=== PATIENT | male | born 1950 | race Caucasian/White ===

== ENCOUNTER → 2017-08-25 07:37 | Outpatient (CLI) | payer OTHER, SELFPAY ==
[2017-08-25 10:38] LABS: AST(SGOT) 26 U/L (15-37); Alanine Aminotransfer ALT/SGPT 29 U/L (16-61); Albumin, Serum 3.3 g/dL (3.2-5.0); Alkaline Phosphatase 99 U/L (45-117); Cholesterol 158 mg/dL (200); Globulin 4.2 g/dL (2.2-4.2); High Density Lipoprotein 53 mg/dL; Protein, Total 7.5 g/dL (6.4-8.2); Triglycerides 142 mg/dL; Very Low Density Lipoprotein 28 mg/dL (5-40)
== END ==
PROVIDERS: Internal Medicine Cardiovascular Disease; Family Provider Family Medicine; PCP Family Medicine; Visit Provider Internal Medicine Cardiovascular Disease
DX: E78.1 Pure hyperglyceridemia (principal)
CPT/HCPCS: 36415; 80061; 80076

== ENCOUNTER → 2018-05-03 09:18 | Outpatient (CLI) | payer OTHER, SELFPAY ==
[2018-04-25 08:17] VITALS: BMI 27.3
--- NOTE | 2018-05-03 09:20 | STE_ITS ---
Reason For Study: Family HX of CAD Stress Results Protocol: Sampson Protocol Maximum Predicted HR: 152 bpm Target HR: 129 bpm % Maximum Predicted HR: 109 % DurationHeart Rate Stage (mm:ss) (bpm) BP Comment Baseline 75 138/72No Chest Pain Sampson Protocol Stage I 3:00 105 128/82No Chest Pain Sampson Protocol Stage II 3:00 126 142/78No Chest Pain Sampson Protocol Stage III 3:00 157 150/72No Chest Pain; Mild Dyspnea Sampson Protocol Stage IV 0:30 166 / No Chest Pain; Mild Dyspnea Recovery 93 142/70No Chest Pain Stress Duration: 9:30 mm:ss Maximum Stress HR: 166 bpm METS: 11 Baseline Echocardiogram Findings The estimated ejection fraction is 65 %. Stress Echo Wall motion Data Resting WM Intermediate WM Stress WM Resting Wall Motion Wall Motion Stress No regional wall motion No regional wall motion abnormalities noted. abnormalities noted. EKG Data The baseline ECG displays normal sinus rhythm. The patient exercised according to the regular Sampson protocol for a total duration of 9:30. The maximum heart rate attained was 169 beats per minute. This was 111% of maximum predicted heart rate. The patient exercised into stage 4 of the Sampson protocol. During stress, there were no ST or T wave changes noted to suggest ischemia. No clinical angina was noted. Interpretation Summary The estimated ejection fraction is 65 %. Normal, adequate, treadmill echocardiogram. Negative for ischemia by EKG and echocardiographic criteria. No anginal symptoms noted. Rare PVC noted. Appropriate blood pressure response to exercise. Average exercise capacity for age. Final LVEF is 75%. No complications. Test terminated due to fatigue. Ordering Physician: Helio Bah Referring Physician: Nathan Arredondo D.O. Performed By: Hilda Gorman RDCS
--- OUTSIDE RECORDS SUMMARY | 2018-08-04 15:59 | XMS RPT_ITS ---
:1950 Author Organization OHIP Care Team Providers Name Role Phone Helio Bah Attending Unavailable Helio Bah Referring Unavailable Nathan Arredondo Primary Care Unavailable Helio Bah Attending Unavailable Helio Bah Referring Unavailable Nathan Arredondo Primary Care Unavailable Helio Bah Consulting Unavailable Julián Drake Attending Unavailable Julián Drake Referring Unavailable Nathan Arredondo Primary Care Unavailable Sabine Jean Attending Unavailable Helio Bah Attending Unavailable Nathan Arredondo Referring Unavailable ArnulfoNathan everett Primary Care Unavailable Nam Flores Attending Unavailable Nam Flores Referring Unavailable Sarabjit Monsivais Attending Unavailable Nathan Arredondo Referring Unavailable Nathan Arredondo Primary Care Unavailable Harinder Streeter Attending Unavailable Nathan Arredondo Referring Unavailable Helio Bah Attending Unavailable Nathan Arredondo Referring Unavailable PROBLEMS PROBLEMS DATE TYPE CONDITION / CODE ATTENDING STATUS SOURCE 05/04/2018 Unknown E78.5 - Olvin Helio Active [place] Hyperlipidemia, Community unspecified / Hospital E78.5(ICD-10) Repository 05/04/2018 Unknown I10 - Essential Olvin Helio Active [place] (primary) [facility] hypertension / Hospital I10(ICD-10) Repository PROCEDURES PROCEDURES No Procedure Records FoundRESULTS RESULTS OFFICE VISIT REPORT Observed: 05/18/2018 Status: F Source: [place] 8:11 AM [facility] REPOSITORY [facility] [address] [address] OFFICE VISIT Date of Service: 03/29/18 MR#: [id number] Acct: [id number] Patient: NIMESH ALVARADO Rep #: [id number] : 1950 Provider: Harinder FERREIRA Age/Sex: 67/M Location: [facility] Status: Signed Intake Intake Visit Reasons: FLU SHOT Chief Complaint: open wound Allergies No Known Allergies Allergy (Verified 04/25/18 08:20) Medications Adalimumab [Humira] 40 mg SQ Q14D 09/20/14 [History Confirmed 04/25/18] Lactase [Lactaid] 1 tab PO TID 09/20/14 [History Confirmed 04/25/18] Loperamide [Imodium] 2 mg PO TID 09/20/14 [History Confirmed 04/25/18] [place]-3 Fatty Acids/Fish Oil [Fish Oil 1,000 mg Capsule] 1 ea PO QODAY 09/20/14 [History Confirmed 04/25/18] Ascorbic Acid [Vitamin C] 500 mg PO DAILY@0800 07/15/16 [History Confirmed 04/25/18] Pantoprazole Sodium [Protonix] 40 mg PO DAILY 07/15/16 [History Confirmed 04/25/18] Lutein 6 mg PO DAILY 07/24/16 [History Confirmed 04/25/18] cyanocobalamin (vit B-12) 500 mcg tablet 1,000 mcg PO DAILY@0800 tab 04/25/18 [History Confirmed 04/25/18] simethicone 125 mg capsule 250 mg PO .COMPLEX cap 04/25/18 [History Confirmed 04/25/18] valsartan 320 mg tablet 320 mg PO .COMPLEX 04/25/18 [History Confirmed 04/25/18] Immunizations Fluad 65yr up(PF)45 mcg(15 mcgx3)/0.5 mL intramuscular syringe Performing Provider: HANNA Victor Administered by: Vale Rivers on 03/29/18 08:39 Dose Route Admin Location Lot Number Expiration Date NDC Quality Control Engineer 45 mcg IM Right Deltoid [id number] 09/13/18 01675-390-03 SEQIRUS VIS Given Date VIS Publication Date 03/29/18 03/29/18 Eligibility Eligibility Date Assessment AND Plan Orders Orders: Medications Discontinued: Fluad 65yr up(PF)45 mcg(15 mcgx3)/0.5 mL intr45 mcg (0.5 mL) IM ONCE #1 0RF NS Z23 amuscular syringe (flu vac 2017 [id number])) Discontinued Reason: Office Medication has been Doc umented as given 05/18/18 0811 <Electronically signed by Sarabjit FERREIRA> Date Sarabjit FERREIRA Cosigner Signature: Date (if applicable) CC: STRESS TEST ECHO W/O Observed: 05/04/2018 Status: F Source: [place] CONTRAST 1:54 PM [facility] REPOSITORY [facility] [address] [place] [address] Stress Test Echo w/o Contrast MR#: [id number] Acct: [id number] Name: BRENNAAMRITNIMESH Haley Rep #: [id number] : 1950 67 From: Helio Bah MD Primary Care: Nathan Arredondo DO Status: REG CLI Ordering Dr: Helio Bah MD Sex: M C Reason For Study: Family HX of CAD Stress Results Protocol: Sampson Protocol Maximum Predicted HR: 152 bpm Target HR: 129 bpm % Maximum Predicted HR: 109 % DurationHeart Rate Stage (mm:ss) (bpm) BP Comment Baseline 75 138/72No Chest Pain Sampson Protocol Stage I 3:00 105 128/82No Chest Pain Sampson Protocol Stage II 3:00 126 142/78No Chest Pain Sampson Protocol Stage III 3:00 157 150/72No Chest Pain; Mild Dyspnea Sampson Protocol Stage IV 0:30 166 / No Chest Pain; Mild Dyspnea Recovery 93 142/70No Chest Pain Stress Duration: 9:30 mm:ss Maximum Stress HR: 166 bpm METS: 11 Baseline Echocardiogram Findings The estimated ejection fraction is 65 %. Stress Echo Wall motion Data Resting WM Intermediate WM Stress WM Resting Wall Motion Wall Motion Stress No regional wall motion No regional wall motion abnormalities noted. abnormalities noted. EKG Data The baseline ECG displays normal sinus rhythm. The patient exercised according to the regular Sampson protocol for a total duration of 9:30. The maximum heart rate attained was 169 beats per minute. This was 111% of maximum predicted heart rate. The patient exercised into stage 4 of the Sampson protocol. During stress, there were no ST or T wave changes noted to suggest ischemia. No clinical angina was noted. Interpretation Summary The estimated ejection fraction is 65 %. Normal, adequate, treadmill echocardiogram. Negative for ischemia by EKG and echocardiographic criteria. No anginal symptoms noted. Rare PVC noted. Appropriate blood pressure response to exercise. Average exercise capacity for age. Final LVEF is 75%. No complications. Test terminated due to fatigue. Ordering Physician: Helio Bah Referring Physician: Nathan Arredondo D.O. Performed By: Hilda Gomran, MARIO 05/04/18 1354 Date Helio Bah MD CC: Helio Bah MD; Nathan Arredondo DO Date Dictated: 05/03/18 1002 Date Transcribed: 05/04/18 1354 Rn Spine: Signed CARDIOLOGY VISIT Observed: 04/25/2018 Status: F Source: [place] REPORT 8:33 AM [facility] REPOSITORY [facility] [address] [place] [address] OFFICE VISIT Date of Service: 04/25/18 MR#: [id number] Acct: [id number] Name: NIMESH ALVARADO Rep #: [id number] : 1950 Provider: Helio Bah MD Age/Sex: 67/M Location: [facility] Status: Signed HPI HPI Chief Complaint: Routine f/u Details: Referring physician Dr. Arias Mr. 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 He is currently on Humira therapy. He has no known cardiac issues but does have a positive family history of coronary disease in both his mother and father in their middle 60s. The patient himself smoked approximately 25 pack years and quit when he was 39 years old. The patient previously developed shortness of breath and what sounds like chest pain with deep inspiration necessitating frequent short inspiratory efforts. Patient was placed on valsartan/HCTZ, and then developed frequent PVCs and palpitations as well as dehydration. It was then discovered that the patient had a rib out of joint which was relocated, and his shortness of breath completely resolved. Nonetheless given his PVCs he was taken off the hydrochlorothiazide, and placed on valsartan only. He underwent a 24-hour Holter monitor on 10/04/14 which demonstrated rare bigeminy and trigeminy, as well as a 4 beat run of wide complex tachycardia. patient underwent stress testing and echocardiogram evaluation, both of which were normal. This occurred in 10/23/14. From a cardiac standpoint he denies any chest pain, angina, shortness of breath or dyspnea on exertion. He has had no change in his exercise capacity. His palpitations have completely resolved after stopping HCTZ. He denies any lightheadedness, dizziness, presyncope or syncopal episodes. Since her last visit and he was admitted with a kidney stone which self resolved, and underwent esophageal dilatation without complications. On 10/23/14 the patient underwent a 2D echo with Doppler which was found to have normal LV function normal RVSP. On 10/24/14 he underwent a stress echocardiogram which was negative for inducible ischemia. Since her last visit, the patient has been doing fairly well. 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 He has had no significant perceptible change in his exercise capacity, but is concerned about his family history of coronary artery disease. He is compliant with his medications per In our office today his blood pressure is 130/60 and pulse is 64 and regular. His physical exam is as below. His EKG dated 09/20/14 showed normal sinus rhythm, normal axis, normal intervals, no evidence of previous myocardial infarction. Lipids as of 09/20/14 showed HDL of 54 and LDL of 48. Repeat lipids dated 07/06/16 showed LDL of 71 and HDL of 58. His lipids as of 08/25/17 showed LDL of 77 and HDL of 53. 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 Is patient in pain?: No Allergies No Known Allergies Allergy (Verified 04/25/18 08:20) Medications Adalimumab [Humira] 40 mg SQ Q14D 09/20/14 [History Confirmed 04/25/18] Lactase [Lactaid] 1 tab PO TID 09/20/14 [History Confirmed 04/25/18] Loperamide [Imodium] 2 mg PO TID 09/20/14 [History Confirmed 04/25/18] [place]-3 Fatty Acids/Fish Oil [Fish Oil 1,000 mg Capsule] 1 ea PO QODAY 09/20/14 [History Confirmed 04/25/18] Ascorbic Acid [Vitamin C] 500 mg PO DAILY@0800 07/15/16 [History Confirmed 04/25/18] Pantoprazole Sodium [Protonix] 40 mg PO DAILY 07/15/16 [History Confirmed 04/25/18] Lutein 6 mg PO DAILY 07/24/16 [History Confirmed 04/25/18] cyanocobalamin (vit B-12) 500 mcg tablet 1,000 mcg PO DAILY@0800 tab 04/25/18 [History Confirmed 04/25/18] simethicone 125 mg capsule 250 mg PO .COMPLEX cap 04/25/18 [History Confirmed 04/25/18] valsartan 320 mg tablet 320 mg PO .COMPLEX 04/25/18 [History Confirmed 04/25/18] [facility] Medical History History of esophageal dilatation (Resolved) Palpitations (Resolved) Premature ventricular contractions (Chronic) Crohn's disease (Chronic) Hypophosphatemia (Chronic) Hypocalcemia (Chronic) Hyperlipidemia (Chronic) Hypertension (Chronic) Surgical History History of right inguinal hernia repair (Resolved) History of lithotripsy (Chronic) History of resection of small bowel (Chronic) Family History Mother CAD (coronary artery disease) Hypertension Bowel disease Father CAD (coronary artery disease) Hypertension Social History Smoking Status: Former smoker pack-years: 25 ROS Const Const: Negative for fatigue, weakness, body ache, fever(s), headache(s), chills, frequent falls, night sweats, daytime sleepiness, difficulty sleeping, excessive sweating, weight gain, weight loss, increased appetite, poor appetite, anorexia or other Eyes Eyes: Negative for blind spots, loss of peripheral vision, transient loss of vision, blurry vision, change in vision, double vision, floaters, tunnel vision or other ENT ENT: Negative for headache(s), dizziness, hearing loss, tinnitus, Nosebleed/epistaxis, balance problems, post nasal drip, lip swelling, tongue swelling, bleeding gums, hoarseness, neck pain, dry mouth or other Cardio Chest Pain: No Palpitations: No Edema: None Muscle aches with walking: None Resp Respiratory: Negative for SOB with activity, SOB at rest, SOB orthopnea\SOB lying down, Cough, Coughing up blood/hemoptysis, chest congestion, pain on inspiration, snoring, stridor, wheezing, crackles, paroxysmal nocturnal dyspnea or other GI GI: Negative nausea, vomiting, heartburn, constipation, belching, bloating, cramping, vomiting blood/hematemesis, bright, red blood in stools, black,tarry stools, loose stools, Difficulty Swallowing or other : Negative for hematuria, frequent nighttime urination/ nocturia, erectile dysfunction or abnormal vaginal bleeding Musc Musc: Negative for balance problems, muscle aches/ myalgia, muscle weakness or joint pain Skin Skin: Negative redness, non-healing lesions, rash, unusual bruising, skin ulcer, wounds, jaundice or other Neuro Neuro: Negative for weakness, headache(s), frequent falls, blurry vision, double vision, dizziness, lightheadedness, near syncope, syncope, orthostatic symptoms, confusion, memory loss, restless legs, vertigo, seizures, lack of coordination or other Hay Hematologic/Lymphatic: Negative for easy bleeding, easy bruising, enlarged lymph nodes or other Endo Endo: Negative for fatigue, excessive sweating, cold intolerance, heat intolerance, flushing, increased thirst/drinking, increased hunger, hair loss, hair growth or other Psych Psych: Negative for anxiety, depression, thoughts of harming anyone, thoughts of harming yourself, visual hallucinations, panic attacks or audible hallucinations Allergy Allergy/Immunology: Negative for lip swelling, Negative for tongue swelling, Negative for rash, Negative for throat swelling, Negative for hives Cardiology Exam Const Appearance: cooperative, healthy appearing and no acute distress Nutritional Appearance: well nourished Orientation: alert, oriented x3 and oriented to person Head Head: normal to inspection, atraumatic and normocephalic Nose: external nose normal Face and Sinus: face symmetric Mouth: oral mucosae normal Eyes General: appearance normal, both eyes and all related structures Eyelids: eyelids normal Conjunctivae: conjunctivae normal Pupils: PERRL and normal by confrontation EOM: EOM intact bilaterally Neck Neck: normal visual inspection and full ROM Carotids: normal carotid upstroke Chest Chest inspection: normal inspection of the chest Auscultation: Bilateral: Clear to Auscultation Cardio Palpation: normal PMI Rate: regular rate Rhythm: regular rhythm Heart sounds: S1 normal and S2 normal GI GI: normal to inspection, no hepatosplenomegaly and bowel sounds present Neuro General: alert, oriented x3, awake, CN's II-XI intact bilaterally and moves all extremities Skin Skin: no rashes or lesions noted Extremities Pulses: Normal: Right Femoral Pulse, Left Femoral Pulse, Right Dorsalis Pedis Pulse, Left Dorsalis Pedis Pulse, Right Posterior Tibial Pulse, Left Posterior Tibial Pulse, Right Radial Pulse, Left Radial Pulse Lower Extremity Edema: None: Bilateral Psych Psychological: normal affect Assessment AND Plan 1. Hyperlipidemia E78.5 Plan 1. Hyperlipidemia: Given the patient's family history of coronary artery disease, particularly in both of his parents in their 60s, as well as the fact the patient was a smoker, I recommend that he undergo a treadmill echocardiogram for coronary surveillance and exercise capacity evaluation. His blood pressure and heart rate are fairly well-controlled. He is taking and tolerating his medicines well. He will continue valsartan as well as omega-3 fatty acid. His stress test is grossly abnormal, or if he has had a precipitous decrease in his exercise capacity, would recommend a diagnostic coronary angiogram. 2. Return office in 6 months. This note was generated using a voice recognition system and there may be incorrect words, spelling or punctuation that were not noted when reviewing the office note prior to saving. Orders Orders: Plan Detail Other Orders Orders: Follow Up +6M (Olvin) Coding Level of Care Code Off vis,est,level 3 Diagnoses Hyperlipidemia E78.5 Coding Level of Care Code Off vis,est,level 3 Diagnoses Hyperlipidemia E78.5 04/25/18 0833 <Electronically signed by Helio Bah MD> Date Helio Bah MD Cosigner Signature: Date (if applicable) CC: Nathan Arredondo DO URGENT CARE VISIT Observed: 01/20/2018 Status: F Source: [place] REPORT 10:08 AM [facility] REPOSIT[facility] [address] [place] [address] [address] [place] [address] OFFICE VISIT Date of Service: 01/20/18 MR#: [id number] Acct: [id number] Name: NIMESH ALVARADO Rep #: [id number] : 1950 Provider: Sarabjit FERREIRA Age/Sex: 67/M Location: [facility] Status: Signed Intake Vital Signs01/20/18 Height 5 ft 10 in 01/20/18 Weight: 191 lb 2 oz Intake Visit Reasons: Sore on Neck 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 Accompanied by: None Allergies No Known Allergies Allergy (Verified 09/24/17 10:03) Medications Adalimumab [Humira] 40 mg SQ Q14D 09/20/14 [History Confirmed 09/24/17] Cyanocobalamin [Vitamin B12] 500 mcg PO DAILY@0800 09/20/14 [History Confirmed 09/24/17] Lactase [Lactaid] 1 tab PO TID 09/20/14 [History Confirmed 09/24/17] Loperamide [Imodium] 2 mg PO TID 09/20/14 [History Confirmed 09/24/17] [place]-3 Fatty Acids/Fish Oil [Fish Oil 1,000 mg Capsule] 1 ea PO QODAY 09/20/14 [History Confirmed 09/24/17] Valsartan [Diovan] 320 mg PO DAILY 07/01/16 [History Confirmed 09/24/17] Ascorbic Acid [Vitamin C] 500 mg PO DAILY@0800 07/15/16 [History Confirmed 09/24/17] Pantoprazole Sodium [Protonix] 40 mg PO DAILY 07/15/16 [History Confirmed 09/24/17] Lutein 6 mg PO DAILY 07/24/16 [History Confirmed 09/24/17] PFSH Medical History History of esophageal dilatation (Resolved) Palpitations (Resolved) Premature ventricular contractions (Chronic) Crohn's disease (Chronic) Hypophosphatemia (Chronic) Hypocalcemia (Chronic) Hyperlipidemia (Chronic) Hypertension (Chronic) Surgical History History of right inguinal hernia repair (Resolved) History of lithotripsy (Chronic) History of resection of small bowel (Chronic) Family History Mother CAD (coronary artery disease) Hypertension Bowel disease Father CAD (coronary artery disease) Hypertension Social History Smoking Status: Former smoker pack-years: 25 HPI HPI Chief Complaint: open wound Details: NIMESH ALVARADO, is a 67 M who presents to the office today for evaluation open wound to right side of neck. 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 Patient states that this open site has been there for approximately 6 months, noting that the site intermittently bleeds and has a burning/stinging sensation that is only relieved when being covered up by topical Neosporin ointment. Patient notes as soon as the ointment wears off the stinging burning sensation returns. He states several months ago and it scabbed over but then scattered fallen off and the pain returned. He notes no discharge from the same. 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 Granger ortho assistant. He notes no complaints of fever, chills, sweats, chest pain/shortness of breath, cough, recent remarkable weight gain or loss, nausea, vomiting, or changes in bowel or bladder function. He notes no other associated symptoms and no other alleviating or aggravating factors. ROS Const Constitutional: No other (ROS negative 10 other than that noted above) Exam Const General: cooperative, healthy appearing, no acute distress, comfortable Nutritional Appearance: average body habitus Orientation: alert, awake, oriented x3 HENMT Head: normal to inspection Ears: hearing grossly normal bilaterally, external ears normal Nose: external nose normal Neck Neck: normal visual inspection, full ROM, no lymphadenopathy, no meningeal signs, supple Neck mass: No Thyroid: thyroid normal Lymphatic: no lymphadenopathy noted Chest Chest palpation AND inspection: normal inspection of the chest Resp Effort AND Inspection: normal respiratory effort, able to speak in complete sentences, symmetric chest movement, no cough Auscultation: Bilateral: Clear to Auscultation Cardio Palpation: normal PMI Rate: regular rate Rhythm: regular rhythm Heart Sounds: S1 normal, S2 normal, no gallops, no murmurs, no rubs Pulses: radial pulses present Skin Lesions: lesion noted ( 5mm diameter open flat lesion to right side of neck) Rashes: no rashes Neuro General: alert, awake, oriented x3, gait normal Cognition: normal cognition Speech: speech normal Gait: normal gait Motor: muscle tone normal throughout Sensory Exam: no sensory deficits noted Psych Appearance: grossly normal Mental Status: mental status grossly normal Mood: congruent mood Affect: normal affect Speech and Movement: speech and movement normal Attitude: cooperative Thought Process: normal Thought Content: normal Judgment: judgment good Assessment AND Plan Problems 1. Skin lesion of neck L98.9 Plan Due to the approximately 6 month history of the lesion being present on the right side of the neck coupled with his history of skin cancer as he notes, recommend dermatology referral at this time. Patient states he will report to Dr. Granger's office here in [place] at this time to set an appointment for evaluation for first available. This note was generated with Simphatication software. It may contain incorrect words, spelling, and punctuation that were not noted in checking the note before signing. Coding Level of Care Code Off vis,est,level 3 Diagnoses Skin lesion of neck L98.9 01/20/18 1008 <Electronically signed by Sarabjit FERREIRA> Date Sarabjit FERREIRA [facility] Signature: Date (if applicable) CC: CARDIOLOGY VISIT Observed: 09/24/2017 Status: F Source: [place] REPORT 10:40 AM [facility] REPOSITORY [facility] [address] [place] [address]. [address] [place] [address] OFFICE VISIT Date of Service: 09/24/17 MR#: [id number] Acct: [id number] Name: NIMESH ALVARADO Rep #: [id number] : 1950 Provider: Helio Bah MD Age/Sex: 66/M Location: [facility] [place] Status: Signed HPI HPI Chief Complaint: Routine f/u Details: Referring physician Dr. Arias Mr. 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 He is currently on Humira therapy. He has no known cardiac issues but does have a positive family history of coronary disease in both his mother and father in their middle 60s. The patient himself smoked approximately 25 pack years and quit when he was 39 years old. The patient previously developed shortness of breath and what sounds like chest pain with deep inspiration necessitating frequent short inspiratory efforts. Patient was placed on valsartan/HCTZ, and then developed frequent PVCs and palpitations as well as dehydration. It was then discovered that the patient had a rib out of joint which was relocated, and his shortness of breath completely resolved. Nonetheless given his PVCs he was taken off the hydrochlorothiazide, and placed on valsartan only. He underwent a 24-hour Holter monitor on 10/04/14 which demonstrated rare bigeminy and trigeminy, as well as a 4 beat run of wide complex tachycardia. patient underwent stress testing and echocardiogram evaluation, both of which were normal. This occurred in 10/23/14. From a cardiac standpoint he denies any chest pain, angina, shortness of breath or dyspnea on exertion. He has had no change in his exercise capacity. His palpitations have completely resolved after stopping HCTZ. He denies any lightheadedness, dizziness, presyncope or syncopal episodes. Since her last visit and he was admitted with a kidney stone which self resolved, and underwent esophageal dilatation without complications. Her last visit, he has been doing extraordinarily well, exercising by cutting the grass in his yard, and denies any chest pain, angina, shortness of breath, change in his exercise capacity, lower extremity edema, presyncope or syncope. He is taking and tolerating his medicines well. No further palpitations. In our office today his blood pressure is 122/62 and pulse is 66 and regular. His physical exam is as below. His EKG dated 09/20/14 showed normal sinus rhythm, normal axis, normal intervals, no evidence of previous myocardial infarction. Lipids as of 09/20/14 showed HDL of 54 and LDL of 48. Repeat lipids dated 07/06/16 showed LDL of 71 and HDL of 58. His lipids as of 08/25/17 showed LDL of 77 and HDL of 53. Intake Vital Signs09/24/17 Height 5 ft 10 in 09/24/17 Weight: 186 lb 09/24/17 Body Mass Index (BMI) 26.6 09/24/17 Blood Pressure 122/62 09/24/17 Respiratory Rate 16 09/24/17 Pulse Rate 66 Intake Visit Reasons: 6 M FU Allergies No Known Allergies Allergy (Verified 09/24/17 10:03) Medications Adalimumab [Humira] 40 mg SQ Q14D 09/20/14 [History Confirmed 09/24/17] Cyanocobalamin [Vitamin B12] 500 mcg PO DAILY@0800 09/20/14 [History Confirmed 09/24/17] Lactase [Lactaid] 1 tab PO TID 09/20/14 [History Confirmed 09/24/17] Loperamide [Imodium] 2 mg PO TID 09/20/14 [History Confirmed 09/24/17] [place]-3 Fatty Acids/Fish Oil [Fish Oil 1,000 mg Capsule] 1 ea PO QODAY 09/20/14 [History Confirmed 09/24/17] Valsartan [Diovan] 320 mg PO DAILY 07/01/16 [History Confirmed 09/24/17] Ascorbic Acid [Vitamin C] 500 mg PO DAILY@0800 07/15/16 [History Confirmed 09/24/17] Pantoprazole Sodium [Protonix] 40 mg PO DAILY 07/15/16 [History Confirmed 09/24/17] Lutein 6 mg PO DAILY 07/24/16 [History Confirmed 09/24/17] PFSH Medical History History of esophageal dilatation (Resolved) Palpitations (Resolved) Premature ventricular contractions (Chronic) Crohn's disease (Chronic) Hypophosphatemia (Chronic) Hypocalcemia (Chronic) Hyperlipidemia (Chronic) Hypertension (Chronic) Surgical History History of right inguinal hernia repair (Resolved) History of lithotripsy (Chronic) History of resection of small bowel (Chronic) Family History Mother CAD (coronary artery disease) Hypertension Bowel disease Father CAD (coronary artery disease) Hypertension Social History Smoking Status: Former smoker pack-years: 25 ROS Const Const: Negative for fatigue, weakness, difficulty sleeping, frequent falls, headache(s) or excessive sweating Eyes Eyes: Negative for loss of peripheral vision, transient loss of vision, blurry vision or double vision ENT ENT: Negative for headache(s), dizziness, Nosebleed/epistaxis or balance problems Cardio Chest Pain: No Edema: None Muscle aches with walking: None Resp Respiratory: Negative for SOB with activity, SOB at rest, SOB orthopnea\SOB lying down or paroxysmal nocturnal dyspnea GI GI: Negative nausea or heartburn : Negative for hematuria Musc Musc: Negative for muscle aches/ myalgia, muscle weakness, joint pain or balance problems Skin Skin: Negative non-healing lesions, unusual bruising or rash Neuro Neuro: Negative for weakness, frequent falls, blurry vision, headache(s), dizziness, lightheadedness, orthostatic symptoms or double vision Hay Hematologic/Lymphatic: Negative for easy bruising Endo Endo: Negative for fatigue, excessive sweating or increased thirst/drinking Psych Psych: Negative for anxiety or depression Allergy Allergy/Immunology: Negative for hives, Negative for rash Cardiology Exam Const Appearance: cooperative, healthy appearing and no acute distress Nutritional Appearance: well nourished Orientation: alert, oriented x3 and oriented to person Head Head: normal to inspection, atraumatic and normocephalic Nose: external nose normal Face and Sinus: face symmetric Mouth: oral mucosae normal Eyes General: appearance normal, both eyes and all related structures Eyelids: eyelids normal Conjunctivae: conjunctivae normal Pupils: PERRL and normal by confrontation EOM: EOM intact bilaterally Neck Neck: normal visual inspection and full ROM Carotids: normal carotid upstroke Chest Chest inspection: normal inspection of the chest Auscultation: Bilateral: Clear to Auscultation Cardio Palpation: normal PMI Rate: regular rate Rhythm: regular rhythm Heart sounds: S1 normal and S2 normal GI GI: normal to inspection, no hepatosplenomegaly and bowel sounds present Neuro General: alert, oriented x3, awake, CN's II-XI intact bilaterally and moves all extremities Skin Skin: no rashes or lesions noted Extremities Pulses: Normal: Right Femoral Pulse, Left Femoral Pulse, Right Dorsalis Pedis Pulse, Left Dorsalis Pedis Pulse, Right Posterior Tibial Pulse, Left Posterior Tibial Pulse, Right Radial Pulse, Left Radial Pulse Lower Extremity Edema: None: Bilateral Psych Psychological: normal affect Assessment AND Plan 1. Hypertension I10 Plan 1. Hypertension: Patient's blood pressure is fairly well- controlled. No indication for any additional testing or changes to his medications. Recommended that he continue to exercise outside but to avoid the very parts of the day. Continue valsartan. 2. Hyper cholesterolemia: His LDL and HDL cholesterol are at goal. Continue omega-3 fatty acids and exercise. 3. Return office in 6 months. This note was generated using a voice recognition system and there may be incorrect words, spelling or punctuation that were not noted when reviewing the office note prior to saving. Plan Detail Follow Up +6M (Olvin) Coding Level of Care Code Off vis,est,level 3 Diagnoses Hypertension I10 Coding Level of Care Code Off vis,est,level 3 Diagnoses Hypertension I10 09/24/17 1040 <Electronically signed by Helio Bah MD> Date Helio Bah MD [facility] Signature: Date (if applicable) CC: Nathan Arredondo DO LIVER PROFILE Collected: 08/25/2017 Status: F Source: [place]ASE 7:46 AM [facility] REPOSITORY Order Comment: Order Date: 07/21/16 Order Info: [id number] - *Hepatic Function Panel Order Info: [id number] - *Lipid Profile CC PCP Comments: 12 hours fasting, may have water. TYPE CODE TESTS RESULT OUT OF RANGE REFERENCE UNITS LAB L501.1500 6.4-8.2 g/dL Normal T PROT 7.5 LAB L501.1800 3.2-5.0 g/dL Normal ALB 3.3 LAB L501.1950 2.2-4.2 g/dL Normal GLOB 4.2 LAB L501.4100 15-37 U/L Normal AST 26 LAB L501.4305 45-117 U/L Normal ALK P 99 LAB L501.4405 16-61 U/L Normal ALT 29 Result Comment: Please note revised ALT reference range effective 2017. LAB L501.4600 0.20-1.00 mg/dL Normal T BILI 1.00 LAB L501.4700 0.00-0.30 mg/dL Normal D BILI 0.20 Performed By: #### L500.3400 #### [facility] [address] [place], [address] LIPID PROFILE Collected: 08/25/2017 Status: F Source: CHASE 7:46 AM [facility] REPOSITORY Order Comment: Order Date: 07/21/16 Order Info: [id number] - *Hepatic Function Panel Order Info: [id number] - *Lipid Profile CC PCP Comments: 12 hours fasting, may have water. TYPE CODE TESTS RESULT OUT OF RANGE REFERENCE UNITS LAB L501.4900 200 mg/dL Normal CHOL 158 Result Comment: <200 mg/dL Desirable 200-240 mg/dL Borderline >240 mg/dL High Risk LAB L501.5000 mg/dL Normal TRIG 142 Result Comment: The drugs N-Acetylcysteine and Metamizole may falsely depress this assay. Serum Triglycerides Reference Interval Normal <150 mg/dL Borderline high 150 - 199 mg/dL High 200 - 499 mg/dL Very High > or = 500 mg/dL LAB L501.6400 mg/dL Normal HDL 53 Result Comment: The drugs N-Acetylcysteine and Metamizole may falsely depress this assay. Reference Range HDL <40 mg/dL Low HDL Cholesterol HDL >or= 60 mg/dL High HDL Cholesterol LAB L501.6500 0-130 mg/dL Normal LDL 77 LAB L501.6600 5-40 mg/dL Normal VLDL 28 Performed By: #### L500.4100 #### [facility] [address] [place], [address] ALLERGIES ALLERGIES DATE TYPE / CODE NAME / CODE REACTION SEVERITY SOURCE 04/25/2018 Drug No Known Unknown [facility] Allergy/4160 Allergies/F00 [facility] 36528(SNOMED 7433601(RXNOR Repository CT) M) ENCOUNTERS ENCOUNTERS ADMIT/DISCHARGE ACCOUNT ADMITTING ENCOUNTER LOCATION SOURCE NUMBER CLASS 05/04/2018/ [id number] Ambulatory BMSBuilding:[place] 8 7 [facility] Repository 05/03/2018 [id number] Ambulatory BMSBuilding:B [place] 2 [place].[facility] Repository 05/03/2018 [id number] [place]ulatory [place] 2 [facility] ing:[facility] Repository 04/25/2018/ [id number] Ambulatory BMSBuilding:B [place] 8 2 MS.[facility] Repository 03/29/2018/ [id number] Ambulatory BMSBuilding:B [place] 8 2 MS.[facility] Repository 01/20/2018/ [id number] Ambulatory BMSBuilding:B [place] 8 2 MS.[facility] Repository 09/24/2017/ [id number] Ambulatory BMSBuilding:B [place] 8 2 [facility] Repository 09/20/2017 [id number] Ambulatory BMSBuilding:B [place] 1 [facility] Repository 08/25/2017 [id number] Ambulatory [place] 3 [facility] ing:[facility] Repository PAYERS PAYERS ENCOUNTER GUARANTOR PAYER SUBSCRIBER SOURCE 05/04/2018 SAUL L Primary SAUL L [place] [id number] Insurance:MEDICARE HELBERTDOB: [address] PART [facility] [id number], [place] [address]Rbb: Number: Repository [id number] (HP) Date:2018-04-19 05/04/2018 Secondary NOT GIVENUNK [place] Insurance:SELF PAY [facility] Number: Effective Repository Date:2018-05-04 05/03/2018 NIMESH [place] Primary Insurance:[facility] KAITLIN [id number] [facility] [id number] Hospital [address]Dle: [phone]) Number: Repository [phone] () [id number] Date:3643-97-63LS [address] [address], [place] [address]JY: CHECK WEBSITE 05/03/2018 Secondary NOT GIVENUNK [place] Insurance:SELF PAY [facility] Number: Effective Repository Date:2018-05-03 05/03/2018 NIMESH L Primary Insurance:[facility] KAITLIN Stone [id number] [facility] [id number] Hospital [address]Pnw: [phone] Number: Repository [phone] () [id number] Date:5060-08-02PA [address] [address]QX[place], [place] [address]WT: CHECK WEBSITE 05/03/2018 Secondary NOT GIVENUNK [place] Insurance:SELF PAY [facility] Number: Effective Repository Date:2018-04-25 04/25/2018 [facility] Primary Insurance:[facility] KAITLIN Stone [id number] [facility] [id number] Hospital [address]Wth: [phone]) Number: Repository [phone] () [id number] Date:7111-98-16[address] [address], [place] [address]EB: CHECK WEBSITE 04/25/2018 Secondary NOT GIVENUNK [place] Insurance:SELF PAY [facility] Number: Effective Repository Date:2018-04-20 03/29/2018 [facility] Primary Insurance:[facility] KAITLIN Stone [id number] [facility] [id number] Hospital [address]Cti: [phone]) Number: Repository [phone] () [id number] Date:2062-76-60[address] [address]IZ[place]Y, [place] [address]LI: CHECK WEBSITE 03/29/2018 Secondary NOT GIVENUNK [place] Insurance:SELF PAY [facility] Number: Effective Repository Date:2018-03-29 01/20/2018 [facility] Primary Insurance:[facility] KAITLIN Stone [id number] [facility] [id number] Hospital [address]Mvd: (330) Number: Repository [phone] () [id number] Date:1473-87-47CX [address] [address]MGOUOFHJQ, [place] [address]QQ: CHECK WEBSITE 01/20/2018 Secondary NOT GIVENUNK [place] Insurance:SELF PAY [facility] Number: Effective Repository Date:2018-01-20 09/24/2017 [facility] Primary Insurance:[facility] KAITLIN Beard [place] [id number] [facility]: [facility] [id number] Hospital [address]Wrw: Number: Repository [phone] [id number] (HP) Date:9574-81-66WH [address] [address]QP[place]WRSHR, [place] [address]FL: CHECK WEBSITE 09/24/2017 Secondary NOT GIVENUNK [place] Insurance:SELF PAY [facility] Number: Effective Repository Date:2017-04-26 09/20/2017 [facility] Primary Insurance:[facility] Kaitlin Beard [place] [id number] [facility]: [facility] [id number] Hospital [address]Jey: Number: Repository [phone] [id number] (HP) Date:0309-95-12WE [address] [address]FAQFBFJO, [place] [address]MI: CHECK WEBSITE 09/20/2017 Secondary NOT GIVENUNK [place] Insurance:SELF PAY [facility] Number: Effective Repository Date:2017-09-20 08/25/2017 [facility] Primary Insurance:[facility] Kaitlin Clintonoster [id number] [facility]: [facility] [id number] Hospital [address]Xvh: Number: Repository [phone] [id number] (HP) Date:1689-83-51FL [address] [address]MDJV[place]GP, [place] [address]RG: CHECK WEBSITE 08/25/2017 Secondary NOT GIVENUNK [place] Insurance:SELF PAY [facility] Number: Effective Repository Date:2017-08-25
== END ==
PROVIDERS: Family Provider Family Medicine; PCP Family Medicine; Referring Provider Internal Medicine Cardiovascular Disease; Visit Provider Internal Medicine Cardiovascular Disease
DX: I10 Essential (primary) hypertension (principal); E78.5 Hyperlipidemia, unspecified
CPT/HCPCS: 93017; 93350

== ENCOUNTER → 2018-08-30 | Outpatient (CLI) | payer OTHER, SELFPAY ==
[2018-08-30 15:00] VITALS: BMI 27.3
--- NOTE | 2018-08-30 15:39 | RAD_ITS ---
STUDY: X-RAY CHEST REASON FOR EXAM: Male, 67 years old. Cough. Difficulty speaking. TECHNIQUE: PA and lateral views of the chest. COMPARISON: September 20, 2014. FINDINGS: The lungs are clear and expanded. There is no demonstrated pleural abnormality. Normal size heart. Normal mediastinum and yu. Normal visualized pulmonary arteries. Normal visualized aortic arch and descending thoracic aorta. No visualized osseous changes. There is no demonstrated abnormality of the visualized soft tissue structures of the upper abdomen. RAD/Chest PA and Lateral IMPRESSION: No acute cardiopulmonary disease or major interval change. Electronically Signed: Brandon Pedroza DO at 16:06 EDT Tel [phone], Service support ,
== END | disposition home or self-care (01) ==
LOC: HPRAD 15:38
PROVIDERS: Family Provider Family Medicine; PCP Family Medicine; Referring Provider Physician Assistant Surgical; Visit Provider Physician Assistant Surgical
DX: J20.9 Acute bronchitis, unspecified (principal)
CPT/HCPCS: 71046

== ENCOUNTER → 2018-11-15 | Outpatient (CLI) | payer OTHER, SELFPAY ==
[2018-11-10 09:38] VITALS: BMI 26.8
[2018-11-15 10:45] LABS: AST(SGOT) 19 U/L (15-37); Alanine Aminotransfer ALT/SGPT 22 U/L (16-61); Albumin, Serum 3.2 g/dL (3.2-5.0); Alkaline Phosphatase 74 U/L (45-117); Bilirubin, Direct 0.23 mg/dL (0.00-0.30); Cholesterol 155 mg/dL (200); Globulin 4.1 g/dL (2.2-4.2); High Density Lipoprotein 49 mg/dL; Protein, Total 7.3 g/dL (6.4-8.2); Triglycerides 164 mg/dL; Very Low Density Lipoprotein 33 mg/dL (5-40)
== END | disposition home or self-care (01) ==
LOC: MTLAB 07:41
PROVIDERS: Family Provider Family Medicine; PCP Family Medicine; Referring Provider Internal Medicine Cardiovascular Disease; Visit Provider Internal Medicine Cardiovascular Disease
DX: E78.5 Hyperlipidemia, unspecified (principal)
CPT/HCPCS: 36415; 80061; 80076

== ENCOUNTER → 2019-01-09 | Outpatient (CLI) | payer OTHER, SELFPAY ==
[2018-11-10 09:38] VITALS: BMI 26.8
[2019-01-09 17:48] LABS: Anion Gap 8 (5-15); BUN 16 mg/dL (7-18); BUN/Creat Ratio 10.3 RATIO (10-20); Calcium,Total 8.7 mg/dL (8.5-10.1); Chloride 109 mmol/L (98-107); Creatinine, Serum 1.55 mg/dL (0.70-1.30); EST Glomerular Filtration Rate 48 mL/min (>60); Est Glom Filt Rate - Afr Amer 58 mL/min (>60); Glucose 108 mg/dL (74-106); PSA,Total - Annual Screen 2.95 ng/mL (0.00-4.00); Potassium 4.1 mmol/L (3.5-5.1); Sodium Level 141 mmol/L (136-145)
== END | disposition home or self-care (01) ==
LOC: BFHLAB 14:25
PROVIDERS: Family Provider Family Medicine; PCP Family Medicine; Visit Provider Family Medicine
DX: Z12.5 Encounter for screening for malignant neoplasm of prostate (principal)
CPT/HCPCS: 36415; 80048; 84153; G0103

== ENCOUNTER → 2019-05-29 08:31 | Outpatient (CLI) | payer OTHER, SELFPAY ==
[2018-11-10 09:38] VITALS: BMI 26.8
[2019-05-11 09:08] VITALS: BMI 26.9
== END ==
PROVIDERS: Family Provider Family Medicine; PCP Family Medicine; Referring Provider Internal Medicine Gastroenterology; Visit Provider Internal Medicine Gastroenterology
DX: K50.90 Crohn's disease, unspecified, without complications (principal)
CPT/HCPCS: 36415

== ENCOUNTER → 2019-05-31 08:41 | Outpatient (CLI) | payer OTHER, SELFPAY ==
[2019-05-11 09:08] VITALS: BMI 26.9
--- NOTE | 2019-05-31 08:42 | ECHOD_ITS ---
Reason For Study: Arrhythmia Procedure This was a 2D Doppler, Color Flow transthoracic echocardiogram. Exam performed in department. Left Ventricle Mildly dilated left ventricle. The estimated ejection fraction is 65 %. Stage 1 diastolic dysfunction. No regional wall motion abnormalities noted. Right Ventricle Normal size and thickness. Normal systolic function. Atria Normal left atrium. Normal right atrium. Normal atrial septum. Mitral Valve Mild diffuse mitral valve thickening. Posterior leaflet mitral valve prolapse. Mild-Moderate (1-2+) anteriorly directed mitral valve insufficiency. Tricuspid Valve Normal tricuspid valve. Trivial tricuspid valve insufficiency. Right ventricular systolic pressure estimated to be 30 mmHg. Aortic Valve Trisinus/trileaflet aortic valve. Pulmonic Valve Normal pulmonic valve. Mild (1+) pulmonic valve insufficiency. Great Vessels Normal aortic root. Normal arch. Normal inferior vena cava. Inferior vena cava collapse with sniff. Pericardium/Pleural No pericardial effusion. MMode/2D Measurements & Calculations LVIDd: 5.0 cm IVSd: 1.1 cm Ao root diam: 3.2 cm LVIDs: 2.9 cm LVPWd: 0.92 cm LA dimension: 3.7 cm RVDd: 3.6 cm FS: 41.4 % LAV(MOD-bp): 55.9 ml LA A4 area: 20.5 cm2 RA A4 area: 13.9 cm2 LAV(MOD-bp) Indexed: 27.4 ml/m2 LAV(MOD-sp2): 49.6 ml LAV(MOD-sp4): 61.0 ml Time Measurements MV dec time: 0.26 sec Doppler Measurements & Calculations MV E max jose: 66.3 cm/sec Lat Peak E' Jose: 8.7 cm/sec Med Peak E' Jose: 5.7 cm/sec MV A max jose: 88.4 cm/sec E/E' lat: 7.6 E/E' med: 11.7 MV E/A: 0.75 MV V2 max: 94.5 cm/sec MV P1/2t max jose: 75.1 cm/sec Ao V2 max: 113.9 cm/sec MV max P.6 mmHg MV P1/2t: 100.4 msec Ao max P.2 mmHg MV V2 mean: 51.3 cm/sec MV dec slope: 219.0 cm/sec2 Ao V2 mean: 70.7 cm/sec MV mean P.2 mmHg MVA(P1/2t): 2.2 cm2 Ao mean P.4 mmHg MV V2 VTI: 24.4 cm Ao V2 VTI: 20.9 cm AI max jose: 285.9 cm/sec LV V1 max: 88.7 cm/sec MR max jose: 502.8 cm/sec AI max P.7 mmHg LV V1 max P.1 mmHg MR max P.1 mmHg LV V1 mean P.5 mmHg AI dec slope: 207.2 cm/sec2 LV V1 mean: 54.6 cm/sec AI P1/2t: 404.1 msec LV V1 VTI: 18.4 cm PA V2 max: 187.8 cm/sec PI end-d jose: 112.7 cm/sec TR max jose: 247.9 cm/sec TR max P.6 mmHg Interpretation Summary Mildly dilated left ventricle. The estimated ejection fraction is 65 %. Stage 1 diastolic dysfunction. Posterior leaflet mitral valve prolapse. Mild-Moderate (1-2+) anteriorly directed mitral valve insufficiency. Trivial tricuspid valve insufficiency. Right ventricular systolic pressure estimated to be 30 mmHg. Mild (1+) pulmonic valve insufficiency. Compared to echo report dated 10/23/2014, LV function and RVSP have remained the same. MR has gone from trivial to mild/moderate. Ordering Physician: Helio Bah Referring Physician: Nathan Arredondo Performed By: Kilo Logan RCS
== END ==
PROVIDERS: Family Provider Family Medicine; PCP Family Medicine; Referring Provider Internal Medicine Cardiovascular Disease; Visit Provider Internal Medicine Cardiovascular Disease
DX: I10 Essential (primary) hypertension (principal); I49.3 Ventricular premature depolarization; E78.5 Hyperlipidemia, unspecified
CPT/HCPCS: 93306

== ENCOUNTER → 2019-06-07 10:17 | Outpatient (CLI) | payer OTHER, SELFPAY ==
[2019-05-11 09:08] VITALS: BMI 26.9
--- NOTE | 2019-06-07 10:18 | STEWCON_ITS ---
Reason For Study: ARRYTHMIA-OTHER Stress Results Protocol: Sampson Protocol WITH DEFINITY Maximum Predicted HR: 151 bpm Target HR: 128 bpm % Maximum Predicted HR: 97 % DurationHeart Rate Stage (mm:ss) (bpm) BP Comment BASELINE 83 132/702 CC DEFINITY STAGE 1 3:00 95 152/80NO CHEST PAIN STAGE 2 3:00 110 166/82 STAGE 3 3:00 130 164/84NO CHEST PAIN, NO SOB STAGE 4 1:00 146 / 2 CC DEFINITY RECOVERY 89 142/70 Stress Duration: 10:00 mm:ss Maximum Stress HR: 146 bpm Baseline Echocardiogram Findings The estimated ejection fraction is 65 %. Stress Echo Wall motion Data Resting WM Intermediate WM Stress WM Resting Wall Motion Wall Motion Stress No regional wall motion No regional wall motion abnormalities noted. abnormalities noted. EKG Data The baseline ECG displays normal sinus rhythm. The patient exercised according to the regular Sampson protocol for a total duration of 10:01. The maximum heart rate attained was 150 beats per minute. This was 99% of maximum predicted heart rate. The patient exercised into stage 4 of the Sampson protocol. During stress, there were no ST or T wave changes noted to suggest ischemia. No clinical angina was noted. Interpretation Summary The estimated ejection fraction is 65 %. Normal, adequate, treadmill echocardiogram. Negative for ischemia by EKG and echocardiographic criteria. No anginal symptoms noted. Rare PVCs noted. Appropriate blood pressure response to exercise. Normal exercie capacity for age. Final LVEF of 75%. Decreased sensitivity due to poor echo windows requiring Definity agent. Test terminated due to THR acheived. No complications. The study was technically difficult. Contrast injection was performed. Ordering Physician: Helio Bah Referring Physician: Helio Bah Performed By: Kiol Logan RCS
== END ==
PROVIDERS: Family Provider Family Medicine; PCP Family Medicine; Referring Provider Internal Medicine Cardiovascular Disease; Visit Provider Internal Medicine Cardiovascular Disease
DX: I10 Essential (primary) hypertension (principal); I49.3 Ventricular premature depolarization; E78.5 Hyperlipidemia, unspecified
CPT/HCPCS: 93017; 93350; Q9957; A4216; C8928

== ENCOUNTER → 2019-07-03 13:33 | Outpatient (CLI) | payer OTHER, SELFPAY ==
[2019-05-11 09:08] VITALS: BMI 26.9
[2019-07-05 20:37] LABS: H.Pylori Breath Test Negative (Negative)
== END ==
PROVIDERS: PCP Family Medicine; Visit Provider Family Medicine
DX: R10.9 Unspecified abdominal pain (principal)
CPT/HCPCS: 83013

== ENCOUNTER 2020-07-24 13:11 | Observation (INO) | payer OTHER, MEDICARE, SELFPAY ==
[2019-05-11 09:08] VITALS: BMI 26.9
[2020-07-24] VITALS (12 sets, daily range): BP systolic 121–167; BP diastolic 66–88; PULSE 63–87; RESP 16–21; TEMP 36.7–37.1; O2SAT 94–99; BMI 26.6; BMI 26.7; BMI 25.7
--- NOTE | 2020-07-24 13:22 | EKG12_ITS ---
Test Reason : CP Blood Pressure : / mmHG Vent. Rate : 078 BPM Atrial Rate : 078 BPM P-R Int : 170 ms QRS Dur : 106 ms QT Int : 376 ms P-R-T Axes : 014 002 -27 degrees QTc Int : 428 ms Sinus rhythm with occasional Premature ventricular complexes Otherwise normal ECG Confirmed by ALEX GE, HORTENSIA ([id number]), market editor ALONA MINAYA ([id number]) on 07/29/2020 10:08:39 A M Referred By: ELIAS Confirmed By:CASSIDY JOHNSON MD
--- NOTE | 2020-07-24 13:23 | ED.DCSUM_ITS ---
History of Present Illness Chief Complaint: Chest Pain Informant: Patient Onset: Days - 4 Narrative: Intermittent midsternal chest pain for the past 3 to 4 days. Today symptoms persisting for last 4 hours. States varies from sharp to burning. Denies radicular symptoms. Denies nausea or vomiting. Denies dyspnea. Initial pain was a 4 in triage currently a 2. Denies any cardiac history or any stents. Stress test 1 to 2 years [address] was [address] Dr. Bah previously. Denies tobacco or any family history of MIs at young age. Denies history of heart cath. Denies any recent cough. History of hypertension on medications. Prior similar symptoms: Yes Past Medical History - Allergies and Home Meds Allergies/Adverse Reactions: Allergies No Known Allergies Allergy (Verified 07/24/20 13:14) Primary Care Physician: Nathan Arredondo DO [Primary Care Provider] - Past Medical History: - - Hypertension Smoking Status: Former smoker Review of Systems General: Denies: Chills, Fever, Sweats Eyes: Denies: Visual changes - bilaterally, Diplopia ENT: Denies: Rhinorrhea, Sore throat Cardiovascular: Reports: Chest pain. Denies: Palpitations Respiratory: Denies: Dyspnea, Cough, Dyspnea on exertion Gastrointestinal: Denies: Abdominal pain, Nausea, Vomiting, Diarrhea, Melena, Hematochezia Genitourinary: Denies: Dysuria, Hematuria, Frequency Musculoskeletal: Denies: Back pain, Extremity Pain Skin: Denies: Rash, Wounds Neurological: Denies: Headache, Weakness, Numbness Physical Exam Vital Signs/Narrative: Vital Signs Temp Pulse Resp BP Pulse Ox 07/24/20 13:12 98.0 F 87 18 167/88 H 99 Inital Vital Signs reviewed: Yes General: Well nourished, Well developed, No Acute Distress Head: Normocephalic, Atraumatic Eyes: Perrl, EOMI ENT: Moist mucous membranes, No rhinorrhea Neck: Supple, Nontender Cardiovascular: Regular rate, Regular rhythm, No murmurs Respiratory: No distress, CTA bilaterally, Chest nontender Abdomen: Soft, Nontender, Nondistended, Normal bowel sounds Back: Nontender, Normal Inspection Extremities: Nontender, No edema Skin: Normal color, No rash Neurological: Alert, Oriented x3, Cranial nerves II-XII grossly intact, Normal Strength, Normal Sensation Psychological: Normal affect, Normal Mood Diagnostic/Tx/Re-eval Chest X-Ray - ED: 1 View, Read by ED Physician, No Acute Disease Abnormal Lab Results 07/24/20 07/24/20 07/24/20 13:30 13:30 13:30 WBC 11.6 H RBC 5.17 Hgb 15.5 Hct 47.3 MCV 91.5 MCH 30.0 MCHC 32.8 RDW Std Deviation 48.4 H RDW Coeff of Juanita 14.4 Plt Count 203 MPV 10.3 Immature Gran % (Auto) 0.300 Neut % (Auto) 71.8 H Lymph % (Auto) 15.5 L [place] % (Auto) 10.4 H Eos % (Auto) 1.7 Baso % (Auto) 0.3 Absolute Neuts (auto) 8.3 H Absolute Lymphs (auto) 1.80 Nucleated RBC % 0 PT Cancelled INR Cancelled APTT Cancelled Sodium 136 Potassium 3.9 Chloride 102 Carbon Dioxide 27.0 Anion Gap 7 BUN 13 Creatinine 1.47 H Estim Creat Clear Calc 48.28 Est GFR (MDRD) Af Amer 61 Est GFR (MDRD) Non-Af 50 L BUN/Creatinine Ratio 8.8 L Glucose 133 H Calcium 8.7 Troponin I < 0.015 - EKG Initial EKG Interpretation: Sinus Rhythm - Sinus rate of 78, no ST changes there is T wave inversions on leads III and aVF, PVC noted. - Medical Decision Making Patient EKG notes T wave inversions in inferior leads with PVC, he had similar inversions in September 2014. Cardiac work-up initiated given aspirin he became symptom-free after 2 nitroglycerin. He is given a Nitropaste. Chest x-ray 1 view reviewed by myself shows no acute process. Labs notes chronic kidney disease with creatinine 1.4, initial troponin negative. Reevaluation he remains symptom-free. His heart score is a 4. I will discuss with hospitalist service for admission. Review of records noted he had a stress echo May 2019 that was normal. ED Disposition - Plan for ED Patient: Disposition: Acute Care Hospital [facility] Diagnosis: Chest pain Referrals: Nathan Arredondo DO [Primary Care Provider] -
--- NOTE | 2020-07-24 13:40 | RAD_ITS ---
STUDY: X-RAY CHEST REASON FOR EXAM: Male, 69 years old. chest pain TECHNIQUE: Single AP portable view of the chest. COMPARISON: None. FINDINGS: The lungs are clear and expanded. There is no demonstrated pleural abnormality. Normal size heart. Normal mediastinum and yu. Normal visualized pulmonary arteries. Normal visualized aortic arch and descending thoracic aorta. Normal visualized thoracic spine. There is degenerative osteoarthritis of the bilateral shoulders. There is no demonstrated abnormality of the visualized soft tissue structures of the upper abdomen. RAD/Chest 1 View (Portable) IMPRESSION: Degenerative changes, as described above. No demonstrated acute cardiopulmonary process. Electronically Signed: Clay Ayers MD at 14:46 EST Tel , Service support ,
[2020-07-24 13:50] LABS: Absolute Neutrophil Count 8.3 X10^3/uL (2.0-7.7); Basophil# 0.04 X10^3/uL; Basophil% 0.3 % (0-1); Eosinophils% 1.7 % (0-5); Hematocrit 47.3 % (40-54); Hemoglobin 15.5 g/dL (13.0-16.5); Lymphocyte % 15.5 % (19-41); Mean Corp Hgb Conc 32.8 g/dL (32-36); Mean Corpuscular Volume 91.5 fL (80-94); Mean Platelet Vol. 10.3 fl (6.2-12.0); Monocyte% 10.4 % (0-10); NRBC Flagged by Analyzer 0 % (0-5); Neutrophil # 8.31 X10^3/uL (2.7-7.7); Neutrophil % 71.8 % (47-70); Platelet Count 203 K/mm3 (150-450); RBC Distribution Width CV 14.4 % (11.6-14.6); RBC Distribution Width SD 48.4 fl (35.1-43.9); Red Blood Count 5.17 M/mm3 (4.6-6.2); White Blood Count 11.6 K/mm3 (4.4-11.0)
--- NOTE | 2020-07-24 13:56 | NURSING ---
COAGS HEMOLIZED PER LAB
[2020-07-24 14:06] LABS: Anion Gap 7 (5-15); BUN 13 mg/dL (7-18); BUN/Creat Ratio 8.8 RATIO (10-20); Calcium,Total 8.7 mg/dL (8.5-10.1); Chloride 102 mmol/L (98-107); Creatinine, Serum 1.47 mg/dL (0.70-1.30); EST Glomerular Filtration Rate 50 mL/min (>60); Est Glom Filt Rate - Afr Amer 61 mL/min (>60); Estimated Creatinine Clearance 48.28 ml/min; Glucose 133 mg/dL (74-106); Potassium 3.9 mmol/L (3.5-5.1); Sodium Level 136 mmol/L (136-145)
[2020-07-24] MEDS: Aspirin 81 MG TAB.CHEW 324 MG PO (14:19)
[2020-07-24] MEDS: Nitroglycerin SL (ED/IMG/CATH) 0.4 MG TABLET SL ×2 (14:21→14:29)
[2020-07-24 14:49] LABS: International Normalized Ratio 0.9; Partial Thromboplast Time 28.3 Seconds (24.1-36.2); Prothrombin Time (Protime)PT. 12.1 SECONDS (11.7-14.9)
--- NOTE | 2020-07-24 15:05 | HP.PCM_ITS ---
Problem List (1) Chest pain Status: Acute Qualifiers: Chest pain type: unspecified Qualified Code(s): R07.9 - Chest pain, unspecified (2) Former tobacco use Status: Chronic (3) History of esophageal dilatation Status: Resolved Comment: 08/2016 (4) Premature ventricular contractions Status: Chronic (5) Crohn's disease Status: Chronic Qualifiers: Gastrointestinal tract location: unspecified location Digestive disease complication type: unspecified complication Qualified Code(s): K50.919 - Crohn's disease, unspecified, with unspecified complications (6) Hyperlipidemia Status: Chronic Qualifiers: Hyperlipidemia type: unspecified Qualified Code(s): E78.5 - Hyperlipidemia, unspecified (7) Hypertension Status: Chronic Qualifiers: Hypertension type: essential hypertension Qualified Code(s): I10 - Essential (primary) hypertension History of Present Illness Date of Admission: 07/24/20 Chief Complaint: Chest pain The patient is a 69 y/o M w/ PMHx: HTN, HLD, Crohn's disease, GERD, Hx PVCs, Known esophageal stricture requiring dilation, Former tobacco use who presents to the [facility] ED on 07/24/20 with history of 2.5 weeks of intermittent sensation of skipping a beat but no associated chest pain however today upon day of ED presentation he had onset late morning of midsternal nonradiating chest discomfort described as a sharp pain rated 3 out of 10 in severity which lasted approximately 4 hours with no associated nausea, emesis, diaphoresis or dyspnea prompting ED presentation. In the emergency room patient chest discomfort resolved completely after nitroglycerin administration and nitro patch was placed per ED. He denies having had this prior. He notes he was active and working on his lawnmower when it occurred. Work-up in the ED included T 98, heart rate 87, BP initially 167/88, respiratory rate 18, 99% on room air, CBC with WC 11.6, hemoglobin 15.5, platelet 2 3 with left shift, unremarkable coags, BMP with BUN/creatinine 13/1.47, glucose 133, troponin less than 0.015, chest x- ray with no acute cardiopulmonary findings with chronic degenerative changes, EKG was sinus rhythm with T wave inversions in leads III, aVF with PVC. In the ED patient administered Nitro-Bid 0.5 inch transdermal as well as aspirin 324 mg p.o. x1. Past Medical History Past Medical History (Chronic Problems): Chronic Problems (Last Reviewed 05/02/19 @ 17:50 by Sabine Jean) Former tobacco use (Chronic) History of lithotripsy (Chronic) 07/24/[address] Ochoa History of resection of small bowel (Chronic) 2003 Premature ventricular contractions (Chronic) Crohn's disease (Chronic) Hypophosphatemia (Chronic) Hypocalcemia (Chronic) Hyperlipidemia (Chronic) Hypertension (Chronic) Medical History: Medical History (Last Reviewed 05/02/19 @ 17:50 by Sabine Jean) History of esophageal dilatation (Resolved) Z98.890 08/2016 Palpitations (Resolved) R00.2 Resolved after HCTZ stopped Premature ventricular contractions (Chronic) I49.3 Crohn's disease (Chronic) K50.90 Hypophosphatemia (Chronic) E83.39 Hypocalcemia (Chronic) E83.51 Hyperlipidemia (Chronic) E78.5 Hypertension (Chronic) I10 Allergies No Known Allergies Allergy (Verified 07/24/20 13:14) Home Medications: Ambulatory Orders Medication Instructions Recorded Adalimumab [Humira] 40 mg SQ Q14D 09/20/14 Loperamide [Imodium] 2 mg PO TID 09/20/14 [place]-3 Fatty Acids/Fish Oil [Fish 1 ea PO QODAY 09/20/14 Oil 1,000 mg Capsule] Pantoprazole Sodium [Protonix] 40 mg PO DAILY 07/15/16 simethicone 125 mg capsule 250 mg PO .COMPLEX cap 04/25/18 valsartan 320 mg tablet 320 mg PO .COMPLEX 04/25/18 Lactase [Lactaid] 3,000 unit PO TID 07/24/20 Surgical History: Surgical History (Last Reviewed 05/02/19 @ 17:50 by Sabine Jean) History of right inguinal hernia repair (Resolved) Z98.890, Z87.19 History of lithotripsy (Chronic) Z98.890 07/24/[address] Ochoa History of resection of small bowel (Chronic) Z90.49 2003 Surgical History: - - Bowel resection 2003 for Crohn's disease, right inguinal hernia repair. Psychiatric History: No pertinent psych hx Lives: Spouse/ Significant Other Smoking Status: Former smoker - Patient quit cigarette tobacco usage approximately 30 years prior to current presentation with prior to this 1 pack/day since he been a teenager. Tobacco Use: Non-smoker Alcohol: None Drugs: None - *Family History Maternal Family History: Family History (Last Reviewed 05/02/19 @ 17:50 by Sabine Jean) Mother CAD (coronary artery disease) Hypertension Bowel disease Father CAD (coronary artery disease) Hypertension History Items: - - Mother with a history of bowel disease. Patient denies otherwise any specific maternal family history including heart disease, diabetes, cancer, stroke, dementia. Paternal Family History: Family History (Last Reviewed 05/02/19 @ 17:50 by Sabine Jean) Mother CAD (coronary artery disease) Hypertension Bowel disease Father CAD (coronary artery disease) Hypertension History Items: Heart Disease, Hypertension Review of Systems Constitutional: Denies: Anorexia, Chills, Fever, Malaise, Weakness, Weight Change, Fatigue HEENT: Denies: Head Aches, Sinus Congestion, Sinus Drainage Cardiovascular: Reports: Chest Pain, Palpitations, - - Sensation of skipping a beat, palpitations.. Denies: Light Headedness, Orthopnea, Syncope Respiratory: Denies: Cough, Shortness of Breath, Shortness of breath at rest, Shortness of breath upon exertion, Sputum production Gastrointestinal: Reports: Diarrhea - Chronic diarrhea status post bowel resection history.. Denies: Abdominal Pain, Nausea, Vomiting Genitourinary: Denies: Dysuria Musculoskeletal: Denies: Joint Pain, Joint Tenderness Skin: Denies: Rash, Wounds Neurological: Denies: Numbness, Tingling, Focal weakness Psychiatric: Denies: Anxiety, Depression, Homicidal Ideations, Suicidal Ideations Hematologic/ Lymphatic: Denies: Easy Bruising, Easy Bleeding VTE Information - Inpt Only VTE Present on Admission: No VTE Mechan Device Prophylaxis: SCD's VTE Pharm Prophylaxis ordered?: Yes Patient Problems: Active and Suspected Problems (Last Reviewed 05/02/19 @ 17:50 by Sabine Jean) Chest pain (Acute) Subjective: Patient seated upright in ED bed, mildly fatigued otherwise no acute distress, notes chest pain is since resolved. Objective: Physical Examination: General: awake, alert, oriented x 3 and cooperative, seated upright in the ED bed, mildly fatigued otherwise no acute distress, chest pain resolved. Skin: normal color, turgor, no icterus, cyanosis. HEENT: AT/NC, EOMI, PERRLA, mildly dry MM, no carotid bruits or JVD noted. Lungs: Mildly diminished breath sounds, mild decrease BL bases, appropriate effort, no rales, ronchi or wheezing. Heart: Regular rate and rhythm; no gallop, rub audible. Abdomen: soft, NTTP, ND, normal BS, no HSM. Extremities: no cyanosis or clubbing, mild bilateral ankle edema. Neurological: patient awake, alert, oriented as noted; cognitive function intact; pupils equally reactive to light and accomodation; cranial nerves II-XII grossly normal, moving all 4 extremities, no focal deficits, strength preserved. Psychiatric: affect appears mildly fatigued otherwise normal, no acute evidence of depressive or anxiety feelings. - Physical Exam Vitals/I&O's: Vital Signs Temp Pulse Resp BP Pulse Ox 98.0 F 77 21 H 125/76 H 94 07/24/20 13:12 07/24/20 14:29 07/24/20 14:28 07/24/20 14:29 07/24/20 14:28 Oxygen Delivery Method Room Air Weight: 186 lb 1.122 oz Body Mass Index (BMI) 26.6 Laboratory Results 07/24/20 13:30: WBC 11.6 H, RBC 5.17, Hgb 15.5, Hct 47.3, MCV 91.5, MCH 30.0, MCHC 32.8, RDW Std Deviation 48.4 H, RDW Coeff of Juanita 14.4, Plt Count 203, MPV 10.3, Immature Gran % (Auto) 0.300, Neut % (Auto) 71.8 H, Lymph % (Auto) 15.5 L, [place] % (Auto) 10.4 H, Eos % (Auto) 1.7, Baso % (Auto) 0.3, Absolute Neuts (auto) 8.3 H, Absolute Lymphs (auto) 1.80, Nucleated RBC % 0 07/24/20 13:30: PT Cancelled, INR Cancelled, APTT Cancelled 07/24/20 13:30: Sodium 136, Potassium 3.9, Chloride 102, Carbon Dioxide 27.0, Anion Gap 7, BUN 13, Creatinine 1.47 H, Estim Creat Clear Calc 48.28, Est GFR (MDRD) Af Amer 61, Est GFR (MDRD) Non-Af 50 L, BUN/Creatinine Ratio 8.8 L, Glucose 133 H, Calcium 8.7, Troponin I < 0.015 07/24/20 14:35: PT 12.1, INR 0.9, APTT 28.3 Current Medications Nitroglycerin (Nitroglycerin Sl (Ed/Img/Cath) 0.4 Mg Tablet) 0.4 mg SL Q5M PRN PRN Reason: Chest pain Last Admin: 07/24/20 14:29 Dose: 0.4 mg Documented by: Assessment/Plan All Active Problems (Last Reviewed 05/02/19 @ 17:50 by Sabine Jean) Chest pain (Acute) Acute bronchitis (Acute) Conjunctivitis (Acute) Skin lesion of neck (Acute) History of right inguinal hernia repair (Resolved) History of esophageal dilatation (Resolved) Palpitations (Resolved) The patient is a 69 y/o M w/ PMHx: HTN, HLD, Crohn's disease, GERD, Hx PVCs, Known esophageal stricture requiring dilation, Former tobacco use who presents to the [facility] ED on 07/24/20 with history of 2.5 weeks of intermittent sensation of skipping a beat but no associated chest pain however today upon day of ED pre sentation he had onset late morning of midsternal nonradiating chest discomfort described as a sharp pain rated 3 out of 10 in severity which lasted approximately 4 hours. 1. Chest Pain: ED evaluation with troponin less than 0.015, chest x-ray with no acute cardiopulmonary findings with chronic degenerative changes, EKG was sinus rhythm with T wave inversions in leads III, aVF with PVC. In the ED patient administered Nitro-Bid 0.5 inch transdermal as well as aspirin 324 mg p.o. x1. Will admit to PCU, place on a monitored bed to assure no acute myocardial infarction with serial cardiac enzymes and EKGs. If repeat serial cardiac enzymes and EKGs remain unremarkable will pursue a.m. cardiac stress testing. FLP in AM. Mag pending. ASA, NG, morphine. 2. Crohn's disease: History of bowel resection 2003, resulting chronic diarrhea now on chronic antidiarrheal regimen which will be continued, patient is on Humira outpatient as well as chronic Lactaid regimen. 3. Hypertension: Continue home regimen including valsartan with hold parameters, PRN hydralazine. 4. Hyperlipidemia: Not on statin, FLP in AM. 5. History of esophageal stricture: Status post dilation history 2017, stable. 6. Former tobacco use: Encourage continued tobacco cessation. 7. GERD: We will continue patient home PPI. 8. DVT prophylaxis: SCDs, Lovenox. 9. CODE status: Patient does not have healthcare power of criminal attorney nor living will set up with his spouse. Strongly encourage them to consider doing so. Noted that case management/social work could assist with information. Discussed CODE status at length including difference between FULL code, DNR-CCA and DNR- CC status. Following discussions about the differences in these status, requested Full Code status. Advanced Care Planning Face to Face Time: 16 minutes. OBSV E&M: 56988 Initial observation care L3 Procedures: 67604 Advncd Care Plan 30 Min
--- NOTE | 2020-07-24 15:10 | NURSING ---
PCU OBS WHITE CP
[2020-07-24] MEDS: Nitroglycerin Oint 1 INCH PACKET 0.5 INCH TD ×2 (15:16→17:41)
--- NOTE | 2020-07-24 15:44 | EKG12_ITS ---
Test Reason : AM EKG Blood Pressure : / mmHG Vent. Rate : 064 BPM Atrial Rate : 064 BPM P-R Int : 194 ms QRS Dur : 106 ms QT Int : 398 ms P-R-T Axes : 039 011 -03 degrees QTc Int : 410 ms Normal sinus rhythm with sinus arrhythmia Normal ECG When compared with ECG of 24-JUL-2020 13:19, MANUAL COMPARISON REQUIRED, DATA IS UNCONFIRMED Confirmed by NILS GE, EMELI ([id number]), field map editor ALONA MINAYA ([id number]) on 07/31/2020 10:29:23 AM Referred By: LUKASZ Confirmed By:EMELI WRAY MD
[2020-07-25] VITALS (8 sets, daily range): BP systolic 142–159; BP diastolic 58–86; PULSE 64–73; RESP 12–18; TEMP 36.6–37; O2SAT 95–98
[2020-07-25] MEDS: 0.9% Normal Saline 1,000 ML 100 ML IV (00:57)
--- NOTE | 2020-07-25 05:55 | EKG12_ITS ---
Test Reason : CP Blood Pressure : / mmHG Vent. Rate : 067 BPM Atrial Rate : 067 BPM P-R Int : 180 ms QRS Dur : 104 ms QT Int : 396 ms P-R-T Axes : 021 -02 -10 degrees QTc Int : 418 ms Normal sinus rhythm Minimal voltage criteria for LVH, may be normal variant Borderline ECG When compared with ECG of 24-JUL-2020 13:19, MANUAL COMPARISON REQUIRED, DATA IS UNCONFIRMED Confirmed by NILS GE, EMELI ([id number]), film editor supervisor ALONA MINAYA ([id number]) on 07/31/2020 10:30:26 AM Referred By: LUKASZ Confirmed By:EMELI WRAY MD
[2020-07-25 06:21] LABS: Absolute Neutrophil Count 3.9 X10^3/uL (2.0-7.7); Basophil# 0.03 X10^3/uL; Basophil% 0.4 % (0-1); Eosinophil# 0.32 X10^3/uL; Eosinophils% 4.4 % (0-5); Hemoglobin 14.6 g/dL (13.0-16.5); Lymphocyte % 24.6 % (19-41); Mean Corp Hgb Conc 32.4 g/dL (32-36); Mean Corpuscular Hgb 29.7 pg (27.0-32.0); Mean Corpuscular Volume 91.6 fL (80-94); Mean Platelet Vol. 10.1 fl (6.2-12.0); Monocyte# 1.25 X10^3/uL; Monocyte% 17.1 % (0-10); NRBC Flagged by Analyzer 0 % (0-5); Neutrophil % 53.2 % (47-70); Platelet Count 184 K/mm3 (150-450); RBC Distribution Width CV 14.6 % (11.6-14.6); RBC Distribution Width SD 49.1 fl (35.1-43.9); Red Blood Count 4.91 M/mm3 (4.6-6.2); White Blood Count 7.3 K/mm3 (4.4-11.0)
[2020-07-25] MEDS: Losartan Potassium 50 MG Tablet PO (06:32)
[2020-07-25] MEDS: Aspirin E.C. 81 MG Tablet PO (06:32)
[2020-07-25 06:51] LABS: ALB/GLOB Ratio 0.7 RATIO (0.9-2.4); AST(SGOT) 28 U/L (15-37); Alanine Aminotransfer ALT/SGPT 31 U/L (16-61); Albumin, Serum 2.7 g/dL (3.2-5.0); Alkaline Phosphatase 92 U/L (45-117); Anion Gap 5 (5-15); BUN 11 mg/dL (7-18); BUN/Creat Ratio 9.1 RATIO (10-20); Calcium,Total 8.2 mg/dL (8.5-10.1); Chloride 107 mmol/L (98-107); Cholesterol 147 mg/dL (200); Creatinine, Serum 1.21 mg/dL (0.70-1.30); EST Glomerular Filtration Rate 63 mL/min (>60); Est Glom Filt Rate - Afr Amer 76 mL/min (>60); Estimated Creatinine Clearance 58.65 ml/min; Globulin 3.9 g/dL (2.2-4.2); Glucose 100 mg/dL (74-106); High Density Lipoprotein 49 mg/dL; Protein, Total 6.6 g/dL (6.4-8.2); Sodium Level 138 mmol/L (136-145); Triglycerides 132 mg/dL; Very Low Density Lipoprotein 26 mg/dL (5-40)
--- NOTE | 2020-07-25 11:18 | PCM.DC ---
- Discharge Diagnoses Current Active Problems: Current Active and Chronic Problems (Last Reviewed 05/02/19 @ 17:50 by Sabine Jean) Chest pain (Acute) Former tobacco use (Chronic) Premature ventricular contractions (Chronic) Crohn's disease (Chronic) Hyperlipidemia (Chronic) Hypertension (Chronic) You will use the following diet at home:: Cardiac Discharge Activity: Return to Normal Activity Call your doctor if you observe: Shortness of breath, Dizziness, Fainting spells, Chest pain Allergies/Adverse Reactions: Allergies No Known Allergies Allergy (Verified 07/24/20 13:14) Medications to take at Discharge Adalimumab [Humira] 40 mg SQ Q14D 09/20/14 Loperamide [Imodium] 2 mg PO TID 09/20/14 [place]-3 Fatty Acids/Fish Oil [Fish Oil 1,000 mg Capsule] 1 ea PO QODAY 09/20/14 Pantoprazole Sodium [Protonix] 40 mg PO DAILY 07/15/16 simethicone 125 mg capsule 250 mg PO TIDCM cap 04/25/18 valsartan 320 mg tablet 160 mg PO BID 04/25/18 Lactase [Lactaid] 3,000 unit PO TID 07/24/20 Primary Care Physician: Nathan Arredondo DO [Primary Care Provider] - Please follow up with your Primary Care Physician in: 1 Week Test Results: Test results from this visit will be discussed in further detail at your follow-up appointment, if applicable. Proposed Discharge Date: 07/25/20
--- NOTE | 2020-07-25 13:17 | PCM.DC.SUM ---
<Quentin Donohue SALON SUPERVISOR - Last Filed: 07/25/20 14:40> Discharge Date and Diagnosis - Problem List Patient Problems: Active and Suspected Problems (Last Reviewed 05/02/19 @ 17:50 by Sabine Jean) Chest pain (Acute) Date of Admission: 07/24/20 Date of Discharge: 07/25/20 - Primary Discharge Diagnosis Acute Problems: Active Problems (Last Reviewed 05/02/19 @ 17:50 by Sabine Jean) 1. Chest pain, ACS ruled out 2. Crohn's disease 3. Hypertension 4. Hyperlipidemia 5. History of esophageal stricture 6. Former tobacco use 7. GERD - Secondary Discharge Diagnosis Chronic Problems: Chronic Problems (Last Reviewed 05/02/19 @ 17:50 by Sabine Jean) Former tobacco use (Chronic) History of lithotripsy (Chronic) 07/24/[address] Ochoa History of resection of small bowel (Chronic) 2003 Premature ventricular contractions (Chronic) Crohn's disease (Chronic) Hypophosphatemia (Chronic) Hypocalcemia (Chronic) Hyperlipidemia (Chronic) Hypertension (Chronic) Hospital Course and Treatment Imaging Results: Diagnostic Data Chest X-Ray 07/24/20 13:40 IMPRESSION: Degenerative changes, as described above. No demonstrated acute cardiopulmonary process. Electronically Signed: Clay Ayers MD at 14:46 EST Tel , Service support , Operations: None Procedures: Stress test Summary of Care Provided: The patient is a 69 year old M admitted 07/24/2020 due to chest pain. 1. Chest pain, ACS ruled out-troponin negative. EKG without ST-T changes. Patient underwent nuclear stress test which was negative for ischemia, LVEF 66%. Suspect pain musculoskeletal in nature. Follow-up with PCP in 1 week. 2. Crohn's disease-history of bowel resection 2003. On Humira, Lactaid. 3. Hypertension-stable, continue home valsartan regimen. 4. Hyperlipidemia-not on statin. 5. History of esophageal stricture-history of dilation in 2017. 6. Former tobacco use 7. GERD-continue PPI. Patient seen and examined prior to discharge. Physical assessment as noted below. Patient is stable for discharge with follow up recommendations as noted above. This patient was seen by JESÚS Sanchez under the supervision of Dr. Clark. Patient Problems: Active and Suspected Problems (Last Reviewed 05/02/19 @ 17:50 by Sabine Jean) Chest pain (Acute) - Physical Exam Vitals/I&O's: Vital Signs Temp Pulse Resp BP Pulse Ox 98.2 F 71 16 146/74 H 96 07/25/20 10:40 07/25/20 10:59 07/25/20 10:40 07/25/20 10:40 07/25/20 10:40 Oxygen Delivery Method Room Air Weight: 178 lb 5.663 oz Body Mass Index (BMI) 25.7 Intake and Output for Last 24 Hours 07/23/20 07/24/20 07/25/20 23:59 23:59 23:59 Intake Total 240 / 240 1350 / 1350 Balance 240 / 240 1350 / 1350 General: Alert, Oriented x3, Cooperative HEENT: Atraumatic, PERRLA, EOMI, Normocephalic Neck: Supple, No JVD, Negative Carotid Bruits Lungs: Clear to auscultation, Normal air movement Cardiovascular: Regular rate, No murmurs Abdomen: Bowel Sounds Present, Soft, Non Tender, Non-Distended Extremities: No clubbing, No cyanosis, No edema, Capillary Refill Less than 3 Seconds Skin: No rashes, No breakdown Musculoskeletal: No Tenderness to Palpation of Joints or Extremities Neurological: Cranial nerves II-XII grossly intact, Neuro grossly intact Psych/Mental Status: Normal Affect, Appropriate Laboratory Results 07/24/20 13:30: WBC 11.6 H, RBC 5.17, Hgb 15.5, Hct 47.3, MCV 91.5, MCH 30.0, MCHC 32.8, RDW Std Deviation 48.4 H, RDW Coeff of Juanita 14.4, Plt Count 203, MPV 10.3, Immature Gran % (Auto) 0.300, Neut % (Auto) 71.8 H, Lymph % (Auto) 15.5 L, Parke % (Auto) 10.4 H, Eos % (Auto) 1.7, Baso % (Auto) 0.3, Absolute Neuts (auto) 8.3 H, Absolute Lymphs (auto) 1.80, Nucleated RBC % 0 07/24/20 13:30: PT Cancelled, INR Cancelled, APTT Cancelled 07/24/20 13:30: Sodium 136, Potassium 3.9, Chloride 102, Carbon Dioxide 27.0, Anion Gap 7, BUN 13, Creatinine 1.47 H, Estim Creat Clear Calc 48.28, Est GFR (MDRD) Af Amer 61, Est GFR (MDRD) Non-Af 50 L, BUN/Creatinine Ratio 8.8 L, Glucose 133 H, Calcium 8.7, Troponin I < 0.015 07/24/20 13:30: Magnesium 2.0 07/24/20 14:35: PT 12.1, INR 0.9, APTT 28.3 07/24/20 16:54: Troponin I < 0.015 07/24/20 19:56: Troponin I < 0.015 07/25/20 06:06: WBC 7.3, RBC 4.91, Hgb 14.6, Hct 45.0, MCV 91.6, MCH 29.7, MCHC 32.4, RDW Std Deviation 49.1 H, RDW Coeff of Juanita 14.6, Plt Count 184, MPV 10.1, Immature Gran % (Auto) 0.300, Neut % (Auto) 53.2, Lymph % (Auto) 24.6, Parke % (Auto) 17.1 H, Eos % (Auto) 4.4, Baso % (Auto) 0.4, Absolute Neuts (auto) 3.9, Absolute Lymphs (auto) 1.80, Nucleated RBC % 0 07/25/20 06:06: Sodium 138, Potassium 4.0, Chloride 107, Carbon Dioxide 26.0, Anion Gap 5, BUN 11, Creatinine 1.21, Estim Creat Clear Calc 58.65, Est GFR (MDRD) Af Amer 76, Est GFR (MDRD) Non-Af 63, BUN/Creatinine Ratio 9.1 L, Glucose 100, Calcium 8.2 L, Total Bilirubin 0.40, AST 28, ALT 31, Alkaline Phosphatase 92, Total Protein 6.6, Albumin 2.7 L, Globulin 3.9, Albumin/Globulin Ratio 0.7 L, Triglycerides 132, Cholesterol 147, LDL Cholesterol 72, VLDL Cholesterol 26, HDL Cholesterol 49 Current Medications Acetaminophen (Acetaminophen 325 Mg Tablet) 650 mg PO Q6H PRN PRN PRN Reason: Pain Score 1-10/Temp > 100.7 F Al Hydroxide/Mg Hydroxide (Mag Hydrox/Al Hydrox/Simeth 30 Ml Udc) 30 ml PO Q6H PRN PRN PRN Reason: Gastric Burning Aspirin (Aspirin E.C. 81 Mg Tablet) 81 mg PO DAILY@0800 [facility] Last Admin: 07/25/20 06:32 Dose: 81 mg Documented by: Enoxaparin Sodium (Enoxaparin 40 Mg/0.4 Ml Syringe) 40 mg SC DAILY [facility] Last Admin: 07/25/20 12:34 Dose: Not Given Documented by: Guaifenesin (Guaifenesin 10 Ml Udc (200mg/10ml)) 20 ml PO Q4H PRN PRN PRN Reason: COUGH Hydralazine HCl (Hydralazine 20 Mg/Ml Vial) 10 mg IV Q4H PRN PRN PRN Reason: SBP > 160 Sodium Chloride () 1,000 mls @ 100 mls/hr IV .Q10H [facility] Last Infusion: 07/25/20 12:33 Dose: Infused Documented by: Loperamide HCl (Loperamide 2 Mg Capsule) 2 mg PO TID [facility] Last Admin: 07/25/20 05:04 Dose: Not Given Documented by: Losartan Potassium (Losartan Potassium 50 Mg Tablet) 50 mg PO BID [facility] Last Admin: 07/25/20 06:32 Dose: 50 mg Documented by: Melatonin (Melatonin 3 Mg Tablet) 3 mg PO QHS PRN PRN PRN Reason: INSOMNIA Morphine Sulfate (Morphine 2 Mg/Ml Syringe) 2 mg IV Q3H PRN PRN PRN Reason: Pain Score 6-10 Nitroglycerin (Nitroglycerin Oint 1 Inch Packet) 0.5 inch TD Q6 [facility] Last Admin: 07/25/20 05:03 Dose: Not Given Documented by: Ondansetron HCl (Ondansetron 4 Mg/2 Ml Vial) 4 mg IV Q8H PRN PRN PRN Reason: NAUSEA/VOMITING Oxycodone HCl (Oxycodone 5 Mg Tablet) 5 mg PO Q4H PRN PRN PRN Reason: Pain Score 4-5 Pantoprazole Sodium (Pantoprazole Sodium 40 Mg Tablet) 40 mg PO DAILY [facility] Prochlorperazine Edisylate (Prochlorperazine 10 Mg/2 Ml Vial) 5 mg IV Q4H PRN PRN PRN Reason: Breakthrough Nausea/Vomiting Simethicone (Simethicone 80 Mg Tablet) 80 mg PO TIDCM [facility] Last Admin: 07/25/20 12:31 Dose: Not Given Documented by: Sodium Chloride (0.9% Saline Lock 10 Ml Syringe) 10 - 40 ml IV UD PRN PRN Reason: SALINE FLUSH Throat Lozenges (Benzocaine/Menthol 1 Lozenge) 1 lozenge MUCOUS MEM Q2H PRN PRN PRN Reason: SORE THROAT Discharge Diet: Low fat/ Low Cholesterol Discharge Activity: Return to Normal Activity Call your doctor if you observe: Shortness of breath, Dizziness, Fainting spells, Chest pain Home Medications: Medications to take at Discharge Adalimumab [Humira] 40 mg SQ Q14D 09/20/14 Loperamide [Imodium] 2 mg PO TID 09/20/14 Comfrey-3 Fatty Acids/Fish Oil [Fish Oil 1,000 mg Capsule] 1 ea PO QODAY 09/20/14 Pantoprazole Sodium [Protonix] 40 mg PO DAILY 07/15/16 simethicone 125 mg capsule 250 mg PO TIDCM cap 04/25/18 valsartan 320 mg tablet 160 mg PO BID 04/25/18 Lactase [Lactaid] 3,000 unit PO TID 07/24/20 Primary Care Physician: Nathan Arredondo DO [Primary Care Provider] - Please follow up with your Primary Care Physician in: 1 Week Disposition: Home Minutes spent on discharge:: 35 Patient Condition:: Stable Medical Necessity - Tobacco Use Smoking Status: Former smoker - Patient quit cigarette tobacco usage approximately 30 years prior to current presentation with prior to this 1 pack/day since he been a teenager. Tobacco Use: Non-smoker Meaningful Use Info Meaningful Use Diagnoses (Choose all that apply): None applicable <Ivis Clrak - Last Filed: 07/25/20 17:59> Discharge Date and Diagnosis - Primary Discharge Diagnosis Acute Problems: Active Problems (Last Reviewed 05/02/19 @ 17:50 by Sabine Jean) Chest pain (Acute) - Secondary Discharge Diagnosis Chronic Problems: Chronic Problems (Last Reviewed 05/02/19 @ 17:50 by Sabine Jean) Former tobacco use (Chronic) Conjunctivitis (Chronic) Skin lesion of neck (Chronic) History of lithotripsy (Chronic) 07/24/[address] Ochoa History of resection of small bowel (Chronic) 2003 Premature ventricular contractions (Chronic) Crohn's disease (Chronic) Hypophosphatemia (Chronic) Hypocalcemia (Chronic) Hyperlipidemia (Chronic) Hypertension (Chronic) Hospital Course and Treatment Summary of Care Provided: Patient seen by Quentin ESPINOSA under my supervision The patient is a 69 year old M with a past medical history as outlined was admitted through the ED with complaint of chest pain. Troponins x3 were negative and EKG showed no acute ST changes. He had nuclear stress test which was negative for ischemia with EF of 66%. Chest pain was therefore thought to be musculoskeletal. He remained stable and was discharged home on 07/25/2020. He is follow-up with his PCP in 1 to 2 weeks. Patient seen and examined prior to discharge. He had no complaints. Review of systems otherwise negative. Labs and vitals reviewed. Home medication reviewed and reconciled. O/E: Vital Signs Temp Pulse Resp BP Pulse Ox 97.9 F 67 18 157/86 H 95 07/25/20 15:07/25/20 15:07/25/20 15:07/25/20 15:07/25/20 15:09 General: Alert, Oriented x3, Cooperative HEENT: Atraumatic, PERRLA, EOMI, Normocephalic Neck: Supple, No JVD, Negative Carotid Bruits Lungs: Clear to auscultation, Normal air movement Cardiovascular: Regular rate, No murmurs Abdomen: Bowel Sounds Present, Soft, Non Tender, Non-Distended Extremities: No clubbing, No cyanosis, No edema, Capillary Refill Less than 3 Seconds Skin: No rashes, No breakdown Musculoskeletal: No Tenderness to Palpation of Joints or Extremities Neurological: Cranial nerves II-XII grossly intact, Neuro grossly intact Psych/Mental Status: Normal Affect, Appropriate plan is for dc home today. Rest as per Quentin ESPINOSA's note, which I have reviewed and endorsed. - Physical Exam Vitals/I&O's: Vital Signs Temp Pulse Resp BP Pulse Ox 97.9 F 67 18 157/86 H 95 07/25/20 15:07/25/20 15:07/25/20 15:09 07/25/20 15:09 07/25/20 15:09 Oxygen Delivery Method Room Air Weight: 178 lb 5.663 oz Body Mass Index (BMI) 25.7 Intake and Output for Last 24 Hours 07/23/20 07/24/20 07/25/20 23:59 23:59 23:59 Intake Total 240 / 240 1350 / 1350 Balance 240 / 240 1350 / 1350 Laboratory Results 07/24/20 16:54: Troponin I < 0.015 07/24/20 19:56: Troponin I < 0.015 07/25/20 06:06: WBC 7.3, RBC 4.91, Hgb 14.6, Hct 45.0, MCV 91.6, MCH 29.7, MCHC 32.4, RDW Std Deviation 49.1 H, RDW Coeff of Juanita 14.6, Plt Count 184, MPV 10.1, Immature Gran % (Auto) 0.300, Neut % (Auto) 53.2, Lymph % (Auto) 24.6, Parke % (Auto) 17.1 H, Eos % (Auto) 4.4, Baso % (Auto) 0.4, Absolute Neuts (auto) 3.9, Absolute Lymphs (auto) 1.80, Nucleated RBC % 0 07/25/20 06:06: Sodium 138, Potassium 4.0, Chloride 107, Carbon Dioxide 26.0, Anion Gap 5, BUN 11, Creatinine 1.21, Estim Creat Clear Calc 58.65, Est GFR (MDRD) Af Amer 76, Est GFR (MDRD) Non-Af 63, BUN/Creatinine Ratio 9.1 L, Glucose 100, Calcium 8.2 L, Total Bilirubin 0.40, AST 28, ALT 31, Alkaline Phosphatase 92, Total Protein 6.6, Albumin 2.7 L, Globulin 3.9, Albumin/Globulin Ratio 0.7 L, Triglycerides 132, Cholesterol 147, LDL Cholesterol 72, VLDL Cholesterol 26, HDL Cholesterol 49 OBSV E&M: [id number] Observation care discharge
--- NOTE | 2020-07-25 14:05 | STRESSREP ---
Stress Test Report Date: 07/25/2020 Procedure: Exercise tolerance test/imaging study Indications: Chest pain Consent: Per the patient Procedure: The patient exercised on a Sampson protocol for 7 minutes and 45 seconds achieving a peak heart rate of 164 bpm (109% predicted maximal heart rate) with a peak blood pressure 164/80 mmHg and a peak MET capacity of 9.7 METs. The baseline ECG demonstrated normal sinus rhythm, nonspecific ST-T changes. The peak exercise ECG demonstrated frequent PVCs about [address] depressions in the lateral leads. EKG during recovery revealed return of ST segments to baseline The functional capacity was considered excellent for age. There was [no complaint of chest discomfort during exercise or recovery]. The examination was discontinued secondary to leg discomfort, dyspnea. Impression: 1. Technically adequate (percent predicted maximal heart rate greater than 85%) exercise tolerance test 2. Stress test is negative for exercise-induced EKG changes of ischemia 3. The test test is negative for exercise-induced chest pain 4. Functional capacity is excellent for age 5. Nuclear images pending Myocardial perfusion imaging study: Technique: The patient was injected with 12 mCi of technetium 99m Cardiolite and subsequently rest SPECT Cardiolite nuclear imaging was obtained in the horizontal long, vertical long, and short axis views. The patient exercised on a Sampson protocol. Please see above for details. The patient was injected with 34.1 mCi of technetium 99m Cardiolite and subsequently stress SPECT Cardiolite nuclear imaging was obtained in the horizontal long, vertical long, and short axis views. A gated Cardiolite study at peak stress was obtained. Interpretation: Rest and stress SPECT Cardiolite nuclear imaging status post realignment, normalization, and attenuation correction, demonstrates mild decrease in the radioisotope uptake in the inferior wall on both the rest and stress images prior to attenuation correction. After attenuation correction there is normal myocardial radioisotope uptake. These findings are suggestive of diaphragmatic attenuation artifact. There is also mild fixed defect in the apex which appears to be apical thinning, normal variant. The gated Cardiolite study demonstrates no significant regional wall motion abnormalities. The reported LVEF is 66%. Impression: 1. There is no evidence of significant ischemia or infarction. 2. The gated Cardiolite study reports an LVEF of 66%. This note was generated with [employer] English software. It may contain incorrect words, spelling, and punctuation that were not noted in checking the note before signing.
--- NOTE | 2020-07-25 15:06 | PHA.DC.MR ---
Pharmacy Service has performed discharge medication reconciliation for this patient. No new medications at time of discharge review. Medications reviewed are from previously reported home medications. Home Medications Adalimumab [Humira] 40 mg SQ Q14D 09/20/14 Loperamide [Imodium] 2 mg PO TID 09/20/14 Canyon-3 Fatty Acids/Fish Oil [Fish Oil 1,000 mg Capsule] 1 ea PO QODAY 09/20/14 Pantoprazole Sodium [Protonix] 40 mg PO DAILY 07/15/16 simethicone 125 mg capsule 250 mg PO TIDCM cap 04/25/18 valsartan 320 mg tablet 160 mg PO BID 04/25/18 Lactase [Lactaid] 3,000 unit PO TID 07/24/20 The patient's discharge medication list was reviewed for discrepancies and discrepancies were resolved.
== END 2020-07-25 11:18 | disposition home or self-care (01) ==
LOC: ED 14:44 → PCU 15:21
PROVIDERS: Admitting Provider Family Medicine; Emergency Provider Emergency Medicine; PCP Family Medicine; Visit Provider Student in an Organized Health Care Education/Training Program
DX: R07.89 Other chest pain (principal); I10 Essential (primary) hypertension; K50.90 Crohn's disease, unspecified, without complications; I49.3 Ventricular premature depolarization; E78.5 Hyperlipidemia, unspecified; K21.9 Gastro-esophageal reflux disease without esophagitis; Z79.899 Other long term (current) drug therapy; Z87.891 Personal history of nicotine dependence
CPT/HCPCS: 36415; 71045; 78452; 80048; 80053; 80061; 83735; 84484; 85025; 85610; 85730; 93005; 93017; 96360; 96361; 99218; 99251; 99285; A9500; J7030; A4216; G0378; G0463

== ENCOUNTER → 2020-11-07 08:19 | Outpatient (CLI) | payer OTHER, SELFPAY ==
[2020-07-24 15:38] VITALS: BMI 25.7
--- NOTE | 2020-11-07 08:22 | RAD_ITS ---
CLINICAL HISTORY: Male, 69 years old. PROCEDURE: CONSENT: SEDATION: FLUOROSCOPY TIME (if supplied): ( ) minutes/seconds TECHNIQUE: (All elements of maximal sterile barrier technique followed, including US elements as applicable) Patient swallowed barium. Several abdominal films were taken immediately then after 15, 30, 60. And 120 minutes. There is excellent delineation of the stomach duodenum and jejunum apparently there was resection of the terminal ileum. There are 2 areas of narrowing of the ileal just before the anastomosis with the ascending the length of the first stenosis is about 5 cm the second area of stenosis is about 4.7 cm this is felt to be due to recurrence of Crohn''s disease. RAD/Small Bowel Series Only IMPRESSION: 2 areas of stenosis distal loop of ileum just before the anastomosis with the ascending colon highly suggestive of recurrence of Crohn''s disease. Electronically Signed: Nanci Avitia, at 11:54 EDT Tel , Service support ,
== END ==
PROVIDERS: PCP Family Medicine; Referring Provider Internal Medicine Gastroenterology; Visit Provider Internal Medicine Gastroenterology
DX: K50.90 Crohn's disease, unspecified, without complications (principal)
CPT/HCPCS: 74250

== ENCOUNTER 2021-04-11 08:33 | Day surgery (SDC) | payer OTHER, SELFPAY ==
[2021-04-09 09:01] LABS: Hematocrit 35.2 % (40-54); Hemoglobin 11.6 g/dL (13.0-16.5); Mean Corpuscular Hgb 29.4 pg (27.0-32.0); Mean Corpuscular Volume 89.3 fL (80-94); Mean Platelet Vol. 10.1 fl (6.2-12.0); Platelet Count 363 K/mm3 (150-450); RBC Distribution Width CV 15.6 % (11.6-14.6); RBC Distribution Width SD 50.6 fl (35.1-43.9); Red Blood Count 3.94 M/mm3 (4.6-6.2); White Blood Count 9.2 K/mm3 (4.4-11.0)
[2021-04-09 09:19] LABS: Anion Gap 6 (5-15); BUN 9 mg/dL (7-18); BUN/Creat Ratio 8.2 RATIO (10-20); Calcium,Total 8.8 mg/dL (8.5-10.1); Chloride 105 mmol/L (98-107); EST Glomerular Filtration Rate 70 mL/min (>60); Est Glom Filt Rate - Afr Amer 85 mL/min (>60); Glucose 82 mg/dL (74-106); Potassium 2.8 mmol/L (3.5-5.1); Sodium Level 142 mmol/L (136-145)
--- NOTE | 2021-04-09 14:46 | SUR.PREOP ---
lab called and rapid covid test is positive- lab is going to run PCR
--- NOTE | 2021-04-09 17:07 | SUR.PREOP ---
PT'S COVID pcR test was negative- pt called and OR charge nurse aware and will let dr jamison know.
[2021-04-11] VITALS (11 sets, daily range): BP systolic 111–155; BP diastolic 55–74; PULSE 57–65; RESP 16–18; TEMP 36.3–37.2; O2SAT 98–100; BMI 23.0; BMI 22.8
[2021-04-11] MEDS: Lactated Ringers 1,000 ML 15 ML IV ×2 (08:56→11:16)
[2021-04-11 09:05] LABS: Potassium 3.1 mmol/L (3.5-5.1)
[2021-04-11] MEDS: Cefazolin 2 GM in 0.9% Normal Saline 100 ML IV (09:26)
--- NOTE | 2021-04-11 10:26 | PCM.HP.STD ---
HPI - General HPI Narrative NIMESH WILSON, is a 70 M who presents for A TURP for urinary retention. [facility] Medical History (Updated 04/04/21 @ 09:22 by Maru Aviles) Bladder disease Cardiology follow-up encounter Crohn's disease Former smoker Gastric reflux History of Crohn's disease History of echocardiogram History of echocardiogram History of esophageal dilatation History of irregular heartbeat History of stress test Hyperlipidemia Hypertension Hypocalcemia Hypophosphatemia Indwelling urethral catheter present Palpitations Premature ventricular contractions Wears glasses Home Medications loperamide 2 mg PO TID 09/20/14 [History Last Taken 07/23/20] pantoprazole 20 mg PO QHS 07/15/16 [History Last Taken 07/23/20] simethicone 125 mg capsule 250 mg PO TIDCM cap 04/25/18 [History Last Taken 07/23/20] lactase 3,000 unit PO TID 07/24/20 [History Last Taken 07/24/20] valsartan 320 mg tablet 160 mg PO BID #90 tab 03/05/21 [Rx Last Taken 04/11/21 07:30] potassium chloride [Klor-Con] 20 meq PO BID #8 ea 04/09/21 [Rx Last Taken Unknown] ciprofloxacin HCl [Cipro] 500 mg PO BID #14 tab 04/11/21 [Rx Last Taken Unknown] Allergy/AdvReac Type Severity Reaction Status Date / Time No Known Allergies Allergy Verified 04/11/21 08:51 Family History Mother CAD (coronary artery disease) Hypertension Bowel disease Father CAD (coronary artery disease) Hypertension Surgical History (Updated 04/04/21 @ 09:22 by Maru Aviles) History of lithotripsy History of resection of small bowel History of right inguinal hernia repair Hx of resection of small bowel Social History Smoking Status: Former smoker pack-years: 25 Vital Signs Vital Signs Vital Signs: 04/11/21 08:52 Temperature 98 F Temperature Source Temporal Pulse Rate 65 Respiratory Rate 16 Respiratory Pattern Normal Blood Pressure 135/74 H Blood Pressure Mean 94 Blood Pressure Source Monitor Blood Pressure Position Semi-Fowlers Blood Pressure Location Left Arm Pulse Ox 98 Oxygen Delivery Method Room Air Weight Weight: 72.8 kg Body Mass Index (BMI) 23.0 Results Lab / Micro Data Result Diagrams: 04/09/21 08:32 04/11/21 08:45 Labs: Laboratory Results - last 24 hr 04/11/21 08:45: Potassium 3.1 L
--- NOTE | 2021-04-11 10:27 | DCINST_ITS ---
Discharge Instructions Diet Discharge Diet: No restrictions Activity Discharge Activity: Return to Normal Activity and May Not Drive (while taking narcotic pain medications.) Dressing / Incision Call your doctor if you observe: Fever of 101 or Higher Follow Up Care Please Follow Up With: Pedro Ochoa MD When: Call [phone] for an appointment Test Results: Test results from this visit will be discussed in further detail at your follow-up appointment, if applicable. Discharge Plan Admission Primary Reason for Your Visit: TURP Attending Provider: Pedro Ochoa Primary Care Provider: Nathan Arredondo Instructions [facility] Inst[facility] Discharge Orders/Prescriptions Prescriptions: New potassium chloride [Klor-Con] 20 mEq packet 20 meq PO BID Qty: 8 RF: 0 ciprofloxacin HCl [Cipro] 500 mg tablet 500 mg PO BID Qty: 14 RF: 0 Continued simethicone 125 mg capsule 250 mg PO TIDCM RF: 0 loperamide 2 MG capsule 2 mg PO TID RF: 0 pantoprazole 40 MG tablet 20 mg PO QHS RF: 0 lactase 3,000 UNIT tablet 3,000 unit PO TID RF: 0 valsartan 320 mg tablet 160 mg PO BID Qty: 90 RF: 3 Referrals / Follow Up: Pedro Ochoa MD [STAFF PHYSICIAN] - Nathan Arredondo DO [Primary Care Provider] - Disposition Disposition (needs filled in before D/C Order can be placed): Home, Self Care
--- NOTE | 2021-04-11 10:27 | PCM.OPRPT ---
Report of Operation Date of Procedure: 04/11/21 Pre-Operative Diagnosis: BPH with urinary retention and bladder stone small less than 2.5 cm in size Post-Operative Diagnosis: The same Surgery/Procedure Performed:: Transurethral resection of the prostate and cystolitholapaxy for small bladder stone Description of Surgical Findings:: Indication is 70-year-old male who has a history of BPH with obstruction he developed retention of urine and is not able to urinate despite multiple voiding trials so today working to proceed with a transurethral resection of the prostate he also has a small bladder stone and we can remove the bladder stone. Patient was taken back to the operating room after smooth induction of general anesthesia he was placed in dorsolithotomy position. The penis and testicles were prepped and draped in usual sterile felt fashion the catheter was removed. I then went into the bladder with a 26 Malay continuous-flow resectoscope once inside the bladder I used the laser bridge and then remove this and then the small stone in the back of the bladder this is about 1.5 cm in size was able to slide through the laser bridge and the stone was removed from the bladder. After removing the bladder stone then I switched over to the resection and started resecting the prostate I worked at the prostate 12 o'clock position marked out the limit of the resection and then marked out the verumontanum and the resected at the 6:00 to the verumontanum and then resected the right lobe of the prostate to the capsule and then resected the tissue in the right side of the prostate and then went to the left side and resected the prostate on the left side to the capsule and then pulled back behind the sphincter the sphincter was intact there was a good open space from the verumontanum all the way to the bladder neck with no obstruction. I then cauterized extensively to get hemostasis. We then put a catheter in bladder and continuous bladder irrigation patient will be admitted overnight for irrigation and tomorrow we will get the catheter out. The tissue from the resection was sent off to pathology. CPT 27246 CPT 19288 Surgeon: yaquelin Type of Anesthesia: General Drains: 22fr 3 way pastor Admit VTE Documentation VTE Present on Admission: No VTE Mechan Device Prophylaxis: SCD's VTE Pharm Prophylaxis ordered?: No
--- NOTE | 2021-04-11 11:10 | PROS_PTH ---
PATIENT: NIMESH WILSON LOC: [facility] [place] U#:[id number] AGE/SX: 70/M ROOM: RE04/11/[address]: Dr. Pedro Ochoa MD : 1950 BED: DIS: 04/12/2021 SPEC #: [id number] RECD: 04/11/21 13:01 STATUS: MARIN PRIETO #: [id number] ADRYAN: 04/11/21 11:[address]: Pedro Ochoa DEPT: SURGICAL PATHOLOGY RECD BY: Celestina Diana ENTERED: 04/11/21 13:45 SP TYPE: TURP OTHR DR: Dr. Nathan Arredondo, DO Tissues: Prostate, NOS Procedures: Surgery Specimen Level IV HEADER OPERATION: Cysto, transurethral resection, prostate, Olympus PRE-OP DIAGNOSIS: Benign prostatic hyperplasia with lower urinary tract symptoms TISSUE SUBMITTED: Prostate MICROSCOPIC DIAGNOSIS Prostate, TUR: Benign prostatic hyperplasia, glandular and stromal type. Focal chronic inflammation. AVRIL 04/14/21 MICROSCOPIC DESCRIPTION Slides are reviewed. GROSS DESCRIPTION Received is one container labeled with the patient's name and designated prostate tissue. The specimen consists of multiple irregular fragments of pink-tejada, rubbery, soft tissue that in aggregate weigh 8.0 gm and measure in aggregate 4.0 x 4.0 x 2.0 cm. The entire specimen is submitted in eight cassettes. /AVRIL:ammy 04/11/21 TC:5 [facility]: [id number]
[2021-04-11] MEDS: Loperamide 2 MG Capsule PO (12:45)
[2021-04-11] MEDS: Acetaminophen 500 MG Tablet PO ×2 (13:20→19:03)
[2021-04-11] MEDS: Potassium Chloride Oral Tablet 20 MEQ 40 MEQ PO (17:13)
[2021-04-11] MEDS: Loperamide 2 MG Capsule 4 MG PO (17:13)
[2021-04-11] MEDS: Losartan Potassium 50 MG Tablet PO (20:41)
[2021-04-11] MEDS: Ciprofloxacin 500 MG Tablet PO (20:41)
[2021-04-11] MEDS: Pantoprazole Sodium 20 MG Tablet PO (20:41)
[2021-04-12 01:22] VITALS: BP 123/61; PULSE 63; RESP 18; TEMP 37.1; O2SAT 98
--- NOTE | 2021-04-12 07:06 | PCS.PANDOC ---
PANDEMIC DOCUMENTATION INITIATED: Date: 12/30/2020 Time: 190
[2021-04-12 07:56] VITALS: BP 139/60; PULSE 60; RESP 18; TEMP 37; O2SAT 98
[2021-04-12] MEDS: Loperamide 2 MG Capsule 4 MG PO ×2 (08:01→13:53)
[2021-04-12] MEDS: Losartan Potassium 50 MG Tablet PO (08:02)
[2021-04-12] MEDS: Potassium Chloride Oral Tablet 20 MEQ 40 MEQ PO (08:05)
[2021-04-12] MEDS: Ciprofloxacin 500 MG Tablet PO (10:26)
[2021-04-12 13:46] VITALS: BP 162/67; PULSE 63; RESP 18; TEMP 36.8; O2SAT 100
== END 2021-04-12 15:37 | disposition home or self-care (01) ==
LOC: SDC 08:34 → AC 08:34 → MS3 04-12 13:55
PROVIDERS: Anesthesiology; PCP Family Medicine; Referring Provider Urology; Visit Provider Urology
PROC: (CPT 52317; principal; 2021-04-11 11:00)
DX: N40.1 Benign prostatic hyperplasia with lower urinary tract symptoms (principal); R33.8 Other retention of urine; N21.0 Calculus in bladder; K50.90 Crohn's disease, unspecified, without complications; K21.9 Gastro-esophageal reflux disease without esophagitis; E78.5 Hyperlipidemia, unspecified; I10 Essential (primary) hypertension; Z87.891 Personal history of nicotine dependence; Z79.899 Other long term (current) drug therapy
CPT/HCPCS: 52317; 52601; 36415; 80048; 84132; 85027; 87426; 87635; 88305; C9803; J7120; U0005; U0003

== ENCOUNTER → 2021-11-03 | Outpatient (CLI) | payer OTHER, SELFPAY ==
[2021-11-03 10:09] LABS: Erythrocyte Sedimentation Rate 11 mm/hr (0-20)
[2021-11-03 10:11] LABS: Absolute Lymphocyte Count 2.56 X10^3/uL (0.83-4.51); Absolute Neutrophil Count 8.8 X10^3/uL (2.0-7.7); Basophil# 0.05 X10^3/uL; Basophil% 0.4 % (0-1); Eosinophil# 0.21 X10^3/uL; Eosinophils% 1.6 % (0-5); Hematocrit 45.9 % (40-54); Hemoglobin 14.8 g/dL (13.0-16.5); Lymphocyte # 2.56 X10^3/ul (0.83-4.51); Mean Corp Hgb Conc 32.2 g/dL (32-36); Mean Corpuscular Hgb 29.8 pg (27.0-32.0); Mean Corpuscular Volume 92.4 fL (80-94); Mean Platelet Vol. 10.1 fl (6.2-12.0); Monocyte# 1.15 X10^3/uL; NRBC Flagged by Analyzer 0 % (0-5); Neutrophil # 8.78 X10^3/uL (2.7-7.7); Neutrophil % 68.8 % (47-70); Platelet Count 268 K/mm3 (150-450); RBC Distribution Width CV 14.9 % (11.6-14.6); RBC Distribution Width SD 50.7 fl (35.1-43.9); Red Blood Count 4.97 M/mm3 (4.6-6.2); White Blood Count 12.8 K/mm3 (4.4-11.0)
[2021-11-03 10:36] LABS: ALB/GLOB Ratio 0.7 RATIO (0.9-2.4); AST(SGOT) 36 U/L (15-37); Alanine Aminotransfer ALT/SGPT 44 U/L (16-61); Albumin, Serum 3.4 g/dL (3.2-5.0); Alkaline Phosphatase 110 U/L (45-117); Anion Gap 3 (5-15); BUN 22 mg/dL (7-18); BUN/Creat Ratio 14.6 RATIO (10-20); CRP < 2.90 mg/L (0.0-3.0); Calcium,Total 9.1 mg/dL (8.5-10.1); Chloride 105 mmol/L (98-107); Creatinine, Serum 1.51 mg/dL (0.70-1.30); EST Glomerular Filtration Rate 49 mL/min (>60); Est Glom Filt Rate - Afr Amer 59 mL/min (>60); Globulin 4.8 g/dL (2.2-4.2); Glucose 91 mg/dL (74-106); LDH 171 U/L (87-241); Potassium 4.7 mmol/L (3.5-5.1); Protein, Total 8.2 g/dL (6.4-8.2); Sodium Level 137 mmol/L (136-145)
[2021-11-04 13:08] LABS: Anti-Centromere B Ab <0.2 AI (0.0-0.9); Anti-Chromatin <0.2 AI (0.0-0.9); Anti-Jo <0.2 AI (0.0-0.9); Anti-Scleroderma-70 AB <0.2 AI (0.0-0.9); RNP Ab <0.2 AI (0.0-0.9); SJOGREN'S Anti-SS-A test < 0.2 AI (0.0-0.9); SJOGREN'S Anti-SS-B test < 0.2 AI (0.0-0.9); Smith Ab <0.2 AI (0.0-0.9)
[2021-11-04 14:57] LABS: Anti-dsDNA Ab 1 IU/mL (0-9)
[2021-11-08 11:08] LABS: Albumin 3.5 g/dL (2.9-4.4); Alpha-1-Globulins 0.3 g/dL (0.0-0.4); Alpha-2-Globulins 0.9 g/dL (0.4-1.0); Cytoplasmic Ab (C-ANCA) <1:20 titer (Neg:<1:20); Gamma Globulin 1.6 g/dL (0.4-1.8); Immunoglobulin A 376 mg/dL (61-437); Immunoglobulin E 7 IU/mL (6-495); Immunoglobulin G 1620 mg/dL (603-1613); Immunoglobulin M 168 mg/dL (15-143); PROEL- TOTAL PROTEIN 7.5 g/dL (6.0-8.5)
== END | disposition home or self-care (01) ==
LOC: LAB 09:35
PROVIDERS: PCP Family Medicine; Referring Provider Nurse Practitioner Adult Health; Visit Provider Nurse Practitioner Adult Health
DX: K50.919 Crohn's disease, unspecified, with unspecified complications (principal)
CPT/HCPCS: 36415; 80053; 82784; 82785; 83615; 84165; 85025; 85652; 86140; 86225; 86235; 86256; 86334

== ENCOUNTER → 2021-11-13 | Outpatient (CLI) | payer OTHER, SELFPAY ==
[2021-11-13 12:37] LABS: Hepatitis B Surface Antibody Non-Reactive
[2021-11-15 18:10] LABS: QNTFERON TB Mitogen Value > 10.00 IU/mL (.); QNTFERON TB Nil Value 0 IU/mL (.); QNTFERON TB1+ Ag Value 0 IU/mL (.); QNTFERON TB2+ Ag Value 0 IU/mL (.)
[2021-11-15 20:40] LABS: QNTIFERON TB Positive Criteria Negative (Negative)
[2021-11-19 11:17] LABS: Calprotectin, Stool 201 ug/g (0-120)
== END | disposition home or self-care (01) ==
PROVIDERS: PCP Family Medicine; Visit Provider Nurse Practitioner Adult Health
DX: K50.919 Crohn's disease, unspecified, with unspecified complications (principal)
CPT/HCPCS: 36415; 83630; 83993; 86480; 86706

== ENCOUNTER → 2021-11-14 | Outpatient (CLI) | payer OTHER, SELFPAY ==
--- NOTE | 2021-11-14 06:43 | CT_ITS ---
STUDY: CT ABDOMEN AND PELVIS WITH CONTRAST REASON FOR EXAM: Male, 70 years old. Crohn''s staging -- Oral and IV. HISTORY OF PARTIAL BOWEL RESECTIONS X 2 RADIATION DOSAGE (If Supplied By Facility): CTDIvol = ( 11.40 ) mGy, DLP = ( 652.28 ) mGycm TECHNIQUE: Transaxial images were obtained from the dome of the diaphragm to the symphysis pubis with oral contrast. Oral and amp;amp; IV Readi-CAT and amp;amp; 100mL Isovue-300 was administered. Sagittal and coronal images were reconstructed. Individualized dose optimization techniques were used for this CT. COMPARISON: Comparison is made with prior study dated 07/15/2016. FINDINGS: The visualized lung bases are unremarkable. Coronary artery calcification. There is decreased attenuation of the liver consistent with steatosis. Normal gallbladder and extrahepatic biliary system. Normal spleen. Normal pancreas. Normal bilateral adrenal glands. Normal right kidney. Normal left kidney. Incidental note is made of a left retroaortic renal vein. There is a small hiatal hernia. Normal small intestine. Moderate amount of fecal material is seen in the rectosigmoid colon. The patient status post right hemicolectomy. Mild degree of increased markings seen within the mesenteric fat in the right lower quadrant extending into the region of the hepatic flexure. This may represent a mild degree of inflammatory change. Small lymph nodes are seen in the mesentery in the right lower quadrant suggestive of mesenteric adenitis. There is scattered atherosclerotic calcification of the abdominal aorta, without a demonstrated aneurysm. Normal inferior vena cava. Normal retroperitoneum. Normal urinary bladder. Normal abdominal wall. There are mild degenerative changes of the visualized lumbar spine. Grade 1 anterior listhesis of L5 on S1 with spondylolysis of the pars interarticularis of the L5 vertebrae. CT/Abdomen/Pelvis WITH Contrast IMPRESSION: The patient is status post right hemicolectomy. Mild degree of increased markings are seen in the mesenteric fat in the right lower quadrant extending into the region of the hepatic flexure with small mesenteric lymph nodes. Mild degree inflammatory changes should be ruled out. Fatty infiltration of the liver. Electronically Signed: Neil Cortez MD at 8:33 EDT ,
== END | disposition home or self-care (01) ==
LOC: CT 06:42
PROVIDERS: PCP Family Medicine; Referring Provider Nurse Practitioner Adult Health; Visit Provider Nurse Practitioner Adult Health
DX: K50.919 Crohn's disease, unspecified, with unspecified complications (principal)
CPT/HCPCS: 74177; Q9967

== ENCOUNTER → 2021-12-12 | Outpatient (CLI) | payer OTHER, SELFPAY ==
[2021-12-12 10:22] VITALS: BP 151/70; PULSE 61; RESP 14; TEMP 36.4; O2SAT 99; BMI 25.6
[2021-12-12] MEDS: 0.9% NaCl IVPB Med Flush (250 mL) 15 ML IV (10:42)
[2021-12-12] MEDS: 0.9% NaCl Peripheral Flush Adult/Peds IV (10:42)
[2021-12-12 11:58] VITALS: BP 137/62; PULSE 60
== END | disposition home or self-care (01) ==
PROVIDERS: PCP Family Medicine; Referring Provider Nurse Practitioner Adult Health; Visit Provider Nurse Practitioner Adult Health
DX: K50.919 Crohn's disease, unspecified, with unspecified complications (principal)
CPT/HCPCS: 96365; J7050; A4216; J3358

== ENCOUNTER → 2022-01-12 | Outpatient (CLI) | payer OTHER, SELFPAY ==
[2022-01-12 09:29] LABS: Absolute Lymphocyte Count 2.22 X10^3/uL (0.83-4.51); Absolute Neutrophil Count 7.9 X10^3/uL (2.0-7.7); Basophil# 0.05 X10^3/uL; Basophil% 0.4 % (0-1); Eosinophil# 0.22 X10^3/uL; Eosinophils% 1.9 % (0-5); Hematocrit 45.4 % (40-54); Hemoglobin 14.8 g/dL (13.0-16.5); Lymphocyte # 2.22 X10^3/ul (0.83-4.51); Lymphocyte % 19.4 % (19-41); Mean Corp Hgb Conc 32.6 g/dL (32-36); Mean Corpuscular Hgb 30.1 pg (27.0-32.0); Mean Corpuscular Volume 92.3 fL (80-94); Mean Platelet Vol. 9.9 fl (6.2-12.0); Monocyte# 1.03 X10^3/uL; NRBC Flagged by Analyzer 0 % (0-5); Neutrophil # 7.87 X10^3/uL (2.7-7.7); Platelet Count 216 K/mm3 (150-450); RBC Distribution Width CV 14.5 % (11.6-14.6); RBC Distribution Width SD 48.9 fl (35.1-43.9); Red Blood Count 4.92 M/mm3 (4.6-6.2); White Blood Count 11.4 K/mm3 (4.4-11.0)
[2022-01-12 10:00] LABS: ALB/GLOB Ratio 0.7 RATIO (0.9-2.4); AST(SGOT) 22 U/L (15-37); Alanine Aminotransfer ALT/SGPT 29 U/L (16-61); Albumin, Serum 3.2 g/dL (3.2-5.0); Alkaline Phosphatase 90 U/L (45-117); Anion Gap 6 (5-15); BUN 16 mg/dL (7-18); BUN/Creat Ratio 10.9 RATIO (10-20); Chloride 106 mmol/L (98-107); Creatinine, Serum 1.47 mg/dL (0.70-1.30); EST Glomerular Filtration Rate 50 mL/min (>60); Est Glom Filt Rate - Afr Amer 61 mL/min (>60); Globulin 4.6 g/dL (2.2-4.2); Glucose 101 mg/dL (74-106); Potassium 4.9 mmol/L (3.5-5.1); Protein, Total 7.8 g/dL (6.4-8.2); Sodium Level 137 mmol/L (136-145)
== END | disposition home or self-care (01) ==
LOC: LAB 09:06
PROVIDERS: PCP Family Medicine; Referring Provider Nurse Practitioner Adult Health; Visit Provider Nurse Practitioner Adult Health
DX: K50.919 Crohn's disease, unspecified, with unspecified complications (principal)
CPT/HCPCS: 36415; 80053; 85025

== ENCOUNTER → 2022-01-27 | Outpatient (CLI) | payer OTHER, SELFPAY ==
--- NOTE | 2022-01-27 07:08 | US_ITS ---
STUDY: ABDOMINAL ULTRASOUND - ELASTOGRAPHY REASON FOR VISIT: Male, 71 years old. Fatty infiltration of the liver. TECHNIQUE: Liver stiffness measurements were obtained on a [employer] RS 85 ultrasound machine using a CA 1-7 probe following the SRU guidelines. 3 measurements were obtained using a 2-D-SWE method. The IQR/M was 24 suggesting a quality data set. TECHNICAL QUALITY: Adequate. COMPARISON: Comparison is made with prior study done earlier today. FINDINGS: Liver: Fatty infiltration of the liver. Median liver stiffness measured 9.3 kPa. US/Elastography Parenchyma/Organ IMPRESSION: Liver stiffness measures 9.3 kPa compatible with F2-F3 (Mild to moderate liver fibrosis) Metavir score. Electronically Signed: Neil Cortez MD at 11:11 EDT ,
--- NOTE | 2022-01-27 07:08 | US_ITS ---
STUDY: ABDOMINAL ULTRASOUND - RIGHT UPPER QUADRANT REASON FOR VISIT: Male, 71 years old fatty liver TECHNIQUE: Ultrasound evaluation of the right upper quadrant was performed with real-time and static mckeon-scale imaging. TECHNICAL QUALITY: Adequate. COMPARISON: None. FINDINGS: Liver: The liver measures 15 cm. There is increased echogenicity consistent with fatty infiltration. The bile ducts are within normal limits. There is hepatic color flow. The direction of portal flow is hepatopetal. There is no demonstrated mass lesion. Gallbladder: Normal distended gallbladder. The gallbladder wall measures 1.8 mm. There is a negative sonographic Gooden''s sign. There is no pericholecystic fluid. There are no gallstones. Common Bile Duct (C.B.D.): The common bile duct measures 4.3 mm. Pancreas: There is nonvisualization of the pancreas due to overlying bowel gas. There is normal echogenicity of the pancreas. There is no demonstrated pancreatic mass or cyst. Right Kidney: Normal size of the right kidney. The right kidney measures 10.8 cm x 5.3 cm x 5.8 cm. Normal renal cortex. The right cortex measures 1.6 cm. There is no demonstrated renal mass or cyst. There is no right hydronephrosis. US/Abdomen Limited IMPRESSION: Fatty infiltration of the liver. Electronically Signed: Neil Cortez MD at 11:10 EDT ,
== END | disposition home or self-care (01) ==
LOC: US 07:08
PROVIDERS: PCP Family Medicine; Referring Provider Nurse Practitioner Adult Health; Visit Provider Nurse Practitioner Adult Health
DX: K76.0 Fatty (change of) liver, not elsewhere classified (principal)
CPT/HCPCS: 76705; 76981

== ENCOUNTER 2022-06-11 05:26 | Day surgery (SDC) | payer OTHER, SELFPAY ==
[2022-06-11] VITALS (7 sets, daily range): BP systolic 88–152; BP diastolic 62–77; PULSE 68–74; RESP 16; TEMP 36.2–36.9; O2SAT 92–99; BMI 25.9
--- NOTE | 2022-06-11 | GASB_PTH ---
PATIENT: NIMESH WILSON LOC: EN U#:[id number] AGE/SX: 71/M ROOM: RE06/11/[address]: Dr. Toni Santoyo DO : 1950 BED: DIS: 06/11/2022 SPEC #: [id number] RECD: 06/11/22 13:59 STATUS: MARIN REAlthea #: [id number] ADRYAN: 06/11/22 00:[address]: Toni Sanotyo DEPT: SURGICAL PATHOLOGY RECD BY: Jamison Valadez ENTERED: 06/11/22 14:00 SP TYPE: Gastric Bx OTHR DR: Dr. Nathan Arredondo, DO Tissues: A - Duodenum, NOS B - Gastric mucous membrane C - Esophageal mucous membrane D - COLON BIOPSY E - COLON BIOPSY Procedures: Special Stain Group II Surgery Specimen Level IV Alcian Blue/PAS (control) HEADER OPERATION: [place] [place] PRE-OP DIAGNOSIS: Crohn?s disease, fatty liver TISSUE SUBMITTED: A ? Duodenum biopsy, B ? Gastric antrum biopsy for H. pylori and path, C ? Distal esophagus biopsy, D ? Anastomosis biopsy, E ? Random biopsy MICROSCOPIC DIAGNOSIS A. Duodenum, biopsy: Mild Beck?s gland hyperplasia. B. Gastric antrum, biopsy: Chronic gastritis. See comment. C. Distal esophagus, biopsy: Gastroesophageal junctional mucosa with chronic inflammation. Focal changes of reflux. No evidence of goblet cell metaplasia. See comment. D. Anastomotic site, biopsy: Focal mucosal ulceration with associated acute and chronic inflammation and reactive epithelial changes. E. Colon, random biopsy: No pathologic change. AM:cliff 06/12/2022 COMMENT B. The results of immunohistochemistry for Helicobacter pylori will be reported separately ([id number]). C. Alcian blue/PAS stain with matched control supports the above diagnosis. MICROSCOPIC DESCRIPTION Slides are reviewed. GROSS DESCRIPTION A - Received in fixative is one container labeled with the patient's name and designated duodenum biopsy. The specimen consists of two irregular fragments of light tejada soft tissue that in aggregate measure 0.6 x 0.6 x 0.1 cm. The specimen is totally submitted in one cassette. B - Received in fixative is one container labeled with the patient's name and designated gastric antrum biopsy. The specimen consists of one irregular fragment of light tejada soft tissue that measures 0.6 x 0.2 x 0.1 cm. The specimen is totally submitted in one cassette. C - Received in fixative is one container labeled with the patient's name and designated distal esophagus. The specimen consists of multiple irregular fragments of light tejada soft tissue that in aggregate measure 1.2 x 0.5 x 0.1 cm. The specimen is totally submitted in one cassette. D - Received in fixative is one container labeled with the patient's name and designated anastomosis biopsy. The specimen consists of multiple irregular fragments of light tejada soft tissue that in aggregate measure 1.5 x 1 x 0.1 cm. The specimen is totally submitted in one cassette. E - Received in fixative is one container labeled with the patient's name and designated random biopsy. The specimen consists of multiple irregular fragments of light tejada soft tissue that in aggregate measure 1.3 x 0.6 x 0.1 cm. The specimen is totally submitted in one cassette. / AM:cliff 06/11/2022 TC:3 CPT: 33115 x5, 45354
[2022-06-11] MEDS: Lactated Ringers 1,000 ML 15 ML IV (06:11)
--- NOTE | 2022-06-11 06:29 | HP.PCM_ITS ---
History and Physical Date of Admission: 06/11/22 71 M who presents to the office today for 2 month f/u Crohn's disease, stenotic type, history of 2 surgeries.? He started Stelara on 12/12/21, first injection will be next month. Doing well, no adverse effects from Stelara, bowels are improving--not as loose or urgent 10/2021 labs: ESR 11, CRP normal, LDH 171, positive p-ANCA, Positive stool calprotectin; results all consistent with Crohn's 12/15/21 CT/Abdomen/Pelvis WITH Contrast IMPRESSION: The patient is status post right hemicolectomy. Mild degree of increased markings are seen in the mesenteric fat in the right lower quadrant extending into the region of the hepatic flexure with small mesenteric lymph nodes.? Mild degree inflammatory changes should be ruled out. Fatty infiltration of the liver. He was diagnosed with Crohn's disease approximately 16 to 18 years ago.? He needed surgery at the time of his diagnosis; that was an ileocolonic anastomosis.? He has had 1 other surgery for his Crohn's; that was on 02/27/2021 at [facility].? He was on Humira every 2 weeks up until the time of his surgery.? The plan was to maybe put him on a newer medication after that.? He was never on any other medication for Crohn's. He currently uses as needed loperamide, as needed simethicone, as needed Lactaid.? He takes daily omeprazole for heartburn. Most recent colonoscopy was 10/31/[address] Zee.? A small bowel series on 11/07/2020 showed 2 areas of stenosis of the distal ileum just before the anastomosis with the ascending colon. ? Bowels are loose. Two BMs per day. No nocturnal BMs. Some urgency. No blood. No abd pain. Appetite is good. He has gained 20 lbs since his surgery. He was only eating eggs before surgery because of obstruction, that had been a problem for about 6 mos. Exam Const General: cooperative, healthy appearing and comfortable Orientation: alert, awake and oriented x3 HENMT Head: normal to inspection Eyes General: appearance normal, both eyes and all related structures Resp Effort & Inspection: normal respiratory effort Quality Reporting Tobacco Screening ([facility] 138) Smoking Status: Former smoker Assessment and Plan Assessment and Plan (1) Crohn's disease: ?Status:?Chronic ?Qualifiers: ?Digestive disease complication type:?unspecified complication?? Gastrointestinal tract location:?unspecified location? Qualified Code(s):? K50.919 - Crohn's disease, unspecified, with unspecified complications ?Plan: Update CBC and CMP today He'll start the injections of Stelara next month, q 8wks Upper and lower endoscopy in mid May w/ office f/u 2 wks later (2) Fatty liver: ?Status:?Acute ?Plan: Liver US and elastography, he can wait for May 2022 ? ? ? Orders: Orders Comprehensive Metabolic Profil 01/12/22 K50.919 - Crohn's disease, unsp ecified, with unspecified complications ? CBC W/Diff, Automated 01/12/22 K50.919 - Crohn's disease, unsp ecified, with unspecified complications ? Abdomen Limited 01/12/22 K76.0 - Fatty (change of) liver , not elsewhere classified ? Elastography Parenchyma/Organ 01/12/22 K76.0 - Fatty (change of) liver , not elsewhere classified ? I have examined the patient and the H&P has been reviewed. There are no clinical changes since date of exam.
--- NOTE | 2022-06-11 06:30 | IMM_PTH ---
PATIENT: NIMESH WILSON LOC: EN U#:[id number] AGE/SX: 71/M ROOM: RE06/11/[address]: Dr. Toni Santoyo DO : 1950 BED: DIS: 06/11/2022 SPEC #: [id number] RECD: 06/11/22 14:05 STATUS: MARIN REAlthea #: [id number] ADRYAN: 06/11/22 06:[address]: Toni Santoyo DEPT: IMMUNOHISTOCHEMISTRY RECD BY: Alia Hidalgo ENTERED: 06/11/22 14:08 SP TYPE: IMMUNO OTHR DR: Dr. Nathan Arredondo, Tissues: B - Stomach, NOS Procedures: H Pylori (initial) PHYSICIAN & INSTITUTION [place] [address] SPECIMEN INFORMATION: Tissue Source: B ? Gastric antrum Clinical Info: Crohn?s disease, fatty liver Specimen Number: [id number] CPT code: 28106 METHODOLOGY: Deparaffinized sections of prefer/formalin-fixed tissue or PAP/DQ stained slides are incubated with monoclonal/polyclonal antibodies/oligonucleotide probes. Localization is made via biotin free immunoperoxidase method. Appropriate controls are performed and reacted as expected. Results on target cell population are indicated in the following table: RESULTS: ANTIBODY / CLONE RESULT Block B H Pylori (polyclonal) negative These tests were developed and their performance characteristics determined by [facility]. They may not have been cleared or approved by the U.S. Food and Drug Administration. The FDA has determined that such clearance or approval is not necessary. The above immunohistochemical/dualISH markers are ordered and reviewed by the Pathologist. INTERPRETATION: B. Gastric antrum, biopsy: Negative for Helicobacter pylori organisms. AM:cliff 06/12/2022
--- NOTE | 2022-06-11 07:03 | OP.CCLET_ITS ---
06/11/2022 Nathan Arredondo [address] [facility] [place] [address] Re : Upper GI endoscopy procedure for [facility] Dear Dr. Arredondo This procedure was performed on May. My impressions and recommendations are as follows: Impressions : - Moderate Schatzki ring. Dilated. - Z-line irregular, 39 cm from the incisors. Biopsied. - Erythematous mucosa in the antrum. Biopsied. - Erythematous duodenopathy. Biopsied. Recommendations : - Discharge patient to home. - Resume previous diet. - Continue present medications. - Await pathology results. My findings are described in the full procedure note, which is enclosed. If I can be of further assistance, please feel free to contact me at . Sincerely, Toni Santoyo, 06/11/2022 7:02:25 AM This report has been signed electronically.
--- NOTE | 2022-06-11 07:03 | OP.EGD_ITS ---
Patient Name: René Alvarado Procedure Date: 06/11/2022 6:15 AM Date of : 1950 Age: 71 Procedure: Upper GI endoscopy Indications: Epigastric abdominal pain, Heartburn Providers: Toni Santoyo DO Referring MD: Nathan Arredondo Medicines: Monitored Anesthesia Care Patient Profile: This is a 71 year old male. Refer to note in patient chart for documentation of history and physical. Patient has symptoms of chronic heartburn. Complications: No immediate complications. Procedure: Pre-Anesthesia Assessment: - Prior to the procedure, a History and Physical was performed, and patient medications and allergies were reviewed. The risks and benefits of the procedure and the sedation options and risks were discussed with the patient. All questions were answered and informed consent was obtained. Patient identification and proposed procedure were verified by the physician in the pre-procedure area. Mental Status Examination: alert and oriented. Airway Examination: normal oropharyngeal airway and neck mobility. Respiratory Examination: clear to auscultation. CV Examination: normal. Prophylactic Antibiotics: The patient does not require prophylactic antibiotics. Prior Anticoagulants: The patient has taken no previous anticoagulant or antiplatelet agents. ASA Grade Assessment: II - A patient with mild systemic disease. After reviewing the risks and benefits, the patient was deemed in satisfactory condition to undergo the procedure. The anesthesia plan was to use monitored anesthesia care (MAC). Immediately prior to administration of medications, the patient was re-assessed for adequacy to receive sedatives. The heart rate, respiratory rate, oxygen saturations, blood pressure, adequacy of pulmonary ventilation, and response to care were monitored throughout the procedure. The physical status of the patient was re-assessed after the procedure. After obtaining informed consent, the endoscope was passed under direct vision. Throughout the procedure, the patient's blood pressure, pulse, and oxygen saturations were monitored continuously. The Colonoscope was introduced through the mouth, and advanced to the second part of duodenum. The upper GI endoscopy was accomplished without difficulty. The patient tolerated the procedure well. Moderate Sedation: Moderate (conscious) sedation was personally administered by an anesthesia professional. The following parameters were monitored: oxygen saturation, heart rate, blood pressure, respiratory rate, EKG, adequacy of pulmonary ventilation, and response to care. Scope In: 6:37:14 AM Scope Out: 6:43:37 AM Total Procedure Duration Time 0 hours 6 minutes 23 seconds Findings: A moderate Schatzki ring was found in the lower third of the esophagus. A guidewire was placed and the scope was withdrawn. Dilation was performed with a Savary dilator with no resistance at 45 Fr. The dilation site was examined and showed moderate improvement in luminal narrowing. Estimated blood loss was minimal. The Z-line was irregular and was found 39 cm from the incisors. Biopsies were taken with a cold forceps for histology. Verification of patient identification for the specimen was done. Estimated blood loss was minimal. Patchy mildly erythematous mucosa without bleeding was found in the gastric antrum. Biopsies were taken with a cold forceps for histology. Verification of patient identification for the specimen was done. Estimated blood loss was minimal. Patchy mildly erythematous mucosa without active bleeding and with no stigmata of bleeding was found in the duodenal bulb. Biopsies were taken with a cold forceps for histology. Verification of patient identification for the specimen was done. Estimated blood loss was minimal. Impression: - Moderate Schatzki ring. Dilated. - Z-line irregular, 39 cm from the incisors. Biopsied. - Erythematous mucosa in the antrum. Biopsied. - Erythematous duodenopathy. Biopsied. Recommendation: - Discharge patient to home. - Resume previous diet. - Continue present medications. - Await pathology results. Procedure Code(s): --- Professional --- 25750, Esophagogastroduodenoscopy, flexible, transoral; with insertion of guide wire followed by passage of dilator(s) through esophagus over guide wire 17970, 59,51, Esophagogastroduodenoscopy, flexible, transoral; with biopsy, single or multiple CPT copyright 2017 [employer]. All rights reserved. The codes documented in this report are preliminary and upon power station operator review may be revised to meet current compliance requirements. Toni Santoyo DO 06/11/2022 7:02:25 AM This report has been signed electronically. Number of Addenda: 0 Note Initiated On: 06/11/2022 6:15 AM
--- NOTE | 2022-06-11 07:09 | OP.COLON_ITS ---
Patient Name: René Alvarado Procedure Date: 06/11/2022 6:43 AM Date of : 1950 Age: 71 Procedure: Colonoscopy Indications: Crohn's disease of the small bowel and colon Providers: Toni Santoyo DO Referring MD: Nathan Arredondo Medicines: Monitored Anesthesia Care Patient Profile: This is a 71 year old male. Refer to note in patient chart for documentation of history and physical. Patient has symptoms of chronic heartburn. Last Colonoscopy: within the past 3 years. Complications: No immediate complications. Procedure: Pre-Anesthesia Assessment: - Prior to the procedure, a History and Physical was performed, and patient medications and allergies were reviewed. The risks and benefits of the procedure and the sedation options and risks were discussed with the patient. All questions were answered and informed consent was obtained. Patient identification and proposed procedure were verified by the physician in the pre-procedure area. Mental Status Examination: alert and oriented. Airway Examination: normal oropharyngeal airway and neck mobility. Respiratory Examination: clear to auscultation. CV Examination: normal. Prophylactic Antibiotics: The patient does not require prophylactic antibiotics. Prior Anticoagulants: The patient has taken no previous anticoagulant or antiplatelet agents. ASA Grade Assessment: II - A patient with mild systemic disease. After reviewing the risks and benefits, the patient was deemed in satisfactory condition to undergo the procedure. The anesthesia plan was to use monitored anesthesia care (MAC). Immediately prior to administration of medications, the patient was re-assessed for adequacy to receive sedatives. The heart rate, respiratory rate, oxygen saturations, blood pressure, adequacy of pulmonary ventilation, and response to care were monitored throughout the procedure. The physical status of the patient was re-assessed after the procedure. After I obtained informed consent, the scope was passed under direct vision. Throughout the procedure, the patient's blood pressure, pulse, and oxygen saturations were monitored continuously. The Colonoscope was introduced through the anus and advanced to the ileocolonic anastomosis. The colonoscopy was performed without difficulty. The patient tolerated the procedure well. The quality of the bowel preparation was good. Scope In: 6:45:55 AM Scope Out: 6:54:20 AM Total Procedure Duration Time 0 hours 8 minutes 25 seconds Findings: The perianal exam findings include anal fissure and anal canal stenosis. The rectum, recto-sigmoid colon, sigmoid colon, descending colon, splenic flexure and transverse colon appeared normal. Biopsies were taken with a cold forceps for histology. Verification of patient identification for the specimen was done. Estimated blood loss was minimal. There was evidence of a prior end-to-side ileo-colonic anastomosis at the hepatic flexure. This was patent and was characterized by ulceration. The anastomosis was traversed. Biopsies were taken with a cold forceps for histology. Verification of patient identification for the specimen was done. Estimated blood loss was minimal. The terminal ileum appeared normal. Impression: - Anal fissure and anal canal stenosis found on perianal exam. - The rectum, recto-sigmoid colon, sigmoid colon, descending colon, splenic flexure and transverse colon are normal. Biopsied. - Patent end-to-side ileo-colonic anastomosis, characterized by ulceration. Biopsied. - The examined portion of the ileum was normal. Recommendation: - Discharge patient to home. - Resume previous diet. - Continue present medications. - Await pathology results. - Repeat colonoscopy in 1 year for surveillance. Procedure Code(s): --- Professional --- 01491, Colonoscopy, flexible; with biopsy, single or multiple CPT copyright 2017 [employer]. All rights reserved. The codes documented in this report are preliminary and upon hcc coders review may be revised to meet current compliance requirements. Toni Santoyo DO 06/11/2022 7:08:49 AM This report has been signed electronically. Number of Addenda: 0 Note Initiated On: 06/11/2022 6:43 AM
--- NOTE | 2022-06-11 07:10 | OP.CCLET_ITS ---
06/11/2022 Nathan Arredondo [address] [place] [address] Re : Colonoscopy procedure for [facility] Dear Dr. Arredondo This procedure was performed on May. My impressions and recommendations are as follows: Impressions : - Anal fissure and anal canal stenosis found on perianal exam. - The rectum, recto-sigmoid colon, sigmoid colon, descending colon, splenic flexure and transverse colon are normal. Biopsied. - Patent end-to-side ileo-colonic anastomosis, characterized by ulceration. Biopsied. - The examined portion of the ileum was normal. Recommendations : - Discharge patient to home. - Resume previous diet. - Continue present medications. - Await pathology results. - Repeat colonoscopy in 1 year for surveillance. My findings are described in the full procedure note, which is enclosed. If I can be of further assistance, please feel free to contact me at . Sincerely, Toni Santoyo, 06/11/2022 7:08:49 AM This report has been signed electronically.
== END 2022-06-11 08:02 | disposition home or self-care (01) ==
LOC: EN 05:26 → AC 05:27
PROVIDERS: PCP Family Medicine; Referring Provider Family Medicine; Visit Provider Internal Medicine Gastroenterology
PROC: 0DJD8ZZ Inspection of Lower Intestinal Tract, Via Natural or Artificial Opening Endoscopic (ICD-10-PCS; CPT 45378; principal; 2022-06-11 06:25)
DX: K22.2 Esophageal obstruction (principal); K50.90 Crohn's disease, unspecified, without complications; K31.89 Other diseases of stomach and duodenum; K21.00 Gastro-esophageal reflux disease with esophagitis, without bleeding; K29.50 Unspecified chronic gastritis without bleeding; K63.3 Ulcer of intestine; K76.0 Fatty (change of) liver, not elsewhere classified; K60.2 Anal fissure, unspecified; I10 Essential (primary) hypertension; Z87.891 Personal history of nicotine dependence; Z79.899 Other long term (current) drug therapy
CPT/HCPCS: 45380; 43248; 43239; 88305; 88313; 88342; J7120; J2405

== ENCOUNTER → 2022-07-07 | Outpatient (CLI) | payer OTHER, SELFPAY ==
[2022-07-07 12:28] LABS: Erythrocyte Sedimentation Rate 19 mm/hr (0-20)
[2022-07-07 12:31] LABS: Absolute Lymphocyte Count 1.95 X10^3/uL (0.83-4.51); Absolute Neutrophil Count 5.9 X10^3/uL (2.0-7.7); Basophil# 0.04 X10^3/uL; Basophil% 0.4 % (0-1); Eosinophil# 0.19 X10^3/uL; Eosinophils% 2.1 % (0-5); Hematocrit 45.2 % (40-54); Hemoglobin 14.7 g/dL (13.0-16.5); Lymphocyte # 1.95 X10^3/ul (0.83-4.51); Lymphocyte % 21.6 % (19-41); Mean Corp Hgb Conc 32.5 g/dL (32-36); Mean Corpuscular Hgb 30.6 pg (27.0-32.0); Mean Corpuscular Volume 94.2 fL (80-94); Mean Platelet Vol. 10.6 fl (6.2-12.0); Monocyte# 0.98 X10^3/uL; Monocyte% 10.9 % (0-10); NRBC Flagged by Analyzer 0 % (0-5); Neutrophil # 5.85 X10^3/uL (2.7-7.7); Neutrophil % 64.8 % (47-70); Platelet Count 218 K/mm3 (150-450); RBC Distribution Width CV 14.3 % (11.6-14.6); RBC Distribution Width SD 49.8 fl (35.1-43.9)
[2022-07-07 13:04] LABS: ALB/GLOB Ratio 0.8 RATIO (0.9-2.4); AST(SGOT) 19 U/L (15-37); Alanine Aminotransfer ALT/SGPT 21 U/L (16-61); Albumin, Serum 3.4 g/dL (3.2-5.0); Alkaline Phosphatase 89 U/L (45-117); Anion Gap 6 (5-15); BUN 23 mg/dL (7-18); CRP < 2.90 mg/L (0.0-3.0); Calcium,Total 9.3 mg/dL (8.5-10.1); Chloride 104 mmol/L (98-107); Creatinine, Serum 1.44 mg/dL (0.70-1.30); EST Glomerular Filtration Rate 51 mL/min (>60); Est Glom Filt Rate - Afr Amer 62 mL/min (>60); Globulin 4.1 g/dL (2.2-4.2); Glucose 95 mg/dL (74-106); LDH 185 U/L (87-241); Potassium 4.8 mmol/L (3.5-5.1); Protein, Total 7.5 g/dL (6.4-8.2); Sodium Level 138 mmol/L (136-145)
[2022-07-09 23:06] LABS: Calprotectin, Stool 145 ug/g (0-120)
== END | disposition home or self-care (01) ==
LOC: MTLAB 10:04
PROVIDERS: PCP Family Medicine; Referring Provider Nurse Practitioner Adult Health; Visit Provider Nurse Practitioner Adult Health
DX: K50.919 Crohn's disease, unspecified, with unspecified complications (principal); K76.0 Fatty (change of) liver, not elsewhere classified
CPT/HCPCS: 36415; 80053; 83615; 83630; 83993; 85025; 85652; 86140

== ENCOUNTER → 2022-07-24 | Outpatient (CLI) | payer OTHER, SELFPAY ==
--- NOTE | 2022-07-24 07:45 | US_ITS ---
STUDY: ABDOMINAL ULTRASOUND - RIGHT UPPER QUADRANT REASON FOR VISIT: Male, 71 years old repeat elastography -- FATTY LIVER TECHNIQUE: Ultrasound evaluation of the right upper quadrant was performed with real-time and static mckeon-scale imaging. TECHNICAL QUALITY: Limited. Examination limited by bowel gas. COMPARISON: None. FINDINGS: Liver: The liver measures 15.9 cm. There is increased echogenicity consistent with fatty infiltration. The bile ducts are within normal limits. There is hepatic color flow. The direction of portal flow is hepatopetal. There is no demonstrated mass lesion. Gallbladder: Normal distended gallbladder. The gallbladder wall measures 2.8 mm. There is a negative sonographic Gooden''s sign. There is no pericholecystic fluid. There are no gallstones. Common Bile Duct (C.B.D.): The common bile duct measures 5.7 mm. Pancreas: There is nonvisualization of the pancreas due to overlying bowel gas. Right Kidney: Normal size of the right kidney. The right kidney measures 10.8 cm x 5.1 cm x 5.2 cm. Normal renal cortex. The right cortex measures 1.9 cm. There is no demonstrated renal mass or cyst. There is no right hydronephrosis. US/Abdomen Limited IMPRESSION: Fatty infiltration of the liver. Status post cholecystectomy. Nonvisualization of the pancreas due to overlying bowel gas. Electronically Signed: Neil Cortez MD at 14:01 EST ,
--- NOTE | 2022-07-24 07:45 | US_ITS ---
STUDY: ABDOMINAL ULTRASOUND - ELASTOGRAPHY REASON FOR VISIT: Male, 71 years old. Fatty infiltration of the liver. TECHNIQUE: Liver stiffness measurements were obtained on a [employer]W Instrument RS 85 ultrasound machine using a CA 1-7 probe following the SRU guidelines. 3 measurements were obtained using a 2-D-SWE method. TheIQR/M was 21 % suggesting a quality data set. TECHNICAL QUALITY: Adequate. COMPARISON: Comparison is made with prior study of January 27, 2022. FINDINGS: Liver: There is no demonstrated mass lesion. Median liver stiffness measured 8.3 kPa. 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 Electronically Signed: Neil Cortez MD at 14:03 EST ,
== END | disposition home or self-care (01) ==
LOC: US 07:44
PROVIDERS: PCP Family Medicine; Visit Provider Nurse Practitioner Adult Health
DX: K76.0 Fatty (change of) liver, not elsewhere classified (principal)
CPT/HCPCS: 76705; 76981

== ENCOUNTER → 2022-09-18 | Outpatient (CLI) | payer OTHER, SELFPAY ==
[2022-09-18 16:21] LABS: PSA,Total - Annual Screen 3.01 ng/mL (0.00-4.00)
== END | disposition home or self-care (01) ==
LOC: MTLAB 11:27
PROVIDERS: PCP Family Medicine; Referring Provider Registered Nurse; Visit Provider Registered Nurse
DX: Z12.5 Encounter for screening for malignant neoplasm of prostate (principal)
CPT/HCPCS: 36415; 84153; G0103

== ENCOUNTER → 2023-03-18 | Outpatient (CLI) | payer OTHER, SELFPAY ==
[2023-03-18 07:38] LABS: Absolute Lymphocyte Count 2.61 X10^3/uL (0.83-4.51); Absolute Neutrophil Count 5.3 X10^3/uL (2.0-7.7); Basophil# 0.07 X10^3/uL; Basophil% 0.8 % (0-1); Eosinophil# 0.24 X10^3/uL; Eosinophils% 2.6 % (0-5); Hematocrit 48.6 % (40-54); Hemoglobin 15.4 g/dL (13.0-16.5); Lymphocyte # 2.61 X10^3/ul (0.83-4.51); Lymphocyte % 28.5 % (19-41); Mean Corp Hgb Conc 31.7 g/dL (32-36); Mean Corpuscular Volume 94.7 fL (80-94); Mean Platelet Vol. 10.4 fl (6.2-12.0); Monocyte# 0.96 X10^3/uL; Monocyte% 10.5 % (0-10); NRBC Flagged by Analyzer 0 % (0-5); Neutrophil # 5.25 X10^3/uL (2.7-7.7); Neutrophil % 57.4 % (47-70); Platelet Count 247 K/mm3 (150-450); RBC Distribution Width CV 13.8 % (11.6-14.6); RBC Distribution Width SD 48.6 fl (35.1-43.9); Red Blood Count 5.13 M/mm3 (4.6-6.2); White Blood Count 9.2 K/mm3 (4.4-11.0)
[2023-03-18 08:15] LABS: ALB/GLOB Ratio 0.8 RATIO (0.9-2.4); AST(SGOT) 16 U/L (15-37); Alanine Aminotransfer ALT/SGPT 20 U/L (16-61); Albumin, Serum 3.4 g/dL (3.2-5.0); Alkaline Phosphatase 95 U/L (45-117); Anion Gap 4 (5-15); BUN 19 mg/dL (7-18); BUN/Creat Ratio 13.3 RATIO (10-20); Calcium,Total 9.1 mg/dL (8.5-10.1); Chloride 102 mmol/L (98-107); Cholesterol 154 mg/dL (200); Creatinine, Serum 1.43 mg/dL (0.70-1.30); EST Glomerular Filtration Rate 52 mL/min (>60); Est Glom Filt Rate - Afr Amer 62 mL/min (>60); Globulin 4.1 g/dL (2.2-4.2); Glucose 95 mg/dL (74-106); High Density Lipoprotein 47 mg/dL; Potassium 4.4 mmol/L (3.5-5.1); Protein, Total 7.5 g/dL (6.4-8.2); Sodium Level 136 mmol/L (136-145); Triglycerides 175 mg/dL; Very Low Density Lipoprotein 35 mg/dL (5-40)
== END | disposition home or self-care (01) ==
LOC: LAB 06:16
PROVIDERS: PCP Family Medicine; Referring Provider Nurse Practitioner Family; Visit Provider Nurse Practitioner Family
DX: I10 Essential (primary) hypertension (principal); I49.3 Ventricular premature depolarization; E78.5 Hyperlipidemia, unspecified
CPT/HCPCS: 36415; 80053; 80061; 85025

== ENCOUNTER → 2023-04-15 | Outpatient (CLI) | payer OTHER, SELFPAY ==
--- NOTE | 2023-04-15 07:43 | ECHOD_ITS ---
Reason For Study: MVP Procedure This was a 2D Doppler, Color Flow transthoracic echocardiogram. Exam performed in department. Left Ventricle Normal LV size. Left ventricular systolic function is normal. The estimated ejection fraction is 60 %. No regional wall motion abnormalities noted. Right Ventricle Normal RV size. Normal systolic function. Atria The left atrium is mildly enlarged. Normal right atrium. Mitral Valve Mild mitral valve prolapse. Mild (1+) eccentric mitral valve insufficiency. Tricuspid Valve Normal tricuspid valve. Mild tricuspid valve insufficiency. Pulmonary artery systolic pressure is 30 mmHg. Aortic Valve Normal aortic valve. Trisinus/trileaflet aortic valve. Mild (1+) aortic valve insufficiency. Pulmonic Valve Normal pulmonic valve. Great Vessels Normal aortic root. The pulmonary artery is normal size. Normal inferior vena cava. Pericardium/Pleural No pericardial effusion. MMode/2D Measurements & Calculations LVIDd: 5.1 cm IVSd: 1.1 cm Ao root diam: 3.6 cm LVIDs: 4.0 cm LVPWd: 0.96 cm FS: 21.8 % LAV(MOD-bp): 72.7 ml LVAd ap4: 34.3 cm2 SV(MOD-sp4): 68.6 ml LAV(MOD-bp) Indexed: 36.4 ml/m2 LVLd ap4: 8.3 cm LAV(MOD-sp2): 60.7 ml EDV(MOD-sp4): 113.8 ml LAV(MOD-sp4): 80.7 ml EDV(sp4-el): 119.6 ml LVAs ap4: 19.3 cm2 LVLs ap4: 6.9 cm ESV(MOD-sp4): 45.2 ml ESV(sp4-el): 45.8 ml EF(MOD-sp4): 60.3 % EF(sp4-el): 61.7 % SV(sp4-el): 73.8 ml LA A4 area: 24.4 cm2 LA dimension(2D): 4.3 cm RA A4 area: 15.7 cm2 TAPSE: 2.4 cm Time Measurements MV dec time: 0.20 sec Doppler Measurements & Calculations MV E max jose: 81.7 cm/sec Lat Peak E' Jose: 7.7 cm/sec Med Peak E' Jose: 6.9 cm/sec MV A max jose: 77.5 cm/sec E/E' lat: 10.6 E/E' med: 11.9 MV E/A: 1.1 MV V2 max: 98.2 cm/sec Ao V2 max: 128.8 cm/sec MV max P.9 mmHg MV dec slope: 407.0 cm/sec2 Ao max P.6 mmHg MV V2 mean: 70.9 cm/sec Ao V2 mean: 86.2 cm/sec MV mean P.2 mmHg Ao mean P.4 mmHg MV V2 VTI: 42.2 cm Ao V2 VTI: 30.3 cm AV (velocity ratio): 0.76 AI max jose: 355.9 cm/sec LV V1 max: 98.0 cm/sec PA V2 max: 91.3 cm/sec AI max P.7 mmHg LV V1 max P.9 mmHg PA V2 mean: 57.4 cm/sec LV V1 mean P.0 mmHg AI dec slope: 226.8 cm/sec2 LV V1 mean: 65.1 cm/sec AI P1/2t: 459.6 msec LV V1 VTI: 23.2 cm TR max jose: 259.4 cm/sec TR max P.9 mmHg ECHO/Echo Complete Interpretation Summary Normal LV size. Left ventricular systolic function is normal. The estimated ejection fraction is 60 %. Mild mitral valve prolapse. Mild (1+) eccentric mitral valve insufficiency. The left atrium is mildly enlarged. Mild (1+) aortic valve insufficiency. Ordering Physician: Wayne Daniel Referring Physician: Wayne Daniel Performed By: Pati Thomas RCS
== END | disposition home or self-care (01) ==
LOC: CVS 07:42
PROVIDERS: PCP Family Medicine; Referring Provider Nurse Practitioner Family; Visit Provider Nurse Practitioner Family
DX: I34.1 Nonrheumatic mitral (valve) prolapse (principal); I10 Essential (primary) hypertension; I49.3 Ventricular premature depolarization
CPT/HCPCS: 93306

== ENCOUNTER → 2023-06-30 | Outpatient (CLI) | payer OTHER, SELFPAY ==
[2023-06-30 10:04] LABS: Absolute Lymphocyte Count 1.95 X10^3/uL (0.83-4.51); Absolute Neutrophil Count 4.6 X10^3/uL (2.0-7.7); Basophil# 0.05 X10^3/uL; Basophil% 0.6 % (0-1); Eosinophil# 0.19 X10^3/uL; Eosinophils% 2.5 % (0-5); Hemoglobin 15.2 g/dL (13.0-16.5); Lymphocyte # 1.95 X10^3/ul (0.83-4.51); Lymphocyte % 25.2 % (19-41); Mean Corp Hgb Conc 32.3 g/dL (32-36); Mean Corpuscular Hgb 30.5 pg (27.0-32.0); Mean Corpuscular Volume 94.2 fL (80-94); Mean Platelet Vol. 10.3 fl (6.2-12.0); Monocyte# 0.88 X10^3/uL; Monocyte% 11.4 % (0-10); NRBC Flagged by Analyzer 0 % (0-5); Neutrophil # 4.63 X10^3/uL (2.7-7.7); Neutrophil % 59.9 % (47-70); Platelet Count 229 K/mm3 (150-450); RBC Distribution Width CV 14.4 % (11.6-14.6); RBC Distribution Width SD 49.8 fl (35.1-43.9); Red Blood Count 4.99 M/mm3 (4.6-6.2); White Blood Count 7.7 K/mm3 (4.4-11.0)
[2023-06-30 10:12] LABS: Erythrocyte Sedimentation Rate 4 mm/hr (0-20)
[2023-06-30 11:02] LABS: ALB/GLOB Ratio 0.9 RATIO (0.9-2.4); AST(SGOT) 35 U/L (15-37); Alanine Aminotransfer ALT/SGPT 23 U/L (16-61); Albumin, Serum 3.6 g/dL (3.2-5.0); Alkaline Phosphatase 108 U/L (45-117); Anion Gap 4 (5-15); BUN 18 mg/dL (7-18); BUN/Creat Ratio 14.3 RATIO (10-20); CRP < 2.90 mg/L (0.0-3.0); Chloride 109 mmol/L (98-107); Creatinine, Serum 1.26 mg/dL (0.70-1.30); EST Glomerular Filtration Rate 60 mL/min (>60); Est Glom Filt Rate - Afr Amer 72 mL/min (>60); Globulin 3.8 g/dL (2.2-4.2); Glucose 85 mg/dL (74-106); LDH 191 U/L (87-241); Potassium 4.2 mmol/L (3.5-5.1); Protein, Total 7.4 g/dL (6.4-8.2); Sodium Level 141 mmol/L (136-145)
[2023-07-03 09:08] LABS: QNTFERON TB Mitogen Value > 10.00 IU/mL (.); QNTFERON TB Nil Value 0.02 IU/mL (.); QNTFERON TB1+ Ag Value 0.01 IU/mL (.); QNTFERON TB2+ Ag Value 0.02 IU/mL (.); QNTIFERON TB Positive Criteria Negative (Negative)
== END | disposition home or self-care (01) ==
PROVIDERS: PCP Family Medicine; Referring Provider Internal Medicine Gastroenterology; Visit Provider Internal Medicine Gastroenterology
DX: K21.9 Gastro-esophageal reflux disease without esophagitis (principal); K50.90 Crohn's disease, unspecified, without complications
CPT/HCPCS: 36415; 80053; 83615; 85025; 85652; 86140; 86480

== ENCOUNTER → 2023-07-09 | Outpatient (CLI) | payer OTHER, SELFPAY ==
[2023-07-15 00:07] LABS: Calprotectin, Stool 76 ug/g (0-120)
== END | disposition home or self-care (01) ==
PROVIDERS: PCP Family Medicine; Referring Provider Internal Medicine Gastroenterology; Visit Provider Internal Medicine Gastroenterology
DX: K21.9 Gastro-esophageal reflux disease without esophagitis (principal); K50.90 Crohn's disease, unspecified, without complications
CPT/HCPCS: 83630; 83993

== ENCOUNTER → 2024-06-29 | Outpatient (CLI) | payer OTHER, SELFPAY ==
[2024-06-29 10:36] LABS: Erythrocyte Sedimentation Rate 15 mm/hr (0-20)
[2024-06-29 11:43] LABS: CRP < 2.90 mg/L (0.0-3.0)
== END | disposition home or self-care (01) ==
PROVIDERS: PCP Family Medicine; Referring Provider Internal Medicine Gastroenterology; Visit Provider Internal Medicine Gastroenterology
DX: K50.919 Crohn's disease, unspecified, with unspecified complications (principal)
CPT/HCPCS: 36415; 85652; 86140

== ENCOUNTER → 2024-10-30 | Outpatient (CLI) | payer OTHER, SELFPAY ==
--- OUTSIDE RECORDS SUMMARY | 2024-10-30 21:15 | XMS RPT_ITS | CCD ---
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 Elias Arredondo Primary Care Provider [phone] Dr. Elias Arredondo Referring Provider [phone] Smiley FUENTES, 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 Jennie Hagan Attending Provider [phone] Dr. Elias Arredondo Primary Care Provider [phone] Dr. Elias Arredondo Referring Provider [phone] Nam Flores Attending Provider Dr. Toni Santoyo Attending Provider [phone] Dr. Toni Santoyo Other Provider [phone] Dr. Elias Arredondo Primary Care Provider [phone] Dr. Elias Arredondo Referring Provider [phone] Smiley FUENTES NP-Lizeth Hagan Attending Provider [phone] Dr. Elias Arredondo Primary Care Provider [phone] Dr. Elias Arredondo Referring Provider Dr. Toni Santoyo Attending Provider [phone] Dr. Toni Santoyo Other Provider [phone] Smiley FUENTES NP-C Jennie Hagan Attending Provider [phone] Dr. Elias Arredondo Primary Care Provider [phone] Dr. Elias Arredondo Referring Provider Dr. Toni Santoyo Attending Provider [phone] Roof 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, 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 Wayne Thomas Attending Provider Dr. Nam Flores Attending Provider Dr. Elias Arredondo Primary Care Provider [phone] Dr. Elias Arredondo Referring Provider Roof 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, 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 Wayne Thomas Referring Provider Dr. Toni Santoyo Attending Provider [phone] Dr. Elias Arredondo Primary Care Provider [phone] Roof 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, 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 Wayne Thomas Attending Provider Dr. Elias Arredondo Referring Provider Toni Santoyo Attending Unavailable FriendToni Referring Unavailable Elias Arredondo Primary Care Unavailable Toni Santoyo Attending Unavailable Elias Arredondo Primary Care Unavailable Elias Arredondo Referring Unavailable Roof 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, Wayne Thomas Attending Unavailable Elias Arredondo Referring Unavailable Toni Santoyo Attending Unavailable Friend Dr. Toni VERA Attending Provider Dr. Elias Arredondo DO Primary Care Provider Dr. Elias Arredondo DO Referring Provider [phone] Medications Current Medications Medication Drug Class(es) Dates Sig (Normalized) Sig (Original) acetaminophen 325 mg oral tablet (3 sources) Start: 03-02-2021 take 2 tablets by mouth every six hours acetaminophen 325 mg oral tablet ; 2 tab(s) orally every 6 hours Quantity: 0 Refills: 0 Ordered: 02-Mar-2021 Heidi Mcbride Start: 02-Mar-2021 Generic Substitution Allowed Start: 12-03-2020 Tylenol Extra Strength 500 MG Oral Tablet TAKE 1 TABLET Every 6 hours For two days prior to surgery. Take 2 tablets (1000mg) the morning of surgery. Quantity: 1 Refills: 0 Ordered: 03-Dec-2020 Wali Crespo MD Start : 03-Dec-2020 Active amLODIPine 10 mg oral tablet (8 sources) Dihydropyridine Calcium Channel Audrey Start: 06-21-2024 End: 10-17-2024 take 1 tablet by mouth once daily Amlodipine 10 mg tablet Active 10 mg PO DAILY October 17, 2024 4:34pm Start: 03-10-2024 End: 06-21-2024 take 1 tablet by mouth once daily Amlodipine 5 mg tablet Discontinued 5 mg PO DAILY March 10, 2024 9:05am June 21, 2024 4:40pm Start: 03-09-2023 End: 03-10-2024 take 1 tablet by mouth once daily Amlodipine 2.5 mg tablet Discontinued 2.5 mg PO DAILY February 16, 2024 10:14am March 10, 2024 9:07am chlorhexidine gluconate 40 m g/ml medicated liquid soap (1 source) Start: 02-24-2021 Hibiclens 4 % External Liquid USE DIRECTED. Quantity: 1 Refills: 0 Ordered: 24-Feb-2021 Kathrine Cao Start : 24-Feb-2021 Active Start: 02-24-2021 Hibiclens 4 % External Liquid USE DIRECTED. Quantity: 1 Refills: 0 Ordered: 24-Feb-2021 Kathrine Cao Start : 24-Feb-2021 Active 0.4 ml enoxaparin sodium 100 mg/ml prefilled syringe (1 source) Low Molecular Weight Heparin Start: 03-02-2021 End: 03-27-2021 Lovenox 40 mg/0.4 mL injectable solution ; 40 milligram(s) subcutaneously every 24 hours Quantity: 1040 Refills: 0 Ordered: 02-Mar-2021 Heidi Mcbride Start: 02-Mar-2021 End: 27-Mar-2021 Generic Substitution Allowed Comments: It is very important that you take or use this exactly as directed. Do not skip doses or discontinue unless directed by your doctor. Comment on above: It is very important that you take or use this exactly as directed. Do not skip doses or discontinue unless directed by your doctor. lactase 3000 unt chewable tablet (20 sources) Start: 07-24-2020 take 1 tablet by mouth three times daily at mealtime Lactase 3,000 UNIT tablet Active 3000 U PO 3 TIMES DAILY WITH MEALS July 24, 2020 1:00am Start: 07-24-2020 take 3000 [IU] by mo [facility] three times daily at mealtime Lactase Active 3000 UNIT PO 3 TIMES DAILY WITH MEALS July 24, 2020 1:00am Start: 10-09-2014 [facility] daily LACTAID 3000 UNIT TABS One tablet by mouth daily LACTASE [id number] Nandini Butler RN Start: 10-09-2014 take 1 [facility] three times daily LACTOSE FAST ACTING RELIEF 9000 UNIT TABS One tablet by mouth three times daily LACTASE [id number] Elias Arredondo DO Lactaid Ultra 90 00 UNIT TABS Quantity: 0 Refills: 0 Ordered: 03-Dec-2020 DO Active Lactaid Ultra 90 00 units oral tablet ; 1 tab(s) oral prn Quantity: 0 Refills: 0 Ordered: 24-Feb-2021 Krystle Milton Generic Substitution Allowed [place]-3 Fatty Acids (1 source) [place]-3 Fatty Acid take 1 tablet by mouth once daily [place]-3 ; 1 tab(s) oral once a day Quantity: 0 Refills: 0 Ordered: 24-Feb-2021 Krystle Milton Generic Substitution Allowed [place]-3 Fatty Acids (3 sources) Start: 3 take 1000 mg by mouth every other day [place]-3 Fatty Acids Active 1000 MG PO every other day March 08, 2023 11:00pm [place]-3 Fatty Acids 1,000 mg capsule (1 source) Start: 3 take 1 capsule by mouth every other day [place]-3 Fatty Acids 1,000 mg capsule Active 1000 mg PO every other day March 09, 2023 12:00am omeprazole 20 mg delayed release oral capsule (20 sources) Proton Pump Inhibitor Start: 2 take 1 capsule by mouth once daily Omeprazole 20 mg capsule,delayed release(DR/EC) Active 20 mg PO DAILY November 03, 2021 12:00am Omeprazole 20 MG Oral Capsule Delayed Release Quantity: 0 Refills: 0 Ordered: 03-Dec-2020 DO Active take 1 tablet by mouth once malachi y omeprazole 20 mg oral delayed release tablet ; 1 tab(s) oral once a day Quantity: 0 Refills: 0 Ordered: 24-Feb-2021 Krystle Milton Generic Substitution Allowed oxyCODONE hydrochloride 5 mg oral tablet (1 source) Opioid Agonist Start: 03-02-2021 End: 03-06-2021 take 1 tablet by mouth every six hours as needed oxyCODONE 5 mg oral tablet ; 1 tab(s) orally every 6 hours, As Needed for painPRN Reason: Pain - Mod (4-6) Quantity: 15 Refills: 0 Ordered: 02-Mar-2021 Mathew Mcbrideng H Start: 02-Mar-2021 End: 06-Mar-2021 Generic Substitution Allowed sennosides, RETIREMENT (1 source) Start: 03-02-2021 End: 03-21-2021 take 2 tablets by mouth once daily as needed for constipation senna oral tablet ; 2 tab(s) orally once a day as needed for constipation Quantity: 40 Refills: 0 Ordered: 02-Mar-2021 Heidi Mcbride H Start: 02-Mar-2021 End: 21-Mar-2021 Generic Substitution Allowed ursodiol 250 mg oral tablet (15 sources) Bile Acid Start: 02-05-2022 End: 07-24-2024 take 1 tablet by mouth twice daily Ursodiol 250 mg tablet Active 250 mg PO TWICE A DAY 180 July 24, 2024 10:43am 1 ml ustekinumab 90 mg/ml prefilled syringe (20 sources) Interleukin-12 Antagonist, Interleukin-23 Antagonist Start: 11-26-2021 End: 12-23-2023 Ustekinumab (Stelara) 90 mg/mL syringe Active 90 mg SC every 8 weeks December 23, 2023 11:04am valsartan 160 mg oral tablet (20 sources) Angiotensin 2 Receptor Audrey Start: 03-12-2022 End: 02-10-2024 take 1 tablet by mouth twice daily Valsartan 160 mg tablet Active 160 mg PO TWICE A DAY 180 February 10, 2024 9:45am Start: 04-25-2018 End: 03-12-2022 take 0.5 tablet by mouth twice daily Valsartan 320 mg tablet Discontinued 160 mg PO TWICE A DAY 90 March 02, 2022 9:01am March 12, 2022 9:38am 320 mg PO 0.5 tablet bid; BP Start: 04-25-2018 End: 03-12-2022 take 0.5 tablet by mouth twice daily Valsartan Discontinued 160 MG PO TWICE A DAY March 02, 2022 8:01am March 12, 2022 8:38am 320 mg PO 0.5 tablet bid; BP Start: 10-09-2014 End: 04-25-2018 take 1 tablet by mouth once daily Valsartan 320 MG tablet Discontinued 320 mg PO DAILY July 01, 2016 1:00am April 25, 2018 9:22am Start: 10-09-2014 take 1 tablet by abraham th twice daily DIOVAN 320 MG TABS One tablet by mouth twice daily VALSARTAN [id number] Helio Bah MD vitamin e 180 mg oral capsule (12 sources) Start: 03-09-2023 take 1 capsule by mouth twice daily Vitamin E (Dl, Acetate) 180 mg (400 unit) capsule Active 180 mg PO TWICE A DAY March 09, 2023 12:00am Start: 06-10-2022 End: 03-09-2023 Vitamin E 200 unit Capsule Discontinued 180 U PO TWICE A DAY June 10, 2022 1:00am March 09, 2023 8:44am Start: 06-10-2022 End: 03-09-2023 take 180 [IU] by mouth twice daily Vitamin E Discontinued 180 UNIT PO TWICE A DAY June 10, 2022 12:00am March 09, 2023 7:44am Completed/Discontinued Medications Medication Drug Class(es) Dates Sig (Normalized) Sig (Original) acetaminophen 325 mg / HYDROcodone bitartrate 5 mg oral tablet (20 sources) Opioid Agonist Start: 07-17-2016 End: 09-24-2017 Hydrocodone-Acetami nophen 1 EACH tablet Discontinued 1 NMA PO Q4H July 24, 2016 1:00am September 20, 2017 2:45pm Start: 07-17-2016 End: 09-24-2017 Hydrocodone-Acetaminophen Di scontinued 1 EACH PO Q4H July 24, 2016 12:00am September 20, 2017 1:45pm adalimumab (4 sources) Tumor Necrosis Factor Audrey Start: 10-09-2014 HUMIRA 40 MG/0.8ML K IT as directed ADALIMUMAB [id number] Nandini Butler RN inject 1 dose by sub cutaneous injection every other week Humira 40 mg/0.8 mL subcutaneous kit ; 1 dose subcutaneous every other week Quantity: 0 Refills: 0 Ordered: 24-Feb-2021 AzeemSejal colladobeth Generic Substitution Allowed Humira 40 MG/0.4 ML Subcutaneous Prefilled Syringe Kit Quantity: 0 Refills: 0 Ordered: 03-Dec-2020 DO Active amoxicillin 875 mg / clavulanate 125 mg oral tablet (14 sources) Penicillin-class Antibacterial Start: 11-23-2020 End: 12-03-2020 Amoxicillin-Pot Clavulanate (Augmentin) 875-125 mg tablet Discontinued 1 {tbl} PO TWICE A DAY 05 03November 23, 2020 12:00am December 02, 2020 12:00am December 03, 2020 12:01am ascorbic acid 500 mg oral tablet (1 source) Start: 10-15-2014 take 1 tablet by mouth once daily VITAMIN C 500 MG TABS One tablet by mouth daily ASCORBIC ACID [id number] Helio Bah MD azithromycin 250 mg oral tablet (14 sources) Macrolide Antimicrobial Start: 08-26-2018 End: 11-10-2018 take 2-5 tablets by mouth once daily Azithromycin 250 mg tablet Discontinued 0 PO .COMPLEX August 26, 2018 12:00am November 10, 2018 9:53am take 500 mg today (day 1), then 250 mg for 4 days (days 2-5) PO bisacodyl 5 mg delayed release oral tablet (2 sources) Stimulant Laxative Start: 12-03-2020 Dulcolax 5 MG Oral Tablet Delayed Release Take 2 tablets at 3pm and 2 tablets at 9pm the day prior to your procedure Quantity: 4 Refills: 0 Ordered: 03-Dec-2020 Wali Crespo MD Start : 03-Dec-2020 Active calcium (1 source) Phosphate Binder, Calcium Start: 10-09-2014 take 1 tablet by mouth once daily CALCIUM 500 MG TABS One tablet by mouth daily CALCIUM [id number] Nandini Butler RN calcium citrate / vitamin D (2 sources) Start: 10-08-2015 take 1 tablet by mouth once daily CALCIUM CITRATE + D3 200-250 MG-UNIT TABS One tablet by mouth daily CALCIUM CITRATE-VITAMIN D [id number] Elias Arredondo DO Start: 10-08-2015 End: 12-20-2015 take 1 tablet by mouth once daily CALCIUM CITRATE + D3 200-250 MG-UNIT TABS One tablet by mouth daily CALCIUM CITRATE-VITAMIN D [id number] Elias Arredondo DO cephalexin 500 mg oral capsule (14 sources) Cephalosporin Antibacterial Start: 08-30-2018 End: 09-09-2018 take 1 capsule by mouth every twelve hours Cephalexin 500 mg capsule Discontinued 500 mg PO Q12H 20 August 30, 2018 12:00am September 08, 2018 12:00am September 09, 2018 12:08am ciprofloxacin 500 mg oral tablet (20 sources) Quinolone Antimicrobial Start: 04-11-2021 End: 11-03-2021 take 1 tablet by mouth twice daily Ciprofloxacin Hcl (Cipro) 500 mg tablet Discontinued 500 mg PO TWICE A DAY April 11, 2021 1:00am November 03, 2021 7:48am Start: 07-17-2016 End: 09-20-2017 take 1 tablet by mouth twice daily Ciprofloxacin Hcl 500 MG tablet Discontinued 500 mg PO TWICE A DAY July 17, 2016 1:00am September 20, 2017 2:44pm citric acid 75 mg/ml / magnesium oxide 21.9 mg/ml / picosulfate sodium 0.0625 mg/ml oral solution (8 sources) Calculi Dissolution Agent, Anti-coagulant Start: 05-25-2022 End: 03-09-2023 take 1 dose by mouth once daily Sod Picosulf-Mag Ox-Citric Ac (Clenpiq) 10 mg-3.5 gram -12 gram/160 mL solution Discontinued 160 mL PO DAILY 320 May 25, 2022 1:00am March 09, 2023 8:45am take first dose at 5-9PM evening before colonoscopy; 2nd dose the next day approximately 5 hrs before colonoscopy Start: 05-25-2022 End: 03-09-2023 take 1 dose by mouth once daily Sod Picosulf-Mag Ox-Citric Ac (Clenpiq) 10 mg-3.5 gram -12 gram/160 mL solution Discontinued 160 ML PO DAILY May 25, 2022 12:00am March 09, 2023 7:45am take first dose at 5-9PM evening before colonoscopy; 2nd dose the next day approximately 5 hrs before colonoscopy cromolyn sodium 40 mg/ml ophthalmic solution (2 sources) Mast Cell Stabilizer Start: 10-09-2014 End: 10-15-2014 CROMOLYN SODIUM 4 % SOLN as directed CROMOLYN SODIUM [id number] Nandini Butler RN ergocalciferol (1 source) Provitamin D2 Compound Start: 10-15-2014 VITAMIN D (ERGOCALCIFEROL) 64219 UNIT CAPS monthly ERGOCALCIFEROL [id number] Helio Bah MD fish oil (2 sources) Start: 10-09-2014 take 1 capsule by mouth every other day OMEGA-3 FISH OIL 300 MG CAPS one capsule by mouth every other day OMEGA-3 FATTY ACIDS [id number] Elias Chirag Arnulfo Start: 10-09-2014 FISH OIL CAPS 1000mg capsule daily OMEGA-3 FATTY ACIDS CAPS [id number] Nandini Butler RN gabapentin 100 mg oral capsule (4 sources) Anti-epileptic Agent Start: 12-03-2020 take 1 tablet by mouth at bedtime Gabapentin 100 MG Oral Capsule Take one tablet at bedtime starting 3 days prior to surgery Quantity: 3 Refills: 0 Ordered: 03-Dec-2020 Wali Crespo MD Start : 03-Dec-2020 Active Start: 10-09-2015 End: 12-20-2015 take 1 capsule by mouth once daily for pain GABAPENTIN 300 MG CAPS One capsule by mouth daily at night for pain GABAPENTIN [id number] Elias Arredondo DO hydroCHLOROthiazide 12.5 mg / valsartan 320 mg oral tablet (7 sources) Thiazide Diuretic, Angiotensin 2 Receptor Audrey Start: 10-09-2014 take 1 tablet by mouth once daily DIOVAN HCT 320-12.5 MG TABS One tablet by mouth daily VALSARTAN-HYDROCHLOROTHIAZIDE [id number] Nandini Butler RN Valsartan-hydroC HLOROthiazide 320-12.5 MG Oral Tablet Quantity: 0 Refills: 0 Ordered: 03-Dec-2020 DO Active loperamide hydrochloride 2 mg oral tablet (20 sources) Opioid Agonist Start: 10-09-2014 LOPERAMIDE A-D 2 MG TABS One tablet by mouth six times daily LOPERAMIDE HCL [id number] Elias Arredondo DO Start: 10-09-2014 take 1 tablet by abraham th once daily, then take 1 tablet by mouth LOPERAMIDE A-D 2 MG TABS One tablet by mouth daily LOPERAMIDE HCL [id number] Nandini Butler RN Start: 10-09-2014 LOPERAMIDE A-D 2 MG TABS as needed with gas X LOPERAMIDE HCL [id number] Helio Bah MD Start: 09-20-2014 take 2 capsules by m outh three times daily at mealtime as needed Loperamide 2 MG capsule Active 4 mg PO 3 TIMES DAILY WITH MEALS as needed for chrons September 20, 2014 12:00am Start: 09-20-2014 take 4 mg by mouth t hree times daily at mealtime Loperamide Active 4 MG PO 3 TIMES DAILY WITH MEALS September 19, 2014 11:00pm Loperamide HCl - 2 MG Oral Capsule Quantity: 0 Refills: 0 Ordered: 03-Dec-2020 DO Active LUTEIN-ZEAXANTHIN (1 source) Start: 10-08-2015 take 1 capsule by mouth once daily, then take 6-0.24 capsules by mouth LUTEIN-ZEAXANTHIN 6-0.24 MG CAPS 1 capsule by mouth daily LUTEIN-ZEAXANTHIN [id number] Elias Arredondo DO methylPREDNISolone 4 mg oral tablet (14 sources) Corticosteroid Start: 08-30-2018 End: 09-04-2018 take 1 tablet by mouth once Methylprednisolone (Medrol (Xiang)) 4 mg tablets,dose pack Discontinued 4 mg PO per package directions 04 10August 30, 2018 12:00am September 03, 2018 12:00am September 04, 2018 12:10am metroNIDAZOLE 250 mg oral tablet (2 sources) Nitroimidazole Antimicrobial Start: 12-03-2020 take 1 tablet by mouth once daily metroNIDAZOLE 250 MG Oral Tablet Take 1 tablet at 6pm, 7pm and 11pm the day prior to surgery. Quantity: 3 Refills: 0 Ordered: 03-Dec-2020 Wali Crespo MD Start : 03-Dec-2020 Active mometasone furoate 0.05 mg/actuat metered dose nasal spray (2 sources) Corticosteroid Start: 10-09-2014 End: 10-15-2014 NASONEX 50 MCG/ACT SUSP Take as directed MOMETASONE FUROATE [id number] Nandini Butler RN neomycin sulfate 500 mg oral tablet (2 sources) Aminoglycoside Antibacterial Start: 12-03-2020 take 2 tablets by mouth once daily Neomycin Sulfate 500 MG Oral Tablet take 2 tablets at 6pm, 7pm and 11pm the day before surgery Quantity: 6 Refills: 0 Ordered: 03-Dec-2020 Wali Crespo MD Start : 03-Dec-2020 Active [place] 3 CAPS (5 sources) [place] 3 CAPS Quantity: 0 Refills: 0 Ordered: 03-Dec-2020 DO Active [place]-3 Fatty Acids-Vitamin E (Fish Oil) 1,000 mg Capsule (8 sources) Start: 06-10-2022 End: 03-09-2023 [place]-3 Fatty Acids-Vitamin E (Fish Oil) 1,000 mg Capsule Discontinued 1 NMA PO EVERY OTHER DAY June 10, 2022 1:00am March 09, 2023 8:41am Start: 06-10-2022 End: 03-09-2023 take 1 capsule by mouth every other day [place]-3 Fatty Acids-Vitamin E (Fish Oil) 1,000 mg Capsule Discontinued 1 CAP PO EVERY OTHER DAY June 10, 2022 12:00am March 09, 2023 7:41am Start: 06-10-2022 take 1 capsule by mo [facility] every other day [place]-3 Fatty Acids-Vitamin E (Fish Oil) 1,000 mg Capsule Active 1 CAP PO EVERY OTHER DAY June 10, 2022 1:00am Start: 06-10-2022 take 1 capsule by mo [facility] every other day [place]-3 Fatty Acids-Vitamin E (Fish Oil) 1,000 mg Capsule Active 1 CAP PO EVERY OTHER DAY June 10, 2022 12:00am pantoprazole 40 mg delayed release oral tablet (14 sources) Proton Pump Inhibitor Start: 07-15-2016 End: 11-03-2021 Pantoprazole 40 MG tablet Discontinued 20 mg PO AT BEDTIME July 15, 2016 1:00am November 03, 2021 9:43am Start: 07-15-2016 End: 11-03-2021 take 20 mg by mouth at bedtime Pantoprazole Discontinu ed 20 MG PO AT BEDTIME July 15, 2016 12:00am November 03, 2021 8:43am polyethylene glycol 3350 82615 mg powder for oral solution (2 sources) Osmotic Laxative Start: 12-03-2020 Polyethylene Glycol 3350 17 GM/SCOOP Oral Powder MIX 238 GM Once As Directed Mix with 64 ounces of clear liquids Quantity: 1 Refills: 0 Ordered: 03-Dec-2020 Wali Crespo MD Start : 03-Dec-2020 Active potassium chloride 20 meq powder for oral solution (14 sources) Start: 04-09-2021 End: 11-03-2021 take 20 mEq by mouth twice daily Potassium Chloride (Klor-Con) 20 mEq packet Discontinued 20 meq PO TWICE A DAY April 09, 2021 1:00am November 03, 2021 9:21am monobasic potassium phosphate 0.0408 meq/ml oral solution (17 sources) Start: 09-20-2017 End: 09-24-2017 take 1 tablet by mouth twice daily Potassium Phosphate, Monobasic (K-Phos Original) 500 mg tablet,soluble Discontinued 500 mg PO TWICE A DAY September 20, 2017 12:00am September 24, 2017 10:25am Start: 10-09-2014 take 1 tablet by [facility] three times daily K-PHOS 500 MG TABS One tablet by mouth three times daily POTASSIUM PHOSPHATE MONOBASIC [id number] Elias Arredondo DO Start: 10-09-2014 take 2 tablets by [facility] twice daily K-PHOS 500 MG TABS Two tablets by mouth twice daily POTASSIUM PHOSPHATE MONOBASIC [id number] Nandini Butler RN Start: 10-09-2014 take 2 tablets by [facility] once daily K-PHOS 500 MG TABS Two tablets by mouth daily POTASSIUM PHOSPHATE MONOBASIC [id number] Helio Bah MD potassium phosphate 155 mg / sodium phosphate, dibasic 852 mg / sodium phosphate, monobasic 130 mg oral tablet (14 sources) Start: 09-20-2014 End: 09-20-2017 Sod Phos Di, Gallia-K Phos Mon o 250 MG tablet Discontinued 500 mg PO TWICE A DAY September 20, 2014 12:00am September 20, 2017 2:42pm Start: 09-20-2014 End: 09-20-2017 take 500 mg by mouth twice daily Sod Phos Di, Gallia-K Phos Gallia Discontinued 500 MG PO TWICE A DAY September 19, 2014 11:00pm September 20, 2017 1:42pm simethicone 125 mg oral capsule (20 sources) Start: 04-25-2018 End: 03-09-2023 take 2 capsules by mouth three times daily at mealtime Simethicone 125 mg capsule Discontinued 250 mg PO 3 TIMES DAILY WITH MEALS April 25, 2018 1:00am March 09, 2023 8:45am 250 mg PO each meal; Start: 04-25-2018 End: 03-09-2023 take 250 mg by mouth three times daily at mealtime Simethicone Discontinued 250 MG PO 3 TIMES DAILY WITH MEALS April 25, 2018 12:00am March 09, 2023 7:45am 250 mg PO each meal; Start: 07-01-2016 End: 09-24-2017 take 1 tablet by mouth three times daily Simethicone 80 MG tablet,chewable Discontinued 80 mg PO THREE TIMES A DAY July 01, 2016 1:00am September 24, 2017 10:25am Start: 10-08-2015 SIMETHICONE 12 5 MG CAPS 1 capsule by mouth six times daily SIMETHICONE [id number] Elias Arredondo DO Start: 10-15-2014 GAS-X ULTRA ST RENGTH CAPS as needed SIMETHICONE CAPS [id number] Helio Bah MD Start: 10-15-2014 End: 10-08-2015 GAS-X ULTRA STRENGTH CAPS as needed SIMETHICONE CAPS [id number] Elias Arredondo DO Simethicone Extr a Strength 125 MG Oral Capsule Quantity: 0 Refills: 0 Ordered: 03-Dec-2020 DO Active tobramycin 3 mg/ml ophthalmic solution (20 sources) Aminoglycoside Antibacterial Start: 08-24-2018 End: 08-31-2018 take 0.3 drop(s) into the eye(s) every two hours Tobramycin 0.3 % drops Discontinued 1 NMA OPHTHALMIC Q2H 5 5 August 26, 2018 11:10am August 30, 2018 12:00am August 31, 2018 12:06am to left eye while awake vitamin b 12 1 mg oral capsule (17 sources) Vitamin B12 Start: 10-08-2015 take 1 capsule by mouth once daily B-12 1000 MCG CAPS 1 capsule by mouth daily CYANOCOBALAMIN [id number] Elias Arredondo DO Start: 09-20-2014 End: 04-25-2018 take 1 tablet by mouth once daily Cyanocobalamin (Vitamin B-12) 500 MCG tablet Discontinued 500 ug PO DAILY@0800 September 20, 2014 12:00am April 25, 2018 9:22am CHOLECALCIFEROL TABS (2 sources) Start: 10-15-2014 VITAMIN D TABS 1.25mg monthly CHOLECALCIFEROL TABS [id number] Helio Bah MD Start: 10-15-2014 End: 10-08-2015 VITAMIN D TABS 1.25mg monthl y CHOLECALCIFEROL TABS [id number] Elias Arredondo DO Problems Active Problems Problem Classification Problem Date Documented Da te Episodic/Chronic Acute bronchitis (14 sources) Acute bronchitis; Translations: [Acute bronchitis, unspecified] 07-25-2020 Episodic Cardiac dysrhythmias (15 sources) Ventricular premature beats; Translations: [Ventricular premature depolarization] Onset: 10-09-2014 10-09-2014 Chronic Cardiac dysrhythmias (15 sources) Palpitations; Translations: [Palpitations] Onset: 10-09-2014 10-09-2014 Episodic Comment on above: Resolved after HCTZ stopped Chronic kidney disease (1 source) Chronic kidney disease stage 3; Translations: [Chronic kidney disease, stage 3 (moderate)] Onset: 10-09-2015 10-09-2015 Chronic Disorders of lipid metabolism (15 sources) Hypertriglyceridemia ; Translations: [Hyperlipidemia] Onset: 10-09-2014 10-09-2014 Chronic Disorders of teeth and jaw (14 sources) Toothache; Translations: [Other specified disorders of teeth and supporting structures] 03-11-2022 Episodic Esophageal disorders (13 sources) Gastric reflux; Translations: [Gastro-esophageal reflux disease without esophagitis] 07-07-2022 Chronic Essential hypertension (18 sources) Hypertensive disorder; Translations: [Essential (primary) hypertension] Onset: 10-09-2014 10-09-2014 Chronic Fluid and electrolyte disorders (14 sources) Dehydration; Translations: [Dehydration] 09-21-2014 Episodic Heart valve disorders (11 sources) Mitral valve prolapse; Translations: [Nonrheumatic mitral (valve) prolapse] 03-11-2022 Chronic Inflammation; infection of eye (except that caused by tuberculosis or sexually transmitteddisease) (14 sources) Conjunctivitis; Translations: [Unspecified conjunctivitis] 03-11-2022 Episodic Intestinal obstruction without hernia (5 sources) Stricture of colon; Translations: [Unspecified intestinal obstruction] Episodic Nonspecific chest pain (6 sources) Chest pain; Translations: [Chest pain, unspecified] Episodic Other gastrointestinal disorders (5 sources) Finding of abdomen; Translations: [Abdominal or pelvic swelling, mass, or lump, periumbilic] Episodic Other liver diseases (10 sources) Steatosis of liver; Translations: [Fatty (change of) liver, not elsewhere classified] 03-12-2022 Chronic Other liver diseases (8 sources) Fatty (change of) liver, not elsewhere classified; Translations: [Other chronic nonalcoholic liver disease] Chronic Other nervous system disorders (2 sources) Acute postoperative pain; Translations: [Other acute postoperative pain] 02-28-2021 Episodic Other nutritional; endocrine; and metabolic disorders (15 sources) Hypophosphatemia; Translations: [Other disorders of phosphorus metabolism] Onset: 10-08-2015 10-08-2015 Chronic Other nutritional; endocrine; and metabolic disorders (14 sources) Hypocalcemia; Translations: [Hypocalcemia] 03-11-2022 Chronic Other skin disorders (14 sources) Skin lesion; Translations: [Disorder of the skin and subcutaneous tissue, unspecified] 03-11-2022 Episodic Regional enteritis and ulcerative colitis (20 sources) Crohn's disease; Translations: [Regional enteritis of unspecified site] Onset: 10-08-2015 10-08-2015 Chronic Residual codes; unclassified (14 sources) History of excision of small intestine; Translations: [Acquired absence of other specified parts of digestive tract] 03-11-2022 Episodic Comment on above: 2004 Residual codes; unclassified (20 sources) Past history of procedure; Translations: [Other specified postprocedural states] 03-11-2022 Episodic Comment on above: 07/24/[address] Jesus yanez 08/2016 Screening and history of mental health and substance abuse codes (14 sources) Ex-tobacco user; Translations: [Personal history of nicotine dependence] 03-11-2022 Episodic Skin and subcutaneous tissue infections (14 sources) Soft tissue infection; Translations: [Local infection of the skin and subcutaneous tissue, unspecified] 03-11-2022 Episodic Spondylosis; intervertebral disc disorders; other back problems (3 sources) Cervical radiculopathy; Translations: [Degeneration of cervical intervertebral disc] Onset: 10-09-2015 Resolved: 12-20-2015 10-09-2015 Chronic Unclassified (1 source) Influenza vaccination ; Translations: [Encounter for immunization] Onset: 04-05-2017 04-05-2017 Unclassified (3 sources) CROHN'S DISEASE/STRICTURE 12-03-2020 Comment on above: CROHN'S DISEASE/STRI CTURE Past or Other Problems Problem Classification Problem Date Documented Da te Episodic/Chronic Conditions associated with dizziness or vertigo (1 source) Dizziness and giddiness; Translations: [Dizziness and giddiness] Onset: 10-09-2014 10-09-2014 Episodic Other connective tissue disease (1 source) Rotator cuff syndrome; Translations: [Unspecified rotator cuff tear or rupture of right shoulder, not specified as traumatic] Onset: 12-20-2015 12-20-2015 Episodic Other lower respiratory disease (1 source) Dyspnea; Translations: [Shortness of breath] Onset: 10-09-2014 10-09-2014 Episodic Other non-traumatic joint disorders (2 sources) Pain in right shoulder; Translations: [Pain in right shoulder] Onset: 10-08-2015 Resolved: 10-09-2015 10-08-2015 Episodic Spondylosis; intervertebral disc disorders; other back problems (4 sources) Thoracic back pain; Translations: [Neck pain] Onset: 10-08-2015 Resolved: 10-09-2015 10-08-2015 Episodic Unclassified (3 sources) Family history of ischemic heart disease and other diseases of the circulatory system; Translations: [FH: Hypertension] Onset: 07-06-2016 Resolved: 07-06-2016 07-06-2016 Episodic Results Test Name Value Interpretation Reference Range Facility [id number] 07-10-2024 [facility] Misc. COMMENT Normal . [facility] Comment on above: Order Comment: [id number] STELARA LEVELS RED POUR OFF FZ Result Comment: Test Ordered: [id number] Ustekinumab Drug + Antibody Ustekinumab 18 ug/mL ES Reference Range: . Quantitation Limit: <0.1 ug/mL Results of 0.1 ug/mL or higher indicate detection of ustekinumab. COMMENTS: - Induction levels in Crohn's Disease: - Patients who received IV 130 mg or 6 mg/kg had median trough concentrations of 2.1 ug/mL and 6.4 ug/mL, respectively, at week 8 in UNITI trials.(1) - Maintenance levels: - Of UNITI patients with trough levels greater than 1.1 ug/mL, about 80% achieved clinical remission (HBI < 5) and about 50% attained CRP normalization.(2) - Higher maintenance concentrations, greater than 4.5 ug/mL (achieved with q8wk or q4wk dosing after SQ induction), may be necessary for endoscopic response (SES-CD score reduction >=50%).(3) - Trough levels predictive of mucosal healing and fistula healing have yet to be determined. - In plaque psoriasis, median trough ustekinumab concentrations were 0.4 ug/mL at weeks 14 and 28 (ranging from undetectable to 3.6 ug/mL).(4) Although PASI50 responders had higher trough concentrations than non- responders in a study of 76 patients, a definitive therapeutic target range for psoriasis has yet to be established.(5) - As with other biologics, the optimal drug concentration depends upon patient-specific factors including co- morbidities, disease and desired therapeutic endpoint - This ustekinumab drug assay measures the free fraction of ustekinumab (antibody-unbound ustekinumab) when serum anti-ustekinumab antibodies are present. Anti-Ustekinumab Antibody <40 ng/mL ES Reference Range: . Quantitation Limit: < 40 ng/mL Results of 40 ng/mL or higher indicate detection of anti- ustekinumab antibodies. COMMENTS: - This anti-ustekinumab antibody assay is drug-tolerant, i.e. the detection of anti-ustekinumab antibodies is not impeded by the presence of ustekinumab in serum. - All positive anti-ustekinumab antibody results are verified by a confirmatory test. - The concomitant free ustekinumab drug concentration (reported above) is the pharmacodynamically active drug when anti-ustekinumab antibodies are present. - Serial measurements over time may be helpful to assess the impact of immunogenicity on the free drug level. - In the IM-UNITI trial, the incidence of anti-ustekinumab antibodies in Crohn's Disease at 1 year was 2.3%.(1) - In psoriasis, anti-ustekinumab antibodies occurred in 4-6% of patients.(6) References: 1. Shobha FOWLER, et al. Gastroenterology 2016;150(4):S408. 2. Shobha Spring et al. P007 Exposure-Response to SC Ustekinumab in Moderate - Severe Crohn's Disease: Results from the IM-UNITI Maintenance Study. Advances in AIBD. February 2017. 3. Dorian R, et al. Clin Gastroenterol Hepatol 2017;15: 3305-0981. 4. Giulia MEJIA, et al. Br J Dermatol;2015:173;855-857. 5. Li H, et al. PLOS ONE DOI;10:1371/journal.pone.6949367. 6. Krishna L et al. Br J Dermatol 2014;170:261-273. These tests were developed and their performance characteristics determined by [facility]. They have not been cleared or approved by the Food and Drug Administration. However, both drug and anti-drug antibody assays have been developed and validated in accordance with FDA Guidance for Industry documents: Bioanalytical Method Validation (2013) and Assay Development and Validation for Immunogenicity Testing of Therapeutic Protein Products (2016). Performed at: [facility] [address] [place] [id number] Lift Driver: Bubba Pitts MD, Phone: [phone] Performed at: [facility] [id number] Lift Driver: Aidan Lowe PhD, Phone: [phone] Performed By: #### L 501.9746, L101.5055, L3828.9991 #### [facility] [address] [place], [place] [address]all [facility], [address] CRPon 06-29-2024 C-REACTIVE PROT < 2.90 Normal 0.0-3.0 [facility] Comment on above: Result Comment: C-Re active Protein (CRP) provides useful information for the diagnosis, therapy and monitoring of inflammatory processes and associated diseases. For the evaluation of Relative Risk for Cardiovascular Disease, a High Sensitivity CRP (HSCRP) should be ordered. Performed By: #### L 501.6710, L101.9900, L3410.9998 #### [facility] [address] [place], [address] Erythrocyte Sed Rateon 06-29 SED RATE 15 mm/hr Normal 0-20 [facility] Comment on above: Performed By: #### L 501.6710, L101.9900, L3410.9998 #### [facility] [address] [place], [address] Gastroenterology Visit Repor ton 06-29-2024 Gastroenterology Visit Report [facility] [address] [place] [address] OFFICE VISIT Date of Service: 06/29/24 MR#: [id number] Acct: [id number] Name: RENÉ ALVARADO Rep #: [id number] : 1950 Provider: Toni Santoyo DO Age/Sex: 73/M Location: [facility] Status: Signed Intake Vital Signs 03/09/23 08:34 03/10/24 08:36 Height 5 ft 10 in 5 ft 10 in Weight: 184 lb BMI 26.4 BP 159/79 H Blood Pressure Location Lt brachial Position Sitting Respiration 16 Pulse 73 Pulse Source NIBP Intake Visit Reasons: 6 M FU Allergies No Known Allergies Allergy (Verified 03/10/24 08:36) Medications ???Medication ???Instructions ???Recorded ???Confirmed ???Type loperamide 2 mg capsule 4 mg PO TIDCM PRN chrons 09/20/14 06/29/24 History lactase 3,000 unit tablet 3,000 unit PO TIDCM stomach 06/29/24 History omeprazole 20 mg capsule,delayed 20 mg PO DAILY 11/03/21 06/29/24 H istory release omega-3 fatty acids 1,000 mg 1,000 mg PO Q OTHER DAY 03/09/23 0 06/29/24 History capsule vitamin E (dl, acetate) 180 mg 180 mg PO BID 03/09/23 06/29/24 Hi story (400 unit) capsule ursodiol 250 mg tablet 250 mg PO BID NAFLD #180 tabs 07/1506/29/24 Rx ustekinumab 90 mg/mL subcutaneous 90 mg subcut Q8W #1 mL 12/23/23 0 06/29/24 Rx syringe (Stelara) valsartan 160 mg tablet 160 mg PO BID #180 tabs 02/10/24 0 06/29/24 Rx amlodipine 10 mg tablet 10 mg PO DAILY #90 tabs 06/21/24 0 06/29/24 Rx Have you fallen in the past year?: No PFSH Medical History Cardiology follow-up encounter Crohn's disease Essential hypertension Fatty liver Former smoker Former tobacco use Gastric reflux History of echocardiogram History of stress test Hyperlipidemia Hypocalcemia Hypophosphatemia Nonrheumatic mitral (valve) prolapse Palpitations Premature ventricular contractions PVC's (premature ventricular contractions) Skin lesion of neck Wears contact lenses Wears glasses Wears partial dentures Surgical History H/O resection of large bowel (02/2021) History of esophageal dilatation History of lithotripsy History of prostate surgery History of resection of small bowel History of right inguinal hernia repair Hx of resection of small bowel Family History Mother CAD (coronary artery disease) Hypertension Bowel disease Father CAD (coronary artery disease) Hypertension Social History Smoking Status: Former smoker pack-years: 25 how long ago did patient quit smokin years ago alcohol intake: never substance use type: does not use caffeine: Yes Type: carbonated beverages Number of servings: 1 and coffee Number of servings: 2 HPI HPI Details: RENÉ ALVARADO is a 73 M who presents to the office today for follow up. Prior workup: ? Colonoscopy 10.31.20 Dr. Zee rectal stenosis; diverticulosis; narrow anastomosis with ulceration and exudate, could not traverse. ? Small bowel series 11.07.20 two stenotic areas of ileum just before anastomosis with high suggestion of recurrent Crohn???s. *I established 11.03.21 with Crohn???s disease diagnosed 16-18 years prior requiring surgery with ileocolonic anastomosis. Managed with Jessica then underwent second surgery at 02.27.21 CT abd/pel 11.14.21 hepatic steatosis; small hiatal hernia; moderate colonic fecal burden; RLQ marking in mesenteric fat with prominent lymph nodes, ?mild inflammatory changes/mesenteric adenitis. OV 01.12.22 will be starting Stelara injections next month. Monitor fatty liver. ? US RUQ and elastography 01.27.22 hepatic measurement 15cm fatty infiltration stiffness 9.3kPa ? EGD and Colonoscopy 06.11.22 EGD Schatzki ring, Savary 45F moderate improvement; irregular Zline 39cm; gastritis; duodenitis, Beck gland hyperplasia. ? Colonoscopy end-to-side ileio-colonic anastomosis at hepatic flexure with ulceration. TI WNL. OV 07.07.22 continue Stelara, ursodiol and Vit E. ? US RUQ and elastography 3.10.23 hepatic measurement 15.9cm fatty infiltration, stiffness 8.3kPa OV 8.21.23 Stelara continues; BM 2-3/day loose with OTC loperamide which is helpful. OV 2.14.24 without symptoms or concerns to address. However, he is taking loperamide 2mg with each meal for the last 15 years, he has not attempted cessation of this. OV 8..24 pt reports that he is doing well, do (more content not included)... Normal [facility] Cardiology Visit Reporton Cardiology Visit Report [facility] [address] [place] [address] OFFICE VISIT Date of Service: 03/10/24 MR#: [id number] Acct: [id number] Name: RENÉ ALVARADO Rep #: [id number] : 1950 Provider: JESÚS phillips Age/Sex: 73/M Location: [facility] Status: Signed HPI HPI History of Present Illness Details: Mr. Alvarado is a very pleasant 73-year-old nondiabetic gentleman who has a history of PVCs, nonsustained ventricular tachycardia, and strong family history of coronary artery disease in both his mother and father in their middle 60s. He also has a history of previous tobacco abuse and Crohn's disease with small bowel resection. He does have a history of hypertension and he remember he presented last year with chest discomfort underwent stress test which demonstrated no evidence of ischemia and echocardiogram demonstrated preserved ejection fraction of 65% from a year prior. He denies chest, arm, jaw, or neck discomfort. He denies palpitations. He denies bilateral lower extremity edema. He denies claudication. He denies shortness of breath with activity, shortness of breath at rest, orthopnea, or PND. He denies chronic cough. He denies significant, sudden weight gain. He denies lightheadedness, dizziness, near-syncope, or syncope. He denies blood in urine, blood in stool, or epistaxis. He denies fever with chills. He denies myalgia. He denies fatigue. His exercise level has remained stable. 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: No Accompanied by: Self Is patient in pain?: No Allergies No Known Allergies Allergy (Verified 03/10/24 08:36) Medications ???Medication ???Instructions ???Recorded ???Confirmed ???Type loperamide 2 mg capsule 4 mg PO TIDCM PRN chrons 09/20/14 03/10/24 History lactase 3,000 unit tablet 3,000 unit PO TIDCM stomach 07/24/20 03/10/24 History omeprazole 20 mg capsule,delayed 20 mg PO DAILY 11/03/21 03/10/24 History release omega-3 fatty acids 1,000 mg 1,000 mg PO Q OTHER DAY 03/09/23 03/10/24 History capsule vitamin E (dl, acetate) 180 mg 180 mg PO BID 03/09/23 03/10/24 History (400 unit) capsule ursodiol 250 mg tablet 250 mg PO BID NAFLD #180 tabs 08/02/23 03/10/24 Rx ustekinumab 90 mg/mL subcutaneous 90 mg subcut Q8W #1 mL 12/23/23 03/10/24 Rx syringe (Stelara) valsartan 160 mg tablet 160 mg PO BID #180 tabs 02/10/24 03/10/24 Rx amlodipine 5 mg tablet 5 mg PO DAILY #90 tabs 03/10/24 03/10/24 Rx Have you fallen in the past year?: No PFSH Medical History Cardiology follow-up encounter Crohn's disease Essential hypertension Fatty liver Former smoker Former tobacco use Gastric reflux History of echocardiogram History of stress test Hyperlipidemia Hypocalcemia Hypophosphatemia Nonrheumatic mitral (valve) prolapse Palpitations Premature ventricular contractions PVC's (premature ventricular contractions) Skin lesion of neck Wears contact lenses Wears glasses Wears partial dentures Surgical History H/O resection of large bowel (02/2021) History of esophageal dilatation History of lithotripsy History of prostate surgery History of resection of small bowel History of right inguinal hernia repair Hx of resection of small bowel Family History Mother CAD (coronary artery disease) Hypertension Bowel disease Father CAD (coronary artery disease) Hypertension Social History Smoking Status: Former smoker pack-years: 25 how long ago did patient quit smokin years ago alcohol intake: never substance use type: does not use caffeine: Yes Type: carbonated beverages Number of servings: 1 and coffee Number of servings: 2 ROS Const Const: Negative for fatigue, weakness, headache(s) or weight gain ENT ENT: Negative for headache(s), dizziness, Nosebleed/epistaxis or balance problems Cardio Chest Pain: No Palpitations: No Edema: None Muscle aches with walking: None Resp Respiratory: Negative for SOB with activity, SOB at rest or SOB orthopnea SOB lying down GI GI: Negative nausea, vomiting or heartburn : Negative for hematuria or frequent nighttime urination/ nocturia Musc Musc: Positive for joint pain (neck pain; chronic; work induced); Negative for muscle aches/ myalgia, muscle weakness or balance problems Skin Skin: Negative non-healing lesions or rash Neuro (more content not included)... Normal [facility] Gastroenterology Visit Repor ton 01-06-2024 Gastroenterology Visit Report [facility] [address] [place] [address] OFFICE VISIT Date of Service: 01/06/24 MR#: [id number] Acct: [id number] Name: RENÉ ALVARADO Rep #: [id number] : 1950 Provider: Toni Santoyo DO Age/Sex: 73/M Location: [facility] Status: Signed Intake Vital Signs 03/09/23 08:34 Height 5 ft 10 in Intake Visit Reasons: 6 M FU Chief Complaint: Crohn's Allergies No Known Allergies Allergy (Verified 03/09/23 08:40) Medications ???Medication ???Instructions ???Recorded ???Confirmed ???Type loperamide 2 mg capsule 4 mg PO TIDCM PRN chrons 09/20/14 01/06/24 History lactase 3,000 unit tablet 3,000 unit PO TIDCM stomach 07/24/20 01/06/24 History omeprazole 20 mg capsule,delayed 20 mg PO DAILY 11/03/21 01/06/24 History release valsartan 160 mg tablet 160 mg PO BID #180 tabs 02/26/23 01/06/24 Rx amlodipine 2.5 mg tablet 2.5 mg PO DAILY #30 tabs 03/09/23 01/06/24 Rx omega-3 fatty acids 1,000 mg 1,000 mg PO Q OTHER DAY 03/09/23 01/06/24 History capsule vitamin E (dl, acetate) 180 mg 180 mg PO BID 03/09/23 01/06/24 History (400 unit) capsule ursodiol 250 mg tablet 250 mg PO BID NAFLD #180 tabs 08/02/23 01/06/24 Rx ustekinumab 90 mg/mL subcutaneous 90 mg subcut Q8W #1 mL 12/23/23 01/06/24 Rx syringe (Stelara) Have you fallen in the past year?: No PFSH Medical History Cardiology follow-up encounter Crohn's disease Essential hypertension Fatty liver Former smoker Former tobacco use Gastric reflux History of echocardiogram History of stress test Hyperlipidemia Hypocalcemia Hypophosphatemia Nonrheumatic mitral (valve) prolapse Palpitations Premature ventricular contractions PVC's (premature ventricular contractions) Skin lesion of neck Wears contact lenses Wears glasses Wears partial dentures Surgical History (Reviewed 03/09/23 @ 08:51 by Wayne Daniel 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, 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) H/O resection of large bowel (02/2021) History of esophageal dilatation History of lithotripsy History of prostate surgery History of resection of small bowel History of right inguinal hernia repair Hx of resection of small bowel Family History Mother CAD (coronary artery disease) Hypertension Bowel disease Father CAD (coronary artery disease) Hypertension Social History Smoking Status: Former smoker pack-years: 25 how long ago did patient quit smokin years ago alcohol intake: never substance use type: does not use caffeine: Yes Type: carbonated beverages Number of servings: 1 and coffee Number of servings: 2 HPI HPI Chief Complaint: Crohn's Details: RENÉ ALVARADO, is a 73 M who presents to the office today for follow up. Prior workup: ? Colonoscopy 10.31.20 Dr. Zee rectal stenosis; diverticulosis; narrow anastomosis with ulceration and exudate, could not traverse. ? Small bowel series 11.07.20 two stenotic areas of ileum just before anastomosis with high suggestion of recurrent Crohn???s. *I established 11.03.21 with Crohn???s disease diagnosed 16-18 years prior requiring surgery with ileocolonic anastomosis. Managed with Humluann then underwent second surgery at 02.27.21 CT abd/pel 7.06.07 hepatic steatosis; small hiatal hernia; moderate colonic fecal burden; RLQ marking in mesenteric fat with prominent lymph nodes, ?mild inflammatory changes/mesenteric adenitis. OV 01.12.22 will be starting Stelara injections next month. Monitor fatty liver. ? US RUQ and elastography 01.27.22 hepatic measurement 15cm fatty infiltration stiffness 9.3kPa ? EGD and Colonoscopy 06.11.22 EGD Heber ring, Songary 45F moderate improvement; irregular Zline 39cm; gastritis; duodenitis, Beck gland hyperplasia. ? Colonoscopy end-to-side ileio-colonic anastomosis at hepatic flexure with ulceration. TI WNL. OV 07.07.22 continue Stelara, ursodiol and Vit E. ? US RUQ and elastography 07.24.22 hepatic measurement 15.9cm fatty infiltration, stiffness 8.3kPa OV 01.04.23 Stelara continues; BM 2-3/day loose with OTC loperamide which is helpful. OV 06.30.23 without symptoms or concerns to address. However, he is taking loperamide 2mg with each meal for the last 15 years, he has not attempted cessation of this. OV 01.06.24 pt reports that he is doing well, does note occasional diarrhea. Pt continues with Stelara Q8W, omeprazole, and ursodiol + vit E. ? ESR/CR (more content not included)... Normal [facility] Stool lactoferrin detection by immunoassayOrdered By: Toni Santoyo on 07-09-2023 Lactoferrin IA Ql (Stl) [facility] Absolute lymphocyte countOrd ered By: Toni Santoyo on 06-30-2023 Lymphocytes Auto (Unsp spec) [#/Vol] 1.95 10*3/uL 0.83-4.51 [facility] Automated lymphocyte count a s percentage of total leukocytesOrdered By: Toni Santoyo on 06-30-2023 Lymphocytes/100 WBC Auto (Unsp spec) 25.2 % 19-41 [facility] Basophil percentageOrdered B y: Toni Santoyo on 06-30-2023 Basophils/100 WBC (Bld) 0.6 % 0-1 [facility] Bilirubin [Mass/Vol] 0.50 mg/dL 0.20-1.00 [facility] Comment on above: For patients on eltr ombopag therapy, use of Dimension [place] TBIL is not recommended. Chloride [Moles/Vol] 109 mmol/L 98-107 [facility] Eosinophils/100 WBC (Bld) 2.5 % 0-5 [facility] Glucose [Mass/Vol] 85 mg/dL 74-106 [facility] Hemoglobin (Bld) [Mass/Vol] 15.2 g/dL 13.0-16.5 [facility] LDH [Catalytic activity/Vol] 191 U/L 87-241 [facility] Monocytes/100 WBC (Bld) 11.4 % 0-10 [facility] Neutrophils (Bld) [#/Vol] 4.6 10*3/uL 2.0-7.7 [facility] Neutrophils/100 WBC (Bld) 59.9 % 47-70 [facility] Potassium [Moles/Vol] 4.2 mmol/L 3.5-5.1 [facility] Protein [Mass/Vol] 7.4 g/dL 6.4-8.2 [facility] Sodium [Moles/Vol] 141 mmol/L 136-145 [facility] WBC (Bld) [#/Vol] 7.7 10*3/uL 4.4-11.0 [facility] Determination of erythrocyte mean corpuscular volume (MCV)Ordered By: Toni Santoyo on 06-30-2023 MCV (RBC) [Entitic vol] 94.2 fL 80-94 [facility] Erythrocyte distribution wid th ratioOrdered By: Toni Santoyo on 06-30-2023 Erythrocyte distribution width (RBC) [Ratio] 14.4 % 11.6-14.6 [facility] Erythrocyte distribution wid th standard deviationOrdered By: Toni Santoyo on 06-30-2023 Erythrocyte distribution width (RBC) [Entitic vol] 49.8 fL 35.1-43.9 [facility] Erythrocyte sedimentation ra teOrdered By: Toni Santoyo on 06-30-2023 ESR (Bld) [Velocity] 4 mm/h 0-20 [facility] Hematocrit Auto (Bld) [Volum e fraction]Ordered By: Toni Santoyo on 06-30-2023 Hematocrit (Bld) [Volume fraction] 47.0 % 40-54 [facility] Immature granulocytes/100 WB C Auto (Bld)Ordered By: Toni Santoyo on 06-30-2023 Immature granulocytes/100 WBC (Bld) 0.400 % 0.0-0.9 [facility] Comment on above: IG% - Immature Granu locytes (promyelocytes, myelocytes and metamyelocytes) > 1% indicates that a LEFT SHIFT is Present. Laboratory - Chemistry and C hemistry - challengeOrdered By: Toni Santoyo on 06-30-2023 Albumin/Globulin [Mass ratio] 0.9 {ratio} 0.9-2.4 [facility] ALP [Catalytic activity/Vol] 108 U/L 45-117 [facility] ALT [Catalytic activity/Vol] 23 U/L 16-61 [facility] CO2 [Moles/Vol] 28.0 mmol/L 21.0-32.0 [facility] Globulin (S) [Mass/Vol] 3.8 g/dL 2.2-4.2 [facility] Urea nitrogen/Creatinine [Mass ratio] 14.3 mg/mg 10-20 [facility] Laboratory - Hematology and Cell countsOrdered By: Toni Santoyo on 06-30-2023 MCH (RBC) [Entitic mass] 30.5 pg 27.0-32.0 [facility] MCHC (RBC) [Mass/Vol] 32.3 g/dL 32-36 [facility] Nucleated RBC/100 WBC (Bld) [Ratio] 0 % 0-5 [facility] Platelet mean volume (Bld) [Entitic vol] 10.3 fL 6.2-12.0 [facility] Platelets (Bld) [#/Vol] 229 10*3/uL 150-450 [facility] No Panel InformationOrdered By: Toni Santoyo on 06-30-2023 C-Reactive Protein Extended Range < 2.90 mg/L 0.0-3.0 [facility] Comment on above: C-Reactive Protein ( CRP) provides useful information for thediagnosis, therapy and monitoring of inflammatory processesand associated diseases. For the evaluation of Relative Riskfor Cardiovascular Disease, a High Sensitivity CRP (HSCRP)should be ordered. Estimated GFR (MDRD) Amer 72 mL/min >60 [facility] Comment on above: GFR Calc Estimated GFR (MDRD) Non-Af Amer 60 mL/min >60 [facility] Comment on above: Non- GFR Calc Miscellaneous Test See comment [facility] Comment on above: Scanned image report available in EMR Qualitative QuantiFERON-TB g old in tube testOrdered By: Toni Santoyo on 06-30-2023 M. tuberculosis tuberculin stim IFN-g Ql (Bld) 0.01 IU/mL . [facility] RBC Auto (Bld) [#/Vol]Ordere d By: Toni Santoyo on 06-30-2023 RBC (Bld) [#/Vol] 4.99 10*6/uL 4.6-6.2 [facility] Serum or plasma calcium lalita urement (mass/volume)Ordered By: Toni Santoyo on 06-30-2023 Calcium [Mass/Vol] 9.0 mg/dL 8.5-10.1 [facility] Serum or plasma creatinine m easurement (mass/volume)Ordered By: Toni Santoyo on 06-30-2023 Creatinine [Mass/Vol] 1.26 mg/dL 0.70-1.30 [facility] Comment on above: The validity of the calculated GFR & GFRAA in patients over 70 years has not been determined. Clinical correlation is essential. Serum or plasma urea nitroge n measurement (mass/volume)Ordered By: Toni Santoyo on 06-30-2023 Urea nitrogen [Mass/Vol] 18 mg/dL 7-18 [facility] Thin prep Papanicolaou smear with manual screeningOrdered By: Toni Santoyo on 06-30-2023 Thin prep Papanicolaou smear with manual screening 3.6 g/dL 3.2-5.0 [facility] Thin prep Papanicolaou smear with manual screening 35 U/L 15-37 [facility] Thin prep Papanicolaou smear with manual screening 4 5-15 [facility] Thin prep Papanicolaou smear with manual screening Comment . [facility] Comment on above: QuantiFERON-TB Gold Plus is a qualitative indirect test forM tuberculosis infection (including disease) and isintended for use in conjunction with risk assessment,radiography, and other medical and diagnostic evaluations.The QuantiFERON-TB Gold Plus result is determined bysubtracting the Nil value from either TB antigen (Ag)value. The Mitogen tube serves as a control for the test. Thin prep Papanicolaou smear with manual screening 0.02 IU/mL . [facility] Thin prep Papanicolaou smear with manual screening > 10.00 IU/mL . [facility] Thin prep Papanicolaou smear with manual screening Negative Negative [facility] Comment on above: No response to M tub erculosis antigens detected.Infection with M tuberculosis is unlikely, but high riskindividuals should be considered for additional testing(ATS/IDSA/CDC Clinical Practice Guidelines, 2017). Thereference range is an Antigen minus Nil result of <0.35IU/mL.The specimen received for QuantiFERON testing was incubatedby the ordering institution. Specific procedures outlinedin our Directory of Services and in the package insert forthe QuantiFERON Gold (In Tube) test must be followed toenable for proper stimulation of cells for the productionof interferon gamma. Chemiluminescence immunoassaymethodologyPerformed at: [facility] [place] [id number] Director: Aidan Lowe PhD, Phone: [phone] Absolute lymphocyte countOrd ered By: Wayne Daniel on 03-18-2023 Lymphocytes Auto (Unsp spec) [#/Vol] 2.61 10*3/uL 0.83-4.51 [facility] Basophil percentageOrdered B y: Wayne Daniel on 03-18-2023 Basophils/100 WBC (Bld) 0.8 % 0-1 [facility] Bilirubin [Mass/Vol] 0.70 mg/dL 0.20-1.00 [facility] Comment on above: For patients on eltr ombopag therapy, use of Dimension [place] TBIL is not recommended. Chloride [Moles/Vol] 102 mmol/L 98-107 [facility] Cholesterol [Mass/Vol] 154 mg/dL <200 [facility] Comment on above: <200 mg/dL Desirable 200-240 mg/dL Borderline >240 mg/dL High Risk Eosinophils/100 WBC (Bld) 2.6 % 0-5 [facility] Glucose [Mass/Vol] 95 mg/dL 74-106 [facility] Neutrophils (Bld) [#/Vol] 5.3 10*3/uL 2.0-7.7 [facility] Neutrophils/100 WBC (Bld) 57.4 % 47-70 [facility] Potassium [Moles/Vol] 4.4 mmol/L 3.5-5.1 [facility] Protein [Mass/Vol] 7.5 g/dL 6.4-8.2 [facility] Sodium [Moles/Vol] 136 mmol/L 136-145 [facility] Triglyceride [Mass/Vol] 175 mg/dL <199 [facility] Comment on above: The drugs N-Acetylcy steine and Metamizole may falsely depress this assay.Serum Triglycerides Reference Interval Normal <150 mg/dL Borderline high 150 - 199 mg/dL High 200 - 499 mg/dL Very High > or = 500 mg/dL WBC (Bld) [#/Vol] 9.2 10*3/uL 4.4-11.0 [facility] Blood erythrocytes count (nu mber/volume)Ordered By: Wayne Daniel on 03-18-2023 RBC (Bld) [#/Vol] 5.13 10*6/uL 4.6-6.2 [facility] Blood hemoglobin measurement (mass/volume)Ordered By: Wayne Daniel on 03-18-2023 Hemoglobin (Bld) [Mass/Vol] 15.4 g/dL 13.0-16.5 [facility] Blood lymphocytes/100 leukoc ytesOrdered By: Wayne Daniel on 03-18-2023 Lymphocytes/100 WBC (Bld) 28.5 % 19-41 [facility] Blood monocytes/100 leukocyt esOrdered By: Wayne Daniel on 03-18-2023 Monocytes/100 WBC (Bld) 10.5 % 0-10 [facility] Blood platelet mean volumeOr dered By: Wayne Daniel on 03-18-2023 Platelet mean volume (Bld) [Entitic vol] 10.4 fL 6.2-12.0 [facility] Determination of erythrocyte mean corpuscular volume (MCV)Ordered By: Wayne Daniel on 03-18-2023 MCV (RBC) [Entitic vol] 94.7 fL 80-94 [facility] Hematocrit Auto (Bld) [Volum e fraction]Ordered By: Wayne Daniel on 03-18-2023 Hematocrit (Bld) [Volume fraction] 48.6 % 40-54 [facility] Laboratory - Chemistry and C hemistry - challengeOrdered By: Wayne Daniel on 03-18-2023 ALP [Catalytic activity/Vol] 95 U/L 45-117 [facility] ALT [Catalytic activity/Vol] 20 U/L 16-61 [facility] CO2 [Moles/Vol] 30.0 mmol/L 21.0-32.0 [facility] Globulin (S) [Mass/Vol] 4.1 g/dL 2.2-4.2 [facility] Urea nitrogen/Creatinine [Mass ratio] 13.3 mg/mg 10-20 [facility] Laboratory - Hematology and Cell countsOrdered By: Wayne Daniel on 03-18-2023 Erythrocyte distribution width (RBC) [Entitic vol] 48.6 fL 35.1-43.9 [facility] Erythrocyte distribution width (RBC) [Ratio] 13.8 % 11.6-14.6 [facility] Immature granulocytes/100 WBC (Bld) 0.200 % 0.0-0.9 [facility] Comment on above: IG% - Immature Granu locytes (promyelocytes, myelocytes and metamyelocytes) > 1% indicates that a LEFT SHIFT is Present. MCH (RBC) [Entitic mass] 30.0 pg 27.0-32.0 [facility] Nucleated RBC/100 WBC (Bld) [Ratio] 0 % 0-5 [facility] MCHC Auto (RBC) [Mass/Vol]Or dered By: Wayne Daniel on 03-18-2023 MCHC (RBC) [Mass/Vol] 31.7 g/dL 32-36 [facility] No Panel InformationOrdered By: Wayne Daniel on 03-18-2023 Estimated GFR (MDRD) Amer 62 mL/min >60 [facility] Comment on above: GFR Calc Estimated GFR (MDRD) Non-Af Amer 52 mL/min >60 [facility] Comment on above: Non- GFR Calc Platelets bldOrdered By: Edil Daniel on 03-18-2023 Platelets (Bld) [#/Vol] 247 10*3/uL 150-450 [facility] Serum or plasma albumin lalita urement (mass/volume)Ordered By: Wayne Daniel on 03-18-2023 Albumin [Mass/Vol] 3.4 g/dL 3.2-5.0 [facility] Serum or plasma albumin/glob ulin mass ratioOrdered By: Wayne Daniel on 03-18-2023 Albumin/Globulin [Mass ratio] 0.8 {ratio} 0.9-2.4 [facility] Serum or plasma calcium lalita urement (mass/volume)Ordered By: Wayne Daniel on 03-18-2023 Calcium [Mass/Vol] 9.1 mg/dL 8.5-10.1 [facility] Serum or plasma cholesterol in HDL measurement (mass/volume)Ordered By: Wayne Daniel on 03-18-2023 Cholesterol in HDL [Mass/Vol] 47 mg/dL >40 [facility] Comment on above: The drugs N-Acetylcy steine and Metamizole may falsely depress this assay. Reference Range HDL <40 mg/dL Low HDL Cholesterol HDL >or= 60 mg/dL High HDL Cholesterol Serum or plasma cholesterol in VLDL measurement (mass/volume)Ordered By: Wayne Daniel on 03-18-2023 Cholesterol in VLDL [Mass/Vol] 35 mg/dL 5-40 [facility] Serum or plasma creatinine m easurement (mass/volume)Ordered By: Wayne Daniel on 03-18-2023 Creatinine [Mass/Vol] 1.43 mg/dL 0.70-1.30 [facility] Comment on above: The validity of the calculated GFR & GFRAA in patients over 70 years has not been determined. Clinical correlation is essential. Serum or plasma low density lipoprotein (LDL) cholesterol measurement (mass/volume)Ordered By: Wayne Daniel on 03-18-2023 Cholesterol in LDL [Mass/Vol] 72 mg/dL 0-130 [facility] Serum or plasma urea nitroge n measurement (mass/volume)Ordered By: Wayne Daniel on 03-18-2023 Urea nitrogen [Mass/Vol] 19 mg/dL 7-18 [facility] Thin prep Papanicolaou smear with manual screeningOrdered By: Wayne Daniel on 03-18-2023 Thin prep Papanicolaou smear with manual screening 16 U/L 15-37 [facility] Thin prep Papanicolaou smear with manual screening 4 5-15 [facility] No Panel InformationOrdered By: ALFREDO Chaidez on 09-18-2022 Prostate Specific Antigen Screen 3.01 ng/mL 0.00-4.00 [facility] Comment on above: This test was perfor med using the TPSA assay method for theGOODWIN chemistry system. Values obtained with differentassay methods cannot be used interchangably.When changing PSA assays in the course of monitoring apatient, additional sequential testing should be carriedout to confirm baseline values. Absolute lymphocyte countOrd ered By: Jennie Reis on 07-07-2022 Lymphocytes Auto (Unsp spec) [#/Vol] 1.95 10*3/uL 0.83-4.51 [facility] Basophil percentageOrdered B y: Jennie Reis on 07-07-2022 Basophils/100 WBC (Bld) 0.4 % 0-1 [facility] Bilirubin [Mass/Vol] 0.60 mg/dL 0.20-1.00 [facility] Comment on above: For patients on eltr ombopag therapy, use of Dim[place] TBIL is not recommended. Chloride [Moles/Vol] 104 mmol/L 98-107 [facility] Eosinophils/100 WBC (Bld) 2.1 % 0-5 [facility] Glucose [Mass/Vol] 95 mg/dL 74-106 [facility] LDH [Catalytic activity/Vol] 185 U/L 87-241 [facility] Neutrophils (Bld) [#/Vol] 5.9 10*3/uL 2.0-7.7 [facility] Neutrophils/100 WBC (Bld) 64.8 % 47-70 [facility] Potassium [Moles/Vol] 4.8 mmol/L 3.5-5.1 [facility] Protein [Mass/Vol] 7.5 g/dL 6.4-8.2 [facility] Sodium [Moles/Vol] 138 mmol/L 136-145 [facility] WBC (Bld) [#/Vol] 9.0 10*3/uL 4.4-11.0 [facility] Blood erythrocytes count (nu mber/volume)Ordered By: Jennie Reis on 07-07-2022 RBC (Bld) [#/Vol] 4.80 10*6/uL 4.6-6.2 [facility] Blood hemoglobin measurement (mass/volume)Ordered By: Jennie Reis on 07-07-2022 Hemoglobin (Bld) [Mass/Vol] 14.7 g/dL 13.0-16.5 [facility] Blood lymphocytes/100 leukoc ytesOrdered By: Jennie Reis on 07-07-2022 Lymphocytes/100 WBC (Bld) 21.6 % 19-41 [facility] Blood monocytes/100 leukocyt esOrdered By: Jennie Reis on 07-07-2022 Monocytes/100 WBC (Bld) 10.9 % 0-10 [facility] Blood platelet mean volumeOr dered By: Jennie Reis on 07-07-2022 Platelet mean volume (Bld) [Entitic vol] 10.6 fL 6.2-12.0 [facility] Determination of erythrocyte mean corpuscular volume (MCV)Ordered By: Jennie Reis on 07-07-2022 MCV (RBC) [Entitic vol] 94.2 fL 80-94 [facility] Erythrocyte sedimentation ra teOrdered By: Jennie Reis on 07-07-2022 ESR (Bld) [Velocity] 19 mm/h 0-20 [facility] Hematocrit Auto (Bld) [Volum e fraction]Ordered By: Jennie Reis on 07-07-2022 Hematocrit (Bld) [Volume fraction] 45.2 % 40-54 [facility] Laboratory - Chemistry and C hemistry - challengeOrdered By: Jennie Reis on 07-07-2022 ALP [Catalytic activity/Vol] 89 U/L 45-117 [facility] ALT [Catalytic activity/Vol] 21 U/L 16-61 [facility] CO2 [Moles/Vol] 28.0 mmol/L 21.0-32.0 [facility] Globulin (S) [Mass/Vol] 4.1 g/dL 2.2-4.2 [facility] Urea nitrogen/Creatinine [Mass ratio] 16.0 mg/mg 10-20 [facility] Laboratory - Hematology and Cell countsOrdered By: Jennie Reis on 07-07-2022 Erythrocyte distribution width (RBC) [Entitic vol] 49.8 fL 35.1-43.9 [facility] Erythrocyte distribution width (RBC) [Ratio] 14.3 % 11.6-14.6 [facility] Immature granulocytes/100 WBC (Bld) 0.200 % 0.0-0.9 [facility] Comment on above: IG% - Immature Granu locytes (promyelocytes, myelocytes and metamyelocytes) > 1% indicates that a LEFT SHIFT is Present. MCH (RBC) [Entitic mass] 30.6 pg 27.0-32.0 [facility] Nucleated RBC/100 WBC (Bld) [Ratio] 0 % 0-5 [facility] MCHC Auto (RBC) [Mass/Vol]Or dered By: Jennie Reis on 07-07-2022 MCHC (RBC) [Mass/Vol] 32.5 g/dL 32-36 [facility] No Panel InformationOrdered By: Jennie Reis on 07-07-2022 Stool Calprotectin 145 ug/g 0-120 [facility] Comment on above: Concentration Interp retation Follow-Up<16 - 50 ug/g Normal None>50 -120 ug/g Borderline Re-evaluate in 4-6 weeks >120 ug/g Abnormal Repeat as clinically indicatedPerformed at: [facility] [address] [id number] Director: Patti Segura MD, Phone: [phone] Estimated GFR (MDRD) Amer 62 mL/min >60 [facility] Comment on above: GFR Calc Estimated GFR (MDRD) Non-Af Amer 51 mL/min >60 [facility] Comment on above: Non- GFR Calc Platelets bldOrdered By: Amy Reis on 07-07-2022 Platelets (Bld) [#/Vol] 218 10*3/uL 150-450 [facility] Serum or plasma C reactive p rotein measurement (mass/volume)Ordered By: Jennie Reis on 07-07-2022 CRP [Mass/Vol] mg/L 0.0-3.0 [facility] Comment on above: C-Reactive Protein ( CRP) provides useful information for thediagnosis, therapy and monitoring of inflammatory processesand associated diseases. For the evaluation of Relative Riskfor Cardiovascular Disease, a High Sensitivity CRP (HSCRP)should be ordered. Serum or plasma albumin lalita urement (mass/volume)Ordered By: Jennie Reis on 07-07-2022 Albumin [Mass/Vol] 3.4 g/dL 3.2-5.0 [facility] Serum or plasma albumin/glob ulin mass ratioOrdered By: Jennie Reis on 07-07-2022 Albumin/Globulin [Mass ratio] 0.8 {ratio} 0.9-2.4 [facility] Serum or plasma calcium lalita urement (mass/volume)Ordered By: Jennie Reis on 07-07-2022 Calcium [Mass/Vol] 9.3 mg/dL 8.5-10.1 [facility] Serum or plasma creatinine m easurement (mass/volume)Ordered By: Jennie Reis on 07-07-2022 Creatinine [Mass/Vol] 1.44 mg/dL 0.70-1.30 [facility] Comment on above: The validity of the calculated GFR & GFRAA in patients over 70 years has not been determined. Clinical correlation is essential. Serum or plasma urea nitroge n measurement (mass/volume)Ordered By: Jennie Reis on 07-07-2022 Urea nitrogen [Mass/Vol] 23 mg/dL 7-18 [facility] Stool lactoferrin detection by immunoassayOrdered By: Jennie Reis on 07-07-2022 Lactoferrin IA Ql (Stl) [facility] Thin prep Papanicolaou smear with manual screeningOrdered By: Jennie Reis on 07-07-2022 Thin prep Papanicolaou smear with manual screening 19 U/L 15-37 [facility] Thin prep Papanicolaou smear with manual screening 6 5-15 [facility] Absolute lymphocyte counton 01-12-2022 Lymphocytes Auto (Unsp spec) [#/Vol] 2.22 10*3/uL 0.83-4.51 [facility] Work Phone: Basophil percentageon 2021 Basophils/100 WBC (Bld) 0.4 % 0-1 [facility] Work Phone: Bilirubin [Mass/Vol] 0.50 mg/dL 0.20-1.00 [facility] Work Phone: [phone] Comment on above: For patients on eltr ombopag therapy, use of Dimension [place] TBIL is not recommended. Chloride [Moles/Vol] 106 mmol/L 98-107 [facility] Work Phone: Eosinophils/100 WBC (Bld) 1.9 % 0-5 [facility] Work Phone: Glucose [Mass/Vol] 101 mg/dL 74-106 [facility] Work Phone: Comment on above: Fasting Glucose resu lt from 100 to 125 mg/dL suggests IMPAIRED HOMEOSTASIS per A.D.A. criteria. Neutrophils (Bld) [#/Vol] 7.9 10*3/uL 2.0-7.7 [facility] Work Phone: Neutrophils/100 WBC (Bld) 69.0 % 47-70 [facility] Work Phone: [phone] Potassium [Moles/Vol] 4.9 mmol/L 3.5-5.1 [facility] Work Phone: Protein [Mass/Vol] 7.8 g/dL 6.4-8.2 [facility] Work Phone: [phone] Sodium [Moles/Vol] 137 mmol/L 136-145 [facility] Work Phone: [phone] WBC (Bld) [#/Vol] 11.4 10*3/uL 4.4-11.0 [facility] Work Phone: Blood erythrocytes count (nu mber/volume)on 01-12-2022 RBC (Bld) [#/Vol] 4.92 10*6/uL 4.6-6.2 [facility] Work Phone: Blood hemoglobin measurement (mass/volume)on 01-12-2022 Hemoglobin (Bld) [Mass/Vol] 14.8 g/dL 13.0-16.5 [facility] Work Phone: [phone] Blood lymphocytes/100 leukoc yteson 01-12-2022 Lymphocytes/100 WBC (Bld) 19.4 % 19-41 [facility] Work Phone: Blood monocytes/100 leukocyt eson 01-12-2022 Monocytes/100 WBC (Bld) 9.0 % 0-10 [facility] Work Phone: Blood platelet mean volumeon 01-12-2022 Platelet mean volume (Bld) [Entitic vol] 9.9 fL 6.2-12.0 [facility] Work Phone: Determination of erythrocyte mean corpuscular volume (MCV)on 01-12-2022 MCV (RBC) [Entitic vol] 92.3 fL 80-94 [facility] Work Phone: [phone] Hematocrit Auto (Bld) [Volum e fraction]on 01-12-2022 Hematocrit (Bld) [Volume fraction] 45.4 % 40-54 [facility] Work Phone: Laboratory - Chemistry and C hemistry - challengeon 01-12-2022 ALP [Catalytic activity/Vol] 90 U/L 45-117 [facility] Work Phone: ALT [Catalytic activity/Vol] 29 U/L 16-61 [facility] Work Phone: CO2 [Moles/Vol] 25.0 mmol/L 21.0-32.0 [facility] Work Phone: Globulin (S) [Mass/Vol] 4.6 g/dL 2.2-4.2 [facility] Work Phone: Urea nitrogen/Creatinine [Mass ratio] 10.9 mg/mg 10-20 [facility] Work Phone: Laboratory - Hematology and Cell countson 01-12-2022 Erythrocyte distribution width (RBC) [Entitic vol] 48.9 fL 35.1-43.9 [facility] Work Phone: Erythrocyte distribution width (RBC) [Ratio] 14.5 % 11.6-14.6 [facility] Work Phone: Immature granulocytes/100 WBC (Bld) 0.300 % 0.0-0.9 [facility] Work Phone: Comment on above: IG% - Immature Granu locytes (promyelocytes, myelocytes and metamyelocytes) > 1% indicates that a LEFT SHIFT is Present. MCH (RBC) [Entitic mass] 30.1 pg 27.0-32.0 [facility] Work Phone: Nucleated RBC/100 WBC (Bld) [Ratio] 0 % 0-5 [facility] Work Phone: MCHC Auto (RBC) [Mass/Vol]on 01-12-2022 MCHC (RBC) [Mass/Vol] 32.6 g/dL 32-36 [facility] Work Phone: No Panel Informationon 01-12 Estimated GFR (MDRD) Amer 61 mL/min >60 [facility] Work Phone: Comment on above: GFR Calc Estimated GFR (MDRD) Non-Af Amer 50 mL/min >60 [facility] Work Phone: Comment on above: Non- GFR Calc Platelets bldon 01-12-2022 Platelets (Bld) [#/Vol] 216 10*3/uL 150-450 [facility] Work Phone: Serum or plasma albumin lalita urement (mass/volume)on 01-12-2022 Albumin [Mass/Vol] 3.2 g/dL 3.2-5.0 [facility] Work Phone: Serum or plasma albumin/glob ulin mass ratioon 01-12-2022 Albumin/Globulin [Mass ratio] 0.7 {ratio} 0.9-2.4 [facility] Work Phone: Serum or plasma calcium lalita urement (mass/volume)on 01-12-2022 Calcium [Mass/Vol] 9.0 mg/dL 8.5-10.1 [facility] Work Phone: Serum or plasma creatinine m easurement (mass/volume)on 01-12-2022 Creatinine [Mass/Vol] 1.47 mg/dL 0.70-1.30 [facility] Work Phone: Comment on above: The validity of the calculated GFR & GFRAA in patients over 70 years has not been determined. Clinical correlation is essential. Serum or plasma urea nitroge n measurement (mass/volume)on 01-12-2022 Urea nitrogen [Mass/Vol] 16 mg/dL 7-18 [facility] Work Phone: Thin prep Papanicolaou smear with manual screeningon 01-12-2022 Thin prep Papanicolaou smear with manual screening 22 U/L 15-37 [facility] Work Phone: Thin prep Papanicolaou smear with manual screening 6 5-15 [facility] Work Phone: No Panel Informationon 11-13 [facility]iscellaneous Test See comment [facility] Work [facility]: Comment on above: TEST RESULT LIMITSIn flammatory Bowel Disease-IBD Saccharomyces cerevisiae, IgG 41.2 High Units 0.0-24.9 Negative <20.0 Equivocal 20.1 - 24.9 Positive >or= 25.0 Saccharomyces cerevisiae, IgA 306.3 High Units 0.0-24.9 Negative <20.0 Equivocal 20.1 - 24.9 Positive >or= 25.0 IgA and IgG antibody testing for S. cerevisiae is useful adjunct testing for differentiating Crohn's disease and ulcerative colitis. Close to 80% of Crohn's disease patients are positive for either IgA or IgG. In ulcerative colitis, less than 15% are positive for IgG and less than 2% are positive for IgA. Fewer than 5% are positive for either IgG or IgA antibody, and no healthy controls had antibody for both.Atypical pANCA 1:640 High titer Neg:<1:20The atypical pANCA pattern has been observed in a significant percentage of patients with ulcerative colitis, primary sclerosing cholangitis and autoimmune hepatitis. ASCA+/PANCA- Suggestive of Crohn's disease ASCA-/PANCA+ Suggestive of Ulcerative colitis _ TESTING PERFORMED AT [facility]. ORIGINAL REPORT ON FILE IN LAB CONTAINS ADDITIONAL TEST SITE INFORMATION. Stool Calprotectin 201 ug/g 0-120 [facility] Work Phone: Comment on above: Concentration Interp retation Follow-Up<16 - 50 ug/g Normal None>50 -120 ug/g Borderline Re-evaluate in 4-6 weeks >120 ug/g Abnormal Repeat as clinically indicatedPerformed at: - [facility] [address] [id number] Director: Patti Segura MD, Phone: [phone] Qualitative QuantiFERON-TB g old in tube teston 11-13-2021 M. tuberculosis tuberculin stim IFN-g Ql (Bld) 0 IU/mL . [facility] Work Phone: Serum hepatitis B virus surf niraj antibody IgG detectionon 11-13-2021 HBV surface IgG Ql (S) Non-Reactive [facility] Work Phone: Comment on above: Non Reactive: Incons istent with immunity less than <10 mIU/mL Reactive: Consistent with immunity greater than or equal to 10 mIU/mL Thin prep Papanicolaou smear with manual screeningon 11-13-2021 Thin prep Papanicolaou smear with manual screening Comment . [facility] Work Phone: Comment on above: The QuantiFERON-TB G old Plus result is determined bysubtracting the Nil value from either TB antigen (Ag) tube.The mitogen tube serves as a control for the test. Thin prep Papanicolaou smear with manual screening 0 IU/mL . [facility] Work Phone: Thin prep Papanicolaou smear with manual screening > 10.00 IU/mL . [facility] Work Phone: Thin prep Papanicolaou smear with manual screening Negative Negative [facility] Work Phone: Comment on above: The specimen receive d for QuantiFERON testing was incubatedby the ordering institution. Specific procedures outlinedin our Directory of Services and in the package insert forthe QuantiFERON Gold (In Tube) test must be followed toenable for proper stimulation of cells for the productionof interferon gamma. Chemiluminescence immunoassaymethodologyPerformed at: [facility] [id number] Director: Aidan Lowe PhD, Phone: [phone] Absolute lymphocyte counton 11-03-2021 Lymphocytes Auto (Unsp spec) [#/Vol] 2.56 10*3/uL 0.83-4.51 [facility] Work Phone: Albumin Elph [Mass/Vol]on Albumin [Mass/Vol] 3.5 g/dL 2.9-4.4 [facility] Work Phone: Atypical perinuclear antineu trophil cytoplasmic antibodies measurementon 11-03-2021 Neutrophil cytoplasmic Ab.perinuclear.atypica l IF (S) [Titer] <1:20 titer Neg:<1:20 [facility] Work Phone: Comment on above: The atypical pANCA p attern has been observed in asignificant percentage of patients with ulcerative colitis,primary sclerosing cholangitis and autoimmune hepatitis.Performed at: [facility] [address] [id number] Director: Aidan Lowe PhD, Phone: [phone] at: [facility] [id number] Director: Patti Segura MD, Phone: [phone] Basophil percentageon 2021 Basophil percentage < 0.2 AI 0.0-0.9 [facility] Work Phone: Basophils/100 WBC (Bld) 0.4 % 0-1 [facility] Work Phone: Bilirubin [Mass/Vol] 0.30 mg/dL 0.20-1.00 [facility] Work Phone: Comment on above: For patients on eltr ombopag therapy, use of Dimension [place] TBIL is not recommended. Chloride [Moles/Vol] 105 mmol/L 98-[address] [facility] Work Phone: Eosinophils/100 WBC (Bld) 1.6 % 0-5 [facility] Work Phone: Glucose [Mass/Vol] 91 mg/dL 74-106 [facility] Work Phone: Neutrophils (Bld) [#/Vol] 8.8 10*3/uL 2.0-7.7 [facility] Work Phone: Neutrophils/100 WBC (Bld) 68.8 % 47-70 [facility] Work Phone: Potassium [Moles/Vol] 4.7 mmol/L 3.5-5.[address] [facility] Work Phone: Protein [Mass/Vol] 8.2 g/dL 6.4-8.2 [facility] Work Phone: Sodium [Moles/Vol] 137 mmol/L 136-145 [facility] Work Phone: WBC (Bld) [#/Vol] 12.8 10*3/uL 4.4-11.0 [facility] Work Phone: [phone] Blood erythrocytes count (nu mber/volume)on 11-03-2021 RBC (Bld) [#/Vol] 4.97 10*6/uL 4.6-6.2 [facility] Work Phone: Blood hemoglobin measurement (mass/volume)on 11-03-2021 Hemoglobin (Bld) [Mass/Vol] 14.8 g/dL 13.0-16.5 [facility] Work Phone: Blood lymphocytes/100 leukoc yteson 11-03-2021 Lymphocytes/100 WBC (Bld) 20.0 % 19-41 [facility] Work Phone: Blood monocytes/100 leukocyt eson 11-03-2021 Monocytes/100 WBC (Bld) 9.0 % 0-10 [facility] Work Phone: Blood platelet mean volumeon 11-03-2021 Platelet mean volume (Bld) [Entitic vol] 10.1 fL 6.2-12.0 [facility] Work Phone: Determination of erythrocyte mean corpuscular volume (MCV)on 11-03-2021 MCV (RBC) [Entitic vol] 92.4 fL 80-94 [facility] Work Phone: Erythrocyte sedimentation ra daniel 11-03-2021 ESR (Bld) [Velocity] 11 mm/h 0-20 [facility] Work Phone: Hematocrit Auto (Bld) [Volum e fraction]on 11-03-2021 Hematocrit (Bld) [Volume fraction] 45.9 % 40-54 [facility] Work Phone: Interpretation of serum or p lasma protein pattern by immunofixation (narrative resulton 11-03-2021 Protein Fractions Immunofixation Severino [Interp] See comment [facility] Work Phone: Comment on above: Not Observed Laboratory - Chemistry and C hemistry - challengeon 11-03-2021 ALP [Catalytic activity/Vol] 110 U/L 45-117 [facility] Work Phone: ALT [Catalytic activity/Vol] 44 U/L 16-61 [facility] Work Phone: CO2 [Moles/Vol] 29.0 mmol/L 21.0-32.0 [facility] Work Phone: Globulin (S) [Mass/Vol] 4.8 g/dL 2.2-4.2 [facility] Work Phone: Urea nitrogen/Creatinine [Mass ratio] 14.6 mg/mg 10-20 [facility] Work Phone: Laboratory - Hematology and Cell countson 11-03-2021 Erythrocyte distribution width (RBC) [Entitic vol] 50.7 fL 35.1-43.9 [facility] Work Phone: Erythrocyte distribution width (RBC) [Ratio] 14.9 % 11.6-14.6 [facility] Work Phone: Immature granulocytes/100 WBC (Bld) 0.200 % 0.0-0.9 [facility] Work Phone: Comment on above: IG% - Immature Granu locytes (promyelocytes, myelocytes and metamyelocytes) > 1% indicates that a LEFT SHIFT is Present. MCH (RBC) [Entitic mass] 29.8 pg 27.0-32.0 [facility] Work Phone: Nucleated RBC/100 WBC (Bld) [Ratio] 0 % 0-5 [facility] Work Phone: MCHC Auto (RBC) [Mass/Vol]on 11-03-2021 MCHC (RBC) [Mass/Vol] 32.2 g/dL 32-36 [facility] Work Phone: No Panel Informationon 11-03 Addendum Document Comment . [facility] Work Phone: Comment on above: Protein electrophore sis scan will follow via computer,mail, or parts clerk plant maintenance delivery. Centromere B Antibody <0.2 AI 0.0-0.9 [facility] Work Phone: Estimated GFR (MDRD) Amer 59 mL/min >60 [facility] Work Phone: Comment on above: GFR Calc Estimated GFR (MDRD) Non-Af Amer 49 mL/min >60 [facility] Work Phone: Comment on above: Non- GFR Calc Immunoglobulin E 7 IU/mL 6-495 [facility] Work Phone: TRAFFIC WORKFORCE REPRESENTATIVE Antibody <0.2 AI 0.0-0.9 [facility] Work Phone: Platelets bldon 11-03-2021 Platelets (Bld) [#/Vol] 268 10*3/uL 150-450 [facility] Work Phone: Serum DNA double strand anti body assay (units/volume)on 11-03-2021 DNA double strand Ab Qn (S) 1 [IU]/mL 0-9 [facility] Work Phone: Comment on above: Negative <5 Equivoca l 5 - 9 Positive >9 Serum Verna-1 antibody assay (u nits/volume)on 11-03-2021 Verna-1 extractable nuclear Ab Qn (S) <0.2 AI 0.0-0.9 [facility] Work Phone: Serum Scl-70 extractable nuc lear antibody assay (units/volume)on 11-03-2021 SCL-70 extractable nuclear Ab Qn (S) <0.2 AI 0.0-0.9 [facility] Work Phone: Serum Gold extractable nucl ear antibody detectionon 11-03-2021 Gold extractable nuclear Ab Ql (S) <0.2 AI 0.0-0.9 [facility] Work Phone: Serum [id number] measu rement by electrophoresison 11-03-2021 Alpha 1 globulin Elph [Mass/Vol] 0.3 g/dL 0.0-0.4 [facility] Work Phone: Alpha 1 globulin Elph [Mass/Vol] 0.9 g/dL 0.4-1.0 [facility] Work Phone: Serum classic neutrophil cyt oplasmic antibody assay (units/volume)on 11-03-2021 Neutrophil cytoplasmic Ab.classic Qn (S) <1:20 titer Neg:<1:20 [facility] Work Phone: Serum globulin measurement ( mass/volume)on 11-03-2021 Globulin (S) [Mass/Vol] 4.0 g/dL 2.2-3.9 [facility] Work Phone: Serum or plasma C reactive p rotein measurement (mass/volume)on 11-03-2021 CRP [Mass/Vol] mg/L 0.0-3.0 [facility] Work Phone: Comment on above: C-Reactive Protein ( CRP) provides useful information for thediagnosis, therapy and monitoring of inflammatory processesand associated diseases. For the evaluation of Relative Riskfor Cardiovascular Disease, a High Sensitivity CRP (HSCRP)should be ordered. Serum or plasma IgA measurem ent (mass/volume)on 11-03-2021 IgA [Mass/Vol] 376 mg/dL 61-437 [facility] Work Phone: Serum or plasma IgG measurem ent (mass/volume)on 11-03-2021 IgG [Mass/Vol] 1620 mg/dL 603-1613 [facility] Work Phone: Serum or plasma IgM measurem ent (mass/volume)on 11-03-2021 IgM [Mass/Vol] 168 mg/dL 15-143 [facility] Work Phone: Serum or plasma albumin lalita urement (mass/volume)on 11-03-2021 Albumin [Mass/Vol] 3.4 g/dL 3.2-5.0 [facility] Work Phone: Serum or plasma albumin/glob ulin mass ratioon 11-03-2021 Albumin/Globulin [Mass ratio] 0.7 {ratio} 0.9-2.4 [facility] Work Phone: Serum or plasma beta globuli n measurement by electrophoresis (mass/volume)on 11-03-2021 Beta globulin Elph [Mass/Vol] 1.2 g/dL 0.7-1.3 [facility] Work Phone: Serum or plasma calcium lalita urement (mass/volume)on 11-03-2021 Calcium [Mass/Vol] 9.1 mg/dL 8.5-10.1 [facility] Work Phone: Serum or plasma creatinine m easurement (mass/volume)on 11-03-2021 Creatinine [Mass/Vol] 1.51 mg/dL 0.70-1.30 [facility] Work Phone: Comment on above: The validity of the calculated GFR & GFRAA in patients over 70 years has not been determined. Clinical correlation is essential. Serum or plasma gamma globul in measurement by electrophoresis (mass/volume)on 11-03-2021 Gamma globulin Elph [Mass/Vol] 1.6 g/dL 0.4-1.8 [facility] Work Phone: Serum or plasma immunoelectr ophoresis interpretation (nominal result)on 11-03-2021 Interpretation IEP [Interp] Comment . [facility] Work Phone: Comment on above: No monoclonality det ected. Serum or plasma urea nitroge n measurement (mass/volume)on 11-03-2021 Urea nitrogen [Mass/Vol] 22 mg/dL 7-18 [facility] Work Phone: Serum perinuclear neutrophil cytoplasmic antibody titer by immunofluorescenceon 11-03-2021 Neutrophil cytoplasmic Ab.perinuclear IF (S) [Titer] 1:640 titer Neg:<1:20 [facility] Work Phone: Comment on above: The presence of posi tive fluorescence exhibiting P-ANCA orC-ANCA patterns alone is not specific for the diagnosis ofWegener's Granulomatosis (WG) or microscopic polyangiitis.Decisions about treatment should not be based solely onANCA IFA results. The [employer] ANCA Group Consensusrecommends follow up testing of positive sera with both GA-3 and MPO-ANCA enzyme immunoassays. As many as 5% serumsamples are positive only by EIA. Ref. AM J Clin [id number];111:507-513. Thin prep Papanicolaou smear with manual screeningon 11-03-2021 Thin prep Papanicolaou smear with manual screening 36 U/L 15-37 [facility] Work Phone: Thin prep Papanicolaou smear with manual screening 3 5-15 [facility] Work Phone: Thin prep Papanicolaou smear with manual screening 171 U/L 87-241 [facility] Work Phone: Thin prep Papanicolaou smear with manual screening 0.9 0.7-1.7 [facility] Work Phone: Total protein bloodon 2021 Protein [Mass/Vol] 7.5 g/dL 6.0-8.5 [facility] Work Phone: Post Op (Colon and Rectal Winter rgery)on 04-15-2021 Post Op (Colon and Rectal Surgery) Provider Impressions 70 y/o M with a history of Crohn's disease and a prior ICR in 2003. S/p Exploratory laparotomy, CHENG, ICR, ICA on 02/27/21 Doing well post-op Claire catheter was removed on Wednesday Plan: -Diet: OK to slowly advance diet. -Activity: Normal activities can be resumed -Follow-up with Dr. Crespo or me PRN -F/u with gastroenterology -All questions and concerns were answered. Encouraged to call with any question or concerns. Chief Complaint A telephone visit (audio only) between the patient (at the originating site) and the provider (at the distant site) was utilized to provide this telehealth service. Verbal consent was requested and obtained from RENÉ ALVARADO on this date, 04/15/2021 10:00 AM , for a telehealth visit. POV History of Present Illness René Alvarado is a 70-year-old male with history of Crohn's disease. He developed recurrent ileocolic Crohn's disease. He underwent exploratory laparotomy, lysis of adhesions, ileocolic resection, and redo ileocolic anastomosis on 02/27/[address] Crespo. He was last seen approximately 3 weeks ago in the office. Claire catheter removed Wednesday. Feeling so much better without the catheter. He is eating and drinking well. He denies any nausea/vomiting. He denies any fever/chills. He is having about 4 bowel movements a day. Stool consistency varies from soft to loose. He is following up with his gastroenterology next week on April 22. 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) Surgical History Problems History of Intestinal surgery Social History Problems No tobacco/smoke exposure Allergies Medication No Known Drug Allergies Recorded By: Nay Mckenna; 12/03/2020 10:10:41 AM Current Meds Medication NameInstruction Lactaid Ultra 9000 UNIT TABS Loperamide HCl - 2 MG Oral Capsule [place] 3 CAPS Omeprazole 20 MG Oral Capsule Delayed Release Simethicone Extra Strength 125 MG Oral Capsule Valsartan-hydroCHLOROthiazi de 320-12.5 MG Oral Tablet Vitals Telephone visit Physical Exam Telephone visit Signatures Electronically signed by : Deanna Emmnauel, ARACELI[employer] SERVICE TECHNICIAN; Apr 15 2021 12:35PM EST (Author) Normal [facility] Post Op (Colon and Rectal Winter rgery)on 03-25-2021 Post Op (Colon and Rectal Surgery) Diagnoses/Problems Assessed 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 S/p Exploratory laparotomy, CHENG, ICR, ICA on 02/27/21 Doing well post-op Plan: -F/u with me in 2-3 weeks via phone -F/u with gastroenterology 1 Call with any questions or concerns 1 Amended By: Deanna Emmanuel; Apr 15 2021 12:38 PM ESTChief Complaint POV History of Present Illness René Alvarado is a 70-year-old male with history of Crohn's disease. He developed recurrent ileocolic Crohn's disease. He underwent exploratory laparotomy, lysis of adhesions, ileocolic resection, and redo ileocolic anastomosis on 02/27/[address] Crespo. Eating and drinking well. Denies N/V, F/C. He is having about 6 BM's daily. Stool consistency varies from loose to formed. Still has catheter in. He is having a bladder scan on . Review of Systems Constitutional: no fever and no chills. Cardiovascular: no chest pain. Gastrointestinal: as noted in HPI. Genitourinary: as noted in HPI. Psychiatric: no anxiety and no depression. 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81 kg/m2 BSA Calculated1.89 Results/Data Surgical Pathology Final No Documents Attached Name RENÉ ALVARADO Pathologist: FIOR LEONG M.D. Date of Procedure: 02/27/2021 Date Received: 02/27/2021 Date Reported 03/03/2021 Submitting Physician: WALI CRESPO MD Location: [facility] Other External # FINAL DIAGNOSIS A. ILEOCOLIC RESECTION: --ACTIVE CROHN'S ENTERITIS WITH ULCER, TRANSMURAL CHRONIC INFLAMMATION, PYLORIC GLAND METAPLASIA AND STRICTURE --NEGATIVE FOR DYSPLASIA --MULTIPLE REACTIVE LYMPH NODES The gross and/or microscopic findings were reviewed in conjunction with pathology resident, Cele Olivares M.D., PhD. Electronically Signed Out By FIOR LEONG M.D./[facility] [place] the signature on this report, the individual or group listed as making the Final Interpretation/Diagnosis certifies that they have reviewed this case. Clinical History: Physician Contact Number: [phone] Fixative (A): Saline Clinical Diagnosis History RECURRENT CROHN'S Specimens Submitted As: A: ILEOCOLIC RESECTION Gross Description: A: Received in formalin, labeled with the patient's name and hospital number and A) ileocolic resection, is a segment of colon, including the cecum (and appendix), 6.0 cm in length. A 18.0 cm length of terminal ileum is attached. There is attached mesentery and fibrofatty tissue. The serosal surface of the terminal ileum segmentally involved and appears thickened, pink-mckeon, with prominent vascularity. The terminal ileum wall shows irregular thickening, up to 0.6 cm. A stricture is present at the ileocecal valve, 17 cm from proximal and 5 cm from distal margin. The mucosal surface of terminal ileum reveals areas of serpentine ulcers. The process is segmental, 6.0 x 5.0 cm and is located 10 cm from distal resection margin, and 5.5 cm from the proximal resection margin. Normal islands of mucosa can be distinguished among the ulcers. The lymph nodes identified in the mesentery and fibrofatty tissue range in size from 0.2 cm to 1.0 cm and marked enlarged. The cut surface of the largest nodes appears grossly unremarkable. The appendix is not present. Photographs have been taken. Living Coach sections are submitted in 10 cassettes. AO Summary of Cassettes: Specimen Label Site A 1 proximal line of resection, terminal ileum, en-face 2 distal line of resection 3 normal proximal ileum 4-5 serpentine ulcer, patient service representative 6 normal terminal ileum 7 ileocecal valve, strictured area 8 normal cecum 9-10 lymph nodes ao/02/27/2021 [facility] Department of Pathology [id number] [place] [address] Ordered by: Wali Crespo Collected/Examined: 27Feb2021 11:02AM Verification Required Stage: Final Performed at: [facility] Surgical Pathology Department Resulted: 27Feb2021 12:28PM Last Updated: 03Mar2021 02:42PM Signatures Electronically signed by : Leeann (more content not included)... [facility] Order Reconciliationon 03-02 Order Reconciliation Page 1 Discharge Reconciliation Document Reconciliation Type: Discharge requested on behalf of Hiedi Mcbride (Resident) done by Heidi Mcbride ( (Resident)) Discharge - Partial Reconciliation: 02-Mar-2021 06:50 by: Heidi Mcbride ( (Resident)) Discharge - Reconciliation: 02-Mar-2021 08:27 by: Heidi Mcbride ( (Resident)) Discharge - Reset to Incomplete: 02-Mar-2021 08:29 by: Heidi Mcbride (Resident)) Discharge - Reconciliation: 02-Mar-2021 08:30 by: Heidi Mcbride (Resident)) Home Medications EnteredHOME MEDICATIONS AT DISCHARGE DateReconciliation Comment/ Additional Information Humira 40 mg/0.8 mL subcutaneous kit 1 dose subcutaneous every other week 24-Feb-2021 09:03 Humira 40 mg/0.8 mL subcutaneous kit 1 dose subcutaneous every other week 24-Feb-2021 09:03 Humira 40 mg/0.8 mL subcutaneous kit is continued as Humira 40 mg/0.8 mL subcutaneous kit hydrochlorothiazide-valsart an 12.5 mg-320 mg oral tablet 1 tab(s) oral once a day 24-Feb-2021 08:49 hydrochlorothiazide-valsart an 12.5 mg-320 mg oral tablet 1 tab(s) oral once a day 24-Feb-2021 08:49 hydrochlorothiazide-valsart an 12.5 mg-320 mg oral tablet is continued as hydrochlorothiazide-valsart an 12.5 mg-320 mg oral tablet Lactaid Ultra 9000 units oral tablet 1 tab(s) oral prn 24-Feb-2021 08:49 Lactaid Ultra 9000 units oral tablet 1 tab(s) oral prn 24-Feb-2021 08:49 Lactaid Ultra 9000 units oral tablet is continued as Lactaid Ultra 9000 units oral tablet loperamide 2 mg oral capsule 1 tab(s) oral prn 24-Feb-2021 08:50 loperamide 2 mg oral capsule 1 tab(s) oral prn 24-Feb-2021 08:50 loperamide 2 mg oral capsule is continued as loperamide 2 mg oral capsule [place]-3 1 tab(s) oral once a day 24-Feb-2021 08:50 [place]-3 1 tab(s) oral once a day 24-Feb-2021 08:50 [place]-3 is continued as [place]-3 omeprazole 20 mg oral delayed release tablet 1 tab(s) oral once a day 24-Feb-2021 08:50 omeprazole 20 mg oral delayed release tablet 1 tab(s) oral once a day 24-Feb-2021 08:50 omeprazole 20 mg oral delayed release tablet is continued as omeprazole 20 mg oral delayed release tablet simethicone 125 mg oral capsule 1 tab(s) oral prn 24-Feb-2021 08:50 simethicone 125 mg oral capsule 1 tab(s) oral prn 24-Feb-2021 08:50 simethicone 125 mg oral capsule is continued as simethicone 125 mg oral capsule Current OrdersDateHOME MEDICATIONS AT DISCHARGE DateReconciliation Comment/ Additional Information Acetaminophen Tablet (TYLENOL)DOSE = 650 mg Oral Every 6 Hours 28-Feb-2021 12:40 acetaminophen 325 mg oral tablet 2 tab(s) orally every 6 hours 02-Mar-2021 06:49 Acetaminophen is continued as acetaminophen 325 mg oral tablet Calcium Carbonate Chewable Tablet, Chewable (TUMS)DOSE = 1,000 mg Oral Every 2 Hours, PRN antacidNotes from Pharmacy: Calcium Carbonate 1,000 mg = Elemental Calcium 400 mg 28-Feb-2021 14:57 Calcium Carbonate Chewable is not required Enoxaparin SubCutaneous (LOVENOX)DOSE = 40 mg SubCutaneous Every 24 Hours 28-Feb-2021 12:40 Lovenox 40 mg/0.4 mL injectable solution 40 milligram(s) subcutaneously every 24 hours 02-Mar-2021 08:29 Prescription is created for enoxaparin Gabapentin Capsule (NEURONTIN)DOSE = 300 mg Oral 3 Times a Day 28-Feb-2021 12:40 Gabapentin is not required HYDROmorphone Injectable (DILAUDID)DOSE = 0.5 mg IntraVenous Push Every 4 Hours, PRN breakthrough pain 28-Feb-2021 12:40 HYDROmorphone Injectable is not required Influenza Virus (Inactive) HIGH DOSE Adult Vaccine (FLUZONE HIGH DOSE)DOSE = 0.7 mL IntraMuscular Once 02-Mar-2021 08:21 Influenza Virus (Inactive) HIGH DOSE Adult Vaccine is not required Ondansetron Injectable (ZOFRAN)DOSE = 4 mg IntraVenous Push Every 6 Hours, PRN Nausea & Vomiting 28-Feb-2021 12:40 Ondansetron Injectable is not required oxyCODONE Immediate Release Tablet (OXYIR, ROXICODONE)DOSE = 10 mg Oral Every 4 Hours, PRN Pain - Severe (7-10) 28-Feb-2021 12:40 oxyCODONE Immediate Release is not required oxyCODONE Immediate Release Tablet (OXYIR, ROXICODONE)DOSE = 5 mg Oral Every 4 Hours, PRN Pain - Mod (4-6) 28-Feb-2021 12:40 oxyCODONE 5 mg oral tablet 1 tab(s) orally every 6 hours, As Needed for pain 02-Mar-2021 08:23 Prescription is created for oxyCODONE 5 mg oral tablet Pantoprazole Enteric Coated Tablet (PROTONIX)DOSE = 40 mg Oral DailyNotes from Pharmacy: Substitution for Omeprazole 20 mg Oral Capsule Daily 28-Feb-2021 12:40 Pantoprazole is not required Ropivacaine 0.2%/ Ambit Pump 500 mL SolutionIncisional FLOW RATE = 10 mL/hrClinician Notes: Dispense premix bag for use with Ambit pump only. 15-Oct-2021 12:40 Ropivacaine 0.2%/ Ambit Pump 500 mL is not required Tamsulosin Capsule (FLOMAX)DOSE = 0.4 mg Oral Daily 01-Mar-2021 14:10 Tamsulosin is not required Home Medications Added During Discharge Reconciliation senna oral tablet 2 tab(s) orally once a day as needed for constipation All Active Home Medications at time of Discharge Reconc (more content not included)... Normal [facility] Daily Progress Note-Anesthes ia - Painon 03-01-2021 Daily Progress Note-Anesthesia - Pain Service: Anesthesia - Pain Subjective Data: RENÉ ALVARADO is a 70 year old Male who is Hospital Day # 3 and POD #2 for Exploratory laparotomy, lysis of adhesions, ileocolic resection, ileocolic anastomosis. Additional Information: RENÉ ALVARADO is a 70 year old Male who is Hospital Day # 2 and POD #1 for Exploratory laparotomy, lysis of adhesions, ileocolic resection, ileocolic anastomosis. Additional Information: Anticipated Postop Pain Issues - Palliative: relieved with IV analgesics and regional local anesthetics Provocative: with movement Quality: burning and aching Radiation: none Severity: 06/26 Timing: constant 24 Hour analgesic consumption: Oxycodone 5, Tylenol 650 Q6 Objective Data: Objective Information: T PRBPSpO2 Value36.86661264/7895% Date/Time03/01 13: 13: 13: 13: 13:12 Range(36.5C - 37.2C ) (56 - 84 ) (16 - 18 ) (115 - 153 )/ (61 - 78 ) (93% - 100% ) Highest temp of 37.2 C was recorded at 03/01 10:41 Pain reported at 02/28 22:03: sleeping ---- Intake and Output ----- Mn/Dy/Year TimeIntakeOutputNet Mar 01, 2021 2:00 [id number] Mar 01, 2021 6:00 [id number] Feb 28, 2021 10:00 [id number] The Intake and Output Totals for the last 24 hours are: IntakeOutputNet [id number] Physical Exam Narrative: Physical Exam: Physical Exam: Constitutional: Well developed, awake/alert/oriented x3, no distress, alert and cooperative, pt sitting up in chair relaxed Eyes: PERRL, EOMI Head/Neck: No apparent injury, trachea midline Respiratory/Thorax: Patent airways, thorax symmetric Cardiovascular: S1 and S2 Gastrointestinal: Nondistended, soft, non-tender Musculoskeletal: ROM intact Extremities: no clubbing Neurological: alert and oriented x3 Psychological: Appropriate affect Assessment and Plan: Comorbidities: ComorbidityOther Code Status: Code StatusFull Code Assessment: RENÉ ALVARADO is a 70 year old Male who presents for ileocolic resection with Dr. Crespo on 02/27/21. Acute Pain consulted for block for postoperative pain control. - Bilateral Quadratus lumborum block with catheters performed preoperatively on 02/27/21, patient tolerated the procedure well - Expect block to contribute to multimodal pain control - Additional pain medications per primary team - Ambit with Ropivacaine 0.2%/NaCl 0.9% 500mL, Rate 7 cc/hr bilaterally - Ambit medication will not interfere with pain medication prescribed by primary team. - Please be aware of local anesthetic toxic dose and absorption variability before considering lidocaine patches - Catheters pulled on 03/01/21, pain well-controlled at 06/26 - Acute Pain will sign off on this patient. Please contact with any questions. Acute Pain Pager [phone] Phone [phone] Attestation: Note Completion: I am a: Resident/Fellow Attending AttestationI saw and evaluated the patient. I personally obtained the koehler and critical portions of the history and physical exam or was physically present for koehler and critical portions performed by the resident/fellow. I reviewed the resident/fellows documentation and discussed the patient with the resident/fellow. I agree with the resident/fellows medical decision making as documented in the note. I personally evaluated the patient [id number] Electronic Signatures: Benita Booker (Resident)) (Signed 01-Mar-2021 15:55) Authored: Service, Subjective Data, Objective Data, Assessment and Plan, Note Completion Alexandra Sibley) (Signed 02-Mar-2021 10:37) Authored: Note Completion Co-Signer: Service, Subjective Data, Objective Data, Assessment and Plan, Note Completion Last Updated: 02-Mar-2021 10:37 by Alexandra Sibley) [facility] Daily Progress Note-Colorect al Surgeryon 03-01-2021 Daily Progress Note-Colorectal Surgery Service: Colorectal Surgery Subjective Data: RENÉ ALVARADO is a 70 year old Male who is Hospital Day # 3 and POD #2 for Exploratory laparotomy, lysis of adhesions, ileocolic resection, ileocolic anastomosis. Pt doing well overnight and tolerating diet. No N/V. Hemodynamically stable. Ambulating well. Objective Data: Objective Information: T PRBPSpO2 Value36.88420519/7895% Date/Time03/01 13: 13: 13: 13: 13:12 Range(36.5C - 37.2C ) (56 - 84 ) (16 - 18 ) (115 - 153 )/ (61 - 78 ) (93% - 100% ) Highest temp of 37.2 C was recorded at 03/01 10:41 Pain reported at 03/01 16:11: denies ---- Intake and Output ----- [facility]Dy/[facility] Mar 01, 2021 2:00 [id number] Mar 01, 2021 6:00 [id number] Feb 28, 2021 10:00 [id number] The Intake and Output Totals for the last 24 hours are: IntakeOutputNet [id number] Physical Exam by System: Constitutional: Well developed, awake/alert/oriented x3, no distress, alert and cooperative Respiratory/Thorax: Patent airways, CTAB Cardiovascular: Regular, rate and rhythm Gastrointestinal: Nondistended, soft, non-tender, no rebound tenderness or guarding, island dressing over midline incision Extremities: normal extremities, no cyanosis edema Neurological: alert and oriented x3, intact senses, motor, response and reflexes Psychological: Appropriate mood and behavior Skin: Warm and dry, no lesions, no rashes Recent Lab Results: Results: CBC: 02/28/2021 07:15 \ Hgb / \ 13.3 L / WBC Plt 18.2 H 315 / Hct \ / 40.3 L \ RBC: 4.37 L MCV: 92 BMP: 02/28/2021 07:15 NA+ Cl- BUN / 137 102 16 / ----- Glucose 103 H K+ HCO3- Creat \ 4.3 28 0.98 \ Calcium : 8.4 L Anion Gap : 11 Assessment and Plan: Code Status: Code StatusFull Code Advance Care Planning: Advance Care Planning: Patient didn't wish to or was unable to provide advance care plan Assessment: 70 y.o. w/ hx of CD and ileocolic anastomosis stricture s/p exploratory laparotomy, lysis of adhesions, ileocolic resection, ileocolic anastomosis on 02/27 Pt is doing well Neuro - tylenol q6, gabapentin TID, dilaudid for breakthrough, oxycodone PRN, ambit pump - to be removed by acute pain today CV - no concerns Resp - no concerns GI - tums PRN, zofran q6, pantoprazole, advance diet from CLD to GI soft, flomax /Renal - continue monitoring UOP Heme - no concerns ID - no concerns Endo - no concerns Prophy - SCDs, Lovenox, Incentive Spirometer Dispo: Home tomorrow Discussed and seen with Dr. José Miguel Hart DO General Surgery PGY1 Colorectal Surgery [id number] Plan of Care Reviewed With: Plan of Care Reviewed With: spouse Attestation: Note Completion: I am a: Resident/Fellow Attending AttestationI saw and evaluated the patient. I personally obtained the koehler and critical portions of the history and physical exam or was physically present for koehler and critical portions performed by the resident/fellow. I reviewed the resident/fellows documentation and discussed the patient with the resident/fellow. I agree with the resident/fellows medical decision making as documented in the note. I personally evaluated the patient [id number] Electronic Signatures: Ilene Hart (Resident)) (Signed 01-Mar-2021 16:54) Authored: Service, Subjective Data, Objective Data, Assessment and Plan, Note Completion Liu Valdez) (Signed 14-Mar-2021 11:24) Authored: Note Completion Co-Signer: Service, Subjective Data, Objective Data, Assessment and Plan, Note Completion Last Updated: 14-Mar-2021 11:24 by Liu Valdez) Normal [facility] BASIC METABOLIC PANELon - Anion gap [Moles/Vol] 11 mmol/L Normal 10 - 20 [facility] Comment on above: Performed By: #### B MP #### [facility] [address] [place] [address] Calcium [Mass/Vol] 8.4 mg/dL Low 8.6 - 10.6 [facility] Comment on above: Performed By: #### B MP #### [place] [address] [place] [address] Chloride [Moles/Vol] 102 mmol/L Normal 98 - 107 [facility] Comment on above: Performed By: #### B MP #### [place] [address] [place] [address] Creatinine [Mass/Vol] 0.98 mg/dL Normal 0.50 - 1.30 [facility] Comment on above: Performed By: #### B MP #### [facility] [address] [place] [address] GFR- AM. >60 Normal >60 [facility] Comment on above: Result Comment: CALC ULATIONS OF ESTIMATED GFR ARE PERFORMED USING THE MDRD STUDY EQUATION FOR THE IDMS-TRACEABLE CREATININE METHODS. CLIN CHEM 2007;53:766-72 Performed By: #### B MP #### [facility] [address] [place] [address] GFR-NON AM. >60 Normal >60 [facility] Comment on above: Performed By: #### B MP #### [facility] [address] [place] [address] Glucose [Mass/Vol] 103 mg/dL High 74 - 99 [facility] Comment on above: Performed By: #### B MP #### [facility] [address] [place] [address] HCO3 (Bld) [Moles/Vol] 28 mmol/L Normal 21 - 32 [facility] Comment on above: Performed By: #### B MP #### [facility] [address] [place] [address] Potassium [Moles/Vol] 4.3 mmol/L Normal 3.5 - 5.3 [facility] Comment on above: Performed By: #### B MP #### [facility] [address] [place] [address] Sodium [Moles/Vol] 137 mmol/L Normal 136 - 145 [facility] Comment on above: Performed By: #### B MP #### [facility] [address] [place] [address] Urea nitrogen [Mass/Vol] 16 mg/dL Normal 6 - 23 [facility] Comment on above: Performed By: #### B MP #### [place] [id number] [place] [address] CBCon 02-28-2021 Erythrocyte distribution width (RBC) [Ratio] 14.8 % High 11.5 - 14.5 [facility] Comment on above: Performed By: #### C BC #### [facility] [address] [place] [address] Hematocrit (Bld) [Volume fraction] 40.3 % Low 41.0 - 52.0 [facility] Comment on above: Performed By: #### C BC #### [facility] [address] [place] [address] Hemoglobin (Bld) [Mass/Vol] 13.3 g/dL Low 13.5 - 17.5 [facility] Comment on above: Performed By: #### C BC #### [facility] [address] [place] [address] MCHC (RBC) [Mass/Vol] 33.0 g/dL Normal 32.0 - 36.0 [facility] Comment on above: Performed By: #### C BC #### [facility] [address] [place] [address] MCV (RBC) [Entitic vol] 92 fL Normal 80 - 100 [facility] Comment on above: Performed By: #### C BC #### [facility] [address] [place] [address] NUCLEATED RBC 0.0 /100 WBC Normal 0.0-0.0 [facility] Comment on above: Performed By: #### C BC #### [facility] [address] [place] [address] Platelets (Bld) [#/Vol] 315 10*3/uL Normal 150 - 450 [facility] Comment on above: Performed By: #### C BC #### [facility] [address] [place] [address] RBC 4.37 x10E12/L Low 4.50 - 5.90 [facility] Comment on above: Performed By: #### C BC #### [facility] [address] [place] [address] WBC (Bld) [#/Vol] 18.2 10*3/uL High 4.4 - 11.3 [facility] Comment on above: Performed By: #### C BC #### [facility] [address] [place] [address] Clinical Event Note-Clinical Event Noteon 02-28-2021 Clinical Event Note-Clinical Event Note This report has been cancelled. Normal [facility] Daily Progress Note-Anesthes ia - Painon 02-28-2021 Daily Progress Note-Anesthesia - Pain Service: Anesthesia - Pain Subjective Data: RENÉ ALVARADO is a 70 year old Male who is Hospital Day # 2 and POD #1 for Exploratory laparotomy, lysis of adhesions, ileocolic resection, ileocolic anastomosis. Additional Information: Anticipated Postop Pain Issues - Palliative: relieved with IV analgesics and regional local anesthetics Provocative: with movement Quality: burning and aching Radiation: none Severity: 07/24 Timing: constant 24 Hour analgesic consumption: PROFILER HAND Dilaudid 2.6mg IV Objective Data: Objective Information: T PRBPSpO2 [id number]/[id number]% Date/Time02/28 6: 6: 6: 6: 6:32 Range(35.8C - 36.2C ) (64 - 77 ) (18 - 18 ) (121 - 161 )/ (67 - 76 ) (90% - 94% ) Pain reported at 02/28 0:51: sleeping ---- Intake and Output ----- Mn/Dy/Year TimeIntakeOutputNet Feb 28, 2021 6:00 [id number] Feb 27, 2021 10:00 [id number] Feb 27, 2021 2:00 [id number] The Intake and Output Totals for the last 24 hours are: [facility] [id number] Physical Exam Narrative: Physical Exam: Physical Exam: Constitutional: Well developed, awake/alert/oriented x3, no distress, alert and cooperative, elderly gentleman with family at bedside Eyes: PERRL, EOMI Head/Neck: No apparent injury, trachea midline Respiratory/Thorax: Patent airways, thorax symmetric Cardiovascular: S1 and S2 Gastrointestinal: Nondistended, soft, non-tender Musculoskeletal: ROM intact Extremities: no clubbing Neurological: alert and oriented x3 Psychological: Appropriate affect Assessment and Plan: Comorbidities: ComorbidityOther Code Status: Code StatusFull Code Assessment: RENÉ ALVARADO is a 70 year old Male who presents for ileocolic resection with Dr. Crespo on 02/27/21. Acute Pain consulted for block for postoperative pain control. - Bilateral Quadratus lumborum block with catheters performed preoperatively on 02/27/21, patient tolerated the procedure well - Expect block to contribute to multimodal pain control - Additional pain medications per primary team - Will see on POD1 if inpatient - Ambit with Ropivacaine 0.2%/NaCl 0.9% 500mL, Rate 7 cc/hr bilaterally - Ambit medication will not interfere with pain medication prescribed by primary team. - Please be aware of local anesthetic toxic dose and absorption variability before considering lidocaine patches - Acute pain service will follow while catheters in place Acute Pain Pager [phone] Phone [phone] Attestation: Note Completion: I am a: Resident/Fellow Attending AttestationI saw and evaluated the patient. I personally obtained the koehler and critical portions of the history and physical exam or was physically present for koehler and critical portions performed by the resident/fellow. I reviewed the resident/fellows documentation and discussed the patient with the resident/fellow. I agree with the resident/fellows medical decision making as documented in the note. I personally evaluated the patient [id number] Electronic Signatures: Helio Go ( (Resident)) (Signed 28-Feb-2021 11:47) Authored: Service, Subjective Data, Objective Data, Assessment and Plan, Note Completion Aye Rolle) (Signed 10-Mar-2021 08:11) Authored: Note Completion Co-Signer: Service, Subjective Data, Objective Data, Assessment and Plan, Note Completion Last Updated: 10-Mar-2021 08:11 by Aye Rolle) Normal [facility] Daily Progress Note-Colorect al Surgeryon 02-28-2021 Daily Progress Note-Colorectal Surgery Service: Colorectal Surgery Subjective Data: RENÉ ALVARADO is a 70 year old Male who is Hospital Day # 2 and POD #1 for Exploratory laparotomy, lysis of adhesions, ileocolic resection, ileocolic anastomosis. Pt doing well overnight and tolerating diet. No N/V. Elevated WBC but otherwise labs WNL. Hemodynamically stable. Objective Data: Objective Information: T PRBPSpO2 Value36.29870825/6392% Date/Time02/28 13: 13: 13: 13: 13:40 Range(35.9C - 36.3C ) (64 - 77 ) (18 - 18 ) (121 - 161 )/ (63 - 77 ) (90% - 94% ) Pain reported at 02/28 14:51: 3 = Mild ---- Intake and Output ----- Mn/Dy/Year TimeIntakeOutputNet Feb 28, 2021 2:00 [id number] Feb 28, 2021 6:00 [id number] Feb 27, 2021 10:00 [id number] The Intake and Output Totals for the last 24 hours are: IntakeOutputNet [id number] Physical Exam by System: Constitutional: Well developed, awake/alert/oriented x3, no distress, alert and cooperative Respiratory/Thorax: Patent airways, CTAB Cardiovascular: Regular, rate and rhythm Gastrointestinal: Nondistended, soft, non-tender, no rebound tenderness or guarding, island dressing over midline incision Extremities: normal extremities, no cyanosis edema Neurological: alert and oriented x3, intact senses, motor, response and reflexes Psychological: Appropriate mood and behavior Skin: Warm and dry, no lesions, no rashes Recent Lab Results: Results: CBC: 02/28/2021 07:15 \ Hgb / \ 13.3 L / WBC Plt 18.2 H 315 / Hct \ / 40.3 L \ RBC: 4.37 L MCV: 92 BMP: 02/28/2021 07:15 NA+ Cl- BUN / 137 102 16 / ----- Glucose 103 H K+ HCO3- Creat \ 4.3 28 0.98 \ Calcium : 8.4 L Anion Gap : 11 Assessment and Plan: Code Status: Code StatusFull Code Assessment: 70 y.o. w/ hx of CD and ileocolic anastomosis stricture s/p exploratory laparotomy, lysis of adhesions, ileocolic resection, ileocolic anastomosis on 02/27 Pt is doing well, labs only significant for elevated WBC count (18.2). Vitals WNL, keeping fluids down. Will advance diet. Low UOP, will keep monitoring and encourage fluid intake. Neuro - tylenol q6, gabapentin TID, dilaudid for breakthrough, oxycodone PRN, ambit pump CV - no concerns Resp - no concerns GI - tums PRN, zofran q6, pantoprazole, advance diet from CLD to GI soft /Renal - continue monitoring UOP Heme - no concerns ID - no concerns Endo - no concerns Prophy - SCDs, Lovenox, Incentive Spirometer Discussed and seen with Dr. Joesph Alvarez PGY1 Colorectal Surgery [id number] Plan of Care Reviewed With: Plan of Care Reviewed With: spouse Attestation: Note Completion: I am a: Resident/Fellow Attending AttestationI saw and evaluated the patient. I personally obtained the koehler and critical portions of the history and physical exam or was physically present for koehler and critical portions performed by the resident/fellow. I reviewed the resident/fellows documentation and discussed the patient with the resident/fellow. I agree with the resident/fellows medical decision making as documented in the note. I personally evaluated the patient [id number] Electronic Signatures: Francy Alvarez ( (Resident)) (Signed 28-Feb-2021 15:44) Authored: Service, Subjective Data, Objective Data, Assessment and Plan, Note Completion Wali Crespo) (Signed 05-Mar-2021 09:47) Authored: Note Completion Co-Signer: Service, Subjective Data, Objective Data, Assessment and Plan Last Updated: 05-Mar-2021 09:47 by Wali Crespo) [facility] Discharge [id number] -15-2 021 Discharge Profile2 Discharge Orders: Anticipated Discharge Date: Anticipated Discharge [id number] Problem List: Admitting Dx: Crohn's ileocolitis: Catalog Name: Crohn's disease of both small and large intestine without complications Additional Dx: Acute postoperative pain: Catalog Name: Other acute postprocedural pain Significant Events: Surgical Procedure: Clinical Events This Visit, 27-Feb-2021, Exploratory laparotomy, lysis of adhesions, ileocolic resection, ileocolic anastomosis Hospital Providers: Provider RoleProvider Name Wali Deluca DNAR: DNAR Status: none Activity: activity as tolerated. May shower. May not drive for 4 week(s). No pushing, pulling, or lifting objects greater than 10 pounds for 4 week(s). Weight-bearing Instructions: full weight bearing. Diet: Diet Consistency/Texturesoft, soft diet x 4 weeks, Avoid raw fruits and vegetables for couple weeks and slowly advance into diet as tolerated. Appetitie will return slowly, eat smaller more frequent meals at first, push away from table once full. Encourage FluidsDrink plenty of a variety of fluids to prevent dehydration. Signs of dehydration are: dry mouth, dark yellow urine in small amounts, and dizziness with change in position or increased feeling of weakness/tiredness. Additive/Supplement 1: Supplement. ensure surgery 1 serving by mouth three times a day until gone. Wound Care 1: Wound Siteabdomen Wound Typesurgical incision Change Dressing2 times a day as needed Cleanse Withsoap and water Instructionsno lotions, creams, or tub soaks Other InstructionsYou have jazlyn remaining in your incision. These will come out in 1-2 weeks at the outpatient clinic. An appointment will be made for you prior to your discharge. This incision may get wet, pat dry and cover as needed to protect your clothing, otherwise you may leave this incision open to air. Additional Orders: Additional Instructions Bowel function will be irregular at first. You may experience some loose stool alternating with constipation. This is normal. As your diet advances and you begin to eat more regularly, your stool pattern will also become more regular. Drink plenty of a variety of fluids to prevent dehydration. Signs of dehydration are: dry mouth, dark yellow urine in small amounts, and dizziness with change in position or increased feeling of weakness/tiredness. Colace is a stool softener that you can take twice per day to prevent hard stool or constipation. You will be instructed to use a stool softener while on narcotics, as they may cause constipation. You should not take the Colace for loose watery stool. This is an over the counter medication. For diarrhea stools incorporate foods from the BRAT diet. This is a bland diet that consists of foods low in fiber: bananas, rice, applesauce and toast are jazlyn of the diet. You can also add tea, tapioca and yogurt if you would like. Be sure to drink plenty of fluids if you are having diarrhea, as you can become dehydrated quickly. Enoxaparin (Lovenox) is a blood thinner used to prevent or treat blood clots. Enoxaparin (Lovenox) is administered only by injection under the skin using a small needle and syringe. Injections can be given once or twice a day. You are taking enoxaparin (Lovenox) for __prevention of blood clots___. You will continue to take enoxaparin (Lovenox) for __28 days post-op__. It is important that you give the injections at the same time each day. It is important that you continue your enoxaparin until told to stop. If you forget an injection, contact your doctor for advice as to when you should give your next injection. Let everyone involved in your care, such as a dentist or other provider, know that you are taking enoxaparin (Lovenox). Side Effects: - Skin bruises, itching, and bleeding around the injection site, can occur. - If bleeding does occur, it may take a little longer than usual to stop. Let your doctor know if you develop a rash of dark red spots under the skin. Signs of bleeding that you should call your doctor: - Gums that bleed after brushing your teeth lasting more than 15 minutes. - A nose bleed that lasts for more than 15 minutes. - Bleeding from a cut that does not stop in 15 minutes. - Urine that looks red, or urine that is dark like coffee. - Stool (BMs) that are covered with blood, or are black. - Vomit that is bright red or vomit that looks like coffee. How to administer the injection: 1. Wash your hands with soap and water. Dry your hands. 2. Sit down or lie flat in a comfortable position. 3. Select an area on the right or left side of your stomach (at least 2 inches away from your belly button), the back of your upper arm or side of your upper thigh. 4. Clean the area with an alcohol swabs. Allow the area to dry. 5. Carefully pull off the needle cap from the syringe and (more content not included)... Normal [facility] Laboratory - Chemistry and C hemistry - challengeon 02-28-2021 Anion gap [Moles/Vol] 11 mmol/L 10 - 20 [facility]- [facility]- [place] [address]99 Work Phone: Calcium [Mass/Vol] 8.4 mg/dL below low threshold 8.6 - 10.6 [facility]- [place] 2099 Work Phone: Chloride [Moles/Vol] 102 mmol/L 98 - 107 MG-S urgery- [place] 2099 Work Phone: CO2 [Moles/Vol] 28 mmol/L 21 - 32 [facility]-Surger y- [place] 2099 Work Phone: Creatinine [Mass/Vol] 0.98 mg/dL See Below [facility]- [facility]- [place] 2099 Work Phone: Comment on above: Reference Range: 0.5 0 - 1.30 Glucose [Mass/Vol] 103 mg/dL above high threshold 74 - 99 [facility]- [place] 2099 Work Phone: Potassium [Moles/Vol] 4.3 mmol/L 3.5 - 5.3 [facility]- [facility]- [place] [facility] Work Phone: Sodium [Moles/Vol] 137 mmol/L 136 - 145 MG-Hector stefany- [place] 2099 Work Phone: Urea nitrogen [Mass/Vol] 16 mg/dL 6 - 23 [facility]- [place] 2099 Work Phone: Laboratory - Hematology and Cell countson 02-28-2021 Erythrocyte distribution width (RBC) [Ratio] 14.8 % above high threshold See Below [facility]- [place] [facility] Work Phone: Comment on above: Reference Range: 11. 5 - 14.5 Hematocrit (Bld) [Volume fraction] 40.3 % below low threshold See Below [facility]- [place] 2099 Work Phone: Comment on above: Reference Range: 41. 0 - 52.0 Hemoglobin (Bld) [Mass/Vol] 13.3 g/dL below low threshold See Below [facility]- [place] 2099 Work Phone: Comment on above: Reference Range: 13. 5 - 17.5 MCHC (RBC) [Mass/Vol] 33.0 g/dL See Below [facility]- [facility]- [place] 2099 Work Phone: Comment on above: Reference Range: 32. 0 - 36.0 MCV (RBC) [Entitic vol] 92 fL 80 - 100 [facility]- [place] 2099 Work Phone: Platelets (Bld) [#/Vol] 315 10*3/uL 150 - 450 [facility]- [place] 2099 Work Phone: RBC (Bld) [#/Vol] 4.37 {x10E12/L} below low threshold See Below [facility]- [place] 2099 Work Phone: Comment on above: Reference Range: 4.5 0 - 5.90 WBC (Bld) [#/Vol] 18.2 10*3/uL above high threshold 4.4 - 11.3 [facility]- [place] 2099 Work Phone: No Panel Informationon 02-28 0.0 {/100_WBC} 0.0-0.0 [facility] - [place] 2099 Work Phone: >60 >60 [facility]- [place] [facility] Work Phone: Comment on above: CALCULATIONS OF SHARAN MATED GFR ARE PERFORMED USING THE MDRD STUDY EQUATION FOR THE IDMS-TRACEABLE CREATININE METHODS. CLIN CHEM 2007;53:766-72 ABO/RH GROUP TESTon 02-28-20 21 ABO TYPE A Normal [facility] Comment on above: Performed By: #### V ERAB #### [facility] [address] [place] [address] RH TYPE Negative Normal [facility] Comment on above: Performed By: #### V ERAB #### [place] [address] [place] [address] Admission Risk Screen - Adul ton 02-27-2021 Admission Risk Screen - Adult Allergies: Allergies: No Known Allergies: Patient Verification: New W ID Band Applied in my Departmentno Type of ID Patient is WearingW wristband, but not applied here Patient Transferred from Other Facility ([facility], [facility],etc)no Patient Identity Verified Bypatient ID Band FULL Name, include Middle, spelling matches patient's ID used for verificationyes ID Band Matches Patient ID used for Verficationyes ID Band MRN Matches EMR MRNyes Visitor Restriction: Coronavirus Visitor Restriction: Reasonable restrictions to in-person visitors will be observed due to current coronavirus pandemic. Travel History: COVID-19 Screening Completedno exposure or symptoms(1) Travel or Exposure Past 30 DaysNO travel to International locations in the past 30 days Ebola AlertFor Ebola-like Symptoms: Isolate Patient and Notify Provider/Gutter Installer For Contact: Notify Provider/Gutter Installer Advance Directive: Advance Directive/DNRyes Advance Directive typeLiving Will, Durable Power of Beaver Trapper for Healthcare Living Will AvailabilityLiving Will not available now Living Will [id number] Durable Power of Beaver Trapper AvailabilityDPOA not available now Durable Power of Beaver Trapper [id number] Durable Power of Beaver Trapper contact (name and number)Kaitlin [place] Fall Screen: History of falling (immediate or previous)no (0) Secondary Diagnosisno (0) Intravenous Therapy/ Heparin/Saline Lockyes (20) Gait/Transferringweak (10) Ambulatory Aidsnone/bedrest/nurse assist (0) Mental Statusoriented to own ability (0) Score: Low risk (<25). Moderate risk (25-44). High risk (>44).30 Wh[place] InterventionsMODERATE INTERVENTIONS: *Low Interventions Plus: * falls risk band/sticker applied to patient, *yellow non-skid footwear, *instruct to call for assistance before getting out of bed, *bed/chair/bedside commode/toilet alarms, *sensory devices/ambulatory aides available and in reach, *medications reviewed for potential side effects and care planning. Family Violence Screen: Are you or have you been threatened or abused physically, emotionally, or sexually by anyoneno Do you feel UNSAFE going back to the place where you are livingno Clinical assessment: Are there any apparent signs of injuries/behaviors that could be related to abuse/neglectno Social Service Consult for abuse/neglect needed this visitno Functional Screen: Functional Screen: In the recent/past 2-4 weeks, patient or family have noticedno issues that require a speech/language consult at this time AM-PAC- Basic Mobility/Daily Activity: Patient baseline bedboundno Learning Assessment (Patient): Patient is Able to be Assessed for Learningyes Factors Influencing Readiness to Learnfatigue; pain Factors that Impact Ability to Learnnone Devices/Methods Used to Communicatenone Learning Preferencesaudio; written material; video; verbal instruction; skill demonstration; pictorial; individual instruction Cultural Considerationsnone Developmental Considerationsnone Denominational Considerationsnone Learning Assessment (Other Learner): Other learner availableyes... Learnerfamily Factors Influencing Readiness to Learnanxiety Factors that Impact Ability to Learnnone Devices/Methods Used to Communicatenone Learning Preferencesaudio, pictorial, skill demonstration, verbal instruction, video, written material Cultural Considerationsnone Developmental Considerationsnone Denominational Considerationsnone Depression Screen: During the past month, have you often been bothered by feeling down, depressed or hopelessno During the past month, have you often had little interest or pleasure in doing thingsno Have you had any thoughts of harming anyone elseno [place] Suicide: Risk Screen Not Applicable/Able to Answerable to be screened In the Past Month: Have you wished you were or could go to sleep and not wake upno In the Past Month: Have you had any actual thoughts of killing yourselfno Lifetime: Have you ever done, started to do, or prepared to do anything to end your lifeno [place] Suicide Risknegative Adult Nutrition Screen: Have you recently lost weight without tryingno Have you been eating poorly because of a decreased appetiteno Malnutrition Screening Tool Score0 Malnutrition Screening Tool RiskMST = 0 or 1 Not at risk. Eating well with little or no weight loss Nutrition Consult needed this visitno Can Patient Participate in Room Serviceyes Patient requires Paper Dishes/Plastic Utensilsno Pain Screen: Pain Scalenumerical 0-10 Pain Scale Educationteaching provided Current Pain Level0 = None Acceptable Pain Level0 = None Expression of Pain (nonverbal)verbalization, withdrawn Chronic Painno Spiritual Screen: Are there any cultural, spiritual, quaker practices/values/needs that are important for us to knowno (more content not included)... [facility] Clinical Event Noteon 2020 Clinical Event Note Clinical Event: Clinical Event Note: Details Patient is s/p Exploratory laparotomy, lysis of adhesions, ileocolic resection, ileocolic anastomosis. Doing well, no fever/chills/nausea/vomitin g. Pain controlled on PROFILER HAND. No urination yet. Stomach soft, nondistended, nontender and island dressing intact. Vitals WNL. Objective Information T PRBPSpO2 [id number]/7694% Date/Time02/27 13: 13: 13: 13: 13:39 Range(35.8C - 35.8C ) (71 - 71 ) (18 - 18 ) (148 - 148 )/ (76 - 76 ) (94% - 94% ) Electronic Signatures: Francy Alvarez (Resident)) (Signed 27-Feb-2021 15:07) Authored: Clinical Event Note Wali Crespo) (Signed 28-Feb-2021 13:47) Co-Signer: Clinical Event Note Last Updated: 28-Feb-2021 13:47 by Wali Crespo) [facility] Consult-Anesthesia - Painon 02-27-2021 Consult-Anesthesia - Pain Service: Service: Anesthesia - Pain Consult: Consult requested by (Attending Name): Dr. Crespo Reason: Post-Operative Pain Management History of Present Illness: HPI: RENÉ ALVARADO is a 70 year old Male who presents for ileocolic resection with Dr. Crespo on 02/27/21. Acute Pain consulted for block for postoperative pain control. Anticipated Postop Pain Issues - Palliative: typically relieved with IV analgesics and regional local anesthetics Provocative: typically with movement Quality: typically burning and aching Radiation: typically none Severity: typically severe 8-10 Timing: typically constant ROS: Constitutional: No fevers, no rash, no chills Cardiovascular: No chest pain, no syncope. Respiratory: No cough, shortness of breath GI: No abdominal pain, no nausea, no vomiting. No diarrhea. Vascular: No lower extremity pain. Neuro: No seizures, weakness, or other neuro symptoms. : No urinary symptoms. No burning with urination or incontinence. MSK: Pain. Endocrine: No evidence of heat intolerance, or cold intolerance or other endocrine symptoms: Hematologic: No easy bleeding, bruising, petechiae, or purpura. Skin: No rash or itching. PMH: HTN, Nephrolithiasis, GERD, Crohn's, Skin Cancer PSH: Inguinal hernia repair Ileocolic resection FHx: CAD, HTN SHx: Former smoker (quit 25yrs ago), does not drink, no illicit drug use Allergies: NKDA Allergies: No Known Allergies: Objective: Objective Information: T PRBPSpO2 [id number]/7694% Date/Time02/27 13: 13: 13: 13: 13:39 Range(35.8C - 35.8C ) (71 - 71 ) (18 - 18 ) (148 - 148 )/ (76 - 76 ) (94% - 94% ) Pain reported at 02/27 13:15: sleeping Physical Exam Narrative: Physical Exam: Physical Exam: Constitutional: Well developed, awake/alert/oriented x3, no distress, alert and cooperative, elderly gentleman with family at bedside Eyes: PERRL, EOMI Head/Neck: No apparent injury, trachea midline Respiratory/Thorax: Patent airways, thorax symmetric Cardiovascular: S1 and S2 Gastrointestinal: Nondistended, soft, non-tender Musculoskeletal: ROM intact Extremities: no clubbing Neurological: alert and oriented x3 Psychological: Appropriate affect Assessment: YANCIGATORENÉ MARCUS is a 70 year old Male who presents for ileocolic resection with Dr. Crespo on 02/27/21. Acute Pain consulted for block for postoperative pain control. - Bilateral Quadratus lumborum block with catheters performed preoperatively on 02/27/21, patient tolerated the procedure well - Expect block to contribute to multimodal pain control - Additional pain medications per primary team - Will see on POD1 if inpatient - Ambit with Ropivacaine 0.2%/NaCl 0.9% 500mL, Rate 7 cc/hr bilaterally - Ambit medication will not interfere with pain medication prescribed by primary team. - Please be aware of local anesthetic toxic dose and absorption variability before considering lidocaine patches - Acute pain service will follow while catheters in place Acute Pain Pager [phone] Phone [phone] Attestation: Note Completion: I am a: Resident/Fellow Attending AttestationI saw and evaluated the patient. I personally obtained the koehler and critical portions of the history and physical exam or was physically present for koehler and critical portions performed by the resident/fellow. I reviewed the resident/fellows documentation and discussed the patient with the resident/fellow. I agree with the resident/fellows medical decision making as documented in the note. I personally evaluated the patient [id number] Electronic Signatures: Trung Nava (Resident)) (Signed 27-Feb-2021 11:56) Authored: Service, History of Present Illness, Allergies, Objective, Assessment/Recommendations, Note Completion Benita Booker (Resident)) (Signed 27-Feb-2021 14:20) Entered: Service, History of Present Illness, Objective, Assessment/Recommendations Authored: Service, History of Present Illness, Allergies, Objective, Assessment/Recommendations, Note Completion Aye Rolle) (Signed 28-Feb-2021 06:10) Authored: Note Completion Co-Signer: Service, History of Present Illness, Allergies, Objective, Assessment/Recommendations, Note Completion Last Updated: 28-Feb-2021 06:10 by Aye Rolle) [facility] Discharge Planning [id number] 1 Discharge Planning Note2 Discharge Planning: Needs Prior to Discharge (ex. Home Care Orders, IV/O2 prescriptions) none Discharge Barriersnone Planned Dispositionhome Discharge DestinationHome, self care. Anticipated Discharge [id number] Discharge Planning 02-27-21 @ 1355. Pt. arrived from [place], Lives at home with . Home care is NOT anticipated at this time. Will cont. to monitor for any additional discharge needs. 02/28/2021 1026 Transitional Care Coordination Progress Note: Patient discussed during interdisciplinary rounds. Team members present: [employer] SERVICE TECHNICIAN, SW, RD, TCC and PCN Plan per Medical/Surgical team: pt POD3 1 s/p exp lap, lysis of adhesions, ileocolic resection, ileocolic anastomosis, pt on soft diet. Status: Inpatient Payor source: commercial Discharge disposition: Home, self care. Potential Barriers: none ADOD: 03/03-03/04 Admission assessment completed at the bedside with the patient. See assessment tab for details. Pt's friend will transport pt home when medically ready. Patient has declined any home going needs. Linda Judge RN TCC [id number] 03/02/21 @ 1106 Patient safely discharged home with no needs. RN reviewed discharge instructions with patient and patients' daughter- no additional questions at this time. IVs discontinued, tip intact. Hermila Gray, cement truck driver: Discharge Planning Assessment [id number] Discharge Planning Assessment Completed byLinda Judge RN TCC Primary Contact Name and NumberDomenicocnilsa Alvarado () [phone] Prior Level of FunctioningIndependent with ADL's/IADL's Lives Withspouse Living Arrangementshouse; one story home. pt has tub shower. Stated Reason for Admissioncrohns surgery(1) [place] JENNIFERDrPascual HopeArnulfo [facility] Falls/ Injury/ Need Assist with Ambulationdenies recent falls, denies use of assistive devices for ambulation. DME Supplier Name/Numbernone Home Care Agency/Support Servicesnone Diabetic/Supplies Needednone Hemodialysis Schedulenone Other Needsnone Resource/Environmental Concernsnone(1) [place] Services Anticipated at Transitionnon(1) Readmission Within the Last 30 Daysno previous admission in last 30 days PCP Last Date Seenone year ago InsuranceCommercial Anticipated Changes Related to Illnessnone Equipment Needed After Dischargenone Anticipated Discharge Facility/Level of Care NeedsHome Discharge Planning CommentsAddress and contact information verified with patient. Social Determinants of Health Identifiednone Special Considerationsnone Transportation Home Who/HowPatients friend will transport home when medically ready for discharge. Medication Adherence/Afford/Obtainyes O2 LPMnone Home O2 Suppliernone Electronic Signatures: Linda Judge (COOR) (Signed 28-Feb-2021 10:32) Authored: Discharge Planning, Assessment Silverio Jernigan (CHASE) (Signed 27-Feb-2021 13:57) Authored: Discharge Planning, Assessment Hermila Gray (RN) (Signed 02-Mar-2021 11:13) Authored: Discharge Planning Last Updated: 02-Mar-2021 11:13 by Hermila Gray (RN) References: 1. Data Referenced From Patient Profile - Adult v2 27-Feb-2021 13:49 [facility] [place] [place] [facility] [place] [address] Patient Name: RENÉ ALVARADO : 1950 Date of Service: 02/27/2021 Patient Location: [place] [id number] Patient Type: I Surgeon: Wali Crespo MD Report Type: Operative Reports PREOPERATIVE DIAGNOSIS: Recurrent ileocolic Crohn's disease. POSTOPERATIVE DIAGNOSIS: Recurrent ileocolic Crohn's disease. OPERATION/PROCEDURE: Exploratory laparotomy, lysis of adhesions, ileocolic resection, redo ileocolic anastomosis. SURGEON: Wali Crespo MD SCHOOL SOCIAL WORKER(S): Adrián Sierra MD ANESTHESIA: General endotracheal. INDICATIONS: The patient is a 70-year-old male with a history of Crohn's disease and a prior ileocolic resection performed in 2003. The patient has now developed recurrent disease with a stricture in the ganga-terminal ileum that is refractory to good medical therapy. The patient is brought to the operating room today for ileocolic resection. TECHNIQUE: The patient was brought to the operating room and was placed on the operating table in a supine position. After induction of general endotracheal anesthesia, the skin of the abdomen was prepped and draped in usual sterile fashion. Surgical time-out was performed. The peritoneal cavity was entered through the patient's previous midline incision. Lysis of adhesions was performed in order to mobilize the small bowel loops and define the intraabdominal anatomy. There was a segment of recurrent disease that measured approximately 15 cm in length. Leading up to the patient's prior ileocolic anastomosis which was densely adherent in the right upper quadrant. A tedious and difficult dissection using both electrocautery and scissors was used to mobilize the anastomosis off the retroperitoneum taking care to avoid injury to the right ureter and to the duodenum. It was felt that there was likely a subclinical leak in the past which led to the dense, inflammatory, and fibrotic response around the anastomosis. This was a much more difficult dissection than is typical for a redo ileocolic anastomosis due to the fibrosis and distortion of the anatomy. Nonetheless, it was able to be accomplished, and the prior ileocolic anastomosis was able to be fully mobilized and brought up out of the abdomen. Inspection revealed a 15 cm segment of recurrent neoterminal ileal Crohn disease. This was resected to include the prior ileocolic anastomosis. The hepatic flexure colon was fully mobilized, and then the intervening mesentery was sequentially divided between Marcie and Ita clamps, and the vessels were ligated with #1 chromic suture ligatures. Specimen was removed from the operative field and sent to Pathology. Intestinal continuity was then restored by creating a neoileocolic anastomosis. This was done in a [id number] functional end-to-end manner with a firing of the BIANCA 80 mm stapler. The open end of bowel was closed with a 2nd firing of the BIANCA 80 mm stapler and then the staple line was oversewn with a running 3-0 Vicryl stitch for hemostasis. The mesenteric defect was then closed with interrupted #1 chromic [id number] sutures. The small bowel was then returned to the abdominal cavity in its proper orientation. The abdomen was irrigated with saline solution and was aspirated dry. Inspection was made for hemostasis, and this was found to be adequate. All sponge and instrument counts were confirmed as correct. The fascia of the midline incision was closed with a running #1 looped PDS suture. The wound was irrigated, and the skin was closed with jazlyn. Sterile dressings were applied. The patient tolerated the above procedure, was taken to the recovery room in stable condition. ESTIMATED BLOOD LOSS: 100 cc. SPECIMEN: Ileocolic resection. DRAINS: None. COMPLICATIONS: None. ATTESTATION: Dr. Crespo was the operating surgeon, who performed the entire procedure as described above. Dr. Sierra was the surgical services coordinator. Wali Crespo MD EST TT: 03/09/2021 09:41 AM EST DICTATION NUMBER: [id number] SPHERIS JOB NUMBER: [id number] CC: ELIAS ARREDONDO Electronic Signatures: Wali Crespo) (Signed on 09-Mar-2021 11:04) Authored Unsigned, Draft (SYS GENERATED) (Entered on 09-Mar-2021 09:41) Entered Last Updated: 09-Mar-2021 11:04 by Wali Crespo) Normal [facility] Order Reconciliationon 02-27 Order Reconciliation Page 1 Admission Reconciliation Document Reconciliation Type: Admission from OR requested on behalf of Adrián Sierra (Resident) done by Adrián Sierra ( (Resident)) Admission from OR - Reconciliation: 27-Feb-2021 11:56 by: Adrián Sierra ( (Resident)) Home MedicationsEnteredLast Dose TakenReconciled with current Order Reconciliation Comment/ Additional Information Humira 40 mg/0.8 mL subcutaneous kit 1 dose subcutaneous every other week Reviewed and Held hydrochlorothiazide-valsart an 12.5 mg-320 mg oral tablet 1 tab(s) oral once a [id number] AM Reviewed and Held Lactaid Ultra 9000 units oral tablet 1 tab(s) oral [id number] Reviewed and Held loperamide 2 mg oral capsule 1 tab(s) oral [id number] UNKNOWN Reviewed and Held [place]-3 1 tab(s) oral once a [id number] AM Reviewed and Held omeprazole 20 mg oral delayed release tablet 1 tab(s) oral once a day AM Pantoprazole Enteric Coated Tablet (PROTONIX)DOSE = 40 mg Oral DailyNotes from Pharmacy: Substitution for Omeprazole 20 mg Oral Capsule Dailyomeprazole 20 mg oral delayed release tablet continued as the inpatient order Pantoprazole simethicone 125 mg oral capsule 1 tab(s) oral [id number] AM Reviewed and Held Additional Current Orders Acetaminophen Tablet (TYLENOL)DOSE = 650 mg Oral Every 4 Hours, PRN Pain - Mild (1-3) (PACU) when able to take OralClinician Notes: Hannah-operative order ONLY Acetaminophen Tablet (TYLENOL)DOSE = 650 mg Oral Every 6 Hours Admit to Inpatient Adult Admitting Diagnosis, K50.80 Crohn's ileocolitis, Attending Provider: Wali Crespo Specific Service Requested, Colorectal Surgery Level of Care, Med/Surg Albuterol 2.5 mg/ 3 mL Nebulizer Soln (PROVENTIL)DOSE = 3 mL Inhalation Once via Nebulizer, PRN Wheezing (PACU)Clinician Notes: Hannah-operative order ONLY Ambulate T, Routine, 5 Times a Day, Assistance Level: First time with RN, Restrictions: None, In hallways Basic Metabolic Panel Lab to Collect - 1st AM DrawPlasma/Serum Separator Clinician Instructions: Post Op Day 1 Call Physician For: BP, diastolic Greater Than 100mmHg Call Physician For: BP, systolic Less Than 80mmHg Greater Than 170mmHg Call Physician For: change in neuro status Call Physician For: difficult to arouse or obtunded Call Physician For: heart rate Less Than 60 bpm Greater Than 100 bpm Call Physician For: If itching persists after treatment with antihistamine (Diphenhydramine) Call Physician For: If nausea and vomiting that persists after treatment with antiemetics Call Physician For: Increase in baseline pain not brought on by activity in duration of 4 hours or greater Call Physician For: moderate or severe pain not relieved by 2 successive breakthrough doses Call Physician For: Naloxone administered for unresponsiveness Call Physician For: pulse-ox Less Than 92% Call Physician For: pulse-ox Less Than 92% Call Physician For: respirations Less Than 12 breaths/min Call Physician For: Respiratory rate Less Than 10 breaths per minute Greater Than 30 breaths per minute Call Physician For: Saturated dressings or purulent drainage Call Physician For: urine output Less Than 250 mL Over 8 hours Chewing Gum OnceInstruct patient to chew gum three times per day. Have patient chew gum for 1 hour. Clear Liquid Diet Routine Communication Order Nurse to follow Nurse Driven Claire Protocol. Complete Blood Count ConditionalOrder Lab to Collect - STATLavender EDTA Complete Blood Count Lab to Collect - 1st AM DrawLavender EDTA Clinician Instructions: Post Op Day 1 Compression Device, Sequential Convert IV to Heparin Lock When Taking Oral Fluids Well Once Convert IV to Saline Lock Once When PROFILER HAND complete Culture, Blood ConditionalOrder Lab to Collect - STATAEROBIC (Mint or Blue capped) blood culture vial AND Anaerobic (Maroon capped) blood culture vials.-Separate sites for each set of cultures. Clean venipuncture site with alcohol then antiseptic prep. Clean top of culture bottle with Alcohol wipe. Send to microbiology lab immediately at Ambient temperature. Clinician Instructions: 1 of 2 Culture, Blood ConditionalOrder Lab to Collect - STATAEROBIC (Mint or Blue capped) blood culture vial AND Anaerobic (Maroon capped) blood culture vials.-Separate sites for each set of cultures. Clean venipuncture site with alcohol then antiseptic prep. Clean top of culture bottle with Alcohol wipe. Send to microbiology lab immediately at Ambient temperature. Clinician Instructions: 2 of 2 DVT Risk Assessment Complete DVT Risk Score: 4 Moderate Risk DVT Risk Factors:Age 60-74 years (2), Current Major Surgery > 45 min (2) Education, Incentive Spirometry Electrocardiogram 12 Lead RoutineClinical Indications: ACS SymptomsNotify MD if performed Enoxaparin SubCutaneous (LOVENOX)DOSE = 40 mg SubCutaneous Every 24 H (more content not included)... Normal [facility] Patient Profile - Adult v2on 02-27-2021 Patient Profile - Adult v2 Profile: Initial Info: How to be Addresseddenver(1) Spoken Language PreferredEnglish (1) Stated Reason for Admissioncrohns surgery Wants Family/Rep Notified of Admissionn/a; family present Notify PCPdo not notify PCP [facility] [place] Medications Brought to Hospitalyes Medication Dispositionsent home with family General Health: Blood Avoidance/Restrictionsnone( 1) Previous Transfusion Reactionno(1) Weight in kg164.5 kilogram(s) Weight in rvv995.6 pound(s) Weight Methodactual (measured) Scale Typebed Height in cm177.8 centimeter(s) Height in feet5 feet Height in inch(es) Height Methodstated BMI (kg/m2)52.035 square meter RSP Based Care: How would you like to participate in your carekeep informed What is the number one concern for you during this hospitalizationmanage pain What is the most important thing we can do to support you during this hospitalizationmanage pain Is there anything we need to know to best care for youkeep informed Substance: Smoking Statusformer smoker Health Mgmt: Symptoms/Conditions Managed at Homenone Barriers to Managing Healthnone Relationship/Environ: Resource/Environmental Concernsnone Primary Source of Support/Comfortspouse Lives Withspouse [place] Services Anticipated at Transitionnone [facility] Significant IndicatorsComplete Information Review: Allergies, Home Meds and Significant Events have been Reviewed and Verified with Patient/Familyyes ALLERGY, INTOLERANCE, ADVERSE EVENT: Allergies: No Known Allergies: Active Electronic Signatures: Silverio Jernigan (CHASE) (Signed 27-Feb-2021 13:59) Authored: Initial Info, General Health, RSP Based Care, Substance, Health Mgmt, Relationship/Environ, Additional Information Last Updated: 27-Feb-2021 13:59 by Silverio Jernigan (CHASE) References: 1. Data Referenced From Patient Profile - Preop v3 27-Feb-2021 08:02 Normal [facility] Patient Profile - Preop v3on 02-27-2021 Patient Profile - Preop v3 Patient Profile - Preop: Initial Info: Patient DemographicsName: RENÉ ALVARADO Date: 1950 Address: [address] [place] [address] Primary Phone [phone] How to be Addresseddenver Spoken Language PreferredEnglish Stated Reason for Admissionbowel resection Primary Contact Name and Numberwife Medications Brought to Hospitalno General Health: Patient or Family Member Reaction to Anesthesiano previous reaction Blood Avoidance/Restrictionsnone Previous Transfusion Reactionno Health Mgmt: Symptoms/Conditions Managed at Homecardiovascular; gastrointestinal; musculoskeletal Barriers to Managing Healthage Relationship/Environ: Lives Withspouse Living Arrangementshouse Resource/Environmental Concernsnone [facility]ticipated [facility] Anticipated at Transitionnone Tobacco Use: Tobacco Useno Pre-op Checklist: Gudelia Last Food [id number] 00:00 ID Band On Patientpatient ID (name) Consent Signedyes H&P Completepending Anesthesia Assessment Completedyes SCD's Appliedsent to OR Additional Information: Information Review: Allergies, Home Meds and Significant Events have been Reviewed and Verified with Patient/Familyyes Allergy, Intolerance, Adverse Event: Allergies: No Known Allergies: Active Electronic Signatures: Xiomy Medina) (Signed 27-Feb-2021 08:07) Authored: Initial Info, General Health, Health Mgmt, Relationship/Environ, Tobacco Use, Pre-op Checklist, Additional Information Last Updated: 27-Feb-2021 08:07 by Xiomy Medina) Normal [facility] Surgical Pathology Depar rigoberto 02-27-2021 [facility] Surgical Pathology Department Name RENÉ ALVARADO Pathologist: FIOR LEONG M.D. Date of Procedure: 02/27/2021 Date Received: 02/27/2021 Date Reported 03/03/2021 Submitting Physician: WALI CRESPO MD Location: [facility] Other External # FINAL DIAGNOSIS A. ILEOCOLIC RESECTION: --ACTIVE CROHN'S ENTERITIS WITH ULCER, TRANSMURAL CHRONIC INFLAMMATION, PYLORIC GLAND METAPLASIA AND STRICTURE --NEGATIVE FOR DYSPLASIA --MULTIPLE REACTIVE LYMPH NODES The gross and/or microscopic findings were reviewed in conjunction with pathology resident, Cele Olivares M.D., PhD. Electronically Signed Out By FIOR LEONG M.D./[facility] [place] the signature on this report, the individual or group listed as making the Final Interpretation/Diagnosis certifies that they have reviewed this case. Clinical History: Physician Contact Number: [id number] Fixative (A): Saline Clinical Diagnosis History RECURRENT CROHN'S Specimens Submitted As: A: ILEOCOLIC RESECTION Gross Description: A: Received in formalin, labeled with the patient's name and hospital number and A) ileocolic resection, is a segment of colon, including the cecum (and appendix), 6.0 cm in length. A 18.0 cm length of terminal ileum is attached. There is attached mesentery and fibrofatty tissue. The serosal surface of the terminal ileum segmentally involved and appears thickened, pink-mckeon, with prominent vascularity. The terminal ileum wall shows irregular thickening, up to 0.6 cm. A stricture is present at the ileocecal valve, 17 cm from proximal and 5 cm from distal margin. The mucosal surface of terminal ileum reveals areas of serpentine ulcers. The process is segmental, 6.0 x 5.0 cm and is located 10 cm from distal resection margin, and 5.5 cm from the proximal resection margin. Normal islands of mucosa can be distinguished among the ulcers. The lymph nodes identified in the mesentery and fibrofatty tissue range in size from 0.2 cm to 1.0 cm and marked enlarged. The cut surface of the largest nodes appears grossly unremarkable. The appendix is not present. Photographs have been taken. Living Coach sections are submitted in 10 cassettes. AO Summary of Cassettes: Specimen Label Site A 1 proximal line of resection, terminal ileum, en-face 2 distal line of resection 3 normal proximal ileum 4-5 serpentine ulcer, patient service representative 6 normal terminal ileum 7 ileocecal valve, strictured area 8 normal cecum 9-10 lymph nodes ao/02/27/2021 [facility] Department of Pathology [address] [place] [address] Normal [facility] Comment on above: Performed By: #### U HCS ####[facility] Surgical Pathology [id number] AveCThe [facility] [address] BASIC METABOLIC PANELon 02-14 Anion gap [Moles/Vol] 13 mmol/L Normal 10 - 20 [facility] Comment on above: Performed By: #### B MP ####[id number] [place] [address] Calcium [Mass/Vol] 8.8 mg/dL Normal 8.6 - 10.6 [facility] Comment on above: Performed By: #### B MP ####[id number] [place] [address] Chloride [Moles/Vol] 104 mmol/L Normal 98 - 107 [facility] Comment on above: Performed By: #### B MP ####[id number] [place] [address] Creatinine [Mass/Vol] 1.15 mg/dL Normal 0.50 - 1.30 [facility] Comment on above: Performed By: #### B MP ####[id number] [place] [address] GFR- AM. >60 Normal >60 [facility] Comment on above: Result Comment: CALC ULATIONS OF ESTIMATED GFR ARE PERFORMED USING THE MDRD STUDY EQUATION FOR THE IDMS-TRACEABLE CREATININE METHODS. CLIN CHEM 2007;53:766-72 Performed By: #### B MP ####[id number] [place] [address] GFR-NON AM. >60 Normal >60 [facility] Comment on above: Performed By: #### B MP ####[id number] [place] [address] Glucose [Mass/Vol] 74 mg/dL Normal 74 - 99 [facility] Comment on above: Performed By: #### B MP ####[id number] [place] [address] HCO3 (Bld) [Moles/Vol] 28 mmol/L Normal 21 - 32 [facility] Comment on above: Performed By: #### B MP ####[id number] [place] [address] Potassium [Moles/Vol] 4.1 mmol/L Normal 3.5 - 5.3 [facility] Comment on above: Performed By: #### B MP ####[id number] [place] [address] Sodium [Moles/Vol] 141 mmol/L Normal 136 - 145 [facility] Comment on above: Performed By: #### B MP ####[id number] [place] [address] Urea nitrogen [Mass/Vol] 10 mg/dL Normal 6 - 23 [facility] Comment on above: Performed By: #### B MP ####[id number] [place] [address] CBCon 02-24-2021 Erythrocyte distribution width (RBC) [Ratio] 14.3 % Normal 11.5 - 14.5 [facility] Comment on above: Performed By: #### C BC ####[id number] [place] [address] Hematocrit (Bld) [Volume fraction] 43.6 % Normal 41.0 - 52.0 [facility] Comment on above: Performed By: #### C BC ####[id number] [place] [address] Hemoglobin (Bld) [Mass/Vol] 14.3 g/dL Normal 13.5 - 17.5 [facility] Comment on above: Performed By: #### C BC ####[id number] [place] [address] MCHC (RBC) [Mass/Vol] 32.8 g/dL Normal 32.0 - 36.0 [facility] Comment on above: Performed By: #### C BC ####[id number] [place] [address] MCV (RBC) [Entitic vol] 92 fL Normal 80 - 100 [facility] Comment on above: Performed By: #### C BC ####[id number] [place] [address] NUCLEATED RBC 0.0 /100 WBC Normal 0.0-0.0 [facility] Comment on above: Performed By: #### C BC ####[id number] [place] [address] Platelets (Bld) [#/Vol] 300 10*3/uL Normal 150 - 450 [facility] Comment on above: Performed By: #### C BC ####[id number] [place] [address] RBC 4.76 x10E12/L Normal 4.50 - 5.90 [facility] Comment on above: Performed By: #### C BC ####[id number] [place] [address] WBC (Bld) [#/Vol] 15.1 10*3/uL High 4.4 - 11.3 [facility] Comment on above: Performed By: #### C BC ####[id number] [place] [address] CORONAVIRUS 2019, SCREEN ASY MPTOMATICon 02-24-2021 SARS-CoV-2 (COVID-19) RNA LINDA+probe Ql (Unsp spec) Not detected Normal Not Detected [facility] Comment on above: Result Comment: . This assay is designed to detect the N, ORF1ab and/or S genes of SARS-CoV-2 via nucleic acid amplification. A Negative (NOT DETECTED) result does not preclude 2019-nCoV infection since the adequacy of sample collection and/or low viral burden may result in presence of viral nucleic acids below the clinical sensitivity of this test method. Negative (NOT DETECTED) result should not be used as the sole basis for treatment or other patient management decisions. Rather negative results should be combined with clinical observations, patient history, and epidemiological information to make patient management decisions. Fact sheet for providers: https://www.fda.gov/media/393096/download Fact sheet for patients: https://www.fda.gov/media/699765/download This test has received FDA Emergency Use Authorization (EUA) and has been verified by [facility] ([facility]). This test is only authorized for the duration of time that circumstances exist to justify the authorization of the emergency use of in vitro diagnostic tests for the detection of SARS-CoV-2 virus and/or diagnosis of COVID-19 infection under section 564(b)(1) of the Act, 21 U.S.C. 360bbb-3(b)(1), unless the authorization is terminated or revoked sooner. [facility] is certified under CLIA-88 as qualified to perform high complexity testing. Testing is performed in the [facility] laboratories located at [address] [place] [address]. Performed By: #### C OVSC #### [place] [address] Lab Specimen Source Nasal, Nasopharyngeal Normal [facility] Comment on above: Performed By: #### C OVSC #### [place] [address] Covid 19 Resultson 1 SARS-CoV-2 (COVID-19) RNA LINDA+probe Ql (Unsp spec) NEGATIVE COVID-19 Test Coronaviruses are common world-wide and are the cause of many common colds. SARS-COV2 is a new coronavirus that began circulating worldwide in 2019 so we are calling it COVID-19. It has been estimated that four out of five patients with COVID-19 will recover at home without the need for medical attention. Symptoms of COVID-19 may include cough, fever, shortness of breath, loss of taste or smell and other flu-like symptoms including chills, sore muscles, sore throat, and headache. Severe illness is more common in older people and people with other health problems such as high blood pressure, obesity, and immune system problems. If the test is positive, you have COVID-19. You will be contacted by the ordering physicians office and instructed to remain on home isolation, in accordance with CDC guidelines. You may also be contacted by the [facility] to see if any of your close contacts may have been exposed to the virus and need to quarantine. If the test is negative, you likely do not have COVID-19 at this time, but you still may have a different illness that can spread to other people (like Influenza, or the Flu) and could still be at risk for getting COVID-19. We recommend that you stay away from other people to limit the spread of illness until your symptoms are improving and you are fever-free for 24 hours without the use of fever lowering medications such as acetaminophen or ibuprofen. No test is 100% accurate so if you are still concerned you may have COVID-19, talk to your doctor about the need to continue to stay away from others. Medicines Unless your provider told you not to use the following: Acetaminophen (Tylenol and others) is generally safe. Anti-inflammatory medications, such as Ibuprofen (Advil or Motrin) or Naproxen (Aleve) can also be used. Mrac-jtn-ilrjgxt cough and cold medicines can be used according to the instructions on the package. Some munw-hkb-vvdbxqd medicines also contain acetaminophen. Make sure you are not taking more than your recommended dose. For those not hospitalized, there is no specific treatment available for this illness. Antibiotics do not treat Coronaviruses. Follow-Up Follow up with your doctor by scheduling a virtual visit or consider follow-up at one of our urgent care fever clinics. If you are having difficulty breathing, or are very weak and having difficulty standing, this is a medical emergency. Call 911 or have someone take you to the nearest emergency room immediately. If possible, wear a facemask. Additional guidance from the CDC for patients who tested POSITIVE for COVID-19 How to isolate: Isolate yourself in a specific room at home and limit your contact with others. Use a separate bathroom from other members of the household, when possible. Leave home only to get essential medical care. Do not go to work, school or public areas. Avoid using public transportation, ride-sharing, or taxis. Restrict contact with pets and other animals. If you must care for your pet or be around animals while you are sick, wash your hands before and after your interaction and wear a facemask. Make sure that shared spaces in the home have good airflow, such as by an air conditioner or an opened window, weather permitting. Personal Hygiene Procedures: Wear a face mask when in the same room as other people or pets. If a face mask interferes with your breathing, others should wear a mask when sharing space with you. Frequent hand-washing: wash your hands with soap and water for at least 20 seconds. If soap and water are not available, use alcohol-based hand manager speech. Avoid touching your eyes, nose, and mouth with unwashed hands. Household Hygiene Procedures: Avoid sharing personal household items such as dishes, glassware, cups, eating utensils, towels or bedding with other people or pets in your home. After use, these items should be washed with soap and hot water. Disinfect all high-touch surfaces every day with antibacterial cleaning solutions such as Lysol wipes, bleach, cleansers, etc. High-touch surfaces include tabletops, doorknobs, bathroom fixtures, toilets, phones, keyboards, tablets and bedside tables. Immediately clean any surfaces that may have blood, poop or body fluids on them, using antibacterial cleaning solutions such as Lysol wipes, bleach, cleansers, etc. If clothing or bedding come into contact with blood, poop or body fluids, they should be washed immediately. Follow the directions on the laundry detergent and clothing labels but hot water is recommended when possible. Stopping home isolation precautions: If possible, consult your doctor before stopping home isolation precautions. According to the CDC, you can discontinue home isolation precautions when you have met both of these criteria: Your fever and respiratory symptoms have been gone for 24 herminio (more content not included)... Normal [facility] Laboratory - Blood bankon ABO group Nom (Bld) A [facility]- [facility] 2099 Work Phone: Blood group antibody screen Ql Negative [facility]- [facility] 2099 Work Phone: Rh immune globulin screen (Bld) [Interp] Negative [facility] - [place] 2099 Work Phone: Laboratory - Chemistry and C hemistry - challengeon 02-24-2021 Anion gap [Moles/Vol] 13 mmol/L 10 - 20 [facility]- [facility]- [place] 2099 Work Phone: Calcium [Mass/Vol] 8.8 mg/dL 8.6 - 10.6 [facility] st[facility]any- [place] 2099 Work Phone: Chloride [Moles/Vol] 104 mmol/L 98 - 107 [facility] urgery- [place] 2099 Work Phone: CO2 [Moles/Vol] 28 mmol/L 21 - 32 [facility]-Surger y- [place] 2099 Work Phone: Creatinine [Mass/Vol] 1.15 mg/dL See Below [facility]- [facility]- [place] 2099 Work Phone: Comment on above: Reference Range: 0.5 0 - 1.30 Glucose [Mass/Vol] 74 mg/dL 74 - 99 [facility] stefany- [place] 2099 Work Phone: Potassium [Moles/Vol] 4.1 mmol/L 3.5 - 5.3 [facility]- [facility]- [place] 2099 Work Phone: Sodium [Moles/Vol] 141 mmol/L 136 - 145 [facility] stefany- [place] 2099 Work Phone: Urea nitrogen [Mass/Vol] 10 mg/dL 6 - 23 [facility]- [place] 2099 Work Phone: Laboratory - Hematology and Cell countson 02-24-2021 Erythrocyte distribution width (RBC) [Ratio] 14.3 % See Below [facility] Work Phone: Comment on above: Reference Range: 11. 5 - 14.5 Hematocrit (Bld) [Volume fraction] 43.6 % See Below [facility] Work Phone: Comment on above: Reference Range: 41. 0 - 52.0 Hemoglobin (Bld) [Mass/Vol] 14.3 g/dL See Below [facility] Work Phone: Comment on above: Reference Range: 13. 5 - 17.5 MCHC (RBC) [Mass/Vol] 32.8 g/dL See Below [facility] Work Phone: Comment on above: Reference Range: 32. 0 - 36.0 MCV (RBC) [Entitic vol] 92 fL 80 - 100 [facility] Work Phone: Platelets (Bld) [#/Vol] 300 10*3/uL 150 - 450 [facility] Work Phone: RBC (Bld) [#/Vol] 4.76 {x10E12/L} See Below [facility] Work Phone: Comment on above: Reference Range: 4.5 0 - 5.90 WBC (Bld) [#/Vol] 15.1 10*3/uL above high threshold 4.4 - 11.3 [facility] Work Phone: No Panel Informationon 02-24 0.0 {/100_WBC} 0.0-0.0 [facility] Work Phone: >60 >60 [facility] Work Phone: Comment on above: CALCULATIONS OF SHARAN MATED GFR ARE PERFORMED USING THE MDRD STUDY EQUATION FOR THE IDMS-TRACEABLE CREATININE METHODS. CLIN CHEM 2007;53:[id number] TYPE + SCREENon 02-24-2021 ABO TYPE A Normal [facility] Comment on above: Performed By: #### T +S #### [facility] [id number] [place] [address] RH TYPE Negative Normal [facility] Comment on above: Performed By: #### T +S #### [facility] [address] 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) Orders Abdominal or pelvic swelling, mass or lump, periumbilic, Stricture of colon Start: Dulcolax 5 MG Oral Tablet Delayed Release; Take 2 tablets at 3pm and 2 tablets at 9pm the day prior to your procedure Stricture of colon Start: Gabapentin 100 MG Oral Capsule; Take one tablet at bedtime starting 3 days prior to surgery Start: metroNIDAZOLE 250 MG Oral Tablet; Take 1 tablet at 6pm, 7pm and 11pm the day prior to surgery Start: Neomycin Sulfate 500 MG Oral Tablet; take 2 tablets at 6pm, 7pm and 11pm the day before surgery Start: Polyethylene Glycol 3350 17 GM/SCOOP Oral Powder (MiraLax); MIX 238 GM Once As Directed Mix with 64 ounces of clear liquids Start: Tylenol Extra Strength 500 MG Oral Tablet; TAKE 1 TABLET Every 6 hours For two days prior to surgery. 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 Minimally symptomatic at this time. Will plan for ileocolic resection. Discussed warning signs of bowel obstruction to make sure he lets us know if symptoms worsen in the mean time. Bailey Tejeda DO Colon and Rectal Surgery Fellow [facility] Chief Complaint RENÉ ALVARADO is being seen for a colon and rectal evaluation. RENÉ ALVARADO is being seen for an evaluation of Crohn's stricture. History of Present Illness René Alvarado is a 69 yo man with Crohn's who presents to clinic today following referral from Dr. Zee due to history of stricture at ileocolic anastomosis. He had surgery in 2003 at [facility], ileocolic resection. He says that Dr. Zee has never been able to get through the ICA, last attempted 1 month ago. Reportedly he has another stricture which was found during a possible SBFT (X-rays). He is minimally symptomatic, occasionally will develop a blockage with pain but drinks prune juice or takes Ex-Lax and gets better. Makes sure to chew well. Has 4-6 loose BMs per day at baseline. Has been on Humira 12 years. PMH: HTN, doesn't see Dr. frequently PSH: R inguinal hernia repair w/mesh, ICR 2003 FH: Brain aneurysm and colitis in mother, CHF in father SH: Former smoker, quit 25 years ago. No ETOH. . Espinosa. All: None Review of Systems Constitutional: no fever and no recent weight gain. Eyes: no loss of vision and no discharge from the eyes. ENT: no neck pain and no throat symptoms. Cardiovascular: no chest pain and no palpitations. Respiratory: no shortness of breath and no cough. Gastrointestinal: no abdominal pain and no constipation. Genitourinary: no dysuria and no hematuria. Musculoskeletal: no arthralgias and no myalgias. Integumentary: no skin lesions. Neurological: no headache and no dizziness. Endocrine: no heat or cold intolerance and no increased thirst. Hematologic/Lymphatic: no swollen glands and no tendency for easy bleeding. Psychiatric: no anxiety and no depression. 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) Surgical History Problems History of Intestinal surgery Social History Problems No tobacco/smoke exposure Allergies Medication No Known Drug Allergies Recorded By: Nay Mckenna; 12/03/2020 10:10:41 AM Current Meds Medication NameInstruction Humira 40 MG/0.4ML Subcutaneous Prefilled Syringe Kit Lactaid Ultra 9000 UNIT TABS Loperamide HCl - 2 MG Oral Capsule [place] 3 CAPS Omeprazole 20 MG Oral Capsule Delayed Release Simethicone Extra Strength 125 MG Oral Capsule Valsartan-hydroCHLOROthiazi de 320-12.5 MG Oral Tablet Vitals Vital Signs Recorded: [id number] 10:08AM Heart Rate66 Dnyfwsvx074 Wqqwpbtcq74 Height5 ft 10 in Eozuet217 lb BMI Pjllrsalqb47.68 kg/m2 BSA Calculated1.96 Tobacco Useb) No Fall Screeninga) No falls within the last year Physical Exam Constitutional - General appearance: In no acute distress, well appearing and well nourished. Eyes Sclerae: Anicteric Neck - Exam: Appearance of the neck was normal. No neck masses observed. Thyroid Examination: Not enlarged and there were no palpable nodules. Pulmonary - Respiratory effort: Normal respiration. Auscultation of lungs: Clear to auscultation. Cardiovascular - Examination for JVD: No JVD present Auscultation of heart: Normal rate and rhythm, no murmurs. Examination of extremities for edema and/or varicosities: No peripheral edema. Abdomen and Pelvis - Abdomen: Non-tender, no abdominal masses. Liver and spleen: No hepatosplenomegaly. Psychiatric - Orientation to person, place, and time: Normal. Mood and affect: Normal. Attending Note Trainee role: Fellow Trainee discussed patient with Dr. Crespo I saw and evaluated the patient. I personally obtained the koehler and (more content not included)... [facility] Tobacco Screening.on 021 Fall risk assessment a) No falls within the last year [facility] Work Phone: Tobacco use status CPHS b) No [facility] Work Phone: Office Visiton 01-11-2017 Documentation of current medications (procedure) Done Invalid Interpretation Code [facility] Work Phone: Fall risk assessment No Invalid Interpretation Code [facility] Work Phone: Lab Report: Lipid Profileon 07-06-2016 Cholesterol 168 mg/dL Invalid Interpretation Code 200 [facility] Work Phone: HDL Cholesterol 58 mg/dL Invalid Interpretation Code [facility] Work Phone: LDL Cholesterol 71 mg/dL Invalid Interpretation Code 0-130 [facility] Work Phone: Triglyceride 196 mg/dL Invalid Interpretation Code [facility] Work Phone: very low density lipoproteins 39 mg/dL Invalid Interpretation Code 5-40 [facility] Work Phone: Lab Report: Liver Profileon 07-06-2016 Alanine aminotransferase (ALT) 48 U/L Invalid Interpretation Code 12-78 [facility] Work Phone: Albumin 3.3 g/dL Low 3.4-5.0 [facility] Work Phone: Alkaline phosphatase (ALP) 101 U/L Invalid Interpretation Code 45-117 [facility] Work Phone: Aspartate aminotransferase (AST) 29 U/L Invalid Interpretation Code 15-37 [facility] Work Phone: Bilirubin (direct) 0.14 mg/dL Invalid Interpretation Code 0.00-0.30 [facility] Work Phone: Bilirubin (total) 0.60 mg/dL Invalid Interpretation Code 0.20-1.00 [facility] Work Phone: Globulin 4.4 g/dL High 2.3-3.5 [facility] Work Phone: Protein 7.7 g/dL Invalid Interpretation Code 6.4-8.2 [facility] Work Phone: Lab Report: PSA,Total - Susie al Screenon 07-06-2016 PSA,TOT SCREEN 2.24 ng/mL Invalid Interpretation Code 0.00-4.00 [facility] Work Phone: Clinical Lists 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: 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 Left ventricular Ejection fraction 65 % Invalid Interpretation Code [facility] Work Phone: Office Visit: 8 WK F/u Paino n 12-20-2015 Dietary management education, guidance, and counseling (procedure) yes Invalid Interpretation Code [facility] Work Phone: Tobacco smoking status NHIS Never Invalid Interpretation Code [facility] Work Phone: Tobacco use CPHS Never smoker Invalid Interpretation Code [facility] Work Phone: Lab Report: CBC W/Diff, Auto matedon 10-08-2015 Absolute Neut 5.8 X10 3/UL Invalid Interpretation Code 2.0-7.7 [facility] Work Phone: Basophils/100 WBC Auto (Bld) 0.4 % Invalid Interpretation Code 0-1 [facility] Work Phone: Eosinophils/100 leukocytes 1.5 % Invalid Interpretation Code 0-5 [facility] Work Phone: Erythrocyte distribution width Auto Ratio (RBC) 14.0 % Invalid Interpretation Code 11.6-14.6 [facility] Work Phone: Erythrocytes (RBC) 4.88 10*6/uL Invalid Interpretation Code 4.6-6.2 [facility] Work Phone: Hematocrit (HCT) 45.0 % Invalid Interpretation Code 40-54 [facility] Work Phone: Hemoglobin mass conc (Bld) 14.7 g/dL Invalid Interpretation Code 13.0-16.5 [facility] Work Phone: Immature granulocytes/100 WBC (Bld) 0.200 % Invalid Interpretation Code 0.0-0.9 [facility] Work Phone: [phone] Lymphocytes 1.97 X10 3/UL Invalid Interpretation Code 0.83-4.51 [facility] Work Phone: [phone] Lymphocytes/100 leukocytes 21.7 % Invalid Interpretation Code 19-41 [facility] Work Phone: MCH 30.1 pg Invalid Interpretation Code 27.0-32.0 [facility] Work Phone: [phone] MCHC mass conc (RBC) 32.7 G/GL Invalid Interpretation Code 32-36 [facility] Work Phone: [phone] MCV 92.2 fL Invalid Interpretation Code 80-94 [facility] Work Phone: [phone] Monocytes/100 leukocytes 12.9 % High 0-10 [facility] Work Phone: [phone] Neutrophils/100 WBC Auto (Bld) 63.3 % Invalid Interpretation Code 47-70 [facility] Work Phone: [phone] Platelets 215 10*3/mm3 Invalid Interpretation Code 150-450 [facility] Work Phone: PMV by Terry 10.8 fL Invalid Interpretation Code 6.2-12.0 [facility] Work Phone: RDW SD 46.8 fL High 35.1-43.9 [facility] Work Phone: WBC (Leukocytes) 9.1 10*3/uL Invalid Interpretation Code 4.4-11.0 [facility] Work Phone: Lab Report: Comprehensive Ia tabolic Profilon 10-08-2015 Albumin/Globulin Ratio 0.7 {ratio} Low 0.9-2.4 [facility] Work Phone: Anion gap 9 mmol/L Invalid Interpretation Code 5-15 [facility] Work Phone: BUN/Creatinine Ratio 10.5 RATIO Invalid Interpretation Code 10-20 [facility] Work Phone: Calcium 8.7 mg/dL Invalid Interpretation Code 8.5-10.1 [facility] Work Phone: Chloride 108 mmol/L High 98-107 [facility] Work Phone: CO2 24.0 mmol/L Invalid Interpretation Code 21.0-32.0 [facility] Work Phone: Creatinine 1.43 mg/dL High 0.70-1.30 [facility] Work Phone: eGFR (non-black) 53 mL/min/{1.73_m2} Low >60 [facility] Work Phone: [phone] eGFR (non-black) 64 mL/min/{1.73_m2} Invalid Interpretation Code >60 [facility] Work Phone: Glucose mass conc 100 mg/dL Invalid Interpretation Code 70-110 [facility] Work Phone: Potassium molar conc 4.6 mmol/L Invalid Interpretation Code 3.5-5.1 [facility] Work Phone: Sodium 141 mmol/L Invalid Interpretation Code 136-145 [facility] Work Phone: [phone] Urea nitrogen 15 mg/dL Invalid Interpretation Code 7-18 [facility] Work Phone: Office Visiton 05-27-2015 General cardiovascular disease 10Y risk [#] [place].D'Agostino 7 % Invalid Interpretation Code [facility] Work Phone: Office Visiton 10-15-2014 cardiac risk group B Invalid Interpretation Code [facility] Work Phone: [phone] Vital Signs Date Time Vital Sign Value Performing Clinician Yas briceño 03-09-2023 08:34-0400 Body height 177.[address] Elias Arredondo Work Phone: [facility] 03-09-2023 08:34-0400 Body mass index (BMI) [Ratio] 26.8 kg/m2 Dr. Elias Arredondo Work Phone: [facility] 03-09-2023 08:34-0400 Body weight 84.[address] Elias Arredondo Work Phone: [facility] 03-09-2023 08:34-0400 Diastolic blood pressure 76 mm[Hg] Dr. Elias Arredondo Work Phone: [facility] 03-09-2023 08:34-0400 Heart rate 67 /min Dr. Elias Arredondo Work Phone: [facility] 03-09-2023 08:34-0400 Respiratory rate 18 /min Dr. Elias Arredondo Work Phone: [facility] 03-09-2023 08:34-0400 Systolic blood pressure 161 mm[Hg] Dr. Elias Arredondo Work Phone: [facility] 07-07-2022 08:17-0500 Body height 177.[address] Elias Arredondo Work Phone: [facility] 07-07-2022 08:17-0500 Body mass index (BMI) [Ratio] 26.2 kg/m2 Dr. Elias Arredondo Work Phone: [facility] 07-07-2022 08:17-0500 Body weight [address] Elias Arredondo Work Phone: [facility] 07-07-2022 08:17-0500 Diastolic blood pressure 91 mm[Hg] Dr. Elias Arredondo Work Phone: [facility] 07-07-2022 08:17-0500 Heart rate 66 /min Dr. Elias Arredondo Work Phone: [facility] 07-07-2022 08:17-0500 SaO2% (BldA) [Mass fraction] 98 % Dr. Elias Arredondo Work Phone: [facility] 07-07-2022 08:17-0500 Systolic blood pressure 153 mm[Hg] Dr. Elias Arredondo Work Phone: [facility] 06-11-2022 07:20-0500 Body temperature 97.1 [degF] Dr. Elias Arredondo Work Phone: [facility] 06-11-2022 07:20-0500 Diastolic blood pressure 77 mm[Hg] Dr. Elias Arredondo Work Phone: [facility] 06-11-2022 07:20-0500 Heart rate 73 /min Dr. Elias Arredondo Work Phone: [facility] 06-11-2022 07:20-0500 Respiratory rate 16 /min Dr. Elias Arredondo Work Phone: [facility] 06-11-2022 07:20-0500 SaO2% (BldA) [Mass fraction] 94 % Dr. Elias Arredondo Work Phone: [facility] 06-11-2022 07:20-0500 Systolic blood pressure 121 mm[Hg] Dr. Elias Arredondo Work Phone: [facility] 06-11-2022 06:07-0500 Body height 177.[address] Elias Arredondo Work Phone: [facility] 06-11-2022 06:07-0500 Body mass index (BMI) [Ratio] 25.9 kg/m2 Dr. Elias Arredondo Work Phone: [facility] 06-11-2022 06:07-0500 Body weight [address] Elias Arredondo Work Phone: [facility] 03-12-2022 09:35-0400 Body mass index (BMI) [Ratio] 25.7 kg/m2 Dr. Elias Arredondo Work Phone: [facility] 03-12-2022 09:35-0400 Body weight 81.[address] Elias Arredondo Work Phone: [facility] 03-12-2022 09:35-0400 Diastolic blood pressure 79 mm[Hg] Dr. Elias Arredondo Work Phone: [facility] 03-12-2022 09:35-0400 Heart rate 62 /min Dr. Elias Arredondo Work Phone: [facility] 03-12-2022 09:35-0400 Respiratory rate 16 /min Dr. Elias Arredondo Work Phone: [facility] 03-12-2022 09:35-0400 SaO2% (BldA) [Mass fraction] 100 % Dr. Elias Arredondo Work Phone: [facility] 03-12-2022 09:35-0400 Systolic blood pressure 142 mm[Hg] Dr. Elias Arredondo Work Phone: [facility] 01-12-2022 08:21-0400 Body height 177.[address] Elias Arredondo Work Phone: [facility] Work Phone: 01-12-2022 08:21-0400 Body mass index (BMI) [Ratio] 25.5 kg/m2 Dr. Elias Arredondo Work Phone: [facility] Work Phone: 01-12-2022 08:21-0400 Body weight 80.[address] Elias Arredondo Work Phone: [facility] Work Phone: 01-12-2022 08:21-0400 Diastolic blood pressure 78 mm[Hg] Dr. Elias Arredondo Work Phone: [facility] Work Phone: 01-12-2022 08:21-0400 Heart rate 60 /min Dr. Elias Arredondo Work Phone: [facility] Work Phone: 01-12-2022 08:21-0400 SaO2% (BldA) [Mass fraction] 96 % Dr. Elias Arredondo Work Phone: [facility] Work Phone: 01-12-2022 08:21-0400 Systolic blood pressure 146 mm[Hg] Dr. Elias Arredondo Work Phone: [facility] Work Phone: 12-12-2021 11:58-0400 Diastolic blood pressure 62 mm[Hg] Dr. Elias Arredondo Work Phone: [facility] Work Phone: 12-12-2021 11:58-0400 Heart rate 60 /min Dr. Elias Arredondo Work Phone: [facility] Work Phone: 12-12-2021 11:58-0400 Systolic blood pressure 137 mm[Hg] Dr. Elias Arredondo Work Phone: [facility] Work Phone: 12-12-2021 10:22-0400 Body height 177.[address] Elias Arredondo Work Phone: [facility] Work Phone: 12-12-2021 10:22-0400 Body mass index (BMI) [Ratio] 25.6 kg/m2 Dr. Elias Arredondo Work Phone: [facility] Work Phone: 12-12-2021 10:22-0400 Body temperature 97.6 [degF] Dr. Elias Arredondo Work Phone: [facility] Work Phone: 12-12-2021 10:22-0400 Body weight [address] Elias Arredondo Work Phone: [facility] Work Phone: 12-12-2021 10:22-0400 Respiratory rate 14 /min Dr. Elias Arredondo Work Phone: [facility] Work Phone: 12-12-2021 10:22-0400 SaO2% (BldA) [Mass fraction] 99 % Dr. Elias Arredondo Work Phone: [facility] Work Phone: 11-03-2021 08:38-0400 Body height 177.[address] Elias Arredondo Work Phone: [facility] Work Phone: 11-03-2021 08:38-0400 Body mass index (BMI) [Ratio] 25.5 kg/m2 Dr. Elias Arredondo Work Phone: [facility] Work Phone: 11-03-2021 08:38-0400 Body weight 80.[address] Elias Arredondo Work Phone: [facility] Work Phone: 11-03-2021 08:38-0400 Diastolic blood pressure 71 mm[Hg] Dr. Elias Arredondo Work Phone: [facility] Work Phone: 11-03-2021 08:38-0400 Heart rate 62 /min Dr. Elias Arredondo Work Phone: [facility] Work Phone: 11-03-2021 08:38-0400 SaO2% (BldA) [Mass fraction] 95 % Dr. Elias Arredondo Work Phone: [facility] Work Phone: 11-03-2021 08:38-0400 Systolic blood pressure 136 mm[Hg] Dr. Elias Arredondo Work Phone: [facility] Work Phone: 03-25-2021 10:35-0500 Body height 177.8 cm Elias Arredondo Work Phone: [facility] Work Phone: 03-25-2021 10:35-0500 Body mass index (BMI) [Ratio] 22.81 kg/m2 Elias Arredondo Work Phone: [facility] 2100 Work Phone: 03-25-2021 10:35-0500 Body surface area Derived from formula 1.89 m2 Elias Arredondo Work Phone: [facility] 2100 Work Phone: 03-25-2021 10:35-0500 Body weight 72.12 kg Elias Arredondo Work Phone: [facility] 2100 Work Phone: 03-25-2021 10:35-0500 Diastolic blood pressure 68 mm[Hg] Elias Arredondo Work Phone: [facility] 2100 Work Phone: 03-25-2021 10:35-0500 Heart rate 60 /min Elias Arredondo Work Phone: BD[facility]Gunjewc[facility]Fjkwqcy 2100 Work Phone: 03-25-2021 10:35-0500 Systolic blood pressure 121 mm[Hg] Elias Arredondo Work Phone: VB[facility]aszi[facility] 2100 Work Phone: 03-02-2021 06:54-0400 Body temperature 98.6 [degF] Elias Arredondo Other Phone: [facility] 03-02-2021 06:54-0400 Diastolic blood pressure 68 mm[Hg] Elias Arnulfo Other Phone: [facility] 03-02-2021 06:54-0400 Heart rate 70 /min Elias Arnulfo Other Phone: [facility] 03-02-2021 06:54-0400 Respiratory rate 14 /min Elias Arredondo Other Phone: [facility] 03-02-2021 06:54-0400 SaO2% (BldA) [Mass fraction] 98 % Elias Arredondo Other Phone: [facility] 03-02-2021 06:54-0400 Systolic blood pressure 122 mm[Hg] Elias Arredondo Other Phone: [facility] 12-03-2020 10:08-0400 Body height 177.8 cm Referring Provider Unknown [facility]lle[facility] 2100 Work Phone: 12-03-2020 10:08-0400 Body mass index (BMI) [Ratio] 24.68 kg/m2 Referring Provider Unknown AJ[facility]Grbstdx-Shutprv 2100 Work Phone: 12-03-2020 10:08-0400 Body surface area Derived from formula 1.96 m2 Referring Provider Unknown HU-Jmnqcii-Ssqgynb 2100 Work Phone: 12-03-2020 10:08-0400 Body weight 78.02 kg Referring Provider Unknown MW-Mlgiwux-Segqqcs 2100 Work Phone: 12-03-2020 10:08-0400 Diastolic blood pressure 76 mm[Hg] Referring Provider Unknown TQ-Khyfupu-Qfmupdh 2100 Work Phone: 12-03-2020 10:08-0400 Heart rate 66 /min Referring Provider Unknown MX-Utqlaim-Uhifhod 2100 Work Phone: 12-03-2020 10:08-0400 Systolic blood pressure 150 mm[Hg] Referring Provider Unknown EB-Cbhbjdv-Kmrfisn 2100 Work Phone: 04-05-2017 08:52-0500 Body Temperature 98.2 [degF] Susy Parks LPN [facility] Work Phone: 01-11-2017 08:22-0400 BMI (Body Mass Index) 27.12 kg/m2 Susy Parks LPN [facility] Work Phone: 01-11-2017 08:22-0400 BP Diastolic 60 mm[Hg] Susy Parks LPN [facility] Work Phone: 01-11-2017 08:22-0400 BP Systolic 124 mm[Hg] Susy Parks LPN [facility] Work Phone: 01-11-2017 08:22-0400 Height 177.8 cm Susy Parks LPN [facility] Work Phone: 01-11-2017 08:22-0400 Pulse (Heart Rate) 66 /min Susy Parks LPN [facility] Work Phone: 01-11-2017 08:22-0400 Respiratory Rate 18 /min Susy Parks LPN [facility] Work Phone: 01-11-2017 08:22-0400 Weight 85.73 kg Susy Parks LPN [facility] Work Phone: 07-06-2016 08:10-0500 BSA (Body Surface Area) 2.01 m2 Susy Parks LPN [facility] Work Phone: 10-15-2014 13:53-0400 Pulse Oximetry 97 % Susy Parks LPN [facility] Work Phone: Encounters Encounter Date Encounter Type Care Provider Facility Start: 10-30-2024 End: 10-30-[address] Elias Arredondo DO Work Phone: [facility] Work Phone: Start: 10-30-2024 End: 10-30-2024 Patient encounter procedure Toni Santoyo DO -[facility] Work Phone: Start: 06-29-2024 End: 06-29-2024 ambulatory Toni Santoyo Facility:[facility] Start: 06-29-2024 End: 06-29-2024 ambulatory Toni Santoyo Facility:[facility] Start: 03-10-2024 End: 03-10-2024 ambulatory Elias Arredondo Facility:[facility] Start: 01-06-2024 End: 01-06-2024 ambulatory Elias Arredondo Facility:[facility] Start: 07-09-2023 End: 07-09-[address] Elias Arredondo Work Phone: [facility] Work Phone: Start: 07-09-2023 End: 07-09-[address] Elias Arredondo Work Phone: [facility] Work Phone: Start: 06-30-2023 End: 06-30-[address] Elias Arredondo Work Phone: [facility] Work Phone: Start: 06-30-2023 End: 06-30-[address] Elias Arredondo Work Phone: [facility] Work Phone: Start: 04-16-2023 Non-patient / Non-visit Dr. Elias Arredondo Work Phone: [facility] Work Phone: Start: 04-15-2023 Non-patient / Non-visit Dr. Elias Arredondo Work Phone: [facility] Start: 04-15-2023 End: 04-15-[address] Elias Arredondo Work Phone: [facility] Work Phone: Start: 04-15-2023 End: 04-15-[address] Eli[facility]redondo [facility] Work Phone: Start: 03-18-2023 End: 03-18-[address] Elias Arredondo Work Phone: [facility] Work Phone: Start: 03-09-2023 End: 03-09-[address] Elias Arredondo Work Phone: [facility] Work Phone: Start: 01-04-2023 End: 01-04-[address] Elias Arredondo Work Phone: [facility] Work Phone: Start: 09-18-2022 End: 09-18-[address] Elias Arredondo Work Phone: [facility] Work Phone: Start: 09-18-2022 End: 09-18-[address] Elias Arredondo Work Phone: [facility] Start: 07-24-2022 End: 07-24-[address] Elias Arredondo Work Phone: [facility] Work Phone: Start: 07-24-2022 End: 07-24-[address] Elias Arredondo Work Phone: [facility] Start: 07-07-2022 End: 07-07-[address] Elias Arredondo Work Phone: [facility] Work Phone: Start: 07-07-2022 End: 07-07-[address] Elias Arredondo Work Phone: [facility] Start: 07-07-2022 End: 07-07-[address] Elias Arredondo Work Phone: [facility] Start: 06-11-2022 Non-patient / Non-visit Dr. Elias Arredondo Work Phone: [facility] Start: 06-11-2022 End: 06-11-2022 Admission to same day surgery center Dr. Elias Arredondo Work Phone: [facility] Start: 06-11-2022 End: 06-11-[address] Elias Arredondo Work Phone: [facility] Work Phone: Start: 03-12-2022 End: 03-12-[address] Elias Arredondo Work Phone: [facility] Start: 01-27-2022 End: 01-27-[address] Elias Arredondo Work Phone: [facility] Work Phone: Start: 01-27-2022 End: 01-27-[address] Elias Arredondo Work Phone: [facility] Start: 01-12-2022 End: 01-12-[address] Elias Arredondo Work Phone: [facility] Work Phone: Start: 01-12-2022 End: 01-12-[address] Eilas Arredondo Work Phone: [facility] Start: 12-12-2021 End: 12-12-[address] Elias Arredondo Work Phone: [facility] Out Start: 11-14-2021 End: 11-14-[address] Elias Arredondo Work Phone: [facility] Start: 11-13-2021 End: 11-13-[address] Elias Arredondo Work Phone: [facility] Start: 11-03-2021 End: 11-03-[address] Elias Arredondo Work Phone: [facility] Start: 04-15-2021 Postop follow up visit related to original px Elias Arredondo Work Phone: [id number] 2100 Work Phone: Start: 03-25-2021 Patient encounter procedure Elias Arredondo Work Phone: [facility]Pdc[facility]Bmw[facility] 2100 Work Phone: Start: 03-25-2021 Postop follow up visit related to original px Elias Arredondo Work Phone: [facility]Chbktgx[facility]Fkxufww 2100 Work Phone: Start: 02-27-2021 End: 03-02-2021 Evaluation and management of inpatient Wali Vargas 5 Rm [id number] Start: 02-24-2021 AUDIT Elias hernandez Work Phone: [facility] [facility] Work Phone: Start: 02-20-[address] Elias Arredondo Work Phone: [facility] Work Phone: Start: 12-03-2020 Office outpatient ne w 45 minutes Referring Provider Unknown [id number]-Aaizagc-Qxyzsdt 2100 Work Phone: Procedures Date Procedure Procedure Detail Performing Clinician Start: 07-09-[address] Elias Arredondo Work Phone: Start: 07-24-[address] Elias Arredondo Work Phone: Start: 07-24-[address] Elias Arredondo Work Phone: Start: 06-11-[address] Elias helms Work Phone: Start: 01-27-[address] Elias Arredondo Work Phone: Start: 01-27-[address] Elias Arredondo Work Phone: Start: 11-14-2021 Computed tomography of abdomen and pelvis with contrast Dr. Elias Arredondo Work Phone: Start: 02-24-2021 Antibody screen Comment on above: Performed By: #### T +S #### [facility] [address] [place] [address] Start: 01-11-2017 End: 01-11-2017 VERONIKA Bah MD Work Phone: Start: 01-11-2017 End: 01-11-2017 Follow Up Appt 6 months Helio Bah MD Work Phone: Start: 07-06-2016 End: 07-06-2016 *Hepatic Function Panel Helio Bah MD Work Phone: Start: 07-06-2016 End: 07-06-2016 VERONIKA Bah MD Work Phone: Start: 07-06-2016 End: 07-06-2016 Follow Up Appt 6 months Helio Bah MD Work Phone: Start: 07-06-2016 End: 07-06-2016 Lipid 1996 panel - Serum or Plasma Helio Bah MD Work Phone: Start: 07-06-2016 End: 07-06-2016 Prostate specific Ag [Mass/volume] in Serum or Plasma Helio Bah MD Work Phone: Start: 01-01-2016 End: 12-31-2016 Mri any jt upper extremity w/contrast matrl Elias Arredondo DO Work Phone: Start: 12-20-2015 End: 12-31-2016 Mri upper extremity oth than jt w/o contr dongl Elias Arredondo DO Work Phone: Start: 10-09-2015 End: 12-31-2016 Physical Therapy General Elias Arredondo DO Work Phone: Start: 10-08-2015 End: 10-08-2015 *CBC with Differential Elias Spring Work Phone: Start: 10-08-2015 End: 10-08-2015 *CMP Complete Metabolic Panel Elias Arredondo DO Work Phone: Start: 10-08-2015 End: 10-09-2015 Radex shoulder complete minimum 2 views Elias Arredondo DO Work Phone: Start: 10-08-2015 End: 10-09-2015 Radex spine cervical 2 or 3 views Elias Arredondo DO Work Phone: Start: 10-08-2015 End: 10-09-2015 Radex spine thoracic 2 views Elias Arredondo DO Work Phone: Start: 05-27-2015 End: 05-27-2015 VERONIKA Bah MD Work Phone: Start: 05-27-2015 End: 05-27-2015 Follow Up Appt 1 year Danya Mobley Work Phone: Start: 11-19-2014 End: 11-19-2014 VERONIKA Bah MD Work Phone: Start: 11-19-2014 End: 11-19-2014 Follow Up Appt 6 months Helio Bah MD Work Phone: Start: 10-15-2014 End: 10-15-2014 VERONIKA Bah MD Work Phone: Start: 10-15-2014 End: 11-14-2014 Echocardiography Helio Bah MD Work Phone: Start: 10-15-2014 End: 10-15-2014 Follow Up Appt 1 month Helio Bah MD Work Phone: Start: 10-15-2014 End: 10-24-2014 Stress Echocardiogram (treadmill) Helio Bah MD Work Phone: History of repair of inguinal hernia History of right inguinal hernia repair Dr. Elias Arredondo Work Phone: Lactoferrin measurement Dr. Elias Arredondo Work Phone: Lactoferrin measurement Dr. Elias Arredondo Work Phone: Operation on intestine Refer ring Provider Unknown Plan of Treatment Date Care Activity Detail Author Start: 07-09-2023 Protein measurement [facility] Start: 06-30-2023 Procedure [facility] Start: 06-11-2022 Colonoscopy w/biopsy single/multiple COLONOSCOPY AND BIOPSY [facility] Start: 06-11-2022 Egd insert guide wir e dilator passage esophagus EGD GUIDE WIRE INSERTION [facility] Start: 06-11-2022 Egd transoral biopsy single/multiple EGD BIOPSY SINGLE/MULTIPLE [facility] Start: 06-11-2022 Patient discharge [facility] Start: 12-12-2021 Iv infusion therapy/prophylaxis /dx 1st to 1 hr THER/PROPH/DIAG IV INF INIT [facility] Work Phone: Start: 11-03-2021 Immunoglobulin measurement [facility] Work Phone: Start: 11-03-2021 Serum immunofixation [facility] Work Phone: Start: 11-03-2021 [facility] Work Phone: Start: 03-25-2021 Patient encounter procedure [facility] [place] Start: 02-28-2021 End: 03-01-2022 Calcium Carbonate Chewable 1,000 mg Oral Tablet Every 2 Hours PRN (Antacid) ; Tablet, Chewable (TUMS)DOSE = 1,000 mg Oral Every 2 Hours, PRN antacidNotes from Pharmacy: Calcium Carbonate 1,000 mg = Elemental Calcium 400 mg Start: 28-Feb-2021 End: 28-Feb-2022 Ordered: 28-Feb-2021 Francy Alvarez [facility] Start: 02-28-2021 End: 03-01-2022 [facility] Comment on above: Dispense premix bag for use with Ambit pump only. Start: 02-27-2021 [facility], Provider: Wali Crepso, Status: Pen, Time: 8:00 [facility] Provider: Wali Crespo, Status: Pen, Time: 8:00 AM [facility]Hexqhbl[facility]Mhy[facility] 2100 Work Phone: Start: 08-23-2017 End: 08-23-2017 Appointment Appointment [facility] Work Phone: Start: 07-08-2017 End: 07-21-2016 *Hepatic Function Panel *Hepatic Function Panel [facility] Work Phone: Start: 07-08-2017 End: 07-21-2016 Lipid panel [AGGREGATE] *Lipid Profile CC PCP [facility] Work Phone: Start: 04-05-2017 End: 04-05-2017 Appointment Appointment [facility] Work Phone: Start: 01-11-2017 End: 01-11-2017 VERONIKA BANDA [facility] Work Phone: Start: 01-11-2017 End: 01-11-2017 Follow Up Appt 6 months Follow Up Appt 6 months [facility] Work Phone: Start: 07-06-2016 End: 07-06-2016 *Hepatic Function Panel *Hepatic Function Panel [facility] Work Phone: Start: 07-06-2016 End: 07-06-2016 VERONIKA BANDA [facility] Work Phone: Start: 07-06-2016 End: 07-06-2016 Follow Up Appt 6 months Follow Up Appt 6 months [facility] Work Phone: Start: 07-06-2016 End: 07-06-2016 Lipid panel [AGGREGATE] *Lipid Profile CC PCP [facility] Work Phone: Start: 07-06-2016 End: 07-06-2016 PSA *PSA, Annual Screening [facility] Work Phone: Start: 01-01-2016 End: 12-31-2016 Mri any jt upper extremity w/contrast matrl MRI upper extremity, any joint with contrast [facility] Work Phone: Start: 12-20-2015 End: 12-31-2016 Mri upper extremity oth than jt w/o contr matrl MRI Non Joint Upper Extremity [facility] Work Phone: Start: 10-09-2015 End: 10-28-2015 Physical Therapy [facility], [address] [place] [address], [id number] [facility] Work Phone: Start: 10-08-2015 End: 10-08-2015 *CBC with Differential *CBC with Differential [facility] Work Phone: Start: 10-08-2015 End: 10-08-2015 *CMP Complete Metabolic Panel *CMP Complete Metabolic Panel [facility] Work Phone: Start: 10-08-2015 End: 10-09-2015 Radex shoulder complete minimum 2 views X-Ray, Shoulder [facility] Work Phone: Start: 10-08-2015 End: 10-09-2015 Radex spine cervical 2 or 3 views X-Ray, Spine, Cervical [facility] Work Phone: Start: 10-08-2015 End: 10-09-2015 Radex spine thoracic 2 views X-Ray, Spine, Thoracic, 2 views [facility] Work Phone: Start: 05-27-2015 End: 05-27-2015 DJN DJN [facility] Work Phone: Start: 05-27-2015 End: 05-27-2015 Follow Up Appt 1 year Follow Up Appt 1 year [facility] Work Phone: Start: 11-19-2014 End: 11-19-2014 DJN DJN [facility] Work Phone: Start: 11-19-2014 End: 11-19-2014 Follow Up Appt 6 months Follow Up Appt 6 months [facility] Work Phone: Start: 10-15-2014 End: 10-15-2014 DJN DJN [facility] Work Phone: Start: 10-15-2014 End: 10-15-2014 Echocardiography Echocardiogram (complete) [facility] Work Phone: Start: 10-15-2014 End: 10-15-2014 Follow Up Appt 1 month Follow Up Appt 1 month [facility] Work Phone: Start: 10-15-2014 End: 10-15-2014 Stress Echocardiogram (treadmill) Stress Echocardiogram (treadmill) [facility] Work Phone: Albumin [Moles/volum e] in Serum or Plasma [facility] Work Phone: Albumin/Globulin ratio [facility] Work Phone: Electrophoresis: [id number] [facility] Work Phone: Electrophoresis: duane ma globulin [facility] Work Phone: Globulin measurement [facility] Work Phone: IgA [Mass/volume] in Serum or Plasma [facility] Work Phone: IgE [Units/volume] i n Serum or Plasma [facility] Work Phone: IgG [Mass/volume] in Serum or Plasma [facility] Work Phone: IgM [Mass/volume] in Serum or Plasma [facility] Work Phone: In-vitro immunologic test [facility] Work Phone: Lactoferrin [Presenc e] in Stool by Immunoassay [facility] Work Phone: Lactoferrin [Presenc e] in Stool by Immunoassay [facility] Neutrophil cytoplasm ic Ab.classic [Units/volume] in Serum [facility] Work Phone: P-ANCA measurement [facility] Work Phone: Patient Education HEART%20HEALTHY%20DIET [facility] Work Phone: Patient referral [facility] Work Phone: Procedure [facility] Work Phone: Protein electrophore sis panel - Serum or Plasma [facility] Work Phone: Protein measurement [facility] Work Phone: Protein measurement [facility] Serum protein electrophoresis [facility] Work Phone: Ultrasound elastography [facility] Work Phone: Ultrasound elastography [facility] Abdomen limited [facility] Work Phone: Abdomen limited [facility] Immunizations Immunization Date Immunization Notes Care Provider Jennifer mars 03-02-2021 influenza, high dose seasonal, preservative-free Elias Arredondo Other Phone: [facility] 03-01-[address] Elias Arredondo Work Phone: [facility] 03-29-[address] Elias Arredondo Work Phone: [facility] 03-29-2018 influenza, seasonal, injectable, preservative free Referring Provider Unknown [facility] 2100 Work Phone: 04-05-2017 Seasonal trivalent influenza vaccine, adjuvanted, preservative free; Translations: [Fluad 0.5 ML Intramuscular Suspension Prefilled Syringe] Susy Parks [employer] [facility] Work Phone: Payers Date Payer Category Payer Self-pay [id number] 2023 Unknown [id number] 2019 Unknown 2016 Unknown [id number] Medicare [id number] Private Health Insurance [id number] Private Health Insurance [id number] Unknown [id number] Unknown [id number] Unknown [id number] Unknown [id number] Social History Date Type Detail Facility No tobacco/smoke exposure No tobacco/smoke exposure [facility] 2100 Work Phone: Start: 11-03-2021 End: 06-30-2023 Tobacco smoking consumption unknown [facility] Start: 07-24-2020 None [facility] Start: 07-24-2020 Spouse/ Signif icant Other [facility] Start: 07-24-2020 Non-smoker [facility] Start: 1950 Sex Assigned At Male [facility] Start: 06-30-2023 Tobacco smoking status NHIS Ex-smoker (finding) [facility] Goals Date Patient Goal Desired Activity /State Functional Status Date Assessment Result Facility Functional observable [facility] Mental Status Date Assessment Result Facility 06-11-2022 Cognitive function Touch/Shaking [facility] Work Phone: 12-12-2021 Cognitive function Awake;Alert;A ppropriate;Foll ows Commands [facility] Work Phone: 02-28-2021 Cognitive functi ons [id number] [facility] Clinical Notes 11-26-2020 to 06-11-2022 <item> Note Date & Type Note Facility 06-11-2022 Procedure note [facility] 06-11-2022 Procedure note [facility] 06-11-2022 Procedure note [facility] 06-11-2022 Procedure note [facility] 03-02-2021 Note Send Summary: Note Recipients: Discharge: Summary: Admission Date: .27-Feb-2021 07:30:00 Discharge Date: 02-Mar-2021 Attending Physician at Discharge: Wali Crespo Admission Reason: Recurrent Crohns Final Discharge Diagnoses: Crohn's ileocolitis Procedures: Date: 27-Feb-2021 11:56:00 Procedure Name: Exploratory laparotomy, lysis of adhesions, ileocolic resection, ileocolic anastomosis Condition at Discharge: Satisfactory Disposition at Discharge: .Home Vital Signs: T [id number]% Date/Time03/02 4: 4: 4: 4: 4:54 Range(36.8C - 37.2C ) (70 - 84 ) (14 - 18 ) (104 - 135 )/ (63 - 78 ) (93% - 98% ) Highest temp of 37.2 C was recorded at 03/01 10:41 Date: Weight/Scale Type:Height: 27-Feb-2021 13:91706.5 kg / acy171.8 cm Physical Exam: Constitutional: Well developed, awake/alert/oriented x3, no distress, alert and cooperative Respiratory/Thorax: Patent airways, CTAB Cardiovascular: Regular, rate and rhythm Gastrointestinal: Nondistended, soft, non-tender, no rebound tenderness or guarding, island dressing over midline incision Extremities: normal extremities, no cyanosis edema Neurological: alert and oriented x3, intact senses, motor, response and reflexes Psychological: Appropriate mood and behavior Skin: Warm and dry, no lesions, no rashes Hospital Course: Mr. Alvarado underwent ex lap, lysis of adhesions, ileocolic resection, ielocolic anastomosis with Dr. Crespo on 02/27/21. Patient tolerated the procedure well, and was transferred from PACU to regular nursing floor post-operatively. Pain was adequately controlled, and pain medications were transitioned from IV to PO. Diet was advanced as tolerated, and patient had return of bowel function. Patient was encouraged to get out of bed and ambulate. Patient is discharged on 03/02/2021, with scripts for oxycodone, and Lovenox. Upon discharge, patient is tolerating a diet, denies pain, nausea, or vomiting, vital signs are stable, and remains afebrile. Discharge Information: and Continuing Care: Lab Results - Pending: None Radiology Results - Pending: None Discharge Instructions: Activity: activity as tolerated. May shower.. May not drive for 4 week(s). No pushing, pulling, or lifting objects greater than 10 pounds for 4 week(s). Weight-bearing Instructions: full weight bearing. Nutrition/Diet: Diet Consistency/Texture: soft, soft diet x 4 weeks, Avoid raw fruits and vegetables for couple weeks and slowly advance into diet as tolerated. Appetitie will return slowly, eat smaller more frequent meals at first, push away from table once full. Encourage Fluids: Drink plenty of a variety of fluids to prevent dehydration. Signs of dehydration are: dry mouth, dark yellow urine in small amounts, and dizziness with change in position or increased feeling of weakness/tiredness. Additive/Supplement: Supplements: ensure surgery 1 serving by mouth three times a day until gone Wound Care: Wound Site: abdomen Wound Type: surgical incision Change Dressin times a day as needed Cleanse With: soap and water Instructions: no lotions, creams, or tub soaks Other Instructions: You have jazlyn remaining in your incision. These will come out in 1-2 weeks at the outpatient clinic. An appointment will be made for you prior to your discharge. This incision may get wet, pat dry and cover as needed to protect your clothing, otherwise you may leave this incision open to air. Additional Orders: Additional Instructions: Bowel function will be irregular at first. You may experience some loose stool alternating with constipation. This is normal. As your diet advances and you begin to eat more regularly, your stool pattern will also become more regular. Drink plenty of a variety of fluids to prevent dehydration. Signs of dehydration are: dry mouth, dark yellow urine in small amounts, and dizziness with change in position or increased feeling of weakness/tiredness. Colace is a stool softener that you can take twice per day to prevent hard stool or constipation. You will be instructed to use a stool softener while on narcotics, as they may cause constipation. You should not take the Colace for loose watery stool. This is an over the counter medication. For diarrhea stools incorporate foods from the BRAT diet. This is a bland diet that consists of foods low in fiber: bananas, rice, applesauce and toast are jazlyn of the diet. You can also add tea, tapioca and yogurt if you would like. Be sure to drink plenty of fluids if you are having diarrhea, as you can become dehydrated quickly. Enoxaparin (Lovenox) is a blood thinner used to prevent or treat blood clots. Enoxaparin (Lovenox) is administered only by injection under the skin using a small needle and syringe. Injections can be given once or twice a day. You are taking enoxap (more content not included)... [facility] 02-27-2021 History of Present illness Narrative René Alvarado is a 70-year-old male with history of Crohn's disease. He developed recurrent ileocolic Crohn's disease. He underwent exploratory laparotomy, lysis of adhesions, ileocolic resection, and redo ileocolic anastomosis on 02/27/[address] Crespo.Eating and drinking well. Denies N/V, F/C. He is having about 6 BM's daily. Stool consistency varies from loose to formed.Still has catheter in. He is having a bladder scan on . [employer] Work Phone: 02-27-2021 History of Present illness Narrative René Alvarado is a 70-year-old male with history of Crohn's disease. He developed recurrent ileocolic Crohn's disease. He underwent exploratory laparotomy, lysis of adhesions, ileocolic resection, and redo ileocolic anastomosis on 02/27/[address] Crespo.Eating and drinking well. Denies N/V, F/C. He is having about 6 BM's daily. Stool consistency varies from loose to formed.Still has catheter in. He is having a bladder scan on . [employer] Work Phone: 02-27-2021 History of Present illness Narrative René Alvarado is a 70-year-old male with history of Crohn's disease. He developed recurrent ileocolic Crohn's disease. He underwent exploratory laparotomy, lysis of adhesions, ileocolic resection, and redo ileocolic anastomosis on 02/27/[address] Crespo.He was last seen approximately 3 weeks ago in the office.Claire catheter removed Wednesday. Feeling so much better without the catheter. He is eating and drinking well. He denies any nausea/vomiting. He denies any fever/chills. He is having about 4 bowel movements a day. Stool consistency varies from soft to loose. He is following up with his gastroenterology next week on April 22. [employer] Work Phone: 02-27-2021 Note PROCEDURE DETAILS Preoperative Diagnosis: Recurrent Crohns Postoperative Diagnosis: Recurrent Crohns Surgeon: Dr. Wali Crespo Resident/Fellow/Other Planting Material Unloader: Adrián Sierra Procedure: Exploratory laparotomy, lysis of adhesions, ileocolic resection, ileocolic anastomosis Estimated Blood Loss: 100cc Findings: Dense adhesions around previous ileocolic anastomosis with thickened and adherent mesentery Specimens(s) Collected: yes, ileocolic resection Complications: none Urine Output: 100 Patient Returned To/Condition: extubated, to pacu in stable condition Attestation: Note Completion: I am a:Resident/Fellow Attending AttestationI was present for the entire procedure Electronic Signatures: Wali Crespo () (Signed 27-Feb-2021 15:05) Authored: Note Completion Co-Signer: Post-Operative Note, Chart Review, Note Completion Adrián Sierra ( (Resident)) (Signed 27-Feb-2021 12:00) Authored: Post-Operative Note, Chart Review, Note Completion Last Updated: 27-Feb-2021 15:05 by Wali Crespo) [facility] 02-27-2021 Note History of Present I llness: History Present Illness: Reason for surgery: Ileocolic resection HPI: 69 year old man with Crohns and history of ileocolic resection who has developed an anastomotic stricture. He is here for resection of the anastomosis. He has had history of bowel obstruction/obstruction like symptoms in the past. well. Has 4-6 loose BMs per day at baseline. Has been on Humira 12 years. PMH: HTN, doesn't see Dr. david PSH: R inguinal hernia repair w/mesh, ICR 2003 FH: Brain aneurysm and colitis in mother, CHF in father SH: Former smoker, quit 25 years ago. No ETOH. . [place]spinosa. All: None Allergies: Allergies: No Known Allergies: Home Medication Review: Home Medications Reviewed: yes Impression/Procedure: Impression and Planned Procedure: Open ileocolic resection ERAS (Enhanced Recovery After Surgery): ERAS Patient: yes CPM/PAT Utilization: yes Immunonutrition Recovery Drink Utilization: yes Carbohydrate Supplement Drink Utilization: yes Review of Systems: Review of Systems: Constitutional: NEGATIVE: Fever, Chills Eyes: NEGATIVE: Blurry Vision ENMT: NEGATIVE: Nasal Discharge, Nasal Congestion Respiratory: NEGATIVE: Dry Cough, Shortness of Breath Cardiac: NEGATIVE: Chest Pain Gastrointestinal: NEGATIVE: Nausea, Abdominal Pain Genitourinary: NEGATIVE: Discharge Musculoskeletal: NEGATIVE: Decreased ROM Neurological: NEGATIVE: Dizziness, Confusion Vital Signs: Temperature C: 36.7 degrees C Temperature F: 98 degrees F Heart Rate: 65 beats per minute Respiratory Rate: 18 breath per minute Blood Pressure Systolic: 151 mm/Hg Blood Pressure Diastolic: 68 mm/Hg Physical Exam by System: Constitutional: not in distress, well appearing Eyes: EOMI, sclera white Head/Neck: Normocephalic Respiratory/Thorax: Normal respiratory effort on room air Cardiovascular: regular rate and rhythm Gastrointestinal: nondistended, soft Musculoskeletal: no gross bony abnormalities Extremities: normal extremities Neurological: awake, alert, oriented, moving all extremities Skin: warm and dry Consent: COVID-19 Consent: COVID-19 Risk ConsentSurgeon has reviewed koehler risks related to the risk of arvin COVID-19 and if they contract COVID-19 what the risks are. Electronic Signatures: Wali Crespo) (Signed 27-Feb-2021 15:02) Authored: Physical Exam, Note Completion Co-Signer: History of Present Illness, Allergies, Home Medication Review, Impression/Procedure, ERAS, Review of Systems, Physical Exam, Consent Adrián Sierra (Resident)) (Signed 27-Feb-2021 08:05) Authored: History of Present Illness, Allergies, Home Medication Review, Impression/Procedure, ERAS, Review of Systems, Physical Exam, Consent Last Updated: 27-Feb-2021 15:02 by Wali Crespo) [facility] 11-26-2020 History of Present illness Narrative René Alvarado is a 69 yo man with Crohn's who presents to clinic today following referral from Dr. Zee due to history of stricture at ileocolic anastomosis. He had surgery in 2003 at [facility], ileocolic resection. He says that Dr. Zee has never been able to get through the ICA, last attempted 1 month ago. Reportedly he has another stricture which was found during a possible SBFT (X-rays). He is minimally symptomatic, occasionally will develop a blockage with pain but drinks prune juice or takes Ex-Lax and gets better. Makes sure to chew well. Has 4-6 loose BMs per day at baseline. Has been on Humira 12 years.PMH: HTN, doesn't see Dr. Keenan: R inguinal hernia repair w/mesh, ICR 2004FH: Brain aneurysm and colitis in mother, CHF in fatherSH: Former smoker, quit 25 years ago. No ETOH. . [place].All: None [id number] Work Phone: Chief complaint Narrative - Reported RENÉ ALVARADO is being seen for a colon and rectal evaluation.RENÉ ALVARADO is being seen for an evaluation of Crohn's stricture. [id number] Work Phone: Evaluation note Psychological: Appro priate mood and behaviorNeurological: alert and oriented x3, intact senses, motor, response and reflexesExtremities: normal extremities, no cyanosis edemaGastrointestinal: Nondistended, soft, non-tender, no rebound tenderness or guarding, island dressing over midline incisionCardiovascular: Regular, rate and rhythmRespiratory/Thorax: Patent airways, CTABSkin: Warm and dry, no lesions, no rashesConstitutional: Well developed, awake/alert/oriented x3, no distress, alert and cooperative [facility] Evaluation note Diagnosis Onset Date Crohn's disease [facility] Work Phone: Evaluation note* Diagnosis Onset Date Resolution Status Crohn's disease chronic Fatty liver acute Crohn's disease [facility] Work Phone: Evaluation note* Diagnosis Onset Date Resolution Status Essential hypertension chron ic Nonrheumatic mitral (valve) prolapse [facility] Work Phone: Evaluation note* Diagnosis Onset Date Resolution Status Crohn's disease chronic Fatty liver chronic Gastric reflux [facility] Work Phone: Evaluation note* Diagnosis Onset Date Resolution Status Crohn's disease chronic Fatty liver chronic Gastric reflux chronic Essential hypertension chron ic Nonrheumatic mitral (valve) prolapse [facility] Work Phone: Evaluation note* Diagnosis Onset Date Resolution Status Essential hypertension chron ic Nonrheumatic mitral (valve) prolapse chronic Crohn's disease chronic Fatty liver chronic Gastric reflux [facility] Work Phone: Evaluation noteNo assessment information available [facility] Work Phone: History and physical note Author Toni Friend [facility] June 11, 2022 6:29am Note Date/Time June 11, 2022 6 :29am [facility] Medical Records Department [address] [place] [address] History & Physical Exam 06/11/22628 MR#: [id number] Acct: [id number] Name: RENÉ ALVARADO Rep #:[id number] : 1950 71 From: Toni Santoyo DO PCP: Dr. Elias Arredondo, DO Status:[facility] Location: [place] [address] History and Physical Date of Admission: 06/11/22 71 M who presents to the office today for 2 month f/u Crohn's disease, stenotic type, history of 2 surgeries.? He started Stelara on 12/12/21, first injection will be next month. Doing well, no adverse effects from Stelara, bowels are improving--not as loose or urgent 10/2021 labs: ESR 11, CRP normal, LDH 171, positive p-ANCA, Positive stool calprotectin; results all consistent with Crohn's 12/15/21 CT/Abdomen/Pelvis WITH Contrast IMPRESSION: The patient is status post right hemicolectomy. Mild degree of increased markings are seen in the mesenteric fat in the right lower quadrant extending into the region of the hepatic flexure with small mesenteric lymph nodes.? Mild degree inflammatory changes should be ruled out. Fatty infiltration of the liver. He was diagnosed with Crohn's disease approximately 16 to 18 years ago.? He needed surgery at the time of his diagnosis; that was an ileocolonic anastomosis.? He has had 1 other surgery for his Crohn's; that was on [facility]21[facility].? He was on Humira every 2 weeks up until the time of his surgery.? The plan was to maybe put him on a newer medication after that.? He was never on any other medication for Crohn's. He currently uses as needed loperamide, as needed simethicone, as needed Lactaid.? He takes daily omeprazolefor heartburn. Most recent colonoscopy was 10/31/[address] Zee.? A small bowel series on 11/07/2020 showed 2 areas of stenosis of the distal ileum just before the anastomosis with the ascending colon. ? Bowels are loose. Two BMs per day. No nocturnal BMs. Some urgency. No blood. No abd pain. Appetite is good. He has gained 20 lbs since his surgery. He was only eating eggs before surgery because of obstruction, that had been a problem for about 6 mos. Exam Const General: cooperative, healthy appearing and comfortable Orientation: alert, awake and oriented x3 HENMT Head: normal to inspection Eyes General: appearance normal, both eyes and all related structures Resp Effort & Inspection: normal respiratory effort Quality Reporting Tobacco Screening ([facility] 138) Smoking Status: Former smoker Assessment and Plan Assessment and Plan (1) Crohn's disease: ?Status:?Chronic ?Qualifiers: ?Digestive disease complication type:?unspecified complication??Gastrointestinal tract location:?unspecified location? Qualified Code(s):?K50.919 - Crohn's disease, unspecified, with unspecified complications ?Plan: Update CBC and CMP today He'll start the injections of Stelara next month, q 8wks Upper and lower endoscopy in mid May w/ office f/u 2 wks later (2) Fatty liver: ?Status:?Acute ?Plan: Liver US and elastography, he can wait for May 2022 ? ? ? Orders: Orders Comprehensive Metabolic Profil 01/12/22 K50.919 - Crohn's disease, unsp ecified, with unspecified complications ? CBC W/Diff, Automated 01/12/22 K50.919 - Crohn's disease, unsp ecified, with unspecified complications ? Abdomen Limited 01/12/22 K76.0 - Fatty (change of) liver , not elsewhere classified ? Elastography Parenchyma/Organ 01/12/22 K76.0 - Fatty (change of) liver , not elsewhere classified ? I have examined the patient and the H&P has been reviewed. There are no clinicalchanges since date of exam. 06/11/22 0629 <Electronically signed by Toni Santoyo DO> Cosigner Signature (if applicable): CC: Dr. Elias Arredondo DO; Toni Santoyo DO~ Signed [facility] Work Phone: Hospital Discharge instructions* Activity:activity as tolerated. May shower. May not drive for 4 week(s). No pushing, pulling, or lifting objects greater than 10 pounds for 4 week(s). Weight-bearing Instructions: full weight bearing. * Wound Care 1:Wound Site: abdomenWound Type: surgical incisionChange Dressin times, a day, as neededCleanse With: soap and waterInstructions: no lotions, creams, or tub soaksOther Instructions: You have jazlyn remaining in your incision. These will come out in 1-2 weeks at the outpatient clinic. An appointment will be made for you prior to your discharge. This incision may get wet, pat dry and cover as needed to protect your clothing, otherwise you may leave this incision open to air. * Additional Orders:Additional Instructions: Bowel function will be irregular at first. You may experience some loose stool alternating with constipation. This is normal. As your diet advances and you begin to eat more regularly, your stool pattern will also become more regular.Drink plenty of a variety of fluids to prevent dehydration. Signs of dehydration are: dry mouth, dark yellow urine in small amounts, and dizziness with change in position or increased feeling of weakness/tiredness.Colace is a stool softener that you can take twice per day to prevent hard stool or constipation. You will be instructed to use a stool softener while on narcotics, as they may cause constipation. You should not take the Colace for loose watery stool. This is an over the counter medication.For diarrhea stools incorporate foods from the BRAT diet. This is a bland diet that consists of foods low in fiber: bananas, rice, applesauce and toast are jazlyn of the diet. You can also add tea, tapioca and yogurtif you would like. Be sure to drink plenty of fluids if you are having diarrhea, as you can become dehydrated quickly.Enoxaparin (Lovenox ) is a blood thinner used to prevent or treat blood clots.Enoxaparin (Lovenox ) is administered only by injection under the skin using a small needle and syringe. Injections can be given once or twice a day.You are taking enoxaparin (Lovenox ) for __prevention of blood clots___. You will continue to take enoxaparin (Lovenox) for __28 days post-op__. It is important that you give the injections at the same time each day.It is important that you continue yourenoxaparin until told to stop.If you forget an injection, contact your doctor for advice as to whenyou should give your next injection. Let everyone involved in your care, such as a dentist or otherprovider, know that you are taking enoxaparin (Lovenox ).Side Effects: - Skin bruises, itching, and bleeding around the injection site, can occur.- If bleeding does occur, it may take a little longerthan usual to stop. Let your doctor know if you develop a rash of dark red spots under the skin.Signs of bleeding that you should call your doctor: - Gums that bleed after brushing your teeth lastingmore than 15 minutes.- A nose bleed that lasts for more than 15 minutes.- Bleeding from a cut that does not stop in 15 minutes.- Urine that looks red, or urine that is dark like coffee.- Stool (BMs) that are covered with blood, or are black.- Vomit that is bright red or vomit that looks like coffee.How to administer the injection:1. Wash your hands with soap and water. Dry your hands.2. Sit down o r lie flat in a comfortable position.3. Select an area on the right or left side of your stomach (at least 2 inches away from your belly button), the back of your upper arm or side of your upper thigh.4. Clean the area with an alcohol swabs. Allow the area to dry.5. Carefully pull off the needle cap from the syringe and discard cap. Leave the air bubble in the syringe. 6. Hold the syringe like a pencil in the hand you write with.7. With your other hand, gently pinch around the cleansed area to make a fold in the skin. Continue to hold the skin fold throughout the injection.8. Press the needlestraight down and all the way into the skin fold.9. Press down on the plunger as far as it will go with your finger until the syringe is empty.10. Remove the needle by pulling it straight out.11. DO NOT rub the injection site.12. Point the needle down and away from yourself and others. Push down onthe plunger to release the safety shield.13. Drop the used syringe into a thick plastic disposable c ontainer. * Call Provider If:Fever of 100.4 F (38 C) or higher. Chills. Vomiting (throwing up) and not able to eat or drink for 12 hours. Any new concerning symptoms. Call the office for signs of infection, suchas, sustained elevated temperature greater than 100 degrees, increased abdominal pain, increased redness or swelling, tenderness to touch, or drainage along incision. Also call the office for persistent nausea or vomiting. If you become nauseated, stop eating and drink clear liquids only. Once nausea goes away, advance your diet slowly as tolerated. If nausea persists, call the office or come to this ER. If you have questions or concerns, call your doctor s office at: [phone] option #2. This phone number is answered 07/12. If it is after hours, and you need to speak to a physician, the service will answer and page the physician covering, who will return your call. * Follow Up Appointment 1:Physician/Dept/Service: Deanna Emmanuel, Nurse Practitioner for Dr Graffuled Date/Time: 25-Mar-2021 11:00Location: [facility] [address] [address], [address], [facility] [address]Phone Number: [phone] option #2Comments: follow up after hospital discharge [facility] for referral (narrative)* Reason for Referral: s/p Exploratory laparotomy, lysis of adhesions, ileocolic resection, ileocolicanastomosis. [facility] for referral (narrative)No reason for referral information available[facility] Work Phone: Chief Complaint POVPOV* A telephone visit (audio only) between the patient (at the originating site) and the provider (at the distant site) was utilized to provide this telehealth service. * Verbal consent was requested and obtained from RENÉ ALVARADO on this date, 04/15/2021 10:00 AM , for a telehealth visit. * POV Summary Purpose Family History Relationship Condition Age at Onset Recorded Date/T michaelle mother Coronary artery disease Unknown Hypertension Unknown Disorder of intestine Unknown father Coronary artery disease Unknown Advance Directives Advance Directive Response Recorded Date/ Time Advance Directives Yes June 3:04pm Living Will Yes April 11, 2:06pm Power of Beaver Trapper Yes April 11, 2021 2:06pm Advance Directive Response Recorded Date/ Time Name of Medical Power of Beaver Trapper June 10, 2022 9:00am Advance Directives Yes June 2:04pm Living Will Yes June 10 9:00am Power of Beaver Trapper Yes June 10, 2022 9:00am Advance Directive Response Recorded Date/ Time Name of Medical Power of Beaver Trapper June 10, 2022 10:00am Advance Directives Yes June 3:04pm Living Will Yes June 10 10:00am Power of Beaver Trapper Yes June 10, 2022 10:00am Advance Directive Response Recorded Date/ Time Advance Directives Yes June 2:04pm Living Will Yes June 10 9:00am Power of Beaver Trapper Yes June 10, 2022 9:00am Advance Directive Response Recorded Date/ Time Advance Directives Yes June 3:04pm Chief Complaint and Reason for Visit Chief Complaint crohns INT LABS Reason for Visit Crohn's disease Chief Complaint crohns INT LABS INT ORDERS/STOOL SAMPLE CROHN'S STAGING *ORAL & IV* Reason for Visit Crohn's disease Chief Complaint crohns INT LABS INT ORDERS/STOOL SAMPLE CROHN'S STAGING *ORAL & IV* STELARA Reason for Visit Crohn's disease Chief Complaint crohns INT LABS INT ORDERS/STOOL SAMPLE CROHN'S STAGING *ORAL & IV* STELARA 2 MO FU INT LABS Reason for Visit Crohn's disease Fatty liver Crohn's disease Chief Complaint crohns INT LABS INT ORDERS/STOOL SAMPLE CROHN'S STAGING *ORAL & IV* STELARA 2 MO FU INT LABS FATTY LIVER Reason for Visit Crohn's disease Fatty liver Crohn's disease Chief Complaint 1 Y FU Reason for Visit Essential hypertensi on Nonrheumatic mitral (valve) prolapse Chief Complaint 2 WK FU EORDER Reason for Visit Crohn's disease Fatty liver Gastric reflux Chief Complaint 2 WK FU EORDER FATTY LIVER Reason for Visit Crohn's disease Fatty liver Gastric reflux Chief Complaint 2 WK FU EORDER FATTY LIVER PSA Reason for Visit Crohn's disease Fatty liver Gastric reflux Chief Complaint 6 MO FU 1 Y FU NONRHEUMATIC MITRAL (VALVE) HYPERTENTION Amb Documentation Reason for Visit Crohn's disease Fatty liver Gastric reflux Essential hypertension Nonrheumatic mitral (valve) prolapse Chief Complaint 1 Y FU NONRHEUMATIC MITRAL (VALVE) HYPERTENTION Amb Documentation 6 MO FU INT LABS Reason for Visit Essential hypertensi on Nonrheumatic mitral (valve) prolapse Crohn's disease Fatty liver Gastric reflux Chief Complaint NONRHEUMATIC MITRAL (VALVE) HYPERTENTION Amb Documentation 6 MO FU INT LABS EORDER- STOOL Reason for Visit Crohn's disease Fatty liver Gastric reflux Chief Complaint Admit Date 4 M FU October 30, 2024 8:22 am Additional Source Comments <item> Privacy Markings (unrecogniz ed section and content) Section Author: Rochelle Aleman PROHIBITION ON REDISCLOSURE OF CONFIDENTIAL INFORMATION This notice accompanies a disclosure of information concerning a client made to you with the consent of such client. (unrecognized sect ion and content) No Status Records FoundNo Status Records FoundNo Status Records Found INFORMATION SOURCE (unrecogn ized section and content) DATE CREATED AUTHOR 04/16/2021 [facility] DATE CREATED AUTHOR AUTHOR'S ORGANIZ ATION 08/02/2021 [facility] DATE CREATED AUTHOR AUTHOR'S ORGANIZ ATION 07/19/2024 [facility] Goals (unrecognized section and content) Goals may be documented in a n alternate sectionGoals may be documented in an alternate sectionGoals may be documented in an alternate sectionGoals may be documented in an alternate sectionGoals may be documented in an alternate sectionGoals may be documented in an alternate sectionGoals may be documented in an alternate sectionGoals may be documented in an alternate sectionGoals may be documented in an alternate sectionGoals may be documented in an alternate section Care Teams (unrecognized sec tion and content) Team Status: Active Member Role Status Dates Dr. Elias Arredondo , DO Family Provider Active Dr. Elias Arredondo , DO Primary Care Provider Active Team Status: Inactive Member Role Status Dates Dr. Elias Arredondo , DO Primary Care Provider, Referrin g Provider Active Dr. Nam Flores MD Attending Provider Active Team Status: Active Member Role Status Dates Dr. Elias Arredondo , DO Primary Care Provider, Referrin g Provider Active Dr. Toni Santoyo , DO Attending Provider, Other Prov ider Active Team Status: Inactive Member Role Status Dates Dr. Elias Arredondo , DO Primary Care Provider, Referrin g Provider Active Dr. Toni Santoyo , DO Attending Provider Active Team Status: Inactive Member Role Status Dates Dr. Elias Arredondo , DO Primary Care Provider, Referrin g Provider Active Jennie Reis 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, 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 Attending Provider Active Team Status: Inactive Member Role Status Dates Dr. Elias Arredondo , DO Primary Care Provider Active Jennie Reis 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, 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 Attending Provider, Referrin g Provider Active Team Status: Inactive Member Role Status Dates Dr. Elias Arredondo DO Primary Care Provider Active Jennie Reis 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, 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 Attending Provider Active Team Status: Inactive Member Role Status Dates Dr. Elias Arredondo , DO Primary Care Provider Active Alexandria Chaidez , 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 Attending Provider, Referrin g Provider Active Team Status: Inactive Member Role Status Dates Dr. Elias Arredondo , DO Primary Care Provider, Referrin g Provider Active Wayne Daniel 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, 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 Attending Provider Active Team Status: Active Member Role Status Dates Dr. Elias Arredondo , DO Primary Care Provider Active Dr. Nam Flores MD Attending Provider Active Team Status: Active Member Role Status Dates Dr. Elias Arredondo , DO Primary Care Provider Active Wayne Daniel 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, 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 Attending Provider Active Team Status: Inactive Member Role Status Dates Dr. Elias Arredondo , DO Primary Care Provider Active Wayne Daniel 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, 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 Attending Provider, Referring Pro vider Active Team Status: Active Member Role Status Dates Dr. Elias Arredondo , DO Primary Care Provider Active Dr. Nam Flores MD Attending Provider Active Wayne Daniel 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, 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 Referring Provider Active Team Status: Inactive Member Role Status Dates Dr. Elias Arredondo DO Primary Care Provider Active Dr. Toni Santoyo , DO Attending Provider, Referring Provider Active Team Status: Active Member Role Status Dates Dr. Elias Arredondo DO Primary Care Provider Active Team Status: Inactive Member Role Status Dates Dr. Toni Santoyo DO Attending Provider Active Start: October 30, 2024 End: October 30, 2024 Dr. Elias Arredondo DO Primary Care Provider Active Start: October 30, 2024 End: October 30, 2024 Dr. Elias Arredondo DO Referring Provider Active Start: October 30, 2024 End: October 30, 2024 FOR RECORDS PERTAINING TO PATIENTS WHO ARE OR HAVE BEEN ENROLLED IN A CHEMICAL DEPENDENCY/SUBSTANCEABUSE PROGRAM, SOME INFORMATION MAY BE OMITTED. This clinical summary was aggregated from multiple sources. Caution should be exercised in using it in the provision of clinical care. This summary normalizes information from multiple sources, and as a consequence, information in this document may materially change the coding, format and clinical context of patient data. In addition, data may be omitted in some cases. CLINICAL DECISIONS SHOULD BE BASED ON THE PRIMARY CLINICAL RECORDS. [facility] [employer] provides no warranty or guarantee of the accuracy or completeness of information in this document.
== END | disposition home or self-care (01) ==
LOC: LAB 09:22
PROVIDERS: PCP Family Medicine; Referring Provider Internal Medicine Gastroenterology; Visit Provider Internal Medicine Gastroenterology
DX: Z00.00 Encounter for general adult medical examination without abnormal findings (principal)

== ENCOUNTER → 2024-12-04 | Outpatient (CLI) | payer OTHER, SELFPAY ==
[2024-12-04 10:39] LABS: Hematocrit 43.7 % (40-54); Hemoglobin 14.8 g/dL (13.0-16.5); Immature Granulocytes Count 0.020 X10^3/uL (0.0-0.0); Mean Corp Hgb Conc 33.9 g/dL (32-36); Mean Corpuscular Volume 96.5 fL (80-94); Mean Platelet Vol. 10.8 fl (6.2-12.0); NRBC Flagged by Analyzer 0 % (0-5); Platelet Count 198 K/mm3 (150-450); RBC Distribution Width CV 14.5 % (11.6-14.6); RBC Distribution Width SD 51.7 fl (35.1-43.9); Red Blood Count 4.53 M/mm3 (4.6-6.2); White Blood Count 8.0 K/mm3 (4.4-11.0)
[2024-12-04 12:22] LABS: AST(SGOT) 21 U/L (<=37); Alanine Aminotransfer ALT/SGPT 13 U/L (<=46); Albumin, Serum 4.0 g/dL (3.4-4.8); Alkaline Phosphatase 87 U/L (40-129); Anion Gap 11 (5-15); BUN 13 mg/dL (4-19); BUN/Creat Ratio 11.2 RATIO (10-20); Calcium,Total 9.4 mg/dL (7.6-11.0); Carbon Dioxide 25.8 mmol/L (21.0-32.0); Chloride 101 mmol/L (98-108); Cholesterol 151 mg/dL (<=200); Globulin 3.1 g/dL (2.2-4.2); Glucose 88 mg/dL (70-99); Low Density Lipoprotein Calc. 67 mg/dL; Potassium 4.6 mmol/L (3.3-5.1); Triglycerides 160 mg/dL; Very Low Density Lipoprotein 32 mg/dL (5-40); cholesterol:hdl ratio screen 2.93
[2024-12-04 12:26] LABS: PSA,Total - Annual Screen 4.54 ng/mL (0.02-4.00); Vitamin B12 < 150 pg/mL (180-914)
== END | disposition home or self-care (01) ==
LOC: BFHLAB 08:36
PROVIDERS: PCP Family Medicine; Visit Provider Family Medicine
DX: I10 Essential (primary) hypertension (principal); K50.90 Crohn's disease, unspecified, without complications; Z12.5 Encounter for screening for malignant neoplasm of prostate
CPT/HCPCS: 36415; 80053; 80061; 82607; 84153; 85025; G0103

== ENCOUNTER → 2025-03-21 | Outpatient (CLI) | payer OTHER, SELFPAY ==
[2025-03-21 12:52] LABS: Anion Gap 13 (5-15); BUN 21 mg/dL (4-19); BUN/Creat Ratio 15.9 RATIO (10-20); Calcium,Total 9.1 mg/dL (7.6-11.0); Carbon Dioxide 23.2 mmol/L (21.0-32.0); Chloride 103 mmol/L (98-108); Glucose 84 mg/dL (70-99); Potassium 4.5 mmol/L (3.3-5.1)
[2025-03-21 13:31] LABS: CPK Total, Creatine Kinase 39 U/L (24-195); Pro- Brain NATRIURETIC PEPTIDE 280 pg/mL (<=1800)
[2025-03-21 13:37] LABS: CRP 15.70 mg/L (0.0-3.0)
[2025-03-22 09:09] LABS: ANTINUCLEAR ANTIBODIES DIRECT Negative (Negative)
== END | disposition home or self-care (01) ==
LOC: MTLAB 09:27
PROVIDERS: Nurse Practitioner Family; PCP Family Medicine; Referring Provider Family Medicine; Visit Provider Family Medicine
DX: M13.0 Polyarthritis, unspecified (principal); M79.10 Myalgia, unspecified site; R60.9 Edema, unspecified; I49.3 Ventricular premature depolarization; E78.5 Hyperlipidemia, unspecified
CPT/HCPCS: 36415; 80048; 82550; 83880; 85652; 86038; 86140; 86200; 86225; 86431; 86617

== ENCOUNTER → 2025-04-25 | Outpatient (CLI) | payer OTHER, SELFPAY ==
[2025-04-25 13:02] LABS: Anion Gap 11 (5-15); BUN 18 mg/dL (4-19); BUN/Creat Ratio 10.2 RATIO (10-20); Calcium,Total 8.7 mg/dL (7.6-11.0); Carbon Dioxide 21.9 mmol/L (21.0-32.0); Chloride 107 mmol/L (98-108); Glucose 97 mg/dL (70-99); Potassium 4.8 mmol/L (3.3-5.1)
== END | disposition home or self-care (01) ==
LOC: BFHLAB 09:01
PROVIDERS: PCP Family Medicine; Visit Provider Family Medicine
DX: I10 Essential (primary) hypertension (principal)
CPT/HCPCS: 36415; 80048